=== PATIENT | female | born 1995 | race Caucasian/White ===

== ENCOUNTER 2023-10-21 09:52 | Outpatient (AMB) | payer OTHER, SELFPAY ==
--- NOTE | 2023-10-21 09:59 | A.OFFVIS_ITS ---
Intake Vital Signs 10/21/23 10:11 Height 5 ft 9 in Weight 231 lb 8 oz BMI 34.2 BP 108/72 Blood Pressure Location Lt brachial Position Sitting Respiration 18 Pulse 75 Pulse Source Pulse Oximeter Pulse Oximetry (%) 97 Oxygen Delivery Method Room Air Intake Visit Reasons: Neck, Shoulders and Upper Back Chronic Pain Intake Note: Patient comes in for initial visit was referred by primary care. Reports pain 4/10. Allergies No Known Allergies Allergy (Verified 10/21/23 10:01) HPI HPI Comments History of Present Illness Details Kay is very pleasant 28 years old female who presents in my office with chronic widespread neck pain as well as pain in the back of the head as well as pain in bilateral shoulders pain in bilateral side chest and pain in bilateral upper arms. 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 She reports her pain in severity 5/10. She can not sleep normally because of her pain she can not do activities of daily living she can take care by herself but she can not function normally. 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 She is self mobile. Movements aggravate her pain. Heat applications cold applications topical medications and oral medications help her pain minimally. The pain is worse in the late afternoon. Pain is less severe when she is laying down. In terms of tissue damage he reports her pain is pulsing, pulling, dull, heavy, exhausting, sickening, suffocating, punishing, radiating, tight sensation. She is taking gabapentin for her pain and she takes Cymbalta she is taking tramadol prescribed by primary care physician as needed. She was a subject of MRI of the cervical spine in 2019. She recently had x-ray of the cervical spine at [facility]. She reports that she was doing multiple sessions of many times physical therapy with 50% pain improvement the last physical therapy was 1 year ago. She reports chiropractic manipulations in 2020 which gave her no improvement. She reports that massage therapy also give her some sort of pain relief. She is tried 10s unit in the past and it gave her 25% short-term pain improvement. Her past medical history significant for headaches dizziness and fainting fatigues anxiety disorder heart palpitations and digestive problems. Her past surgical history significant for tonsillectomy and bilateral jaw arthroscopy. She denies smoking cigarettes, drinking alcohol also denied she drinks 1-2 caffeinated beverages a week she denies recreational drugs Review of Systems Const Denies chills and Denies fever(s) ENT Reports Normal hearing present Card Reports chest pain, Denies syncope, Denies pedal edema and Denies edema Resp Denies chest congestion, Denies cough, Denies hemoptysis, Denies excessive phlegm production, Denies pain on inspiration and Denies pain with cough GI Denies abdominal pain, Denies belching, Denies melena and Denies bloating Denies urinary incontinence Musc Reports as per HPI Neuro Reports Normal hearing present, Denies Abnormal speech present, Denies confusion, Denies syncope, Denies lack of coordination and Denies Sensory de ficit (Neuro) Psych Reports anxiety and Denies confusion Physical Exam Vital Signs: Last Vital Signs Pulse 75 10/21/23 10:11 Resp 18 10/21/23 10:11 BP 108/72 10/21/23 10:11 Pulse Ox 97 10/21/23 10:11 Oxygen Delivery Method Room Air 10/21/23 10:11 BMI result Body Mass Index 34.2 Const General: no acute distress; No confusion Orientation/consciousness: patient oriented x3 and No confusion Eyes General: appearance normal, both eyes and all related structures Pupils: Equal, round and reactive pupils present EOM: EOMs intact bilaterally Neck Other: Axial neck compression and axial neck distention minimal affects her pain. Flexing had backwards aggravate her pain more than flexing forward but both of t hese maneuvers aggravate her pain. Spurling test on the right causes pain radiating all the way down to the right upper extremity all the way to the index finger C7 distribution. Valsalva maneuver does not aggravate her pain. Chest Chest palpation & inspection: normal inspection of the chest Resp Effort & Inspection: normal respiratory effort, able to speak in complete sentences, normal respiratory pattern, no audible wheezes and no cough Cardio Jugular venous distension: no JVD GI Inspection: Yes normal to inspection Neuro General: patient oriented x3, gait normal and No confusion Cranial nerves: Yes CN's II-XII intact bilaterally, Yes Equal, round and reactive pupils present, Yes Normal hearing present and Yes Ability to bilaterally elevate shoulders present Speech: No Abnormal speech present Gait exam (Neuro): Normal gait present Motor exam (neuro): 5/5 motor strength present throughout Sensory Exam: No Sensory deficit (Neuro) Extrem General: No pedal edema Psych Speech and movement: Normal speech and movement present Affect: normal affect Attitude: cooperative Thought process: Normal thought process present Thought content: Normal thought content present Insight: Good insight present (Psych) Judgement: Good judgement present (Psych) Assessment & Plan Assessment & Plan (1) 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 (2) Occipital neuralgia: Code(s): M54.81 - Occipital neuralgia Plan: 2. (3) Chronic pain syndrome: Code(s): G89.4 - Chronic pain syndrome Plan: 3. (4) Meenakshi-Danlos syndrome: Code(s): Q79.60 - Meenakshi-Danlos syndrome, unspecified Plan: 4. Plan This patient had MRI about 5 years ago with symptoms of radiculopathy described as above I believe she needs to go for repeat of the MRI. She is suffering from occipital neuralgia and upper cervical spine spondylosis. I offered her diagnostic medial branch block C2-C3 C4 bilateral. She agreed to go for the procedure. I will schedule her for the procedure and next appointment with me I will schedule her for the follow-up after the injection. Multiple options could be offered to the patient to alleviate her cervical pain and occipital neuralgia including peripheral nerve stimulation, C2-C3 C4 steroid injections, sprint PNS lamina C3 or C4. Orders: Orders MR cervical spine wo con Today M47.812 - Spondylosis without myelopathy or radiculopathy, cervical region Patient Instructions: I here by testify that I spent 49 minutes in conversation with this patient as well as planning her care, organizing her note. 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
[2023-10-21 10:11] VITALS: BP 108/72; PULSE 75; RESP 18; O2SAT 97; BMI 34.2
== END 2023-10-21 10:39 | disposition home or self-care (01) ==
PROVIDERS: PCP Nurse Practitioner Family; Referring Provider Nurse Practitioner Family; Visit Provider Anesthesiology
DX: M47.812 Spondylosis without myelopathy or radiculopathy, cervical region (principal); M54.81 Occipital neuralgia; G89.4 Chronic pain syndrome; Q79.60 Ehlers-Danlos syndrome, unspecified
CPT/HCPCS: 99204

== ENCOUNTER → 2023-10-21 09:52 | Outpatient (BNVA) | payer OTHER, SELFPAY | PROVIDERS: PCP Nurse Practitioner Family; Referring Provider Nurse Practitioner Family; Visit Provider Anesthesiology ==

== ENCOUNTER 2023-11-15 20:08 | Outpatient (REF) | payer OTHER, SELFPAY ==
--- NOTE | ~2023-11-15 | MR_ITS ---
EXAMINATION: MR CERVICAL SPINE WITHOUT CONTRAST CLINICAL INFORMATION: 28-year-old with self-reported base of skull and neck pain, with bilateral arm numbness and tingling. Spondylosis without myelopathy or radiculopathy, cervical region. COMPARISON: None available. TECHNIQUE: MRI of the cervical spine was obtained using routine sequences without contrast. FINDINGS: ALIGNMENT: Normal. No significant subluxations. CRANIOCERVICAL JUNCTION/C1-C2 ARTICULATIONS: Intact and aligned. VISUALIZED INTRACRANIAL STRUCTURES: Partially empty sella, normal variant. VERTEBRAL BODIES: Vertebral body heights are well maintained. No acute or non-healed fractures. DISC SPACES AND ENDPLATES: Disc desiccation noted at C5-C6 and C6-C7 without significant disc space height loss. Minor anterior marginal endplate spurring at C5-C6. Endplates appear grossly intact. BONE MARROW: No suspicious marrow-replacing process or bone marrow edema. C2-C3: Normal annular contour. No DJD, canal or foraminal stenosis. C3-C4: No disc herniation or canal stenosis. No significant DJD or neural foraminal stenosis. C4-C5: Normal annular contour. Mild facet joint arthropathy noted, left more than right, and uncinate process spurring, with minor foraminal narrowing bilaterally without neural impingement. No canal stenosis. C5-C6: [id number]-[id number] paramedian extruded disc herniation with slight caudal migration, with effacement of the dural sac asymmetric to the left without cord compression. There is associated mild central canal narrowing asymmetric to the left. There is minor facet arthropathy bilaterally and uncinate process spurring with minimal right-sided and vqny-po-cmbivqrw left-sided neural foraminal narrowing without neural impingement. C6-C7: Left paramedian disc herniation noted with flattening of the ventral dural sac on the left without cord impingement. No significant canal stenosis. Mild facet joint arthropathy noted bilaterally and uncinate process spurring noted with mild right and moderate left-sided neural foraminal stenosis. C7-T1: Tiny central disc protrusion without cord impingement or canal stenosis. Minor facet joint arthropathy noted without significant neural foraminal stenosis. Central disc herniation also noted at T2-T3 without cord impingement or canal stenosis. SPINAL CORD: The cervical and visualized upper thoracic spinal cord is normal in morphology, caliber and signal intensity throughout. EXTRACRANIAL SOFT TISSUES: Incidental note is made of a 1.4 x 0.8 cm enlarged level IIb lymph node on the right of indeterminate significance. Signal voids are noted in the visualized major arterial and venous structures. MR/MR cervical spine wo con IMPRESSION: 1. Discogenic degenerative changes at C5-C6 and C6-C7, with central to left paramedian extruded disc herniation at C5-C6 and left paramedian disc herniation at C6-C7 without cord impingement. Mild central canal stenosis noted at C5-C6. 2. Ayzm-so-ifpwfxxr degrees of bony neural foraminal narrowing at C5-C6 and C6-C7 as discussed above, most apparent on the left at C6-C7. 3. Tiny central disc protrusions at C7-T1 and T2-T3. 4. A single enlarged level IIb lymph node in the right suprahyoid IJ chain, which is nonspecific. Follow up as per clinical indications.
== END 2023-11-15 20:09 | disposition home or self-care (01) ==
LOC: HO.MRI 20:08
PROVIDERS: PCP Internal Medicine; Visit Provider Anesthesiology
DX: M47.812 Spondylosis without myelopathy or radiculopathy, cervical region (principal)
CPT/HCPCS: 72141

== ENCOUNTER 2023-12-02 08:39 | Outpatient (AMB) | payer OTHER, SELFPAY ==
--- NOTE | 2023-12-02 08:40 | MHC.OFFVIS ---
Intake Vital Signs 12/02/23 08:55 Height 5 ft 9 in Weight 231 lb BMI 34.1 BP 124/64 Blood Pressure Location Lt brachial Position Sitting Respiration 16 Pulse 73 Pulse Source Pulse Oximeter Pulse Oximetry (%) 97 Oxygen Delivery Method Room Air Intake Visit Reasons: MRI Review Intake Note: Patient comes in to discuss MRI results. Reports pain 8/10. Allergies No Known Allergies Allergy (Verified 12/02/23 08:57) HPI HPI Comments History of Present Illness Details Mandi is very pleasant 28 years old female who presents in my office with chronic widespread neck pain as well as pain in the back of the head as well as pain in bilateral shoulders pain in bilateral side chest and pain in bilateral upper arms. 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 I sent her for the MRI of the cervical spine, results of the MRI dictated as below. She reports intractable cervicalgia pain 8/10, pain is being aggravated by working, prolonged sitting of the computer, her pain is mostly radiating to the occipital area and prevents her from performing activities of daily living, engaging in social interactions. I offered her sprint PNS trial to treat this pain. . Prolonged and detailed conversation followed, MRI findings were explained to the patient. Procedure was explained to the patient. She wants to think about the procedure brochure was given to the patient. Her past medical history significant for headaches dizziness and fainting fatigues anxiety disorder heart palpitations and digestive problems. Her past surgical history significant for tonsillectomy and bilateral jaw arthroscopy. She denies smoking cigarettes, drinking alcohol also denied she drinks 1-2 caffeinated beverages a week she denies recreational drugs Review of Systems Const All systems reviewed & are unremarkable except as noted in HPI and below ENT Reports Normal hearing present Neuro Reports Normal hearing present, Denies Abnormal speech present, Denies confusion and Denies Sensory deficit (Neuro) Psych Denies confusion Physical Exam Vital Signs: Last Vital Signs Pulse 73 12/02/23 08:55 Resp 16 12/02/23 08:55 BP 124/64 12/02/23 08:55 Pulse Ox 97 12/02/23 08:55 Oxygen Delivery Method Room Air 12/02/23 08:55 BMI result Body Mass Index 34.1 Const General: no acute distress; No confusion Orientation/consciousness: patient oriented x3 and No confusion Eyes General: appearance normal, both eyes and all related structures Pupils: Equal, round and reactive pupils present EOM: EOMs intact bilaterally Neck Other: Axial neck compression and axial neck distention minimal affects her pain. Flexing had backwards aggravate her pain more than flexing forward but both of these maneuvers aggravate her pain. Spurling test on the right causes pain radiating all the way down to the right upper extremity all the way to the index finger C7 distribution. Valsalva maneuver does not aggravate her pain. Chest Chest palpation & inspection: normal inspection of the chest Resp Effort & Inspection: normal respiratory effort, able to speak in complete sentences, normal respiratory pattern, no audible wheezes and no cough Cardio Jugular venous distension: no JVD GI Inspection: Yes normal to inspection Neuro General: patient oriented x3, gait normal and No confusion Cranial nerves: Yes CN's II-XII intact bilaterally, Yes Equal, round and reactive pupils present, Yes Normal hearing present and Yes Ability to bilaterally elevate shoulders present Speech: No Abnormal speech present Gait exam (Neuro): Normal gait present Motor exam (neuro): 5/5 motor strength present throughout Sensory Exam: No Sensory deficit (Neuro) Extrem General: No pedal edema Psych Speech and movement: Normal speech and movement present Affect: normal affect Attitude: cooperative Thought process: Normal thought process present Thought content: Normal thought content present Insight: Good insight present (Psych) Judgement: Good judgement present (Psych) Results Reviewed Results Reviewed: MRI cervical spine 11/13/2023 findings: ALIGNMENT: Normal. No significant subluxations. CRANIOCERVICAL JUNCTION/C1-C2 ARTICULATIONS: Intact and aligned. VISUALIZED INTRACRANIAL STRUCTURES: Partially empty sella, normal variant. VERTEBRAL BODIES: Vertebral body heights are well maintained. No acute or non-healed fractures. DISC SPACES AND ENDPLATES: Disc desiccation noted at C5-C6 and C6-C7 without significant disc space height loss. Minor anterior marginal endplate spurring at C5-C6. Endplates appear grossly intact. BONE MARROW: No suspicious marrow-replacing process or bone marrow edema. C2-C3: Normal annular contour. No DJD, canal or foraminal stenosis. C3-C4: No disc herniation or canal stenosis. No significant DJD or neural foraminal stenosis. C4-C5: Normal annular contour. Mild facet joint arthropathy noted, left more than right, and uncinate process spurring, with minor foraminal narrowing bilaterally without neural impingement. No canal stenosis. C5-C6: Ankyisw-to-tyys paramedian extruded disc herniation with slight caudal migration, with effacement of the dural sac asymmetric to the left without cord compression. There is associated mild central canal narrowing asymmetric to the left. There is minor facet arthropathy bilaterally and uncinate process spurring with minimal right-sided and jmtl-gs-ohfqlhbn left-sided neural foraminal narrowing without neural impingement. C6-C7: Left paramedian disc herniation noted with flattening of the ventral dural sac on the left without cord impingement. No significant canal stenosis. Mild facet joint arthropathy noted bilaterally and uncinate process spurring noted with mild right and moderate left-sided neural foraminal stenosis. C7-T1: Tiny central disc protrusion without cord impingement or canal stenosis. Minor facet joint arthropathy noted without significant neural foraminal stenosis. Central disc herniation also noted at T2-T3 without cord impingement or canal stenosis. SPINAL CORD: The cervical and visualized upper thoracic spinal cord is normal in morphology, caliber and signal intensity throughout. EXTRACRANIAL SOFT TISSUES: Incidental note is made of a 1.4 x 0.8 cm enlarged level IIb lymph node on the right of indeterminate significance. Signal voids are noted in the visualized major arterial and venous structures. IMPRESSION: 1. Discogenic degenerative changes at C5-C6 and C6-C7, with central to left paramedian extruded disc herniation at C5-C6 and left paramedian disc herniation at C6-C7 without cord impingement. Mild central canal stenosis noted at C5-C6. 2. Jmtk-po-mehavmix degrees of bony neural foraminal narrowing at C5-C6 and C6-C7 as discussed above, most apparent on the left at C6-C7. 3. Tiny central disc protrusions at C7-T1 and T2-T3. 4. A single enlarged level IIb lymph node in the right suprahyoid IJ chain, which is nonspecific. Follow up as per clinical indications. 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 (2) Occipital neuralgia: Code(s): M54.81 - Occipital neuralgia Plan: 2. (3) Chronic pain syndrome: Code(s): G89.4 - Chronic pain syndrome Plan: 3. (4) Meenakshi-Danlos syndrome: Code(s): Q79.60 - Meenakshi-Danlos syndrome, unspecified Plan: 4. (5) Intractable back pain: Code(s): M54.9 - Dorsalgia, unspecified (6) Degeneration, intervertebral disc, cervical: Code(s): M50.30 - Other cervical disc degeneration, unspecified cervical region Plan The findings on MRI are nonspecific, disc protrusions do not result in nerve root compression and spinal cord compression. The finding of the para hyoid a lymph node is nonspecific patient does not complain on any pain or difficulty swallowing. Most of her pain is cervicalgia and occipital neuralgia. The pain is very severe and interferes with mobility and social interaction. It prevents her from performing her job duties. I offered her sprint PNS to treat intractable cervical pain. She wants to think about the procedure PNS sprint brochure was given to the patient. Patient Instructions: I here by testify that I spent 32 minutes in conversation with this patient as well as planning her care evaluating her prior records and diagnostic studies and organizing this note. 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
[2023-12-02 08:55] VITALS: BP 124/64; PULSE 73; RESP 16; O2SAT 97; BMI 34.1
== END 2023-12-02 09:09 | disposition home or self-care (01) ==
PROVIDERS: PCP Internal Medicine; Visit Provider Anesthesiology
DX: M47.812 Spondylosis without myelopathy or radiculopathy, cervical region (principal); M54.81 Occipital neuralgia; G89.4 Chronic pain syndrome; Q79.60 Ehlers-Danlos syndrome, unspecified; M54.9 Dorsalgia, unspecified; M50.30 Other cervical disc degeneration, unspecified cervical region
CPT/HCPCS: 99214

== ENCOUNTER → 2023-12-02 08:39 | Outpatient (BNVA) | payer OTHER, SELFPAY | PROVIDERS: PCP Internal Medicine; Visit Provider Anesthesiology ==

== ENCOUNTER 2024-03-21 06:04 | Outpatient (REF) | payer OTHER, SELFPAY ==
--- NOTE | ~2024-03-21 | FL_ITS ---
EXAMINATION: XR FLUOROSCOPY WITH IMAGES CLINICAL INFORMATION: Cervical spondylosis. COMPARISON: None available. TECHNIQUE: Fluoroscopy Supervised By: Dr. Grajeda. Fluoroscopy Time: 0.3 min. Cumulative Dose: 1.88 mGy. DAP: 0.0327 Gycm2. Images: 2. FINDINGS: Intraoperative fluoroscopy and spot films were performed during a procedure in the OR. A catheter is seen placed on the right side of the cervical spine. Single view does not allow for accurate positioning. Please correlate with Dr. Grajeda's report for complete details. FL/FL guidance in treatment room IMPRESSION: Intraoperative fluoroscopy and spot films were obtained. Please see Dr. Grajeda's report for complete details.
== END 2024-03-21 06:05 | disposition home or self-care (01) ==
LOC: CF 06:04
PROVIDERS: Visit Provider Anesthesiology
DX: M47.812 Spondylosis without myelopathy or radiculopathy, cervical region (principal); M54.81 Occipital neuralgia; G89.4 Chronic pain syndrome; Q79.60 Ehlers-Danlos syndrome, unspecified
CPT/HCPCS: 64555; C1778

== ENCOUNTER 2024-03-21 07:49 | Outpatient (AMB) | payer OTHER, SELFPAY ==
--- OUTSIDE RECORDS SUMMARY | 2024-03-21 07:51 | XMS_ITS | Continuity of Care Document ---
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 Name Role Phone Rodriguez BUSH, Patricia Barfield Primary Care Physician [phone] Encounter [facility] [place] Date(s): 06/30/22 - 07/30/22 [facility] [address] [facility], [address]th [place] [address]- Allergies, Adverse Reactions, Alerts Substance Reaction Severity Status Bananas Active Immunizations Given and Recorded Vaccine Date Status Refusal Reason SARS-CoV-2 mRNA ([id number]) vax 01/16/22 Recorded influenza virus vaccine, inactivated 07/07/21 Buster rded SARS-CoV-2 (COVID-19) mRNA BNT-162b2 vac 06/28/21 Recorded SARS-CoV-2 (COVID-19) mRNA BNT-162b2 vac 09/27/20 Recorded tetanus/diphtheria/pertussis, acel(Tdap) 04/13/21 Recorded Medications busPIRone 10 mg oral tablet 10 mg, 1, tablet, By Mouth, Daily at supper, # 90 tablet, Refills 3, Tot. Refills 3, Maintenance, 10/28/21 15:45:00 EST, Route to Pharmacy Electronically, [facility], Partial fill upon patient request if the prescription is for a schedul... Start Date: 10/28/21 Status: Ordered Emgality Prefilled Pen 120 mg/mL subcutaneous solution = 120 mg, Subcutaneous Infusion, Every 28 days, Use one autoinjector once per month. Rotate injection sites., # 1 each, 3 Refills, Maintenance, 03/18/22 23:41:00 EDT, [facility], Partial fill upon patient request if the prescription is f... Start Date: 03/18/22 Status: Ordered Flonase Allergy Relief Daily, 0 Refills, Maintenance, 02/26/22 16:11:00 EDT, Partial fill upon patient request if the prescription is for a schedule II opioid drug. Start Date: 02/26/22 Status: Ordered gabapentin 300 mg oral capsule 300 mg, 1, capsule, By Mouth, Daily at bedtime, # 30 capsule, Refills 1, Tot. Refills 1, Maintenance, 06/16/22 10:57:00 EDT, Route to Pharmacy Electronically, [facility], Partial fill upon patient request if the prescription is for a chelsi... Start Date: 06/16/22 Status: Ordered 10/09 oral tablet 1 tablet, By Mouth, Daily, take one tablet daily, omitting placebo to manage dysmenorrhea., # 90 tablet, 4 Refills, Maintenance, 11/21/21 8:35:00 EST, Tablet, [facility], Partial fill upon patient request if the prescription is for a chelsi... Start Date: 11/21/21 Stop Date: 07/02/23 Status: Ordered Lexapro 20 mg oral tablet 1 tablet = 20 mg, By Mouth, Daily, # 90 tablet, 3 Refills, Maintenance, 08/08/21 10:20:00 EST, Tablet, [facility], Partial fill upon patient request if the prescription is for a schedule II opioid drug., 175, cm, 08/08/21 9:49:00 EST, He... Start Date: 08/08/21 Status: Ordered loratadine 10 mg oral tablet 10 mg, 1, tablet, By Mouth, Daily, prn for seasonal allergies, Refills 0, Maintenance, 11/17/21 16:01:00 EST, Partial fill upon patient request if the prescription is for a schedule II opioid drug. Start Date: 11/17/21 Status: Ordered midodrine 5 mg oral tablet 5 mg, 1, tablet, By Mouth, 3 times a day, Take one tablet in AM upon waking and then repeat every 4hr for 2 additional doses. Last dose no later than 6PM, # 270 tablet, Refills 2, Tot. Refills 2, Maintenance, 01/06/22 13:17:00 EDT, Route to Pharmacy... Start Date: 01/06/22 Stop Date: 10/03/22 Status: Ordered pantoprazole 20 mg oral delayed release tablet 2 tablet, By Mouth, 2 times a day, # 120 tablet, 2 Refills, 175, cm, 02/26/22 16:08:00 EDT, Height Start Date: 04/13/22 Status: Ordered propranolol 120 mg oral capsule, extended release 1 capsule = 120 mg, By Mouth, Daily, # 30 capsule, 11 Refills, Maintenance, 01/08/22 11:38:00 EDT, ER Capsule, [facility], Partial fill upon patient request if the prescription is for aschedule II opioid drug., 175, cm, 12/30/21 8:55:00... Start Date: 01/08/22 Status: Ordered Vitamin D3 1000 intl units oral capsule 1 capsule = 25 mcg, By Mouth, Daily, 0 Refills, Maintenance, 05/13/21 7:54:00 EDT, Partial fill upon patient request if the prescription is for a schedule II opioid drug. 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
--- OUTSIDE RECORDS SUMMARY | 2024-03-21 07:51 | XMS_ITS | Continuity of Care Document ---
Author Organization [facility] Address [address] [place] [address]- Care Team Providers Care Physiological Chemist Name Role Phone Lidya Zarate MD, V Primary Care Physician [phone] Encounter [facility] [place] Date(s): 01/24/24 - 02/23/24 [facility] [address] [place] [address]- [place] Allergies, Adverse Reactions, Alerts Substance Reaction Severity Status Bananas Active Immunizations Given and Recorded Vaccine Date Status Refusal Reason influenza virus vaccine, inactivated 07/02/23 Buster rded influenza virus vaccine, inactivated 07/16/22 Buster rded influenza virus vaccine, inactivated 07/07/21 Buster rded SARS-CoV-2 mRNA ([id number]) vax 01/16/22 Recorded SARS-CoV-2 (COVID-19) mRNA BNT-162b2 vac 06/28/21 Recorded SARS-CoV-2 (COVID-19) mRNA BNT-162b2 vac 09/27/20 Recorded tetanus/diphtheria/pertussis, acel(Tdap) 04/13/21 Recorded Medications busPIRone 15 mg oral tablet 1 tablet = 15 mg, By Mouth, 2 times a day, 0 Refills, Maintenance, 10/12/23 16:03:00 EST, Partial fill upon patient request if the prescription is for a schedule II opioid drug. Start Date: 10/12/23 Status: Ordered Corlanor 5 mg oral tablet 1 tablet, By Mouth, 2 times a day with meals, # 180 tablet, 1 Refills, Maintenance, 01/19/24 12:57:00 EDT, [facility], 174.6, cm, 12/27/23 12:55:00 EDT, Height, 105.3, kg, 06/30/23 9:52:00 EDT, Dry Weight Start Date: 01/19/24 Status: Ordered Cymbalta 30 mg oral enteric coated capsule 1 capsule = 30 mg, By Mouth, 2 times a day, 0 Refills, Maintenance, 06/10/23 14:54:00 EDT, Partial fill upon patient request if the prescription is for a schedule II opioid drug. Start Date: 06/10/23 Status: Ordered Flonase Allergy Relief Daily, 0 Refills, Maintenance, 02/26/22 16:11:00 EDT, Partial fill upon patient request if the prescription is for a schedule II opioid drug. Start Date: 02/26/22 Status: Ordered gabapentin 300 mg oral capsule 1, capsule, By Mouth, Daily at bedtime, # 90 capsule, Refills 1, Maintenance, 11/04/23 8:11:00 EST,Route to Pharmacy Electronically, [facility], 174.6, cm, 10/12/23 15:43:00 EST, Height, 105.3, kg, 06/30/23 9:52:00 EDT, Dry Weight Start Date: 11/04/23 Status: Ordered indomethacin 25 mg oral capsule 1 capsule = 25 mg, By Mouth, 2 times a day, PRN Pain , Moderate, # 60 capsule, 1 Refills, Maintenance, 10/20/22 14:01:00 EST, [facility], Partial fill upon patient request if the prescription is for a schedule II opioid drug., 175, cm, 1... Start Date: 10/20/22 Status: Ordered Junel Fe 10/09 oral tablet See Instructions, TAKE 1 TABLET BY MOUTH EVERY DAY. SKIP PLACEBO TABLETS AND START NEXT PACK TO MANAGE PAINFUL PERIODS, # 84 tablet, 5 Refills, Maintenance, 02/02/24 8:05:00 EDT, [facility], 63, TAKE 1 TABLET BY MOUTH EVERY DAY. SKIP PLACEBO TA... 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 Start Date: 02/09/23 Status: Ordered pantoprazole 20 mg oral delayed release tablet 1 tablet, By Mouth, 2 times a day, # 60 tablet, 2 Refills, Maintenance, 01/04/24 15:30:00 EDT, 174.6, cm, 12/27/23 12:55:00 EDT, Height, 105.3, kg, 06/30/23 9:52:00 EDT, Dry Weight Start Date: 01/04/24 Status: Ordered propranolol 120 mg oral capsule, extended release 1 capsule, By Mouth, Daily, # 90 capsule, 0 Refills, Maintenance, 12/15/23 7:47:00 EDT, [facility], 174.6, cm, 10/12/23 15:43:00 EST, Height, 105.3, kg, 06/30/23 9:52:00 EDT, Dry Weight Start Date: 12/15/23 Status: Ordered traMADol 50 mg oral tablet 1 tablet = 50 mg, By Mouth, Every 12 hours, PRN as needed for pain, # 6 tablet, 0 Refills, Maintenance, 10/12/23 17:34:00 EST, Tablet, [facility], Partial fill upon patient request if the prescription is for a schedule II opioid drug., 1... 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
--- OUTSIDE RECORDS SUMMARY | 2024-03-21 07:51 | XMS_ITS | Continuity of Care Document ---
Author Organization [facility] Address [address] [place] [address]- Care Team Providers Care Rn Diabetes Educator Name Role Phone Elliot DOMINGUEZ, Lidya Leos Primary Care Physician [place] [facility] [place]/13/[place] - 08/11/23 [facility] [address] [place], [place] [address] Attending Physician: Lidya Zarate MD, V Allergies, Adverse Reactions, Alerts Substance Reaction Severity Status Bananas Active Immunizations Given and Recorded Vaccine Date Status Refusal Reason SARS-CoV-2 mRNA ([id number]) vax 01/16/22 Recorded influenza virus vaccine, inactivated 07/07/21 Buster rded SARS-CoV-2 (COVID-19) mRNA BNT-162b2 vac 06/28/21 Recorded SARS-CoV-2 (COVID-19) mRNA BNT-162b2 vac 09/27/20 Recorded tetanus/diphtheria/pertussis, acel(Tdap) 04/13/21 Recorded Medications busPIRone 10 mg oral tablet 10 mg, 1, tablet, By Mouth, [facility], # 90 tablet, Refills 1, Tot. Refills 1, Maintenance, 11/27/22 16:04:00 EST, Route to Pharmacy Electronically, [facility], Partial fill upon patient request if the prescription is for a schedul... Start Date: 11/27/22 Stop Date: 05/26/23 Status: Ordered Corlanor 5 mg oral tablet 1 tablet = 5 mg, By Mouth, 2 times a day with meals, # 180 tablet, 1 Refills, Maintenance, 06/09/2311:50:00 EDT, Tablet, [facility], Partial fill upon patient request if the prescription is for a schedule II opioid drug., 174.6, cm, ... Start Date: 06/09/23 Stop Date: 12/06/23 Status: Ordered cyclobenzaprine 10 mg oral tablet 10 mg, 1, tablet, By Mouth, Daily at supper, # 30 tablet, Refills 1, Tot. Refills 1, Maintenance, 02/04/23 10:40:00 EDT, Route to Pharmacy Electronically, [facility], Partial fill upon patient request if the prescription is for a schedul... Start Date: 02/04/23 Status: Ordered Cymbalta 30 mg oral enteric coated capsule 1 capsule = 30 mg, By Mouth, 2 times a day, 0 Refills, Maintenance, 06/10/23 14:54:00 EDT, Partial fill upon patient request if the prescription is for a schedule II opioid drug. Start Date: 06/10/23 Status: Ordered Emgality Prefilled Pen 120 mg/mL subcutaneous solution See Instructions, INJECT THE CONTENTS OF 1 PEN (120 MG) SUBCUTANEOUSLY EVERY 28 DAYS. ROTATE INJECTION SITES., # 1 mL, 6 Refills, Maintenance, 03/18/23 18:14:00 EDT, [facility], 177, cm, 03/17/23 8:09:00 EDT, Height, 104.3, kg, 12/29/22 16:45:0... Start Date: 03/18/23 Status: Ordered Flonase Allergy Relief Daily, 0 Refills, Maintenance, 02/26/22 16:11:00 EDT, Partial fill upon patient request if the prescription is for a schedule II opioid drug. Start Date: 02/26/22 Status: Ordered gabapentin 300 mg oral capsule See Instructions, TAKE 1 CAPSULE BY MOUTH EVERY DAY AT BEDTIME, # 90 capsule, Refills 1, Maintenance, 05/17/23 11:47:00 EDT, Instructions Replace Required Details, Route to Pharmacy Electronically, [facility], 174.6, cm, 04/29/23 15:52:00 EDT,... Start Date: 05/17/23 Status: Ordered indomethacin 25 mg oral capsule 1 capsule = 25 mg, By Mouth, 2 times a day, PRN Pain , Moderate, # 60 capsule, 1 Refills, Maintenance, 10/20/22 14:01:00 EST, [facility], Partial fill upon patient request if the prescription is for a schedule II opioid drug., 175, cm, 1... Start Date: 10/20/22 Status: Ordered Junel Fe 10/09 oral tablet See Instructions, TAKE 1 TABLET BY MOUTH EVERY DAY. SKIP PLACEBO TABLETS AND START NEXT PACK TO MANAGE PAINFUL PERIODS, # 84 tablet, 5 Refills, Maintenance, 12/31/22 8:06:00 EDT, [facility], 63, TAKE 1 TABLET BY MOUTH EVERY DAY. SKIP PLACEBO TA... Start Date: 12/31/22 Status: Ordered Lexapro 20 mg oral tablet 1 tablet = 20 mg, By Mouth, Daily, # 90 tablet, 3 Refills, Maintenance, 08/14/22 15:44:00 EST, Tablet, [facility], Partial fill upon patient request if the prescription is for a schedule II opioid drug., 175, cm, 08/14/22 14:57:00 EST, H... 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 Start Date: 02/09/23 Status: Ordered pantoprazole 20 mg oral delayed release tablet 2 tablet, By Mouth, 2 times a day, # 120 tablet, 2 Refills, Maintenance, 04/12/23 10:16:00 EDT, 174.6, cm, 04/12/23 9:09:00 EDT, Height, 105.6, kg, 04/12/23 9:09:00 EDT, Dry Weight Start Date: 04/12/23 Status: Ordered propranolol 120 mg oral capsule, extended release 1 capsule = 120 mg, By Mouth, Daily, # 90 capsule, 0 Refills, Maintenance, 06/09/23 11:50:00 EDT, [facility], Partial fill upon patient request if the prescription is for a schedule II opioid drug., 174.6, cm, 04/29/23 15:52:00 EDT, Heig... Start Date: 06/09/23 Stop Date: 09/07/23 Status: Ordered Vitamin D3 1000 intl units oral capsule 1 capsule = 25 mcg, By Mouth, Daily, 0 Refills, Maintenance, 05/13/21 7:54:00 EDT, Partial fill upon patient request if the prescription is for a schedule II opioid drug. Start Date: 05/13/21 Status: Ordered ZyrTEC 10 mg oral tablet 1 tablet = 10 mg, By Mouth, Daily, # 30 tablet, 0 Refills, Maintenance, 08/14/22 15:02:00 EST, Tablet, Partial fill upon patient request if the prescription is for a schedule II opioid drug. 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 Physician - Primary Care Member Role: PCP Address: Address: [address] [place] [address]- Care Team Related Persons Name: MURPHY FUNES Address: home [address] [place] [address]
--- OUTSIDE RECORDS SUMMARY | 2024-03-21 07:52 | XMS_ITS | Continuity of Care Document ---
Author Organization [facility] Address [address] [place] [address], [address] [place] [address]- Care Team Providers Care Direct Entry Midwife Name Role Phone Elliot DOMINGUEZ, Lidya Leos Primary Care Physician Encounter [facility] [place] Date(s): 12/15/23 - 01/14/24 [facility] [address] [facility], [address] [place] [address]- Allergies, Adverse Reactions, Alerts Substance Reaction Severity Status Bananas Active Immunizations Given and Recorded Vaccine Date Status Refusal Reason influenza virus vaccine, inactivated 07/02/23 Buster rded influenza virus vaccine, inactivated 07/16/22 Buster rded influenza virus vaccine, inactivated 07/07/21 Buster rded SARS-CoV-2 mRNA ([id number]) vax 01/16/22 Recorded SARS-CoV-2 (COVID-19) mRNA BNT-162b2 [...] tablet, 1 Refills, Maintenance, 06/09/2311:50:00 EDT, Tablet, [facility], Partial fill upon patient request if the prescription is for a schedule II opioid drug., 174.6, cm, 08/... Start Date: 06/09/23 Stop Date: 12/06/23 Status: Ordered Cymbalta 30 mg oral enteric [...] Maintenance, 11/04/23 8:11:00 EST,Route to Pharmacy Electronically, [facility], 174.6, cm, 10/12/23 15:43:00 EST, Height, 105.3, kg, 06/30/23 9:52:00 EDT, Dry Weight Start Date: 11/04/23 Status: Ordered indomethacin 25 mg oral capsule 1 capsule = 25 mg, By Mouth, 2 times a day, PRN Pain , Moderate, # 60 capsule, 1 Refills, Maintenance, 10/20/22 14:01:00 EST, [facility], Partial fill upon patient request if the prescription is for a schedule II opioid drug., 175, cm, 1... Start Date: 10/20/22 Status: Ordered 10/09 oral tablet See Instructions, TAKE 1 TABLET BY MOUTH EVERY DAY. SKIP PLACEBO TABLETS AND START NEXT PACK TO MANAGE PAINFUL PERIODS, # 84 tablet, 5 Refills, Maintenance, 12/31/22 8:06:00 EDT, [facility], 63, TAKE 1 TABLET BY MOUTH EVERY DAY. SKIP PLACEBO TA... 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, # 1 kit, 3 Refills, Maintenance, 02/09/23 9:38:00 EDT, [facility], Partial fill upon patient [...] capsule, 0 Refills, Maintenance, 12/15/23 7:47:00 EDT, [facility], 174.6, cm, 10/12/23 15:43:00 EST, Height, 105.3, kg, 06/30/23 9:52:00 EDT, Dry Weight Start Date: 12/15/23 Status: Ordered traMADol 50 mg oral tablet 1 tablet = 50 mg, By Mouth, Every 12 hours, PRN as needed for pain, # 6 tablet, 0 Refills, Maintenance, 10/12/23 17:34:00 EST, Tablet, [facility], Partial fill upon patient [...] Care Team Personnel Name: Elliot DOMINGUEZ, Lidya Cross: [facility] Physician - Primary Care Member Role: PCP Address: Address: [address] [place] [phone]- Care Team Related Persons Name: MURPHY FUNES Address: home [address] [place] [address]
--- OUTSIDE RECORDS SUMMARY | 2024-03-21 07:52 | XMS_ITS | Continuity of Care Document ---
Author Organization [facility] [employer] Address [address] [place] [address], [address] [place] [address]- Care Team Providers Care Epic Specialist Name Role Phone Rodriguez BUSH, Patricia Barfield Primary Care Physician [place] [facility] [place](s): 09/03/22 - 10/03/22 [facility] Jaydes [facility] [address], [address] [place], [place] [address] Attending Physician: Admtr, Ar8 Admitting Physician: Admtr, Ar8 Referring Physician: Admtr, Ar8 Allergies, Adverse Reactions, Alerts Substance Reaction Severity Status Bananas Active Immunizations Given and Recorded Vaccine Date Status Refusal Reason SARS-CoV-2 mRNA ([id number]) vax 01/16/22 Recorded influenza virus vaccine, inactivated 07/07/21 Buster rded SARS-CoV-2 (COVID-19) mRNA BNT-162b2 vac 06/28/21 Recorded SARS-CoV-2 (COVID-19) mRNA BNT-162b2 vac 09/27/20 Recorded tetanus/diphtheria/pertussis, acel(Tdap) 04/13/21 Recorded Medications busPIRone 10 mg oral tablet 10 mg, 1, tablet, By Mouth, Daily at supper, # 90 tablet, Refills 3, Tot. Refills 3, Maintenance, 10/28/21 15:45:00 EST, Route to Pharmacy Electronically, [facility], Partial fill upon patient request if the prescription is for a schedul... Start Date: 10/28/21 Status: Ordered Emgality Prefilled Pen 120 mg/mL subcutaneous solution = 120 mg, Subcutaneous Infusion, Every 28 days, Use one autoinjector once per month. Rotate injection sites., # 1 each, 6 Refills, Maintenance, 08/06/22 20:26:00 EST, [facility], Partial fill upon patient request if the prescription is f... Start Date: 08/06/22 Status: Ordered Flonase Allergy Relief Daily, 0 Refills, Maintenance, 02/26/22 16:11:00 EDT, Partial fill upon patient request if the prescription is for a schedule II opioid drug. Start Date: 02/26/22 Status: Ordered gabapentin 300 mg oral capsule 1, capsule, By Mouth, Daily at bedtime, # 30 capsule, Refills 1, Maintenance, 09/16/22 14:03:00 EST, Route to Pharmacy Electronically, [facility], 175, cm, 09/03/22 14:39:00 EST, Height, 108, kg, 07/29/22 18:14:00 EST, Dry Weight Start Date: 09/16/22 Status: Ordered June10/09 oral tablet 1 tablet, By Mouth, Daily, take one tablet daily, omitting placebo to manage dysmenorrhea., # 90 tablet, 4 Refills, Maintenance, 11/21/21 8:35:00 EST, Tablet, [facility], Partial fill upon patient request if the prescription is for a chelsi... Start Date: 11/21/21 Stop Date: 07/02/23 Status: Ordered Lexapro 20 mg oral tablet 1 tablet = 20 mg, By Mouth, Daily, # 90 tablet, 3 Refills, Maintenance, 08/14/22 15:44:00 EST, Tablet, [facility], Partial fill upon patient request if the prescription is for a schedule II opioid drug., 175, cm, 08/14/22 14:57:00 EST, H... Start Date: 08/14/22 Status: Ordered lidocaine 5% topical ointment 1 application, Topically, 3 times a day, # 50 Gm, 0 Refills, Maintenance, 08/31/22 13:19:00 EST, Ointment, [facility], Partial fill upon patient request if the prescription is for a schedule II opioid drug., 1 application Topically 3 go... Start Date: 08/31/22 Stop Date: 09/14/22 Status: Ordered midodrine 5 mg oral tablet [...] Refills, Maintenance, 01/08/22 11:38:00 EDT, ER Capsule, [facility], Partial fill upon patient request if [...] Confirmed Active Migraine Confirmed Active Obese class I Confirmed Active Encounter for Papanicolaou smear of [...] Associate Professional Member Role: PCP Address: Address: [address] [place] [address] [place] [address]- Care Team Related Persons Name: FUNES, SUSAN Address: [address] [address]
--- OUTSIDE RECORDS SUMMARY | 2024-03-21 07:52 | XMS_ITS | Continuity of Care Document ---
Author Organization [facility] Address [address] [place] [address]- Care Team Providers Care Report Manager Name Role Phone Allie DOMINGUEZ, Vik Joaquin Primary Care Physician [place] [facility] [place] - 02/01/[address] [address] Attending Physician: Admtr, Bryan Admitting Physician: Admtr, Bj8 Referring Physician: Admtr, Ar8 Allergies, Adverse Reactions, Alerts Substance Reaction Severity Status Bananas Active Immunizations Given and Recorded Vaccine Date Status Refusal Reason influenza virus vaccine, inactivated 07/07/21 Buster rded SARS-CoV-2 (COVID-19) mRNA BNT-162b2 vac 06/28/21 Recorded SARS-CoV-2 (COVID-19) mRNA BNT-162b2 vac 09/27/20 Recorded tetanus/diphtheria/pertussis, acel(Tdap) 04/13/21 Recorded Medications Emgality Prefilled Pen 120 mg/mL subcutaneous solution = 120 mg, Subcutaneous Infusion, Every 28 days, 0 Refills, Maintenance, 05/13/21 7:55:00 EDT, Partial fill upon patient request if the prescription is for a schedule II opioid drug. Start Date: 05/13/21 Status: Ordered 10/09 oral tablet 1 tablet, By Mouth, Daily, take one tablet daily, omitting placebo to manage dysmenorrhea., # 90 tablet, 4 Refills, Maintenance, 11/21/21 8:35:00 EST, Tablet, [facility], Partial fill upon patient request if the prescription is for a chelsi... Start Date: 11/21/21 Stop Date: 07/02/23 Status: Ordered loratadine 10 mg oral tablet [...] pantoprazole 20 mg oral delayed release tablet See Instructions, 2 tablet By Mouth in the AM and one in evening, # 90 each, 2 Refills, Maintenance, 08/21/21 9:35:00 EST, EC Tablet, 175, cm, 08/21/21 8:52:00 EST, Height Start Date: 08/21/21 Status: Ordered propranolol 120 mg oral capsule, extended release 1 capsule = 120 mg, By Mouth, Daily, # 30 capsule, 11 Refills, Maintenance, 01/08/22 11:38:00 EDT, ER Capsule, [facility], Partial fill upon patient request [...] Date: 05/13/21 Status: Ordered Problem List Condition Effective Dates Status Health Status Inform ant Allergy(Confirmed) Active Anxiety(Confirmed) Active Pseudotumor cerebri(Confirmed) Active Esophageal dyskinesia(Confirmed) Active GERD with esophagitis(Confirmed) Active Migraine(Confirmed) Active Obese class I(Confirmed) Active Encounter for Papanicolaou s mear of cervix(Confirmed) Active POTS (postural orthostatic t achycardia syndrome)(Confirmed) Active Sleep disorder(Confirmed) Active Persistent moderate somatic symptom disorder with predominant pain(Confirmed) Active Subclinical hypothyroidism(Confirmed) Active Social History Social History Type Response Smoking Status Never (less than 100 in lifetime) entered on: 06/04/21 Sex
--- OUTSIDE RECORDS SUMMARY | 2024-03-21 07:52 | XMS_ITS | Continuity of Care Document ---
Author Organization [facility] Address [address] [place] [address]- Care Team Providers Care Choirmaster Name Role Phone Rodriguez BUSH, Patricia Barfield Primary Care Physician Encounter [facility] Date(s): 11/19/22 - 12/19/22 [facility] [address] [place] [address]- Allergies, Adverse Reactions, Alerts Substance Reaction Severity Status Bananas Active Immunizations Given and Recorded Vaccine Date Status Refusal Reason SARS-CoV-2 mRNA (heketov-phtu-bbtsd) vax 01/16/22 Recorded influenza virus vaccine, inactivated 07/07/21 Buster rded SARS-CoV-2 (COVID-19) mRNA BNT-162b2 vac 06/28/21 Recorded SARS-CoV-2 (COVID-19) mRNA BNT-162b2 vac 09/27/20 Recorded tetanus/diphtheria/pertussis, acel(Tdap) 04/13/21 Recorded Medications busPIRone 10 mg oral tablet 10 mg, 1, tablet, By Mouth, Daily at supper, # 90 tablet, Refills 1, Tot. Refills 1, Maintenance, 11/27/22 16:04:00 EST, Route to Pharmacy Electronically, [facility], Partial fill upon patient request if the prescription is for a schedul... Start Date: 11/27/22 Stop Date: 05/26/23 Status: Ordered Emgality Prefilled Pen 120 mg/mL subcutaneous solution = 120 mg, Subcutaneous Infusion, Every 28 days, Use one autoinjector once per month. Rotate injection sites., # 1 each, 6 Refills, Maintenance, 08/06/22 20:26:00 EST, [facility], Partial fill upon patient request if the prescription is f... Start Date: 08/06/22 Status: Ordered Flexeril 10 mg oral tablet 10 mg, By Mouth, 3 times a day, Refills 0, Maintenance, 11/03/22 8:34:00 EST, Partial fill upon patient request if the prescription is for a schedule II opioid drug. Start Date: 11/03/22 Status: Ordered Flonase Allergy Relief Daily, 0 Refills, Maintenance, 02/26/22 16:11:00 EDT, Partial fill upon patient request if the prescription is for a schedule II opioid drug. Start Date: 02/26/22 Status: Ordered gabapentin 300 mg oral capsule 1, capsule, By Mouth, Daily at bedtime, # 90 capsule, Refills 1, Tot. Refills 1, Maintenance, 11/19/22 13:17:00 EST, Route to Pharmacy Electronically, [facility], 177, cm, 11/03/22 8:32:00 EST, Height, 106.8, kg, 11/03/22 8:32:00 EST, . Start Date: 11/19/22 Status: Ordered indomethacin 25 mg oral capsule 1 capsule = 25 mg, By Mouth, 2 times a day, PRN Pain , Moderate, # 60 capsule, 1 Refills, Maintenance, 10/20/22 14:01:00 EST, [facility], Partial fill upon patient request if the prescription is for a schedule II opioid drug., 175, cm, 1... Start Date: 10/20/22 Status: Ordered Junel Fe 10/09 oral tablet 1 tablet, By Mouth, Daily, take one tablet daily, omitting placebo to manage dysmenorrhea., # 84 tablet, 5 Refills, Maintenance, 07/02/23 8:35:00 EDT, Tablet, [facility], Partial fill upon patient request if the prescription is for a chelsi... Start Date: 07/02/23 Status: Ordered Lexapro 20 mg oral tablet 1 tablet = 20 mg, By Mouth, Daily, # 90 tablet, 3 Refills, Maintenance, 08/14/22 15:44:00 EST, Tablet, [facility], Partial fill upon patient request if the prescription is for a schedule II opioid drug., 175, cm, 08/14/22 14:57:00 EST, H... Start Date: 08/14/22 Status: Ordered midodrine 5 mg oral tablet [...] 20 mg oral delayed release tablet 1 tablet = 20 mg, By Mouth, 2 times a day, # 120 tablet, 2 Refills, Maintenance, 10/16/22 11:15:00 EST, 175, cm, 09/03/22 14:39:00 EST, Height, 108, kg, 07/29/22 18:14:00 EST, Dry Weight Start Date: 10/16/22 Status: Ordered propranolol 120 mg oral capsule, extended release 1 capsule = 120 mg, By Mouth, Daily, # 30 capsule, 11 Refills, Maintenance, 01/08/22 11:38:00 EDT, ER Capsule, [facility], Partial fill upon patient request [...] Associate Professional Member Role: PCP Address: Address: [address] [place] [address] [place] [address]- Care Team Related Persons Name: MURPHY FUNES Address: home [address] [place] [address]
--- OUTSIDE RECORDS SUMMARY | 2024-03-21 07:52 | XMS_ITS | Continuity of Care Document ---
Author Organization [facility] Address [address] [place] [address]- Care Team Providers Care Shipping Inspector Name Role Phone Patricia Frias NP Primary Care Physician [phone] Encounter [facility] [place] Date(s): 02/26/22 - 03/28/22 [facility] [address] [place] [address]- Attending Physician: Bryan Muniz Admitting Physician: Bryan Muniz Referring Physician: AdmtrBryan Allergies, Adverse Reactions, Alerts Substance Reaction Severity [...] each, 3 Refills, Maintenance, 03/18/22 23:41:00 EDT, [facility], Partial fill upon patient request if the prescription is f... Start Date: 03/18/22 Status: Ordered Flonase Allergy Relief Daily, 0 Refills, Maintenance, 02/26/22 16:11:00 EDT, Partial fill upon patient request if the prescription is for a schedule II opioid drug. Start Date: 02/26/22 Status: Ordered 10/09 oral tablet 1 tablet, By Mouth, Daily, take one tablet daily, omitting placebo to manage dysmenorrhea., # 90 tablet, 4 Refills, Maintenance, 11/21/21 8:35:00 EST, Tablet, [facility], Partial fill upon patient [...] Refills, Maintenance, 01/08/22 11:38:00 EDT, ER Capsule, [facility], Partial fill upon patient [...] Allergy(Confirmed) Active Anxiety(Confirmed) Active Pseudotumor cerebri(Confirmed) Active Meenakshi-Danlos disease(Confirmed) Active Esophageal dyskinesia(Confirmed) Active GERD with esophagitis(Confirmed) Active Migraine(Confirmed) Active Encounter for Papanicolaou s mear of cervix(Confirmed) Active POTS (postural orthostatic t achycardia syndrome)(Confirmed) Active Severe obesity(Confirmed) Active Sleep disorder(Confirmed) Active 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
--- OUTSIDE RECORDS SUMMARY | 2024-03-21 07:52 | XMS_ITS | Continuity of Care Document ---
Author Organization [facility] Address [address] [place] [address]- Care Team Providers Care Weir Fisher Name Role Phone Rodriguez BUSH, Patricia Barfield Primary Care Physician [place] [facility] [place] 08/31/22 - 09/30/22 [facility] Jaydes [facility] [address], [address] [place], [place] [address] Allergies, Adverse Reactions, Alerts Substance Reaction Severity Status Bananas Active Immunizations Given and Recorded Vaccine Date Status Refusal Reason SARS-CoV-2 mRNA (gbcjlom-wfdp-hryry) vax 01/16/22 Recorded influenza virus vaccine, inactivated 07/07/21 Buster rded SARS-CoV-2 (COVID-19) mRNA BNT-162b2 vac 06/28/21 Recorded SARS-CoV-2 (COVID-19) mRNA BNT-162b2 vac 09/27/20 Recorded tetanus/diphtheria/pertussis, acel(Tdap) 04/13/21 Recorded Medications busPIRone 10 mg oral tablet 10 mg, 1, tablet, By Mouth, Daily at supper, # 90 tablet, Refills 3, Tot. Refills 3, Maintenance, 10/28/21 15:45:00 EST, Route to Pharmacy Electronically, [facility], Partial fill upon patient request if the prescription is for a schedul... Start Date: 10/28/21 Status: Ordered Emgality Prefilled Pen 120 mg/mL subcutaneous solution = 120 mg, Subcutaneous Infusion, Every 28 days, Use one autoinjector once per month. Rotate injection sites., # 1 each, 6 Refills, Maintenance, 08/06/22 20:26:00 EST, [facility], Partial fill [...] 09/16/22 14:03:00 EST, Route to Pharmacy Electronically, [facility], 175, cm, 09/03/22 14:39:00 EST, Height, 108, kg, 07/29/22 18:14:00 EST, Dry Weight Start Date: 09/16/22 Status: Ordered Junel Fe 10/09 oral tablet 1 tablet, By Mouth, Daily, take one tablet daily, omitting placebo to manage dysmenorrhea., # 90 tablet, 4 Refills, Maintenance, 11/21/21 8:35:00 EST, Tablet, [facility], Partial fill upon patient request if the prescription is for a chelsi... Start Date: 11/21/21 Stop Date: 07/02/23 Status: Ordered Lexapro 20 mg oral tablet 1 tablet = 20 mg, By Mouth, Daily, # 90 tablet, 3 Refills, Maintenance, 08/14/22 15:44:00 EST, Tablet, [facility], Partial fill upon patient request if the prescription is for a schedule II opioid drug., 175, cm, 08/14/22 14:57:00 EST, H... Start Date: 08/14/22 Status: Ordered lidocaine 5% topical ointment 1 application, Topically, 3 times a day, # 50 Gm, 0 Refills, Maintenance, 08/31/22 13:19:00 EST, [facility] fill upon patient request if [...] Refills, Maintenance, 01/08/22 11:38:00 EDT, ER Capsule, [facility], Partial fill upon patient request if [...] Care team information Care Team Personnel Name: Rodriguez BUSH, Patricia Barfield Position: [facility] PCO Associate Professional Member Role: PCP Address: Address: [address] [place] [address] [place] [address]- Care Team Related Persons Name: MURPHY FUNES Address: home [address] [place] [address]
--- OUTSIDE RECORDS SUMMARY | 2024-03-21 07:52 | XMS_ITS | Continuity of Care Document ---
Author Organization [facility] Address [address] [place] [address]- Care Team Providers Care Cripple Cutter Name Role Phone Vik Kelley MD Primary Care Physician Encounter [facility] [place] Date(s): 09/25/21 - 11/25/[address] [address]- Discharge Disposition: A-D/C Home Attending Physician: Vik Kelley MD Admitting Physician: Vik Kelley MD Referring Physician: Vik Kelley MD Allergies, Adverse Reactions, Alerts Substance Reaction Severity Status Bananas Active Immunizations Given and Recorded Vaccine Date Status Refusal Reason influenza virus vaccine, inactivated 07/07/21 Buster rded SARS-CoV-2 (COVID-19) mRNA BNT-162b2 vac 06/28/21 Recorded tetanus/diphtheria/pertussis, acel(Tdap) 04/13/21 Recorded Medications Emgality Prefilled Pen 120 mg/mL subcutaneous solution = 120 mg, Subcutaneous Infusion, Every 28 days, 0 Refills, Maintenance, 05/13/21 7:55:00 EDT, Partial fill upon patient request if the prescription is for a schedule II opioid drug. Start Date: 05/13/21 Status: Ordered 10/09 oral tablet 1 tablet, By Mouth, Daily, 0 Refills, Maintenance, 05/13/21 7:55:00 EDT, Partial [...] Last dose no later than 6PM, # 90 tablet, Refills 5, Tot. Refills 5, Maintenance, 11/18/21 16:52:00 EST, Route to Pharmacy E... Start Date: 11/18/21 Stop Date: 05/17/22 Status: Ordered pantoprazole 20 mg oral delayed release tablet See Instructions, 2 tablet By Mouth in the AM and one in evening, # 90 each, 2 Refills, Maintenance, 08/21/21 9:35:00 EST, EC Tablet, 175, cm, 08/21/21 8:52:00 EST, Height Start Date: 08/21/21 Status: Ordered propranolol 120 mg oral capsule, extended release 1 capsule = 120 mg, By Mouth, Daily, 0 Refills, Maintenance, 05/13/21 7:54:00 EDT, Partial fill upon patient request if the prescription is for a schedule II opioid drug. Start Date: 05/13/21 Status: Ordered Vitamin D3 1000 intl units oral capsule 1 capsule = 25 mcg, By Mouth, Daily, 0 Refills, Maintenance, 05/13/21 7:54:00 EDT, Partial fill upon patient request if the prescription is for a schedule II opioid drug. Start Date: 05/13/21 Status: Ordered Problem List Condition Effective Dates Status Health Status Inform ant Allergy(Confirmed) Active Anxiety(Confirmed) Active Pseudotumor cerebri(Confirmed) Active GERD with esophagitis(Confirmed) Active Migraine(Confirmed) Active [...]
--- OUTSIDE RECORDS SUMMARY | 2024-03-21 07:52 | XMS_ITS | Continuity of Care Document ---
Author Organization [facility] Address [address] [place] [address]- Care Team Providers Care Assessment Services Manager Name Role Phone Marly BUSH, Molly Primary Care Physician En[place] [facility] [place] Date(s): 03/31/23 - 04/30/23 [facility] [address] [place] [address]- Allergies, Adverse Reactions, Alerts Substance Reaction Severity Status Bananas Active Immunizations Given and Recorded Vaccine Date Status Refusal Reason SARS-CoV-2 mRNA (uovjelp-macf-ekoxr) vax 01/16/22 Recorded influenza virus vaccine, inactivated 07/07/21 Buster rded SARS-CoV-2 (COVID-19) mRNA BNT-162b2 vac 06/28/21 Recorded SARS-CoV-2 (COVID-19) mRNA BNT-162b2 vac 09/27/20 Recorded tetanus/diphtheria/pertussis, acel(Tdap) 04/13/21 Recorded Medications busPIRone 10 mg oral tablet 10 mg, 1, tablet, By Mouth, Daily at supper, # 90 tablet, Refills 1, Tot. Refills 1, Maintenance, 11/27/22 16:04:00 EST, Route to Pharmacy Electronically, [facility], Partial fill upon patient request if the prescription is for a schedul... Start Date: 11/27/22 Stop Date: 05/26/23 Status: Ordered cyclobenzaprine 10 mg oral tablet 10 mg, 1, tablet, By Mouth, Daily at supper, # 30 tablet, Refills 1, Tot. Refills 1, Maintenance, 02/04/23 10:40:00 EDT, Route to Pharmacy Electronically, [facility], Partial fill upon patient request if the prescription is for a schedul... Start Date: 02/04/23 Status: Ordered Emgality Prefilled Pen 120 mg/mL subcutaneous solution See Instructions, INJECT THE CONTENTS OF 1 PEN (120 MG) SUBCUTANEOUSLY EVERY 28 DAYS. ROTATE INJECTION SITES., # 1 mL, 6 Refills, Maintenance, 03/18/23 18:14:00 EDT, [facility], 177, cm, 03/17/23 8:09:00 EDT, [...] 11/19/22 13:17:00 EST, Route to Pharmacy Electronically, [facility], 177, cm, 11/03/22 8:32:00 EST, Height, 106.8, kg, 11/03/22 8:32:00 EST, Start Date: 11/19/22 Status: Ordered indomethacin 25 mg oral capsule 1 capsule = 25 mg, By Mouth, 2 times a day, PRN Pain , Moderate, # 60 capsule, 1 Refills, Maintenance, 10/20/22 14:01:00 EST, [facility], Partial fill upon patient request if the prescription is for a schedule II opioid drug., 175, cm, 1... Start Date: 10/20/22 Status: Ordered 10/09 oral tablet See Instructions, TAKE 1 TABLET BY MOUTH EVERY DAY. SKIP PLACEBO TABLETS AND START NEXT PACK TO MANAGE PAINFUL PERIODS, # 84 tablet, 5 Refills, Maintenance, 12/31/22 8:06:00 EDT, [facility], 63, TAKE 1 TABLET BY MOUTH EVERY DAY. SKIP PLACEBO TA... Start Date: 12/31/22 Status: Ordered Lexapro 20 mg oral tablet 1 tablet = 20 mg, By Mouth, Daily, # 90 tablet, 3 Refills, Maintenance, 08/14/22 15:44:00 EST, Tablet, [facility], Partial fill upon patient request if the prescription is for a schedule II opioid drug., 175, cm, 08/14/22 14:57:00 EST, H... Start Date: 08/14/22 Status: Ordered midodrine 5 mg oral tablet See Instructions, TAKE 1 TABLET BY MOUTH EVERY AM UPON WAKING THEN EVERY 4 HOURS FOR 2 ADDITIONAL DOSES (3 TIMES A DAY) WITH THE LAST DOSE NO LATER THAN 6 PM, # 90 tablet, Refills 2, Maintenance, 02/05/23 9:22:00 EDT, Instructions Replace Required Det... 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, # 1 kit, 3 Refills, Maintenance, 02/09/23 9:38:00 EDT, [facility], Partial fill upon patient [...] release 1 capsule, By Mouth, Daily, # 30 capsule, 11 Refills, Maintenance, 01/28/23 8:51:00 EDT, [facility], 177, cm, 12/29/22 16:45:00 EDT, Height, 104.3, kg, 12/29/22 16:45:00 EDT, Dry Weight Start Date: 01/28/23 Status: Ordered propranolol 120 mg oral capsule, extended release 1 capsule = 120 mg, By Mouth, Daily, # 30 capsule, 11 Refills, Maintenance, 01/08/22 11:38:00 EDT, ER Capsule, [facility], Partial fill upon patient [...] Care team information Care Team Personnel Name: Molly Luke NP Position: S PCO Associate Professional Member Role: PCP Address: Address: [address] [place] [address]- Care Team Related Persons Name: MURPHY FUNES Address: [address] [place] [address]
--- OUTSIDE RECORDS SUMMARY | 2024-03-21 07:52 | XMS_ITS | Continuity of Care Document ---
Author Organization [facility] Address [address] [place] [address]- Care Team Providers Care Blackjack Pit Boss Name Role Phone Allie DOMINGUEZ, Vik Joaquin Primary Care Physician [facility] [facility] [place] [address] [place], [place] [address] Attending Physician: Bryan Muniz Admitting Physician: AdmBryan nunez Referring Physician: Admtr, ArTaras Allergies, Adverse Reactions, Alerts Substance Reaction Severity [...] 4 Refills, Maintenance, 11/21/21 8:35:00 EST, Tablet, [facility], Partial fill upon patient [...]
--- OUTSIDE RECORDS SUMMARY | 2024-03-21 07:52 | XMS_ITS | Continuity of Care Document ---
Author Organization [facility] Address Unknown Care Team Providers Care Flatwork Finisher Hand Name Role Phone Allie DOMINGUEZ, Vik Joaquin Primary Care Physician Encounter [facility] [place] Date(s): 07/15/21 - 08/14/21 [facility] Allergies, Adverse Reactions, Alerts Substance Reaction Severity [...] opioid drug. Start Date: 05/13/21 Status: Ordered Junel 10/09 oral tablet 1 tablet, By Mouth, Daily, 0 Refills, Maintenance, 05/13/21 7:55:00 EDT, Partial fill upon patient request if the prescription is for a schedule II opioid drug. Start Date: 05/13/21 Status: Ordered pantoprazole 40 mg oral delayed release tablet 1 tablet = 40 mg, By Mouth, 2 times a day, # 60 tablet, 0 Refills, Maintenance, 05/13/21 8:22:00 EDT, EC Tablet, 175, cm, 05/13/21 7:50:00 EDT, Height Start Date: 05/13/21 Status: Ordered propranolol 120 mg oral capsule, [...] Effective Dates Status Health Status Inform ant Pseudotumor cerebri(Confirmed) Active GERD with esophagitis(Confirmed) Active Migraine(Confirmed) Active Obese class I(Confirmed) Active POTS (postural orthostatic t achycardia syndrome)(Confirmed) Active Sleep disorder(Confirmed) Active Social History Social History Type Response Smoking Status Never (less than 100 in lifetime) entered on: 06/04/21 Sex
--- OUTSIDE RECORDS SUMMARY | 2024-03-21 07:52 | XMS_ITS | Continuity of Care Document ---
Author Organization [facility] Address Unknown Care Team Providers Care Advertising Production Manager Name Role Phone Allie DOMINGUEZ, Vik Joaquin Primary Care Physician Encounter [facility] [place] Date(s): 07/31/21 - 08/30/21 [facility] Attending Physician: Bryan Muniz Admitting Physician: Bryan Muniz Referring Physician: Bryan Muniz Allergies, Adverse Reactions, Alerts Substance Reaction Severity [...] drug. Start Date: 05/13/21 Status: Ordered pantoprazole 20 mg oral delayed release tablet 2 tablet = 40 mg, By Mouth, 2 times a day, # 120 tablet, 2 Refills, Maintenance, 08/21/21 9:35:00 EST, EC Tablet, 175, cm, 08/21/21 8:52:00 EST, Height Start Date: 08/21/21 Stop Date: 11/19/21 Status: Ordered propranolol 120 mg oral capsule, [...]
--- OUTSIDE RECORDS SUMMARY | 2024-03-21 07:52 | XMS_ITS | Continuity of Care Document ---
Author Organization [facility] Address [address] [place] [address]- Care Team Providers Care Nematology Teacher Name Role Phone Elliot DOMINGUEZ, Lidya Leos Primary Care Physician Encounter [facility] [place] Date(s): 06/25/23 - 07/25/23 [facility] [address] [place], [place] [address] Allergies, Adverse Reactions, Alerts Substance Reaction Severity Status Bananas Active Immunizations Given and Recorded Vaccine Date Status Refusal Reason SARS-CoV-2 mRNA ([id number]-[id number]) vax 01/16/22 Recorded influenza virus vaccine, inactivated 07/07/21 Buster rded SARS-CoV-2 (COVID-19) mRNA BNT-162b2 vac 06/28/21 Recorded SARS-CoV-2 (COVID-19) mRNA BNT-162b2 vac 09/27/20 Recorded tetanus/diphtheria/pertussis, acel(Tdap) 04/13/21 Recorded Medications busPIRone 10 mg oral tablet 10 mg, 1, tablet, By Mouth, Daily at supper, # 90 tablet, Refills 1, Tot. Refills 1, Maintenance, 11/27/22 16:04:00 EST, Route to Pharmacy Electronically, [facility], Partial fill upon patient request if the prescription is for a schedul... Start Date: 11/27/22 Stop Date: 05/26/23 Status: Ordered Corlanor 5 mg oral tablet 1 tablet = 5 mg, By Mouth, 2 times a day with meals, # 180 tablet, 1 Refills, Maintenance, 06/09/2311:50:00 EDT, Tablet, [facility], Partial fill upon patient request if the prescription is for a schedule II opioid drug., 174.6, cm, ... Start Date: 06/09/23 Stop Date: 12/06/23 Status: Ordered cyclobenzaprine 10 mg oral tablet 10 mg, 1, tablet, By Mouth, Daily at supper, # 30 tablet, Refills 1, Tot. Refills 1, Maintenance, 02/04/23 10:40:00 EDT, Route to Pharmacy Electronically, [facility], Partial fill upon patient [...] mL, 6 Refills, Maintenance, 03/18/23 18:14:00 EDT, [facility], 177, cm, 03/17/23 8:09:00 EDT, [...] Replace Required Details, Route to Pharmacy Electronically, [facility], 174.6, cm, 04/29/23 15:52:00 EDT,... Start Date: 05/17/23 Status: Ordered indomethacin 25 mg oral capsule 1 capsule = 25 mg, By Mouth, 2 times a day, PRN Pain , Moderate, # 60 capsule, 1 Refills, Maintenance, 10/20/22 14:01:00 EST, [facility], Partial fill upon patient request if the prescription is for a schedule II opioid drug., 175, cm, 1... Start Date: 10/20/22 Status: Ordered June Fe 10/09 oral tablet See Instructions, TAKE 1 TABLET BY MOUTH EVERY DAY. SKIP PLACEBO TABLETS AND START NEXT PACK TO MANAGE PAINFUL PERIODS, # 84 tablet, 5 Refills, Maintenance, 12/31/22 8:06:00 EDT, [facility], 63, TAKE 1 TABLET BY MOUTH EVERY DAY. SKIP PLACEBO TA... Start Date: 12/31/22 Status: Ordered Lexapro 20 mg oral tablet 1 tablet = 20 mg, By Mouth, Daily, # 90 tablet, 3 Refills, Maintenance, 08/14/22 15:44:00 EST, Tablet, [facility], Partial fill upon patient request if the prescription is for a schedule II opioid drug., 175, cm, 08/14/22 14:57:00 EST, H... 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 Start Date: 06/09/23 Stop Date: 09/07/23 Status: [...] Care team information Care Team Personnel Name: Lidya Zarate MD, V Position: [facility] Physician - Primary Care Member Role: PCP Address: Address: [address] [place] [address]- Care Team Related Persons Name: MURPHY FUNES Address: home [address] [place] [address]
--- OUTSIDE RECORDS SUMMARY | 2024-03-21 07:52 | XMS_ITS | Continuity of Care Document ---
Author Organization [facility] Address [address] [place] [address]- Care Team Providers Care Chemical Manager Name Role Phone Elliot DOMINGUEZ, Lidya Leos Primary Care Physician [phone] Encounter [facility] [place] Date(s): 10/08/23 - 11/07/23 [facility] [address] [place], [place] [address] Allergies, Adverse Reactions, Alerts Substance Reaction Severity Status Bananas Active Immunizations Given and Recorded Vaccine Date Status Refusal Reason influenza virus vaccine, inactivated 07/02/23 Buster rded influenza virus vaccine, inactivated 07/16/22 Buster rded influenza virus vaccine, inactivated 07/07/21 Buster rded SARS-CoV-2 mRNA ([id number]) vax 01/16/22 Recorded SARS-CoV-2 (COVID-19) mRNA BNT-162b2 [...] tablet, 1 Refills, Maintenance, 06/09/2311:50:00 EDT, Tablet, [facility], Partial fill upon patient [...] Maintenance, 11/04/23 8:11:00 EST,Route to Pharmacy Electronically, [facility], 174.6, cm, 10/12/23 15:43:00 EST, Height, 105.3, kg, 06/30/23 9:52:00 EDT, Dry Weight Start Date: 11/04/23 Status: Ordered indomethacin 25 mg oral capsule 1 capsule = 25 mg, By Mouth, 2 times a day, PRN Pain , Moderate, # 60 capsule, 1 Refills, Maintenance, 10/20/22 14:01:00 EST, [facility], Partial fill upon patient request if the prescription is for a schedule II opioid drug., 175, cm, 1... Start Date: 10/20/22 Status: Ordered 10/09 oral tablet See Instructions, TAKE 1 TABLET BY MOUTH EVERY DAY. SKIP PLACEBO TABLETS AND START NEXT PACK TO MANAGE PAINFUL PERIODS, # 84 tablet, 5 Refills, Maintenance, 12/31/22 8:06:00 EDT, [facility], 63, TAKE 1 TABLET BY MOUTH EVERY DAY. SKIP PLACEBO TA... 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 Start Date: 02/09/23 Status: Ordered pantoprazole 20 mg oral delayed release tablet 1 tablet = 20 mg, By Mouth, 2 times a day, # 60 tablet, 2 Refills, Maintenance, 10/07/23 6:31:00 EST, 174.6, cm, 10/01/23 8:19:00 EST, Height, 105.3, kg, 06/30/23 9:52:00 EDT, Dry Weight Start Date: 10/07/23 Status: Ordered propranolol 120 mg oral capsule, extended release 1 capsule, By Mouth, Daily, # 90 capsule, 0 Refills, Maintenance, 09/16/23 8:04:00 EST, [facility], 174.6, cm, 06/30/23 9:52:00 EDT, Height, 105.3, kg, 06/30/23 9:52:00 EDT, Dry Weight Start Date: 09/16/23 Status: Ordered traMADol 50 mg oral tablet 1 tablet = 50 mg, By Mouth, Every 12 hours, PRN as needed for pain, # 6 tablet, 0 Refills, Maintenance, 10/12/23 17:34:00 EST, Tablet, [facility], Partial fill upon patient [...] Personnel Name: Elliot DOMINGUEZ, Lidya Leos Position: [facility] Physician - Primary Care Member Role: PCP Address: Address: [address] [place] [address]- Care Team Related Persons Name: MURPHY FUNES Address: home [address] [place] [address]
--- OUTSIDE RECORDS SUMMARY | 2024-03-21 07:52 | XMS_ITS | Continuity of Care Document ---
Author Organization [facility] Address [address] [place] [address], [address] [place] [address]- Care Team Providers Care Manager Of Applications Development Name Role Phone Rodriguez BUSH, Patricia Barfield Primary Care Physician [id number] - 10/03/22 [facility] [address] [facility], [address] [place], [place] [address] Attending Physician: Not on Staff, Attending MD Referring Physician: Georgina Vences MD Allergies, Adverse Reactions, Alerts Substance Reaction Severity Status Bananas Active Immunizations Given and Recorded Vaccine Date Status Refusal Reason SARS-CoV-2 mRNA (xcjpqxb-sbot-oyapl) vax 01/16/22 Recorded influenza virus vaccine, inactivated 07/07/21 Buster rded SARS-CoV-2 (COVID-19) mRNA BNT-162b2 vac 06/28/21 Recorded SARS-CoV-2 (COVID-19) mRNA BNT-162b2 vac 09/27/20 Recorded tetanus/diphtheria/pertussis, acel(Tdap) 04/13/21 Recorded Medications busPIRone 10 mg oral tablet 10 mg, 1, tablet, By Mouth, Daily at supper, # 90 tablet, Refills 3, Tot. Refills 3, Maintenance, 10/28/21 15:45:00 EST, Route to Pharmacy Electronically, [facility], Partial fill upon patient request if the prescription is for a schedul... Start Date: 10/28/21 Status: Ordered Emgality Prefilled Pen 120 mg/mL subcutaneous solution = 120 mg, Subcutaneous Infusion, Every 28 days, Use one autoinjector once per month. Rotate injection sites., # 1 each, 6 Refills, Maintenance, 08/06/22 20:26:00 EST, [facility], Partial fill upon patient [...] 09/16/22 14:03:00 EST, Route to Pharmacy Electronically, [facility], 175, cm, 09/03/22 14:39:00 EST, Height, 108, kg, 07/29/22 18:14:00 EST, Dry Weight Start Date: 09/16/22 Status: Ordered June Fe 10/09 oral tablet 1 tablet, By Mouth, Daily, take one tablet daily, omitting placebo to manage dysmenorrhea., # 90 tablet, 4 Refills, Maintenance, 11/21/21 8:35:00 EST, Tablet, [facility], Partial fill upon patient request if the prescription is for a chelsi... Start Date: 11/21/21 Stop Date: 07/02/23 Status: Ordered Lexapro 20 mg oral tablet 1 tablet = 20 mg, By Mouth, Daily, # 90 tablet, 3 Refills, Maintenance, 08/14/22 15:44:00 EST, Tablet, [facility], Partial fill upon patient request if the prescription is for a schedule II opioid drug., 175, cm, 08/14/22 14:57:00 EST, H... Start Date: 08/14/22 Status: Ordered lidocaine 5% topical ointment 1 application, Topically, 3 times a day, # 50 Gm, 0 Refills, Maintenance, 08/31/22 13:19:00 EST, Ointment, [facility], Partial fill upon patient [...] Refills, Maintenance, 01/08/22 11:38:00 EDT, ER Capsule, [facility], Partial fill upon patient [...] Team Personnel Name: Patricia Frias NP Position: [facility] Associate Professional Member Role: PCP Address: Address: [address] [place] [address] [place] [address]- Care Team Related Persons Name: SHANTEL MURPHY Address: [address] [address]
--- OUTSIDE RECORDS SUMMARY | 2024-03-21 07:52 | XMS_ITS | Continuity of Care Document ---
Author Organization [facility] Address [address] [place] [address]- Care Team Providers Care Talcer Name Role Phone Rodriguez BUSH, Patricia Barfield Primary Care Physician [phone] Encounter [facility] Date(s): 09/04/22 - 10/04/22 [facility] [address] [place] [address]- Allergies, Adverse Reactions, Alerts Substance Reaction Severity Status Bananas Active Immunizations Given and Recorded Vaccine Date Status Refusal Reason SARS-CoV-2 mRNA (budyhfj-hykc-vkvwh) vax 01/16/22 Recorded influenza virus vaccine, inactivated 07/07/21 Buster rded SARS-CoV-2 (COVID-19) mRNA BNT-162b2 vac 06/28/21 Recorded SARS-CoV-2 (COVID-19) mRNA BNT-162b2 vac 09/27/20 Recorded tetanus/diphtheria/pertussis, acel(Tdap) 04/13/21 Recorded Medications busPIRone 10 mg oral tablet 10 mg, 1, tablet, By Mouth, Daily at supper, # 90 tablet, Refills 3, Tot. Refills 3, Maintenance, 10/28/21 15:45:00 EST, Route to Pharmacy Electronically, [facility], Partial fill upon patient request if the prescription is for a schedul... Start Date: 10/28/21 Status: Ordered Emgality Prefilled Pen 120 mg/mL subcutaneous solution = 120 mg, Subcutaneous Infusion, Every 28 days, Use one autoinjector once per month. Rotate injection sites., # 1 each, 6 Refills, Maintenance, 08/06/22 20:26:00 EST, [facility], Partial fill upon patient request [...] 09/16/22 14:03:00 EST, Route to Pharmacy Electronically, [facility], 175, cm, 09/03/22 14:39:00 EST, Height, 108, kg, 07/29/22 18:14:00 EST, Dry Weight Start Date: 09/16/22 Status: Ordered Junel Fe 10/09 oral tablet 1 tablet, By Mouth, Daily, take one tablet daily, omitting placebo to manage dysmenorrhea., # 90 tablet, 4 Refills, Maintenance, 11/21/21 8:35:00 EST, Tablet, [facility], Partial fill upon patient request if the prescription is for a chelsi... Start Date: 11/21/21 Stop Date: 07/02/23 Status: Ordered Lexapro 20 mg oral tablet 1 tablet = 20 mg, By Mouth, Daily, # 90 tablet, 3 Refills, Maintenance, 08/14/22 15:44:00 EST, Tablet, [facility], Partial fill upon patient request if the prescription is for a schedule II opioid drug., 175, cm, 08/14/22 14:57:00 EST, H... Start Date: 08/14/22 Status: Ordered lidocaine 5% topical ointment 1 application, Topically, 3 times a day, # 50 Gm, 0 Refills, Maintenance, 08/31/22 13:19:00 EST, Ointment, [facility], Partial fill upon patient [...] Refills, Maintenance, 01/08/22 11:38:00 EDT, ER Capsule, [facility], Partial fill upon patient request [...] Team Personnel Name: Patricia Frias NP Position: [facility] Associate Professional Member Role: PCP Address: Address: [address] [place] [address] [place] [address]- Care Team Related Persons Name: MURPHY FUNES Address: home [address] [place] [address]
--- OUTSIDE RECORDS SUMMARY | 2024-03-21 07:52 | XMS_ITS | Continuity of Care Document ---
Author Organization [facility] Address [address] [place] [address]- Care Team Providers Care Quantitative Researcher Name Role Phone Rodriguez BUSH, Patricia Barfield Primary Care Physician Encounter [facility] Date(s): 09/28/22 - 10/28/22 [facility] [address] [place], [place] [address] Allergies, Adverse Reactions, Alerts Substance Reaction Severity Status Bananas Active Immunizations Given and Recorded Vaccine Date Status Refusal Reason SARS-CoV-2 mRNA (vbxaiwx-ajjh-qvmgu) vax 01/16/22 Recorded influenza virus vaccine, inactivated 07/07/21 Buster rded SARS-CoV-2 (COVID-19) mRNA BNT-162b2 vac 06/28/21 Recorded SARS-CoV-2 (COVID-19) mRNA BNT-162b2 vac 09/27/20 Recorded tetanus/diphtheria/pertussis, acel(Tdap) 04/13/21 Recorded Medications busPIRone 10 mg oral tablet 10 mg, 1, tablet, By Mouth, Daily at supper, # 90 tablet, Refills 3, Tot. Refills 3, Maintenance, 10/28/21 15:45:00 EST, Route to Pharmacy Electronically, [facility], Partial fill upon patient request if the prescription is for a schedul... Start Date: 10/28/21 Status: Ordered Emgality Prefilled Pen 120 mg/mL subcutaneous solution = 120 mg, Subcutaneous Infusion, Every 28 days, Use one autoinjector once per month. Rotate injection sites., # 1 each, 6 Refills, Maintenance, 08/06/22 20:26:00 EST, [facility], Partial fill upon patient request [...] 09/16/22 14:03:00 EST, Route to Pharmacy Electronically, [facility], 175, cm, 09/03/22 14:39:00 EST, Height, 108, kg, 07/29/22 18:14:00 EST, Dry Weight Start Date: 09/16/22 Status: Ordered indomethacin 25 mg oral capsule 1 capsule = 25 mg, By Mouth, 2 times a day, PRN Pain , Moderate, # 60 capsule, 1 Refills, Maintenance, 10/20/22 14:01:00 EST, [facility], Partial fill upon patient request if the prescription is for a schedule II opioid drug., 175, cm, 1... Start Date: 10/20/22 Status: Ordered 10/09 oral tablet 1 tablet, By Mouth, Daily, take one tablet daily, omitting placebo to manage dysmenorrhea., # 90 tablet, 4 Refills, Maintenance, 11/21/21 8:35:00 EST, Tablet, [facility], Partial fill upon patient request if the prescription is for a chelsi... Start Date: 11/21/21 Stop Date: 07/02/23 Status: Ordered Lexapro 20 mg oral tablet 1 tablet = 20 mg, By Mouth, Daily, # 90 tablet, 3 Refills, Maintenance, 08/14/22 15:44:00 EST, Tablet, [facility], Partial fill upon patient request if the prescription is for a schedule II opioid drug., 175, cm, 08/14/22 14:57:00 EST, H... Start Date: 08/14/22 Status: Ordered lidocaine 5% topical ointment 1 application, Topically, 3 times a day, # 50 Gm, 0 Refills, Maintenance, 08/31/22 13:19:00 EST, Ointment, [facility], Partial fill upon patient request [...] Refills, Maintenance, 01/08/22 11:38:00 EDT, ER Capsule, [facility], Partial fill upon patient request [...] Associate Professional Member Role: PCP Address: Address: [address] [place] [address] [place] [address]- Care Team Related Persons Name: MURPHY FUNES Address: [address] [address]
--- OUTSIDE RECORDS SUMMARY | 2024-03-21 07:52 | XMS_ITS | Continuity of Care Document ---
Author Organization [facility] Address [address] [facility], [address], [address] [place] [address]- Care Team Providers Care Supervisor Clam Bed Name Role Phone Elliot DOMINGUEZ, Lidya Leos Primary Care Physician [place] [facility] [place] 09/02/23 - 10/02/23 [facility] [address] [place], [address], [address] [place] [id number] Allergies, Adverse Reactions, Alerts Substance Reaction Severity Status Bananas Active Immunizations Given and Recorded Vaccine Date Status Refusal Reason SARS-CoV-2 mRNA (rvefhrq-hjsp-hosry) vax 01/16/22 Recorded influenza virus vaccine, inactivated 07/07/21 Buster rded SARS-CoV-2 (COVID-19) mRNA BNT-162b2 vac 06/28/21 Recorded SARS-CoV-2 (COVID-19) mRNA BNT-162b2 vac 09/27/20 Recorded tetanus/diphtheria/pertussis, acel(Tdap) 04/13/21 Recorded Medications Corlanor 5 mg oral tablet 1 tablet = 5 mg, By Mouth, 2 times a day with meals, # 180 tablet, 1 Refills, Maintenance, 06/09/2311:50:00 EDT, Tablet, [facility], Partial fill upon patient request if the prescription is for a schedule II opioid drug., 174.6, cm, .. Start Date: 06/09/23 Stop Date: 12/06/23 Status: Ordered cyclobenzaprine 10 mg oral tablet 10 mg, 1, tablet, By Mouth, Daily at supper, # 30 tablet, Refills 1, Tot. Refills 1, Maintenance, 02/04/23 10:40:00 EDT, Route to Pharmacy Electronically, [facility], Partial fill upon patient [...] mL, 6 Refills, Maintenance, 03/18/23 18:14:00 EDT, [facility], 177, cm, 03/17/23 8:09:00 EDT, [...] Replace Required Details, Route to Pharmacy Electronically, [facility], 174.6, cm, 04/29/23 15:52:00 EDT,... Start Date: 05/17/23 Status: Ordered indomethacin 25 mg oral capsule 1 capsule = 25 mg, By Mouth, 2 times a day, PRN Pain , Moderate, # 60 capsule, 1 Refills, Maintenance, 10/20/22 14:01:00 EST, [facility], Partial fill upon patient request if the prescription is for a schedule II opioid drug., 175, cm, 1... Start Date: 10/20/22 Status: Ordered 10/09 oral tablet See Instructions, TAKE 1 TABLET BY MOUTH EVERY DAY. SKIP PLACEBO TABLETS AND START NEXT PACK TO MANAGE PAINFUL PERIODS, # 84 tablet, 5 Refills, Maintenance, 12/31/22 8:06:00 EDT, [facility], 63, TAKE 1 TABLET BY MOUTH EVERY DAY. SKIP PLACEBO TA... 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, # 1 kit, 3 Refills, Maintenance, 02/09/23 9:38:00 EDT, [facility], Partial fill upon patient [...] capsule, 0 Refills, Maintenance, 09/16/23 8:04:00 EST, [facility], 174.6, cm, 06/30/23 9:52:00 EDT, Height, 105.3, kg, 06/30/23 9:52:00 EDT, Dry Weight Start Date: 09/16/23 Status: Ordered Vitamin D3 1000 intl units [...] Care team information Care Team Personnel Name: lEliot DOMINGUEZ, Lidya Leos Position: [facility] Physician - Primary Care Member Role: PCP Address: Address: [address] [place] [address]- Care Team Related Persons Name: MURPHY FUNES Address: home [address] [place] [address]
--- OUTSIDE RECORDS SUMMARY | 2024-03-21 07:52 | XMS_ITS | Continuity of Care Document ---
Author Organization [facility] Address [address], [address] [place] [address]- Care Team Providers Care Elementary School Reading Teacher Name Role Phone Rodriguez BUSH, Patricia M Primary Care Physician [phone] [id number] Date(s[facility] - [facility] [address], [address] [place] [address]- Attending Physician: Deandre DOMINGUEZ [OB], Mandi Albrecht Referring Physician: Lila Hawkins Allergies, Adverse Reactions, Alerts Substance Reaction Severity Status Bananas Active Immunizations Given and Recorded Vaccine Date Status Refusal Reason SARS-CoV-2 mRNA (mvswuja-vkhr-jwnfo) vax 01/16/22 Recorded influenza virus vaccine, inactivated 07/07/21 Buster rded SARS-CoV-2 (COVID-19) mRNA BNT-162b2 vac 06/28/21 Recorded SARS-CoV-2 (COVID-19) mRNA BNT-162b2 vac 09/27/20 Recorded tetanus/diphtheria/pertussis, acel(Tdap) 04/13/21 Recorded Medications busPIRone 10 mg oral tablet 10 mg, 1, tablet, By Mouth, Daily at supper, # 90 tablet, Refills 3, Tot. Refills 3, Maintenance, 10/28/21 15:45:00 EST, Route to Pharmacy Electronically, [facility], Partial fill upon patient request if the prescription is for a schedul... Start Date: 10/28/21 Status: Ordered Emgality Prefilled Pen 120 mg/mL subcutaneous solution = 120 mg, Subcutaneous Infusion, Every 28 days, Use one autoinjector once per month. Rotate injection sites., # 1 each, 6 Refills, Maintenance, 08/06/22 20:26:00 EST, [facility], Partial fill upon patient [...] 09/16/22 14:03:00 EST, Route to Pharmacy Electronically, [facility], 175, cm, 09/03/22 14:39:00 EST, Height, 108, kg, 07/29/22 18:14:00 EST, Dry Weight Start Date: 09/16/22 Status: Ordered indomethacin 25 mg oral capsule 1 capsule = 25 mg, By Mouth, 2 times a day, PRN Pain , Moderate, # 60 capsule, 1 Refills, Maintenance, 10/20/22 14:01:00 EST, [facility], Partial fill upon patient request if the prescription is for a schedule II opioid drug., 175, cm, 1... Start Date: 10/20/22 Status: Ordered 10/09 oral tablet 1 tablet, By Mouth, Daily, take one tablet daily, omitting placebo to manage dysmenorrhea., # 84 tablet, 5 Refills, Maintenance, 07/02/23 8:35:00 EDT, Tablet, [facility], Partial fill upon patient request if the prescription is for a chelsi... Start Date: 07/02/23 Status: Ordered 10/09 oral tablet 1 tablet, By Mouth, Daily, take one tablet daily, omitting placebo to manage dysmenorrhea., # 90 tablet, 4 Refills, Hard Stop 07/02/23 8:35:00 EDT, 11/21/21 8:35:00 EST, Tablet, [facility], Partial fill upon patient request if the prescr... Start Date: 11/21/21 Stop Date: 07/02/23 Status: Ordered Lexapro 20 mg oral tablet 1 tablet = 20 mg, By Mouth, Daily, # 90 tablet, 3 Refills, Maintenance, 08/14/22 15:44:00 EST, Tablet, [facility], Partial fill upon patient request if the prescription is for a schedule II opioid drug., 175, cm, 08/14/22 14:57:00 EST, H... Start Date: 08/14/22 Status: Ordered lidocaine 5% topical ointment 1 application, Topically, 3 times a day, # 50 Gm, 0 Refills, Maintenance, 08/31/22 13:19:00 EST, Ointment, [facility], Partial fill upon patient [...] Refills, Maintenance, 01/08/22 11:38:00 EDT, ER Capsule, [facility], Partial fill upon patient [...] pain Confirmed Active Subclinical hypothyroidism Confirmed Active Vital Signs Most recent to oldest [Reference Range]: 1 Height 177 cm (11/03/22 8:32 AM) Weight 106.8 kg (11/03/22 8:32 AM) Pulse Rate [55-90 bpm] 82 bpm (11/03/22 8:32 AM) Body Mass Index [18.5-24.99 kg/m2] 34.09 kg/m2 *>HHI* (11/03/22 8:32 AM) Blood Pressure [90-138/55-84 mm Hg] 120/ 70mm Hg (11/03/22 8:32 AM) Blood pressure sites Arm, right (11/03/22 8:32 AM) Dry Weight 106.8 kg (11/03/22 8:32 AM) Weight Obtained Via Standing scale (11/03/22 8:32 AM) Dry Weight Obtained Via Standing scale (11/03/22 8:32 AM) Social History Social History Type Response Smoking Status Never (less than 100 in lifetime) entered on: 02/26/22 Sex Patient Care team information Care Team Personnel Name: Patricia Frias NP Position: [facility] Associate Professional Member Role: PCP Address: Address: [address] [place] [address] [place] [address]- Care Team Related Persons Name: MURPHY FUNES Address: home [address] [place] [address]
--- OUTSIDE RECORDS SUMMARY | 2024-03-21 07:52 | XMS_ITS | Continuity of Care Document ---
Author Organization [facility] Address [address] [place] [address]- Care Team Providers Care Director Global Sales Name Role Phone Rodriguez BUSH, Patricia Barfield Primary Care Physician [place] [facility] [place] Date(s): 12/03/22 - 01/02/23 [facility] [address] [place] [address]- [place] Allergies, Adverse Reactions, Alerts Substance Reaction Severity Status Bananas Active Immunizations Given and Recorded Vaccine Date Status Refusal Reason SARS-CoV-2 mRNA ([id number]-[id number]) vax 01/16/22 Recorded influenza virus vaccine, inactivated 07/07/21 Buster rded SARS-CoV-2 (COVID-19) mRNA BNT-162b2 vac 06/28/21 Recorded SARS-CoV-2 (COVID-19) mRNA BNT-162b2 vac 09/27/20 Recorded tetanus/diphtheria/pertussis, acel(Tdap) 04/13/21 Recorded Medications busPIRone 10 mg oral tablet 10 mg, 1, tablet, By Mouth, Daily at supper, # 90 tablet, Refills 1, Tot. Refills 1, Maintenance, 11/27/22 16:04:00 EST, Route to Pharmacy Electronically, [facility], Partial fill upon patient request if the prescription is for a schedul... Start Date: 11/27/22 Stop Date: 05/26/23 Status: Ordered Emgality Prefilled Pen 120 mg/mL subcutaneous solution = 120 mg, Subcutaneous Infusion, Every 28 days, Use one autoinjector once per month. Rotate injection sites., # 1 each, 6 Refills, Maintenance, 08/06/22 20:26:00 EST, [facility], Partial fill upon patient [...] 11/19/22 13:17:00 EST, Route to Pharmacy Electronically, [facility], 177, cm, 11/03/22 8:32:00 EST, Height, 106.8, kg, 11/03/22 8:32:00 EST, DrLeonela.Leonela Start Date: 11/19/22 Status: Ordered indomethacin 25 mg oral capsule 1 capsule = 25 mg, By Mouth, 2 times a day, PRN Pain , Moderate, # 60 capsule, 1 Refills, Maintenance, 10/20/22 14:01:00 EST, [facility], Partial fill upon patient request if the prescription is for a schedule II opioid drug., 175, cm, 1... Start Date: 10/20/22 Status: Ordered Junel Fe 10/09 oral tablet See Instructions, TAKE 1 TABLET BY MOUTH EVERY DAY. SKIP PLACEBO TABLETS AND START NEXT PACK TO MANAGE PAINFUL PERIODS, # 84 tablet, 5 Refills, Maintenance, 12/31/22 8:06:00 EDT, [facility], 63, TAKE 1 TABLET BY MOUTH EVERY DAY. SKIP PLACEBO TA... Start Date: 12/31/22 Status: Ordered Lexapro 20 mg oral tablet 1 tablet = 20 mg, By Mouth, Daily, # 90 tablet, 3 Refills, Maintenance, 08/14/22 15:44:00 EST, Tablet, [facility], Partial fill upon patient request [...] Refills, Maintenance, 01/08/22 11:38:00 EDT, ER Capsule, [facility], Partial fill upon patient request [...] Associate Professional Member Role: PCP Address: Address: [address] [place] [address] [place] [address]- Care Team Related Persons Name: MURPHY FUNES Address: home [address] [place] [address]
--- OUTSIDE RECORDS SUMMARY | 2024-03-21 07:52 | XMS_ITS | Continuity of Care Document ---
Author Organization [facility] Address [address] [place] [address]- Care Team Providers Care Elementary Spanish Teacher Name Role Phone Rodriguez BUSH, Patricia Barfield Primary Care Physician Encounter [facility] [place] Date(s): 10/08/22 - 11/07/[address] [address] Attending Physician: AdmBryan nunez Admitting Physician: AdmtrBryan Referring Physician: Admtr, ArTaras Allergies, Adverse Reactions, Alerts Substance Reaction Severity Status Bananas Active Immunizations Given and Recorded Vaccine Date Status Refusal Reason SARS-CoV-2 mRNA ([id number]-htat-esopm) vax 01/16/22 Recorded influenza virus vaccine, inactivated 07/07/21 Buster rded SARS-CoV-2 (COVID-19) mRNA BNT-162b2 vac 06/28/21 Recorded SARS-CoV-2 (COVID-19) mRNA BNT-162b2 vac 09/27/20 Recorded tetanus/diphtheria/pertussis, acel(Tdap) 04/13/21 Recorded Medications busPIRone 10 mg oral tablet 10 mg, 1, tablet, By Mouth, Daily at supper, # 90 tablet, Refills 3, Tot. Refills 3, Maintenance, 10/28/21 15:45:00 EST, Route to Pharmacy Electronically, [facility], Partial fill upon patient request if the prescription is for a schedul... Start Date: 10/28/21 Status: Ordered Emgality Prefilled Pen 120 mg/mL subcutaneous solution = 120 mg, Subcutaneous Infusion, Every 28 days, Use one autoinjector once per month. Rotate injection sites., # 1 each, 6 Refills, Maintenance, 08/06/22 20:26:00 EST, [facility], Partial fill upon patient request [...] 09/16/22 14:03:00 EST, Route to Pharmacy Electronically, [facility], 175, cm, 09/03/22 14:39:00 EST, Height, 108, kg, 07/29/22 18:14:00 EST, Dry Weight Start Date: 09/16/22 Status: Ordered indomethacin 25 mg oral capsule 1 capsule = 25 mg, By Mouth, 2 times a day, PRN Pain , Moderate, # 60 capsule, 1 Refills, Maintenance, 10/20/22 14:01:00 EST, [facility], Partial fill upon patient request if the prescription is for a schedule II opioid drug., 175, cm, 1... Start Date: 10/20/22 Status: Ordered 10/09 oral tablet 1 tablet, By Mouth, Daily, take one tablet daily, omitting placebo to manage dysmenorrhea., # 84 tablet, 5 Refills, Maintenance, 07/02/23 8:35:00 EDT, Tablet, [facility], Partial fill upon patient request if the prescription is for a chelsi... Start Date: 07/02/23 Status: Ordered 10/09 oral tablet 1 tablet, By Mouth, Daily, take one tablet daily, omitting placebo to manage dysmenorrhea., # 90 tablet, 4 Refills, Hard Stop 07/02/23 8:35:00 EDT, 11/21/21 8:35:00 EST, Tablet, [facility], Partial fill upon patient request if the prescr... Start Date: 11/21/21 Stop Date: 07/02/23 Status: Ordered Lexapro 20 mg oral tablet 1 tablet = 20 mg, By Mouth, Daily, # 90 tablet, 3 Refills, Maintenance, 08/14/22 15:44:00 EST, Tablet, [facility], Partial fill upon patient request if the prescription is for a schedule II opioid drug., 175, cm, 08/14/22 14:57:00 EST, H... Start Date: 08/14/22 Status: Ordered lidocaine 5% topical ointment 1 application, Topically, 3 times a day, # 50 Gm, 0 Refills, Maintenance, 08/31/22 13:19:00 EST, Ointment, [facility], Partial fill upon patient request [...] 01/08/22 11:38:00 EDT, ER Capsule, [facility], Partial fill upon patient request [...] Associate Professional Member Role: PCP Address: Address: [address] [place] [address] [place] [address]- Care Team Related Persons Name: MURPHY FUNES Address: [address] [address]
--- OUTSIDE RECORDS SUMMARY | 2024-03-21 07:52 | XMS_ITS | Continuity of Care Document ---
Author Organization [facility] Address [address] [place] [address]- Care Team Providers Care Hip Hop Artist Name Role Phone Rodriguez BUSH, Patricia Barfield Primary Care Physician [phone] Encounter [facility] [place] Date(s): 03/30/22 - 04/29/22 [facility] [address] [place] [id number] Attending Physician: Admtr, Ar8 Admitting Physician: Admtr, Ar8 Referring Physician: Admtr, Ar8 Allergies, Adverse Reactions, Alerts Substance Reaction Severity Status Bananas Active Immunizations Given and Recorded Vaccine Date Status Refusal Reason SARS-CoV-2 mRNA (uvzhonh-kbic-ntdso) vax 01/16/22 Recorded influenza virus vaccine, inactivated 07/07/21 Buster rded SARS-CoV-2 (COVID-19) mRNA BNT-162b2 vac 06/28/21 Recorded SARS-CoV-2 (COVID-19) mRNA BNT-162b2 vac 09/27/20 Recorded tetanus/diphtheria/pertussis, acel(Tdap) 04/13/21 Recorded Medications Emgality Prefilled Pen 120 mg/mL subcutaneous solution = 120 mg, Subcutaneous Infusion, Every 28 days, Use one autoinjector once per month. Rotate injection sites., # 1 each, 3 Refills, Maintenance, 03/18/22 23:41:00 EDT, [facility], Partial fill upon patient request [...] 4 Refills, Maintenance, 11/21/21 8:35:00 EST, Tablet, [facility], Partial fill upon patient request [...] Refills, Maintenance, 01/08/22 11:38:00 EDT, ER Capsule, [facility], Partial fill upon patient request [...]
--- OUTSIDE RECORDS SUMMARY | 2024-03-21 07:52 | XMS_ITS | Continuity of Care Document ---
Author Organization [facility] Address [address] [place] [address]- Care Team Providers Care Neonatal Critical Care Nurse Name Role Phone Patricia Frias NP Primary Care Physician [phone] Encounter [facility] [place] Date(s): 09/24/22 - 10/09/[address] [address]- Encounter Diagnosis Pain in right wrist(Final) - Discharge Disposition: A-D/C Home Attending Physician: Patricia Frias NP Admitting Physician: Patricia Frias NP Referring Physician: Patricia Frias NP Allergies, Adverse Reactions, Alerts Substance Reaction Severity Status Bananas Active Immunizations Given and Recorded Vaccine Date Status Refusal Reason SARS-CoV-2 mRNA (lpsqtcu-stgj-lygsj) vax 01/16/22 Recorded influenza virus vaccine, inactivated 07/07/21 Buster rded SARS-CoV-2 (COVID-19) mRNA BNT-162b2 vac 06/28/21 Recorded SARS-CoV-2 (COVID-19) mRNA BNT-162b2 vac 09/27/20 Recorded tetanus/diphtheria/pertussis, acel(Tdap) 04/13/21 Recorded Medications busPIRone 10 mg oral tablet 10 mg, 1, tablet, By Mouth, Daily at supper, # 90 tablet, Refills 3, Tot. Refills 3, Maintenance, 10/28/21 15:45:00 EST, Route to Pharmacy Electronically, [facility], Partial fill upon patient request if the prescription is for a schedul... Start Date: 10/28/21 Status: Ordered Emgality Prefilled Pen 120 mg/mL subcutaneous solution = 120 mg, Subcutaneous Infusion, Every 28 days, Use one autoinjector once per month. Rotate injection sites., # 1 each, 6 Refills, Maintenance, 08/06/22 20:26:00 EST, [facility], Partial fill upon patient [...] 09/16/22 14:03:00 EST, Route to Pharmacy Electronically, [facility], 175, cm, 09/03/22 14:39:00 EST, Height, 108, kg, 07/29/22 18:14:00 EST, Dry Weight Start Date: 09/16/22 Status: Ordered June10/09 oral tablet 1 tablet, By Mouth, Daily, take one tablet daily, omitting placebo to manage dysmenorrhea., # 90 tablet, 4 Refills, Maintenance, 11/21/21 8:35:00 EST, Tablet, [facility], Partial fill upon patient request if the prescription is for a chelsi... Start Date: 11/21/21 Stop Date: 07/02/23 Status: Ordered Lexapro 20 mg oral tablet 1 tablet = 20 mg, By Mouth, Daily, # 90 tablet, 3 Refills, Maintenance, 08/14/22 15:44:00 EST, Tablet, [facility], Partial fill upon patient request if the prescription is for a schedule II opioid drug., 175, cm, 08/14/22 14:57:00 EST, H... Start Date: 08/14/22 Status: Ordered lidocaine 5% topical ointment 1 application, Topically, 3 times a day, # 50 Gm, 0 Refills, Maintenance, 08/31/22 13:19:00 EST, Ointment, [facility], Partial fill upon patient [...] Refills, Maintenance, 01/08/22 11:38:00 EDT, ER Capsule, [facility], Partial fill [...] Associate Professional Member Role: PCP Address: Address: [address] [place] [address] [place] [address]- Care Team Related Persons Name: FUNES, SUSAN Address: home [address] [place] [address]
--- OUTSIDE RECORDS SUMMARY | 2024-03-21 07:52 | XMS_ITS | Continuity of Care Document ---
Author Organization [facility] Address [address] [place] [address]- Care Team Providers Care Consulting Manager Name Role Phone Lidya Zarate MD, V Primary Care Physician [phone] Encounter [facility] [place] Date(s): 06/09/23 - 07/09/23 [facility] [address] [place] [address]- [place] Allergies, Adverse Reactions, Alerts Substance Reaction Severity Status Bananas Active Immunizations Given and Recorded Vaccine Date Status Refusal Reason SARS-CoV-2 mRNA (xsihvwz-wehp-rhkwe) vax 01/16/22 Recorded influenza virus vaccine, inactivated 07/07/21 Buster rded SARS-CoV-2 (COVID-19) mRNA BNT-162b2 vac 06/28/21 Recorded SARS-CoV-2 (COVID-19) mRNA BNT-162b2 vac 09/27/20 Recorded tetanus/diphtheria/pertussis, acel(Tdap) 04/13/21 Recorded Medications busPIRone 10 mg oral tablet 10 mg, 1, tablet, By Mouth, Daily at supper, # 90 tablet, Refills 1, Tot. Refills 1, Maintenance, 11/27/22 16:04:00 EST, Route to Pharmacy Electronically, [facility], Partial fill upon patient request if the prescription is for a schedul... Start Date: 11/27/22 Stop Date: 05/26/23 Status: Ordered Corlanor 5 mg oral tablet 1 tablet = 5 mg, By Mouth, 2 times a day with meals, # 180 tablet, 1 Refills, Maintenance, 06/09/2311:50:00 EDT, Tablet, [facility], Partial fill upon patient request if the prescription is for a schedule II opioid drug., 174.6, cm, ... Start Date: 06/09/23 Stop Date: 12/06/23 Status: Ordered cyclobenzaprine 10 mg oral tablet 10 mg, 1, tablet, By Mouth, Daily at supper, # 30 tablet, Refills 1, Tot. Refills 1, Maintenance, 02/04/23 10:40:00 EDT, Route to Pharmacy Electronically, [facility], Partial fill upon [...] mL, 6 Refills, Maintenance, 03/18/23 18:14:00 EDT, [facility], 177, cm, 03/17/23 8:09:00 EDT, Height, [...] Replace Required Details, Route to Pharmacy Electronically, [facility], 174.6, cm, 04/29/23 15:52:00 EDT,... Start Date: 05/17/23 Status: Ordered indomethacin 25 mg oral capsule 1 capsule = 25 mg, By Mouth, 2 times a day, PRN Pain , Moderate, # 60 capsule, 1 Refills, Maintenance, 10/20/22 14:01:00 EST, [facility], Partial fill upon patient request if the prescription is for a schedule II opioid drug., 175, cm, 1... Start Date: 10/20/22 Status: Ordered June10/09 oral tablet See Instructions, TAKE 1 TABLET BY MOUTH EVERY DAY. SKIP PLACEBO TABLETS AND START NEXT PACK TO MANAGE PAINFUL PERIODS, # 84 tablet, 5 Refills, Maintenance, 12/31/22 8:06:00 EDT, [facility], 63, TAKE 1 TABLET BY MOUTH EVERY DAY. SKIP PLACEBO TA... Start Date: 12/31/22 Status: Ordered Lexapro 20 mg oral tablet 1 tablet = 20 mg, By Mouth, Daily, # 90 tablet, 3 Refills, Maintenance, 08/14/22 15:44:00 EST, Tablet, [facility], Partial fill upon patient request if the prescription is for a schedule II opioid drug., 175, cm, 08/14/22 14:57:00 EST, H... 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
--- OUTSIDE RECORDS SUMMARY | 2024-03-21 07:52 | XMS_ITS | Continuity of Care Document ---
Author Organization [facility] Address [address] [place] [address]- Care Team Providers Care Manager Books Name Role Phone Elliot DOMINGUEZ, Lidya Leos Primary Care Physician En[place] [facility] [place](s): 04/29/23 - 05/29/23 [facility] [address] [place] [address]- Attending Physician: Bryan Muniz Admitting Physician: Bryan Muniz Referring Physician: [id number] Allergies, Adverse Reactions, Alerts Substance Reaction Severity Status Bananas Active Immunizations Given and Recorded Vaccine Date Status Refusal Reason SARS-CoV-2 mRNA ([id number]) vax 01/16/22 Recorded influenza virus vaccine, inactivated 07/07/21 Buster rded SARS-CoV-2 (COVID-19) mRNA BNT-162b2 vac 06/28/21 Recorded SARS-CoV-2 (COVID-19) mRNA BNT-162b2 vac 09/27/20 Recorded tetanus/diphtheria/pertussis, acel(Tdap) 04/13/21 Recorded Medications busPIRone 10 mg oral tablet 10 mg, 1, tablet, By Mouth, Daily at supper, # 90 tablet, Refills 1, Tot. Refills 1, Maintenance, 11/27/22 16:04:00 EST, Route to Pharmacy Electronically, [facility], Partial fill upon patient request if the prescription is for a schedul... Start Date: 11/27/22 Stop Date: 05/26/23 Status: Ordered cyclobenzaprine 10 mg oral tablet 10 mg, 1, tablet, By Mouth, Daily at supper, # 30 tablet, Refills 1, Tot. Refills 1, Maintenance, 02/04/23 10:40:00 EDT, Route to Pharmacy Electronically, [facility], Partial fill upon patient request if the prescription is for a schedul... Start Date: 02/04/23 Status: Ordered Emgality Prefilled Pen 120 mg/mL subcutaneous solution See Instructions, INJECT THE CONTENTS OF 1 PEN (120 MG) SUBCUTANEOUSLY EVERY 28 DAYS. ROTATE INJECTION SITES., # 1 mL, 6 Refills, Maintenance, 03/18/23 18:14:00 EDT, [facility], 177, cm, 03/17/23 8:09:00 EDT, [...] Replace Required Details, Route to Pharmacy Electronically, [facility], 174.6, cm, 04/29/23 15:52:00 EDT,... Start Date: 05/17/23 Status: Ordered indomethacin 25 mg oral capsule 1 capsule = 25 mg, By Mouth, 2 times a day, PRN Pain , Moderate, # 60 capsule, 1 Refills, Maintenance, 10/20/22 14:01:00 EST, [facility], Partial fill upon patient request if the prescription is for a schedule II opioid drug., 175, cm, 1... Start Date: 10/20/22 Status: Ordered 10/09 oral tablet See Instructions, TAKE 1 TABLET BY MOUTH EVERY DAY. SKIP PLACEBO TABLETS AND START NEXT PACK TO MANAGE PAINFUL PERIODS, # 84 tablet, 5 Refills, Maintenance, 12/31/22 8:06:00 EDT, [facility], 63, TAKE 1 TABLET BY MOUTH EVERY DAY. SKIP PLACEBO TA... Start Date: 12/31/22 Status: Ordered Lexapro 20 mg oral tablet 1 tablet = 20 mg, By Mouth, Daily, # 90 tablet, 3 Refills, Maintenance, 08/14/22 15:44:00 EST, Tablet, [facility], Partial fill upon patient request if the prescription is for a schedule II opioid drug., 175, cm, 08/14/22 14:57:00 EST, H... Start Date: 08/14/22 Status: Ordered metoprolol 50 mg oral tablet, extended release 50 mg, 1, tablet, By Mouth, Daily, # 90 tablet, Refills 3, Tot. Refills 3, Maintenance, 05/25/23 11:20:00 EDT, Route to Pharmacy Electronically, [facility], Partial fill upon patient request if the prescription is for a schedule II opioi... 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
--- OUTSIDE RECORDS SUMMARY | 2024-03-21 07:52 | XMS_ITS | Continuity of Care Document ---
Author Organization [facility] Address [address] [place] [address]- Care Team Providers Care Prism Inspector Name Role Phone Rodriguez BUSH, Patricia Barfield Primary Care Physician [phone] [place] [facility] [place] 09/[place] - 01/08/23 [facility] [address] [place], [place] [address] Attending Physician: Lidya Zarate MD, V Allergies, Adverse Reactions, Alerts Substance Reaction Severity Status Bananas Active Immunizations Given and Recorded Vaccine Date Status Refusal Reason SARS-CoV-2 mRNA ([id number]) vax 01/16/22 Recorded influenza virus vaccine, inactivated 07/07/21 Buster rded SARS-CoV-2 (COVID-19) mRNA BNT-162b2 vac 06/28/21 Recorded SARS-CoV-2 (COVID-19) mRNA BNT-162b2 vac 09/27/20 Recorded tetanus/diphtheria/pertussis, acel(Tdap) 04/13/21 Recorded Medications busPIRone 10 mg oral tablet 10 mg, 1, tablet, By Mouth, Daily at supper, # 90 tablet, Refills 1, Tot. Refills 1, Maintenance, 11/27/22 16:04:00 EST, Route to Pharmacy Electronically, [facility], Partial fill upon patient request if the prescription is for a schedul... Start Date: 11/27/22 Stop Date: 05/26/23 Status: Ordered Emgality Prefilled Pen 120 mg/mL subcutaneous solution = 120 mg, Subcutaneous Infusion, Every 28 days, Use one autoinjector once per month. Rotate injection sites., # 1 each, 6 Refills, Maintenance, 08/06/22 20:26:00 EST, [facility] 3, Partial fill upon patient [...] 11/19/22 13:17:00 EST, Route to Pharmacy Electronically, [facility], 177, cm, 11/03/22 8:32:00 EST, Height, 106.8, kg, 11/03/22 8:32:00 EST, . Start Date: 11/19/22 Status: Ordered indomethacin 25 mg oral capsule 1 capsule = 25 mg, By Mouth, 2 times a day, PRN Pain , Moderate, # 60 capsule, 1 Refills, Maintenance, 10/20/22 14:01:00 EST, [facility] 3, Partial fill upon patient request if the prescription is for a schedule II opioid drug., 175, cm, 1... Start Date: 10/20/22 Status: Ordered Junel Fe 10/09 oral tablet See Instructions, TAKE 1 TABLET BY MOUTH EVERY DAY. SKIP PLACEBO TABLETS AND START NEXT PACK TO MANAGE PAINFUL PERIODS, # 84 tablet, 5 Refills, Maintenance, 12/31/22 8:06:00 EDT, [facility], 63, TAKE 1 TABLET BY MOUTH EVERY DAY. SKIP PLACEBO TA... Start Date: 12/31/22 Status: Ordered Lexapro 20 mg oral tablet 1 tablet = 20 mg, By Mouth, Daily, # 90 tablet, 3 Refills, Maintenance, 08/14/22 15:44:00 EST, Tablet, [facility] 3, Partial fill upon patient [...] 01/08/22 11:38:00 EDT, ER Capsule, [facility], Partial fill upon [...] Associate Professional Member Role: PCP Address: Address: [address] [place] [address] [place] [address]- Care Team Related Persons Name: MURPHY FUNES Address: home [address] [place] [address]
--- OUTSIDE RECORDS SUMMARY | 2024-03-21 07:52 | XMS_ITS | Continuity of Care Document ---
Author Organization [facility] Address [address] [place] [id number]- Care Team Providers Care Showroom Sales Assistant Name Role Phone Lidya Zarate MD, V Primary Care Physician [phone] [place] [facility] [place] 06/08/23 - 07/08/23 [facility] [address] [place] [address]- [place] Allergies, Adverse Reactions, Alerts Substance Reaction Severity Status Bananas Active Immunizations Given and Recorded Vaccine Date Status Refusal Reason SARS-CoV-2 mRNA ([id number]-[id number]) vax 01/16/22 Recorded influenza virus vaccine, inactivated 07/07/21 Buster rded SARS-CoV-2 (COVID-19) mRNA BNT-162b2 vac 06/28/21 Recorded SARS-CoV-2 (COVID-19) mRNA BNT-162b2 vac 09/27/20 Recorded tetanus/diphtheria/pertussis, acel(Tdap) 04/13/21 Recorded Medications busPIRone 10 mg oral tablet 10 mg, 1, tablet, By Mouth, Daily at supper, # 90 tablet, Refills 1, Tot. Refills 1, Maintenance, 11/27/22 16:04:00 EST, Route to Pharmacy Electronically, [facility], Partial fill upon patient request if the prescription is for a schedul... Start Date: 11/27/22 Stop Date: 05/26/23 Status: Ordered Corlanor 5 mg oral tablet 1 tablet = 5 mg, By Mouth, 2 times a day with meals, # 180 tablet, 1 Refills, Maintenance, 06/09/2311:50:00 EDT, Tablet, [facility], Partial fill upon patient request if the prescription is for a schedule II opioid drug., 174.6, cm, ... Start Date: 06/09/23 Stop Date: 12/06/23 Status: Ordered cyclobenzaprine 10 mg oral tablet 10 mg, 1, tablet, By Mouth, Daily at supper, # 30 tablet, Refills 1, Tot. Refills 1, Maintenance, 02/04/23 10:40:00 EDT, Route to Pharmacy Electronically, [facility], Partial fill upon patient [...] mL, 6 Refills, Maintenance, 03/18/23 18:14:00 EDT, [facility], 177, cm, 03/17/23 8:09:00 EDT, [...] Replace Required Details, Route to Pharmacy Electronically, [facility], 174.6, cm, 04/29/23 15:52:00 EDT,... Start Date: 05/17/23 Status: Ordered indomethacin 25 mg oral capsule 1 capsule = 25 mg, By Mouth, 2 times a day, PRN Pain , Moderate, # 60 capsule, 1 Refills, Maintenance, 10/20/22 14:01:00 EST, [facility], Partial fill upon patient request if the prescription is for a schedule II opioid drug., 175, cm, 1... Start Date: 10/20/22 Status: Ordered June10/09 oral tablet See Instructions, TAKE 1 TABLET BY MOUTH EVERY DAY. SKIP PLACEBO TABLETS AND START NEXT PACK TO MANAGE PAINFUL PERIODS, # 84 tablet, 5 Refills, Maintenance, 12/31/22 8:06:00 EDT, [facility], 63, TAKE 1 TABLET BY MOUTH EVERY DAY. SKIP PLACEBO TA... Start Date: 12/31/22 Status: Ordered Lexapro 20 mg oral tablet 1 tablet = 20 mg, By Mouth, Daily, # 90 tablet, 3 Refills, Maintenance, 08/14/22 15:44:00 EST, Tablet, [facility], Partial fill upon patient request if the prescription is for a schedule II opioid drug., 175, cm, 08/14/22 14:57:00 EST, H... 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
--- OUTSIDE RECORDS SUMMARY | 2024-03-21 07:52 | XMS_ITS | Continuity of Care Document ---
Author Organization [facility] Address Unknown Care Team Providers Care Platen Grinder Name Role Phone Vik Kelley MD Primary Care Physician En[place] [facility] [place] Date(s): 08/26/21 - 09/25/21 [facility] Allergies, Adverse Reactions, Alerts Substance Reaction [...] placebo to manage dysmenorrhea., # 84 tablet, 6 Refills, Maintenance, 09/23/21 8:57:00 EST, Tablet, [facility], Partial fill upon patient request if the prescription is for a chelsi... 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
--- OUTSIDE RECORDS SUMMARY | 2024-03-21 07:52 | XMS_ITS | Continuity of Care Document ---
Author Organization [facility] Address [address] [place] [address]- Care Team Providers Care Portfolio Architect Name Role Phone Lidya Zarate MD, V Primary Care Physician En[place] [facility] [place] Date(s): 06/02/23 - 07/02/23 [facility] [address] [place] [address]- [place] Allergies, Adverse Reactions, Alerts Substance Reaction Severity Status Bananas Active Immunizations Given and Recorded Vaccine Date Status Refusal Reason SARS-CoV-2 mRNA (urpvyjg-[id number]) vax 01/16/22 Recorded influenza virus vaccine, inactivated 07/07/21 Buster rded SARS-CoV-2 (COVID-19) mRNA BNT-162b2 vac 06/28/21 Recorded SARS-CoV-2 (COVID-19) mRNA BNT-162b2 vac 09/27/20 Recorded tetanus/diphtheria/pertussis, acel(Tdap) 04/13/21 Recorded Medications busPIRone 10 mg oral tablet 10 mg, 1, tablet, By Mouth, Daily at supper, # 90 tablet, Refills 1, Tot. Refills 1, Maintenance, 11/27/22 16:04:00 EST, Route to Pharmacy Electronically, [facility], Partial fill upon patient request if the prescription is for a schedul... Start Date: 11/27/22 Stop Date: 05/26/23 Status: Ordered Corlanor 5 mg oral tablet 1 tablet = 5 mg, By Mouth, 2 times a day with meals, # 180 tablet, 1 Refills, Maintenance, 06/09/2311:50:00 EDT, Tablet, [facility], Partial fill upon patient request if the prescription is for a schedule II opioid drug., 174.6, cm, ... Start Date: 06/09/23 Stop Date: 12/06/23 Status: Ordered cyclobenzaprine 10 mg oral tablet 10 mg, 1, tablet, By Mouth, Daily at supper, # 30 tablet, Refills 1, Tot. Refills 1, Maintenance, 02/04/23 10:40:00 EDT, Route to Pharmacy Electronically, [facility], Partial fill upon [...] mL, 6 Refills, Maintenance, 03/18/23 18:14:00 EDT, [facility], 177, cm, 03/17/23 8:09:00 [...] Replace Required Details, Route to Pharmacy Electronically, [facility], 174.6, cm, 04/29/23 15:52:00 EDT,... Start Date: 05/17/23 Status: Ordered indomethacin 25 mg oral capsule 1 capsule = 25 mg, By Mouth, 2 times a day, PRN Pain , Moderate, # 60 capsule, 1 Refills, Maintenance, 10/20/22 14:01:00 EST, [facility], Partial fill upon patient request if the prescription is for a schedule II opioid drug., 175, cm, 1... Start Date: 10/20/22 Status: Ordered June10/09 oral tablet See Instructions, TAKE 1 TABLET BY MOUTH EVERY DAY. SKIP PLACEBO TABLETS AND START NEXT PACK TO MANAGE PAINFUL PERIODS, # 84 tablet, 5 Refills, Maintenance, 12/31/22 8:06:00 EDT, [facility], 63, TAKE 1 TABLET BY MOUTH EVERY DAY. SKIP PLACEBO TA... Start Date: 12/31/22 Status: Ordered Lexapro 20 mg oral tablet 1 tablet = 20 mg, By Mouth, Daily, # 90 tablet, 3 Refills, Maintenance, 08/14/22 15:44:00 EST, Tablet, [facility], Partial fill upon patient request if the prescription is for a schedule II opioid drug., 175, cm, 08/14/22 14:57:00 EST, H... 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
--- OUTSIDE RECORDS SUMMARY | 2024-03-21 07:52 | XMS_ITS | Continuity of Care Document ---
Author Organization [facility] Address [address], [address] [place] [address]- Care Team Providers Care Wire Basket Maker Name Role Phone Rodriguez BUSH, Patricia M Primary Care Physician [id number] Date(s[facility] 07/29/22 - 08/05/22 [facility] [address] [place] [address]- Attending Physician: Jaylen Vega MD Referring Physician: Denisha Rodriguez CNM Allergies, Adverse Reactions, Alerts Substance Reaction Severity Status Bananas Active Immunizations Given and Recorded Vaccine Date Status Refusal Reason SARS-CoV-2 mRNA ([id number]-[id number]) vax 01/16/22 Recorded influenza virus vaccine, inactivated 07/07/21 Buster rded SARS-CoV-2 (COVID-19) mRNA BNT-162b2 vac 06/28/21 Recorded SARS-CoV-2 (COVID-19) mRNA BNT-162b2 vac 09/27/20 Recorded tetanus/diphtheria/pertussis, acel(Tdap) 04/13/21 Recorded Medications busPIRone 10 mg oral tablet 10 mg, 1, tablet, By Mouth, Daily at supper, # 90 tablet, Refills 3, Tot. Refills 3, Maintenance, 10/28/21 15:45:00 EST, Route to Pharmacy Electronically, [facility], Partial fill upon patient request if the prescription is for a schedul... Start Date: 10/28/21 Status: Ordered Emgality Prefilled Pen 120 mg/mL subcutaneous solution = 120 mg, Subcutaneous Infusion, Every 28 days, Use one autoinjector once per month. Rotate injection sites., # 1 each, 3 Refills, Maintenance, 03/18/22 23:41:00 EDT, [facility], Partial fill upon patient request [...] 06/16/22 10:57:00 EDT, Route to Pharmacy Electronically, [facility], Partial fill upon patient request if the prescription is for a chelsi... Start Date: 06/16/22 Status: Ordered June Fe 10/09 oral tablet 1 tablet, By Mouth, Daily, take one tablet daily, omitting placebo to manage dysmenorrhea., # 90 tablet, 4 Refills, Maintenance, 11/21/21 8:35:00 EST, Tablet, [facility], Partial fill upon patient request if the prescription is for a chelsi... Start Date: 11/21/21 Stop Date: 07/02/23 Status: Ordered Lexapro 20 mg oral tablet 1 tablet = 20 mg, By Mouth, Daily, # 90 tablet, 3 Refills, Maintenance, 08/08/21 10:20:00 EST, Tablet, [facility], Partial fill upon patient request [...] Refills, Maintenance, 01/08/22 11:38:00 EDT, ER Capsule, [facility], Partial fill upon patient request if [...] recent to oldest [Reference Range]: 1 Height 175 cm (07/29/22 6:14 PM) Weight 108 kg (07/29/22 6:14 PM) Pulse Rate [55-90 bpm] 75 bpm (07/29/22 6:14 PM) Body Mass Index [18.5-24.99 kg/m2] 35.27 kg/m2 *>HHI* (07/29/22 6:14 PM) Blood Pressure [90-138/55-84 mm Hg] 128/ 70mm Hg (07/29/22 6:14 PM) Blood pressure sites Arm, right (07/29/22 6:14 PM) Dry Weight 108 kg (07/29/22 6:14 PM) Weight Obtained Via Standing scale (07/29/22 6:14 PM) Dry Weight Obtained Via Standing scale (07/29/22 6:14 PM) Social History Social History Type Response Smoking Status Never (less than 100 in lifetime) entered on: 02/26/22 Sex Patient Care team information Care Team Personnel Name: Patricia Frias NP Position: [facility] Associate Professional Member Role: PCP Address: Address: [address] [place] [address] [place] [address]- Care Team Related Persons Name: MURPHY FUNES Address: [address] [address]
--- OUTSIDE RECORDS SUMMARY | 2024-03-21 07:52 | XMS_ITS | Continuity of Care Document ---
Author Organization [facility] Address [address] [place] [address], [address] [place] [address]- Care Team Providers Care Diesel Maintenance Technician Name Role Phone Rodriguez BUSH, Patricia M Primary Care Physician [place] [facility] [place] - 07/21/22 [facility]ar[facility] [address] [place], [place] [address] Attending Physician: Jaylen Vega MD Referring Physician: Denisha Rodriguez CNM Allergies, Adverse Reactions, Alerts Substance Reaction Severity Status Bananas Active Immunizations Given and Recorded Vaccine Date Status Refusal Reason SARS-CoV-2 mRNA ([id number]-[id number]) vax 01/16/22 Recorded influenza virus vaccine, inactivated 07/07/21 Buster rded SARS-CoV-2 (COVID-19) mRNA BNT-162b2 vac 06/28/21 Recorded SARS-CoV-2 (COVID-19) mRNA BNT-162b2 vac 09/27/20 Recorded tetanus/diphtheria/pertussis, acel(Tdap) 04/13/21 Recorded Medications busPIRone 10 mg oral tablet 10 mg, 1, tablet, By Mouth, Daily at supper, # 90 tablet, Refills 3, Tot. Refills 3, Maintenance, 10/28/21 15:45:00 EST, Route to Pharmacy Electronically, [facility], Partial fill upon patient request if the prescription is for a schedul... Start Date: 10/28/21 Status: Ordered Emgality Prefilled Pen 120 mg/mL subcutaneous solution = 120 mg, Subcutaneous Infusion, Every 28 days, Use one autoinjector once per month. Rotate injection sites., # 1 each, 3 Refills, Maintenance, 03/18/22 23:41:00 EDT, [facility], Partial fill upon [...] 06/16/22 10:57:00 EDT, Route to Pharmacy Electronically, [facility], Partial fill upon patient request if the prescription is for a chelsi... Start Date: 06/16/22 Status: Ordered June Fe 10/09 oral tablet 1 tablet, By Mouth, Daily, take one tablet daily, omitting placebo to manage dysmenorrhea., # 90 tablet, 4 Refills, Maintenance, 11/21/21 8:35:00 EST, Tablet, [facility], Partial fill upon patient request if the prescription is for a chelsi... Start Date: 11/21/21 Stop Date: 07/02/23 Status: Ordered Lexapro 20 mg oral tablet 1 tablet = 20 mg, By Mouth, Daily, # 90 tablet, 3 Refills, Maintenance, 08/08/21 10:20:00 EST, Tablet, [facility], Partial fill upon patient request if [...] Refills, Maintenance, 01/08/22 11:38:00 EDT, ER Capsule, [facility], Partial fill upon patient [...] oldest [Reference Range]: 1 Height 175 cm (07/14/22 8:29 AM) Weight 105.5 kg (07/14/22 8:29 AM) Pulse Rate [55-90 bpm] 88 bpm (07/14/22 8:29 AM) Body Mass Index [18.5-24.99 kg/m2] 34.45 kg/m2 *>HHI* (07/14/22 8:29 AM) Blood Pressure [90-138/55-84 mm Hg] 118/ 62mm Hg (07/14/22 8:29 AM) Blood pressure sites Arm, right (07/14/22 8:29 AM) Dry Weight 105.5 kg (07/14/22 8:29 AM) Weight Obtained Via Standing scale (07/14/22 8:29 AM) Dry Weight Obtained Via Standing scale (07/14/22 8:29 AM) Social History Social History Type Response Smoking Status Never (less than 100 in lifetime) entered on: 02/26/22 Sex Patient Care team information Personnel Name: Patricia Frias NP Address: Address: [address] [place] [address] Primary Care [facility] [place] [address]
--- OUTSIDE RECORDS SUMMARY | 2024-03-21 07:52 | XMS_ITS | Continuity of Care Document ---
Author Organization [facility] Address [address] [place] [address]- Care Team Providers Care Custodian Athletic Equipment Name Role Phone Rodriguez BUSH, Patricia Barfield Primary Care Physician [phone] Encounter [facility] [place] Date(s): 12/18/22 - 01/17/23 [facility] [address] [place], [place] [address] Allergies, Adverse Reactions, Alerts Substance Reaction Severity Status Bananas Active Immunizations Given and Recorded Vaccine Date Status Refusal Reason SARS-CoV-2 mRNA (xkhmdkq-jwbf-czape) vax 01/16/22 Recorded influenza virus vaccine, inactivated 07/07/21 Buster rded SARS-CoV-2 (COVID-19) mRNA BNT-162b2 vac 06/28/21 Recorded SARS-CoV-2 (COVID-19) mRNA BNT-162b2 vac 09/27/20 Recorded tetanus/diphtheria/pertussis, acel(Tdap) 04/13/21 Recorded Medications busPIRone 10 mg oral tablet 10 mg, 1, tablet, By Mouth, Daily at supper, # 90 tablet, Refills 1, Tot. Refills 1, Maintenance, 11/27/22 16:04:00 EST, Route to Pharmacy Electronically, [facility], Partial fill upon patient request if the prescription is for a schedul... Start Date: 11/27/22 Stop Date: 05/26/23 Status: Ordered Emgality Prefilled Pen 120 mg/mL subcutaneous solution = 120 mg, Subcutaneous Infusion, Every 28 days, Use one autoinjector once per month. Rotate injection sites., # 1 each, 6 Refills, Maintenance, 08/06/22 20:26:00 EST, [facility], Partial fill upon [...] 11/19/22 13:17:00 EST, Route to Pharmacy Electronically, [facility], 177, cm, 11/03/22 8:32:00 EST, Height, 106.8, kg, 11/03/22 8:32:00 EST, . Start Date: 11/19/22 Status: Ordered indomethacin 25 mg oral capsule 1 capsule = 25 mg, By Mouth, 2 times a day, PRN Pain , Moderate, # 60 capsule, 1 Refills, Maintenance, 10/20/22 14:01:00 EST, [facility], Partial fill upon patient request if the prescription is for a schedule II opioid drug., 175, cm, 1... Start Date: 10/20/22 Status: Ordered Junel Fe 10/09 oral tablet See Instructions, TAKE 1 TABLET BY MOUTH EVERY DAY. SKIP PLACEBO TABLETS AND START NEXT PACK TO MANAGE PAINFUL PERIODS, # 84 tablet, 5 Refills, Maintenance, 12/31/22 8:06:00 EDT, [facility], 63, TAKE 1 TABLET BY MOUTH EVERY DAY. SKIP PLACEBO TA... Start Date: 12/31/22 Status: Ordered Lexapro 20 mg oral tablet 1 tablet = 20 mg, By Mouth, Daily, # 90 tablet, 3 Refills, Maintenance, 08/14/22 15:44:00 EST, Tablet, [facility], Partial fill upon patient request [...] Refills, Maintenance, 01/08/22 11:38:00 EDT, ER Capsule, [facility], Partial fill upon patient request if [...] Associate Professional Member Role: PCP Address: Address: [address] [place] [address] [place] [address]- Care Team Related Persons Name: MURPHY FUNES Address: home [address] [place] [address]
--- OUTSIDE RECORDS SUMMARY | 2024-03-21 07:52 | XMS_ITS | Continuity of Care Document ---
Author Organization [facility] Address [address] [place] [address], [address] d Floor, [address] [place] [address]- Care Team Providers Care Safety And Security Officer Name Role Phone Elliot DOMINGUEZ, Lidya Leos Primary Care Physician Encounter [facility] [place] Date(s): 01/05/24 - 02/04/24 [facility] [address] [facility] 3rd Floor, [address] [place] [address]- Allergies, Adverse Reactions, Alerts Substance Reaction Severity Status Bananas Active Immunizations Given and Recorded Vaccine Date Status Refusal Reason influenza virus vaccine, inactivated 07/02/23 Buster rded influenza virus vaccine, inactivated 07/16/22 Buster rded influenza virus vaccine, inactivated 07/07/21 Buster rded SARS-CoV-2 mRNA (fgriqsq-jzmu-qeagf) vax 01/16/22 Recorded SARS-CoV-2 (COVID-19) mRNA BNT-162b2 [...] tablet, 1 Refills, Maintenance, 01/19/24 12:57:00 EDT, [facility], 174.6, cm, 12/27/23 12:55:00 EDT, Height, [...] Maintenance, 11/04/23 8:11:00 EST,Route to Pharmacy Electronically, [facility], 174.6, cm, 10/12/23 15:43:00 EST, Height, 105.3, kg, 06/30/23 9:52:00 EDT, Dry Weight Start Date: 11/04/23 Status: Ordered indomethacin 25 mg oral capsule 1 capsule = 25 mg, By Mouth, 2 times a day, PRN Pain , Moderate, # 60 capsule, 1 Refills, Maintenance, 10/20/22 14:01:00 EST, [facility], Partial fill upon patient request if the prescription is for a schedule II opioid drug., 175, cm, 1... Start Date: 10/20/22 Status: Ordered 10/09 oral tablet See Instructions, TAKE 1 TABLET BY MOUTH EVERY DAY. SKIP PLACEBO TABLETS AND START NEXT PACK TO MANAGE PAINFUL PERIODS, # 84 tablet, 5 Refills, Maintenance, 02/02/24 8:05:00 EDT, [facility], 63, TAKE 1 TABLET BY MOUTH EVERY DAY. SKIP PLACEBO TA... 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, # 1 kit, 3 Refills, Maintenance, 02/09/23 9:38:00 EDT, [facility], Partial fill upon patient request [...] capsule, 0 Refills, Maintenance, 12/15/23 7:47:00 EDT, [facility], 174.6, cm, 10/12/23 15:43:00 EST, Height, 105.3, kg, 06/30/23 9:52:00 EDT, Dry Weight Start Date: 12/15/23 Status: Ordered traMADol 50 mg oral tablet 1 tablet = 50 mg, By Mouth, Every 12 hours, PRN as needed for pain, # 6 tablet, 0 Refills, Maintenance, 10/12/23 17:34:00 EST, Tablet, [facility], Partial fill upon patient request [...] Personnel Name: Lidya Zarate MD, V Position: [facility] Physician - Primary Care Member Role: PCP Address: Address: [address] [place] [address] [place] [address]- [place] Care Team Related Persons Name: MURPHY FUNES Address: home [address] [place] [address]
--- OUTSIDE RECORDS SUMMARY | 2024-03-21 07:52 | XMS_ITS | Continuity of Care Document ---
Author Organization [facility] Address [address] [place] [address]- Care Team Providers Care Lead Web Application Developer Name Role Phone Rodriguez BUSH, Patricia Barfield Primary Care Physician En[place] [facility] [place] Date(s): 06/09/22 - 07/09/22 [facility] [address] [place] [address]- [place] Allergies, Adverse Reactions, Alerts Substance Reaction Severity Status Bananas Active Immunizations Given and Recorded Vaccine Date Status Refusal Reason SARS-CoV-2 mRNA (cfcjivt-pqdt-qyjzk) vax 01/16/22 Recorded influenza virus vaccine, inactivated 07/07/21 Buster rded SARS-CoV-2 (COVID-19) mRNA BNT-162b2 vac 06/28/21 Recorded SARS-CoV-2 (COVID-19) mRNA BNT-162b2 vac 09/27/20 Recorded tetanus/diphtheria/pertussis, acel(Tdap) 04/13/21 Recorded Medications busPIRone 10 mg oral tablet 10 mg, 1, tablet, By Mouth, Daily at supper, # 90 tablet, Refills 3, Tot. Refills 3, Maintenance, 10/28/21 15:45:00 EST, Route to Pharmacy Electronically, [facility], Partial fill upon patient request if the prescription is for a schedul... Start Date: 10/28/21 Status: Ordered Emgality Prefilled Pen 120 mg/mL subcutaneous solution = 120 mg, Subcutaneous Infusion, Every 28 days, Use one autoinjector once per month. Rotate injection sites., # 1 each, 3 Refills, Maintenance, 03/18/22 23:41:00 EDT, [facility], Partial fill upon [...] 06/16/22 10:57:00 EDT, Route to Pharmacy Electronically, [facility], Partial fill upon patient request if the prescription is for a chelsi... Start Date: 06/16/22 Status: Ordered June Fe 10/09 oral tablet 1 tablet, By Mouth, Daily, take one tablet daily, omitting placebo to manage dysmenorrhea., # 90 tablet, 4 Refills, Maintenance, 11/21/21 8:35:00 EST, Tablet, [facility], Partial fill upon patient request if the prescription is for a chelsi... Start Date: 11/21/21 Stop Date: 07/02/23 Status: Ordered Lexapro 20 mg oral tablet 1 tablet = 20 mg, By Mouth, Daily, # 90 tablet, 3 Refills, Maintenance, 08/08/21 10:20:00 EST, Tablet, [facility], Partial fill upon patient request [...] 11:38:00 EDT, ER Capsule, [facility], Partial fill upon [...] Personnel Name: Patricia Frias NP Address: Address: [address] [place] [address] Primary Care [place], [place] [address]
--- OUTSIDE RECORDS SUMMARY | 2024-03-21 07:52 | XMS_ITS | Continuity of Care Document ---
Author Organization [facility] Address [address] [place] [address]- Care Team Providers Care Manager Film Name Role Phone Allie DOMINGUEZ, Vik Joaquin Primary Care Physician [place] [facility] [place]/22[place]21 - 09/21/21 [facility] [address] [place] [address]- [place] Allergies, Adverse Reactions, Alerts Substance Reaction [...]
--- OUTSIDE RECORDS SUMMARY | 2024-03-21 07:52 | XMS_ITS | Continuity of Care Document ---
Author Organization [facility] Address [address] [place] [address]- Care Team Providers Care Salvage Diver Name Role Phone Not on Staff, PCP Primary Care Physician Unavail able Encounter [facility] Date(s): 06/24/21 - 07/24/21 [facility] [address] [place] [address]- [place] Allergies, Adverse Reactions, Alerts Substance Reaction Severity Status Bananas Active Medications Emgality Prefilled Pen 120 mg/mL subcutaneous solution = 120 mg, Subcutaneous Infusion, Every 28 days, 0 Refills, Maintenance, 05/13/21 7:55:00 EDT, Partial fill upon patient request if the prescription is for a schedule II opioid drug. Start Date: 05/13/21 Status: Ordered gabapentin 100 mg oral capsule 200 mg, 2, capsule, By Mouth, 3 times a day, # 180 capsule, Refills 0, Tot. Refills 0, Maintenance,05/13/21 8:23:00 EDT, Route to Pharmacy Electronically, [facility], Partial fill uponpatient request if the prescription is for a schedu... Start Date: 05/13/21 Status: Ordered June10/09 oral tablet 1 tablet, By Mouth, Daily, 0 Refills, Maintenance, 05/13/21 7:55:00 EDT, Partial fill upon patient request if the prescription is for a schedule II opioid drug. Start Date: 05/13/21 Status: Ordered Lexapro 10 mg oral tablet 1 tablet = 10 mg, By Mouth, Daily, 0 Refills, Maintenance, 05/13/21 7:53:00 EDT, Partial fill upon patient request if [...] opioid drug. Start Date: 05/13/21 Status: Ordered Social History Social History Type Response Smoking Status Never (less than 100 in lifetime) entered on: 06/04/21 Sex
--- OUTSIDE RECORDS SUMMARY | 2024-03-21 07:52 | XMS_ITS | Continuity of Care Document ---
Author Organization [facility] Address [address] [place] [address]- Care Team Providers Care Shipping & Receiving Lead Name Role Phone Vik Kelley MD Primary Care Physician Encounter [facility] Date(s): 10/03/21 - 11/13/21 [facility] [place] [address] [place] [address]- Attending Physician: Vik Kelley MD Allergies, Adverse Reactions, [...] 6 Refills, Maintenance, 09/23/21 8:57:00 EST, Tablet, [facility], [...]
--- OUTSIDE RECORDS SUMMARY | 2024-03-21 07:53 | XMS_ITS | Continuity of Care Document ---
Author Organization [facility] Address [address] [place] [address]- Care Team Providers Care Channel Worker Name Role Phone Elliot DOMINGUEZ, Lidya Leos Primary Care Physician [phone] [place] [facility] Date(s): 05/27/23 - 06/26/23 [facility] [address] [place] [address]- [place] Allergies, Adverse Reactions, Alerts Substance Reaction Severity Status Bananas Active Immunizations Given and Recorded Vaccine Date Status Refusal Reason SARS-CoV-2 mRNA (nluftyw-saxt-rhxle) vax 01/16/22 Recorded influenza virus vaccine, inactivated 07/07/21 Buster rded SARS-CoV-2 (COVID-19) mRNA BNT-162b2 vac 06/28/21 Recorded SARS-CoV-2 (COVID-19) mRNA BNT-162b2 vac 09/27/20 Recorded tetanus/diphtheria/pertussis, acel(Tdap) 04/13/21 Recorded Medications busPIRone 10 mg oral tablet 10 mg, 1, tablet, By Mouth, Daily at supper, # 90 tablet, Refills 1, Tot. Refills 1, Maintenance, 11/27/22 16:04:00 EST, Route to Pharmacy Electronically, [facility], Partial fill upon patient request if the prescription is for a schedul... Start Date: 11/27/22 Stop Date: 05/26/23 Status: Ordered Corlanor 5 mg oral tablet 1 tablet = 5 mg, By Mouth, 2 times a day with meals, # 180 tablet, 1 Refills, Maintenance, 06/09/2311:50:00 EDT, Tablet, [facility], Partial fill upon patient request if the prescription is for a schedule II opioid drug., 174.6, cm, ... Start Date: 06/09/23 Stop Date: 12/06/23 Status: Ordered cyclobenzaprine 10 mg oral tablet 10 mg, 1, tablet, By Mouth, Daily at supper, # 30 tablet, Refills 1, Tot. Refills 1, Maintenance, 02/04/23 10:40:00 EDT, Route to Pharmacy Electronically, [facility], Partial fill upon [...] mL, 6 Refills, Maintenance, 03/18/23 18:14:00 EDT, [facility], 177, cm, 03/17/23 8:09:00 EDT, [...] Replace Required Details, Route to Pharmacy Electronically, [facility], 174.6, cm, 04/29/23 15:52:00 EDT,... Start Date: 05/17/23 Status: Ordered indomethacin 25 mg oral capsule 1 capsule = 25 mg, By Mouth, 2 times a day, PRN Pain , Moderate, # 60 capsule, 1 Refills, Maintenance, 10/20/22 14:01:00 EST, [facility], [...] tablet, 5 Refills, Maintenance, 12/31/22 8:06:00 EDT, [facility], 63, TAKE 1 TABLET BY MOUTH EVERY DAY. SKIP PLACEBO TA... Start Date: 12/31/22 Status: Ordered Lexapro 20 mg oral tablet 1 tablet = 20 mg, By Mouth, Daily, # 90 tablet, 3 Refills, Maintenance, 08/14/22 15:44:00 EST, Tablet, [facility], Partial fill upon patient request if the prescription is for a schedule II opioid drug., 175, cm, 08/14/22 14:57:00 EST, H... 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
--- OUTSIDE RECORDS SUMMARY | 2024-03-21 07:53 | XMS_ITS | Continuity of Care Document ---
Author Organization [facility] Address Unknown Care Team Providers Care Internet Sales Associate Name Role Phone Not on Staff, PCP Primary Care Physician Unavail able Encounter [facility] [place] Date(s): 04/29/21 - 05/29/21 [facility] Allergies, Adverse Reactions, Alerts Substance [...] Maintenance,05/13/21 8:23:00 EDT, Route to Pharmacy Electronically, [facility], Partial fill uponpatient request [...]
--- OUTSIDE RECORDS SUMMARY | 2024-03-21 07:53 | XMS_ITS | Continuity of Care Document ---
Author Organization [facility] Address [address] [facility], [address] [place] [address]- Care Team Providers Care Hose Seamer Name Role Phone Elliot DOMINGUEZ, Lidya Leos Primary Care Physician [phone] Encounter [facility] [place] Date(s): 02/16/24 - 03/17/24 [facility] [address] [facility], 4th [place] [address]- Attending Physician: Bryan Muniz Admitting Physician: AdmBryan nunez Referring Physician: Admtr Ar8 Allergies, Adverse Reactions, Alerts Substance Reaction Severity Status Bananas Active Immunizations Given and Recorded Vaccine Date Status Refusal Reason influenza virus vaccine, inactivated 07/02/23 Buster rded influenza virus vaccine, inactivated 07/16/22 Buster rded influenza virus vaccine, inactivated 07/07/21 Buster rded SARS-CoV-2 mRNA (stcpghh-kjul-qnxzj) vax 01/16/22 Recorded SARS-CoV-2 (COVID-19) mRNA BNT-162b2 [...] tablet, 1 Refills, Maintenance, 01/19/24 12:57:00 EDT, [facility], 174.6, cm, 12/27/23 12:55:00 EDT, [...] Maintenance, 11/04/23 8:11:00 EST,Route to Pharmacy Electronically, [facility], 174.6, cm, 10/12/23 15:43:00 EST, Height, 105.3, kg, 06/30/23 9:52:00 EDT, Dry Weight Start Date: 11/04/23 Status: Ordered indomethacin 25 mg oral capsule 1 capsule = 25 mg, By Mouth, 2 times a day, PRN Pain , Moderate, # 60 capsule, 1 Refills, Maintenance, 10/20/22 14:01:00 EST, [facility], Partial fill upon patient request if the prescription is for a schedule II opioid drug., 175, cm, 1... Start Date: 10/20/22 Status: Ordered 10/09 oral tablet See Instructions, TAKE 1 TABLET BY MOUTH EVERY DAY. SKIP PLACEBO TABLETS AND START NEXT PACK TO MANAGE PAINFUL PERIODS, # 84 tablet, 5 Refills, Maintenance, 02/02/24 8:05:00 EDT, [facility], 63, TAKE 1 TABLET BY MOUTH EVERY DAY. SKIP PLACEBO TA... 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, # 1 kit, 3 Refills, Maintenance, 02/09/23 9:38:00 EDT, [facility], Partial fill upon patient [...] capsule, By Mouth, Daily, # 90 capsule, 3 Refills, Maintenance, 03/13/24 9:19:00 EDT, [facility], 174.6, cm, 02/16/24 9:04:00 EDT, Height, 105.3, kg, 06/30/23 9:52:00 EDT, Dry Weight Start Date: 03/13/24 Status: Ordered propranolol 120 mg oral capsule, extended release 1 capsule, By Mouth, Daily, # 90 capsule, 0 Refills, Maintenance, 12/15/23 7:47:00 EDT, [facility], 174.6, cm, 10/12/23 15:43:00 EST, Height, 105.3, kg, 06/30/23 9:52:00 EDT, Dry Weight Start Date: 12/15/23 Status: Ordered traMADol 50 mg oral tablet 1 tablet = 50 mg, By Mouth, Every 12 hours, PRN as needed for pain, # 6 tablet, 0 Refills, Maintenance, 10/12/23 17:34:00 EST, Tablet, [facility], Partial fill upon patient [...] Personnel Name: Lidya Zarate MD, V Position: [facility] Physician - Primary Care Member Role: PCP Address: Address: [address] [place] [address]- Care Team Related Persons Name: MURPHY FUNES Address: home [address] [place] [address]
--- OUTSIDE RECORDS SUMMARY | 2024-03-21 07:53 | XMS_ITS | Continuity of Care Document ---
Author Organization [facility] Address [address] [place] [address], [address] [place] [address]- Care Team Providers Care Instrumentation Tech Name Role Phone Rodriguez BUSH, Patricia Barfield Primary Care Physician [phone] Encounter [facility] [place] Date(s): 08/31/22 - 09/30/22 [facility] [address] [facility], [address] [place], [place] [address] Allergies, Adverse Reactions, Alerts Substance Reaction Severity Status Bananas Active Immunizations Given and Recorded Vaccine Date Status Refusal Reason SARS-CoV-2 mRNA (xdwnbak-acqj-oafrg) vax 01/16/22 Recorded influenza virus vaccine, inactivated 07/07/21 Buster rded SARS-CoV-2 (COVID-19) mRNA BNT-162b2 vac 06/28/21 Recorded SARS-CoV-2 (COVID-19) mRNA BNT-162b2 vac 09/27/20 Recorded tetanus/diphtheria/pertussis, acel(Tdap) 04/13/21 Recorded Medications busPIRone 10 mg oral tablet 10 mg, 1, tablet, By Mouth, Daily at supper, # 90 tablet, Refills 3, Tot. Refills 3, Maintenance, 10/28/21 15:45:00 EST, Route to Pharmacy Electronically, [facility], Partial fill upon patient request if the prescription is for a schedul... Start Date: 10/28/21 Status: Ordered Emgality Prefilled Pen 120 mg/mL subcutaneous solution = 120 mg, Subcutaneous Infusion, Every 28 days, Use one autoinjector once per month. Rotate injection sites., # 1 each, 6 Refills, Maintenance, 08/06/22 20:26:00 EST, [facility], Partial fill upon [...] 14:03:00 EST, Route to Pharmacy Electronically, [facility], 175, cm, 09/03/22 14:39:00 EST, Height, 108, kg, 07/29/22 18:14:00 EST, Dry Weight Start Date: 09/16/22 Status: Ordered Junel Fe 10/09 oral tablet 1 tablet, By Mouth, Daily, take one tablet daily, omitting placebo to manage dysmenorrhea., # 90 tablet, 4 Refills, Maintenance, 11/21/21 8:35:00 EST, Tablet, [facility], Partial fill upon patient request if the prescription is for a chelsi... Start Date: 11/21/21 Stop Date: 07/02/23 Status: Ordered Lexapro 20 mg oral tablet 1 tablet = 20 mg, By Mouth, Daily, # 90 tablet, 3 Refills, Maintenance, 08/14/22 15:44:00 EST, Tablet, [facility], Partial fill upon patient request if the prescription is for a schedule II opioid drug., 175, cm, 08/14/22 14:57:00 EST, H... Start Date: 08/14/22 Status: Ordered lidocaine 5% topical ointment 1 application, Topically, 3 times a day, # 50 Gm, 0 Refills, Maintenance, 08/31/22 13:19:00 EST, [facility], Partial fill upon patient request if [...] Maintenance, 01/08/22 11:38:00 EDT, ER Capsule, [facility] 3, Partial fill upon patient request [...] Personnel Name: Rodriguez BUSH, Patricia Barfield Position: [facility] Associate Professional Member Role: PCP Address: Address: [address] [place] [address] [place] [address]- Care Team Related Persons Name: MURPHY FUNES Address: home [address] [place] [address]
--- OUTSIDE RECORDS SUMMARY | 2024-03-21 07:53 | XMS_ITS | Continuity of Care Document ---
Author Organization [facility] Address [address] [place] [address]- Care Team Providers Care Net Web Developer Name Role Phone Rodriguez BUSH, Patricia Barfield Primary Care Physician [phone] Encounter [facility] [place] Date(s): 12/04/21 - 02/28/22 [facility] [address] [place] [address]- Attending Physician: Javier De Luna MD Admitting Physician: Javier De Luna MD Allergies, Adverse Reactions, Alerts Substance Reaction [...] opioid drug. Start Date: 05/13/21 Status: Ordered Flonase Allergy Relief Daily, 0 [...] 11:38:00 EDT, ER Capsule, [facility], Partial [...]
--- OUTSIDE RECORDS SUMMARY | 2024-03-21 07:53 | XMS_ITS | Continuity of Care Document ---
Author Organization [facility] Address [address] [place] [address]- Care Team Providers Care Analysis Engineer Name Role Phone Allie DOMINGUEZ, Vik Joaquin Primary Care Physician [place] [facility] [place]18[place] - 01/02/22 [facility] [address] [place] [address]- Attending Physician: Javier De Luna MD Admitting [...] 8:35:00 EST, Tablet, [facility], Partial fill upon [...]
--- OUTSIDE RECORDS SUMMARY | 2024-03-21 07:53 | XMS_ITS | Continuity of Care Document ---
Author Organization [facility] [place] Address [address] [place] [address]- Care Team Providers Care [facility] Name Role Phone Rodriguez BUSH, Patricia Barfield Primary Care Physician Encounter [facility] Date(s): 05/06/22 - 06/05/22 [facility] [place] [address] [place] [address]- Allergies, Adverse Reactions, Alerts Substance Reaction Severity Status Bananas Active Immunizations Given and Recorded Vaccine Date Status Refusal Reason SARS-CoV-2 mRNA (saokaey-qkef-rgirk) vax 01/16/22 Recorded influenza virus vaccine, inactivated 07/07/21 Buster rded SARS-CoV-2 (COVID-19) mRNA BNT-162b2 vac 06/28/21 Recorded SARS-CoV-2 (COVID-19) mRNA BNT-162b2 vac 09/27/20 Recorded tetanus/diphtheria/pertussis, acel(Tdap) 04/13/21 Recorded Medications busPIRone 10 mg oral tablet 10 mg, 1, tablet, By Mouth, Daily at supper, # 90 tablet, Refills 3, Tot. Refills 3, Maintenance, 10/28/21 15:45:00 EST, Route to Pharmacy Electronically, [facility], Partial fill upon patient request if the prescription is for a schedul... Start Date: 10/28/21 Status: Ordered Emgality Prefilled Pen 120 mg/mL subcutaneous solution = 120 mg, Subcutaneous Infusion, Every 28 days, Use one autoinjector once per month. Rotate injection sites., # 1 each, 3 Refills, Maintenance, 03/18/22 23:41:00 EDT, [facility], Partial fill upon patient request if the prescription is f... Start Date: 03/18/22 Status: Ordered Flonase Allergy Relief Daily, 0 Refills, Maintenance, 02/26/22 16:11:00 EDT, Partial fill upon patient request if the prescription is for a schedule II opioid drug. Start Date: 02/26/22 Status: Ordered gabapentin 100 mg oral capsule 200 mg, 2, capsule, By Mouth, Daily, # 180 capsule, Refills 3, Tot. Refills 3, Maintenance, 08/08/21 10:22:00 EST, Route to Pharmacy Electronically, [facility], Partial fill upon patient request if the prescription is for a schedule II o... Start Date: 08/08/21 Status: Ordered June Fe 10/09 oral tablet 1 tablet, By Mouth, Daily, take one tablet daily, omitting placebo to manage dysmenorrhea., # 90 tablet, 4 Refills, Maintenance, 11/21/21 8:35:00 EST, Tablet, [facility], Partial fill upon patient request if the prescription is for a chelsi... Start Date: 11/21/21 Stop Date: 07/02/23 Status: Ordered Lexapro 20 mg oral tablet 1 tablet = 20 mg, By Mouth, Daily, # 90 tablet, 3 Refills, Maintenance, 08/08/21 10:20:00 EST, Tablet, [facility], Partial fill upon patient request [...] Refills, Maintenance, 01/08/22 11:38:00 EDT, ER Capsule, [facility], Partial fill upon patient [...] 100 in lifetime) entered on: 02/26/22 Sex Care Team Personnel Name: Patricia Frias NP Address: [address] [place] [address] Primary [place], [place] [address]
--- OUTSIDE RECORDS SUMMARY | 2024-03-21 07:53 | XMS_ITS | Continuity of Care Document ---
Author Organization [facility] Address [address] [place] [address]- Care Team Providers Care Plastic Eye Technician Name Role Phone Vik Kelley MD Primary Care Physician [place] [facility] [place]/22 [facility] [address] [place] [address]- Attending Physician: Bryan Muniz Admitting Physician: AdmtrByran Referring Physician: Admtr, Ar8 Allergies, Adverse Reactions, [...] opioid drug. Start Date: 05/13/21 Status: Ordered June10/09 oral tablet 1 tablet, By Mouth, Daily, take one tablet daily, omitting placebo to manage dysmenorrhea., # 90 tablet, 4 Refills, Maintenance, 11/21/21 8:35:00 EST, Tablet, [facility], Partial fill upon patient request [...] Refills, Maintenance, 01/08/22 11:38:00 EDT, ER Capsule, [facility], Partial fill upon patient [...]
--- OUTSIDE RECORDS SUMMARY | 2024-03-21 07:53 | XMS_ITS | Continuity of Care Document ---
Author Organization [facility] Address [address] [place] [address]- Care Team Providers Care Machine Pecan Picker Name Role Phone Allie DOMINGUEZ, Vik Joaquin Primary Care Physician [place] [facility] [place] - 10/25/[address] [address] Attending Physician: Admtr, Bj8 Admitting Physician: Admtr, Ar8 Referring Physician: Admtr, [...] 6 Refills, Maintenance, 09/23/21 8:57:00 EST, Tablet, [facility], Partial fill upon patient [...]
--- OUTSIDE RECORDS SUMMARY | 2024-03-21 07:53 | XMS_ITS | Continuity of Care Document ---
Author Organization [facility] Address [address] [place] [address]- Care Team Providers Care Site Lead Name Role Phone Rodriguez BUSH, Patricia Barfield Primary Care Physician Encounter [facility] Date(s): 12/09/22 - 01/08/23 [facility] [address] [place] [address]- Attending Physician: Bryan Muniz Admitting Physician: Admtr, Bryan Referring Physician: Admtr, Ar8 Allergies, Adverse Reactions, Alerts Substance Reaction Severity Status Bananas Active Immunizations Given and Recorded Vaccine Date Status Refusal Reason SARS-CoV-2 mRNA (nihiwrb-fnek-grjpv) vax 01/16/22 Recorded influenza virus vaccine, inactivated 07/07/21 Buster rded SARS-CoV-2 (COVID-19) mRNA BNT-162b2 vac 06/28/21 Recorded SARS-CoV-2 (COVID-19) mRNA BNT-162b2 vac 09/27/20 Recorded tetanus/diphtheria/pertussis, acel(Tdap) 04/13/21 Recorded Medications busPIRone 10 mg oral tablet 10 mg, 1, tablet, By Mouth, Daily at supper, # 90 tablet, Refills 1, Tot. Refills 1, Maintenance, 11/27/22 16:04:00 EST, Route to Pharmacy Electronically, [facility], Partial fill upon patient request if the prescription is for a schedul... Start Date: 11/27/22 Stop Date: 05/26/23 Status: Ordered Emgality Prefilled Pen 120 mg/mL subcutaneous solution = 120 mg, Subcutaneous Infusion, Every 28 days, Use one autoinjector once per month. Rotate injection sites., # 1 each, 6 Refills, Maintenance, 08/06/22 20:26:00 EST, [facility], Partial fill upon patient [...] 11/19/22 13:17:00 EST, Route to Pharmacy Electronically, [facility] 3, 177, cm, 11/03/22 8:32:00 EST, Height, 106.8, kg, 11/03/22 8:32:00 EST, . Start Date: 11/19/22 Status: Ordered indomethacin 25 mg oral capsule 1 capsule = 25 mg, By Mouth, 2 times a day, PRN Pain , Moderate, # 60 capsule, 1 Refills, Maintenance, 10/20/22 14:01:00 EST, [facility] 3, Partial fill upon patient request if the prescription is for a schedule II opioid drug., 175, cm, 1... Start Date: 10/20/22 Status: Ordered Junel Fe 10/09 oral tablet See Instructions, TAKE 1 TABLET BY MOUTH EVERY DAY. SKIP PLACEBO TABLETS AND START NEXT PACK TO MANAGE PAINFUL PERIODS, # 84 tablet, 5 Refills, Maintenance, 12/31/22 8:06:00 EDT, [facility], 63, TAKE 1 TABLET BY MOUTH EVERY DAY. SKIP PLACEBO TA... Start Date: 12/31/22 Status: Ordered Lexapro 20 mg oral tablet 1 tablet = 20 mg, By Mouth, Daily, # 90 tablet, 3 Refills, Maintenance, 08/14/22 15:44:00 EST, Tablet, [facility] 3, Partial fill upon patient [...] Refills, Maintenance, 01/08/22 11:38:00 EDT, ER Capsule, [facility], Partial fill upon patient request if [...] Associate Professional Member Role: PCP Address: Address: [address] [place] [address] [place] [address]- Care Team Related Persons Name: MURPHY FUNES Address: home [address] [place] [address]
--- OUTSIDE RECORDS SUMMARY | 2024-03-21 07:53 | XMS_ITS | Continuity of Care Document ---
Author Organization [facility] Address [address] [place] [address]- Care Team Providers Care Cell Maker Name Role Phone Elliot DOMINGUEZ, Lidya Leos Primary Care Physician En[place] [facility] [place] Date(s): 10/01/23 - 01/20/24 [facility] [address] [place] [address]- Attending Physician: Deandre Urrutia MD, Brendan Jean Baptiste Admitting Physician: Deandre Urrutia MD, Brendan Jean Baptiste Referring Physician: Lidya Zarate MD, V Allergies, Adverse Reactions, Alerts Substance Reaction Severity Status Bananas Active Immunizations Given and Recorded Vaccine Date Status Refusal Reason influenza virus vaccine, inactivated 07/02/23 Buster rded influenza virus vaccine, inactivated 07/16/22 Buster rded influenza virus vaccine, inactivated 07/07/21 Buster rded SARS-CoV-2 mRNA ([id number]-[id number]-pmhkm) vax 01/16/22 Recorded SARS-CoV-2 (COVID-19) mRNA BNT-162b2 [...] tablet, 1 Refills, Maintenance, 01/19/24 12:57:00 EDT, [facility], 174.6, cm, 12/27/23 12:55:00 EDT, Height, 105.3, kg, 10/11/23 9:52:00 EDT, Dry Weight Start Date: 01/19/24 [...] Maintenance, 11/04/23 8:11:00 EST,Route to Pharmacy Electronically, [facility], 174.6, cm, 10/12/23 15:43:00 EST, Height, 105.3, kg, 06/30/23 9:52:00 EDT, Dry Weight Start Date: 11/04/23 Status: Ordered indomethacin 25 mg oral capsule 1 capsule = 25 mg, By Mouth, 2 times a day, PRN Pain , Moderate, # 60 capsule, 1 Refills, Maintenance, 10/20/22 14:01:00 EST, [facility], Partial fill upon patient request if the prescription is for a schedule II opioid drug., 175, cm, 1... Start Date: 10/20/22 Status: Ordered 10/09 oral tablet See Instructions, TAKE 1 TABLET BY MOUTH EVERY DAY. SKIP PLACEBO TABLETS AND START NEXT PACK TO MANAGE PAINFUL PERIODS, # 84 tablet, 5 Refills, Maintenance, 12/31/22 8:06:00 EDT, [facility], 63, TAKE 1 TABLET BY MOUTH EVERY DAY. SKIP PLACEBO TA... 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, # 1 kit, 3 Refills, Maintenance, 02/09/23 9:38:00 EDT, [facility], Partial fill upon patient request [...] capsule, 0 Refills, Maintenance, 12/15/23 7:47:00 EDT, [facility], 174.6, cm, 10/12/23 15:43:00 EST, Height, 105.3, kg, 06/30/23 9:52:00 EDT, Dry Weight Start Date: 12/15/23 Status: Ordered traMADol 50 mg oral tablet 1 tablet = 50 mg, By Mouth, Every 12 hours, PRN as needed for pain, # 6 tablet, 0 Refills, Maintenance, 10/12/23 17:34:00 EST, Tablet, [facility], Partial fill upon patient request [...] Care Team Personnel Name: Elliot DOMINGUEZ, Lidya V Position: [facility] Physician - Primary Care Member Role: PCP Address: Address: [address] [place] [address]- Care Team Related Persons Name: MURPHY FUNES Address: [address] [place] [address]
--- OUTSIDE RECORDS SUMMARY | 2024-03-21 07:53 | XMS_ITS | Continuity of Care Document ---
Author Organization [facility] Address [address] [place] [address]- Care Team Providers Care Supervisor Endless Track Vehicle Name Role Phone Elliot DOMINGUEZ, Lidya Leos Primary Care Physician En[place] [facility] [place] Date(s): 05/17/23 - 06/16/23 [facility] [address] [place] [address]- [place] Allergies, Adverse Reactions, Alerts Substance Reaction Severity Status Bananas Active Immunizations Given and Recorded Vaccine Date Status Refusal Reason SARS-CoV-2 mRNA (wcqvvbr-rhvw-wezok) vax 01/16/22 Recorded influenza virus vaccine, inactivated 07/07/21 Buster rded SARS-CoV-2 (COVID-19) mRNA BNT-162b2 vac 06/28/21 Recorded SARS-CoV-2 (COVID-19) mRNA BNT-162b2 vac 09/27/20 Recorded tetanus/diphtheria/pertussis, acel(Tdap) 04/13/21 Recorded Medications busPIRone 10 mg oral tablet 10 mg, 1, tablet, By Mouth, Daily at supper, # 90 tablet, Refills 1, Tot. Refills 1, Maintenance, 11/27/22 16:04:00 EST, Route to Pharmacy Electronically, [facility], Partial fill upon patient request if the prescription is for a schedul... Start Date: 11/27/22 Stop Date: 05/26/23 Status: Ordered Corlanor 5 mg oral tablet 1 tablet = 5 mg, By Mouth, 2 times a day with meals, # 180 tablet, 1 Refills, Maintenance, 06/09/2311:50:00 EDT, Tablet, [facility], Partial fill upon patient request if the prescription is for a schedule II opioid drug., 174.6, cm, ... Start Date: 06/09/23 Stop Date: 12/06/23 Status: Ordered cyclobenzaprine 10 mg oral tablet 10 mg, 1, tablet, By Mouth, Daily at supper, # 30 tablet, Refills 1, Tot. Refills 1, Maintenance, 02/04/23 10:40:00 EDT, Route to Pharmacy Electronically, [facility], Partial fill upon patient request [...] mL, 6 Refills, Maintenance, 03/18/23 18:14:00 EDT, [facility], 177, cm, 03/17/23 8:09:00 EDT, [...] Replace Required Details, Route to Pharmacy Electronically, [facility], 174.6, cm, 04/29/23 15:52:00 EDT,... Start Date: 05/17/23 Status: Ordered indomethacin 25 mg oral capsule 1 capsule = 25 mg, By Mouth, 2 times a day, PRN Pain , Moderate, # 60 capsule, 1 Refills, Maintenance, 10/20/22 14:01:00 EST, [facility] 3, Partial fill upon patient request if the prescription is for a schedule II opioid drug., 175, cm, 1... Start Date: 10/20/22 Status: Ordered Junel Fe 10/09 oral tablet See Instructions, TAKE 1 TABLET BY MOUTH EVERY DAY. SKIP PLACEBO TABLETS AND START NEXT PACK TO MANAGE PAINFUL PERIODS, # 84 tablet, 5 Refills, Maintenance, 12/31/22 8:06:00 EDT, [facility], 63, TAKE 1 TABLET BY MOUTH EVERY DAY. SKIP PLACEBO TA... Start Date: 12/31/22 Status: Ordered Lexapro 20 mg oral tablet 1 tablet = 20 mg, By Mouth, Daily, # 90 tablet, 3 Refills, Maintenance, 08/14/22 15:44:00 EST, Tablet, [facility], Partial fill upon patient request if the prescription is for a schedule II opioid drug., 175, cm, 08/14/22 14:57:00 EST, H... 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
--- OUTSIDE RECORDS SUMMARY | 2024-03-21 07:53 | XMS_ITS | Continuity of Care Document ---
Author Organization [facility] Address [address] [place] [address]- Care Team Providers Care Swing Grinder Name Role Phone Allie DOMINGUEZ, Vik Joaquin Primary Care Physician [place] [facility] [place] 01/06/22 - 02/05/22 [facility] [address] [place] [address]- [place] Allergies, Adverse Reactions, Alerts Substance Reaction [...] 4 Refills, Maintenance, 11/21/21 8:35:00 EST, Tablet, [facility], Partial fill upon patient request [...] Refills, Maintenance, 01/08/22 11:38:00 EDT, ER Capsule, [facility], Partial fill [...]
--- OUTSIDE RECORDS SUMMARY | 2024-03-21 07:53 | XMS_ITS | Continuity of Care Document ---
Author Organization [facility] Address [address] [place] [address]- Care Team Providers Care Director Wholesale Name Role Phone Allie DOMINGUEZ, Vik Joaquin Primary Care Physician Encounter [facility] [place] Date(s): 11/04/21 - 12/04/[address] [address]- Attending Physician: Bryan Muniz Admitting Physician: Bryan [...] 4 Refills, Maintenance, 11/21/21 8:35:00 EST, Tablet, [facility], Partial fill upon [...]
--- OUTSIDE RECORDS SUMMARY | 2024-03-21 07:53 | XMS_ITS | Continuity of Care Document ---
Author Organization [facility] [employer] Address [address], [address] [place] [address]- Care Team Providers Care Pole Truck Driver Name Role Phone Lidya Zarate MD, V Primary Care Physician [id number] Date(s): 02/16/24 - 02/23/24 [facility] [employer] [facility] [address] [place], [place] [address] Attending Physician: Not on Staff, Attending MD Referring Physician: Lila Hawkins Allergies, Adverse Reactions, Alerts Substance Reaction Severity Status Bananas Active Immunizations Given and Recorded Vaccine Date Status Refusal Reason influenza virus vaccine, inactivated 07/02/23 Buster rded influenza virus vaccine, inactivated 07/16/22 Buster rded influenza virus vaccine, inactivated 07/07/21 Buster rded SARS-CoV-2 mRNA ([id number]-tjjb-yrzit) vax 01/16/22 Recorded SARS-CoV-2 (COVID-19) mRNA BNT-162b2 [...] tablet, 1 Refills, Maintenance, 01/19/24 12:57:00 EDT, [facility], 174.6, cm, 12/27/23 12:55:00 EDT, [...] Maintenance, 11/04/23 8:11:00 EST,Route to Pharmacy Electronically, [facility], 174.6, cm, 10/12/23 15:43:00 EST, Height, 105.3, kg, 06/30/23 9:52:00 EDT, Dry Weight Start Date: 11/04/23 Status: Ordered indomethacin 25 mg oral capsule 1 capsule = 25 mg, By Mouth, 2 times a day, PRN Pain , Moderate, # 60 capsule, 1 Refills, Maintenance, 10/20/22 14:01:00 EST, [facility], Partial fill upon patient request if the prescription is for a schedule II opioid drug., 175, cm, 1... Start Date: 10/20/22 Status: Ordered 10/09 oral tablet See Instructions, TAKE 1 TABLET BY MOUTH EVERY DAY. SKIP PLACEBO TABLETS AND START NEXT PACK TO MANAGE PAINFUL PERIODS, # 84 tablet, 5 Refills, Maintenance, 02/02/24 8:05:00 EDT, [facility], 63, TAKE 1 TABLET BY MOUTH EVERY DAY. SKIP PLACEBO TA... 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, # 1 kit, 3 Refills, Maintenance, 02/09/23 9:38:00 EDT, [facility], Partial fill upon patient [...] capsule, 0 Refills, Maintenance, 12/15/23 7:47:00 EDT, [facility], 174.6, cm, 10/12/23 15:43:00 EST, Height, 105.3, kg, 06/30/23 9:52:00 EDT, Dry Weight Start Date: 12/15/23 Status: Ordered traMADol 50 mg oral tablet 1 tablet = 50 mg, By Mouth, Every 12 hours, PRN as needed for pain, # 6 tablet, 0 Refills, Maintenance, 10/12/23 17:34:00 EST, Tablet, [facility], Partial fill upon patient [...] recent to oldest [Reference Range]: 1 Height 174.60 cm (02/16/24 9:04 AM) Weight 109.09 kg (02/16/24 9:04 AM) Body Mass Index [18.5-24.99 kg/m2] 35.78 kg/m2 *>HHI* (02/16/24 9:04 AM) Blood Pressure [90-138/55-84 mm Hg] 134/ 68mm Hg (02/16/24 9:04 AM) Blood pressure sites Arm, left (02/16/24 9:04 AM) Weight Obtained Via Standing scale (02/16/24 9:04 AM) Social History Social History Type Response Smoking Status Never (less than 100 in lifetime) entered on: 02/26/22 Sex Patient Care team information Care Team Personnel Name: Elliot DOMINGUEZ, Lidya Leos Position: S Physician - Primary Care Member Role: PCP Address: Address: [address] [place] [address]- Care Team Related Persons Name: MURPHY FUNES Address: home [address] [place] [address]
--- OUTSIDE RECORDS SUMMARY | 2024-03-21 07:53 | XMS_ITS | Continuity of Care Document ---
Author Organization [facility] Address [address] [place] [address]- Care Team Providers Care Regional Sales Trainer Name Role Phone Lidya Zarate MD, V Primary Care Physician Encounter [facility] [place] Date(s): 12/21/23 - 01/20/24 [facility] [address] [place] [address]- Attending Physician: AdmtrBryan Admitting Physician: Admtr, Ar8 Referring Physician: Admtr, Ar8 Allergies, Adverse Reactions, Alerts Substance Reaction Severity Status Bananas Active Immunizations Given and Recorded Vaccine Date Status Refusal Reason influenza virus vaccine, inactivated 07/02/23 Buster rded influenza virus vaccine, inactivated 07/16/22 Buster rded influenza virus vaccine, inactivated 07/07/21 Buster rded SARS-CoV-2 mRNA (fhhqktc-bmtr-focrh) vax 01/16/22 Recorded SARS-CoV-2 (COVID-19) mRNA BNT-162b2 [...] tablet, 1 Refills, Maintenance, 01/19/24 12:57:00 EDT, [facility], 174.6, cm, 12/27/23 12:55:00 EDT, [...] Maintenance, 11/04/23 8:11:00 EST,Route to Pharmacy Electronically, [facility], 174.6, cm, 10/12/23 15:43:00 EST, Height, 105.3, kg, 06/30/23 9:52:00 EDT, Dry Weight Start Date: 11/04/23 Status: Ordered indomethacin 25 mg oral capsule 1 capsule = 25 mg, By Mouth, 2 times a day, PRN Pain , Moderate, # 60 capsule, 1 Refills, Maintenance, 10/20/22 14:01:00 EST, [facility], Partial fill upon patient request if the prescription is for a schedule II opioid drug., 175, cm, 1... Start Date: 10/20/22 Status: Ordered 10/09 oral tablet See Instructions, TAKE 1 TABLET BY MOUTH EVERY DAY. SKIP PLACEBO TABLETS AND START NEXT PACK TO MANAGE PAINFUL PERIODS, # 84 tablet, 5 Refills, Maintenance, 12/31/22 8:06:00 EDT, [facility], 63, TAKE 1 TABLET BY MOUTH EVERY DAY. SKIP PLACEBO TA... 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, Partial fill upon [...] capsule, 0 Refills, Maintenance, 12/15/23 7:47:00 EDT, [facility], 174.6, cm, 10/12/23 15:43:00 EST, Height, 105.3, kg, 06/30/23 9:52:00 EDT, Dry Weight Start Date: 12/15/23 Status: Ordered traMADol 50 mg oral tablet 1 tablet = 50 mg, By Mouth, Every 12 hours, PRN as needed for pain, # 6 tablet, 0 Refills, Maintenance, 10/12/23 17:34:00 EST, Tablet, [facility], [...] 100 in lifetime) entered on: 02/26/22 Sex Cardiology * Event Display: EKG Non BH Authored Date: Laboratory * Event Display: Non BH Lab Results Authored Date: * Event Display: Non BH Lab Results Authored Date: Radiology * Event Display: [place] Nuclear Medicine, Non-BH Authored Date: Patient Care team information Care Team Personnel Name: Elliot DOMINGUEZ, Lidya Leos Position: S Physician - Primary Care Member Role: PCP Address: Address: [address] [place] [address]- Care Team Related Persons Name: MURPHY FUNES Address: [address] [place] [address]
--- OUTSIDE RECORDS SUMMARY | 2024-03-21 07:53 | XMS_ITS | Continuity of Care Document ---
Author Organization [facility] Address Unknown Care Team Providers Care Manufacturing Systems Engineer Name Role Phone Allie DOMINGUEZ, Vik Joaquin Primary Care Physician Encounter [facility] Date(s): 07/28/21 - 08/27/21 [facility] Allergies, Adverse Reactions, Alerts Substance [...]
--- OUTSIDE RECORDS SUMMARY | 2024-03-21 07:53 | XMS_ITS | Continuity of Care Document ---
Author Organization [facility] Address [address] [facility], 3r d Floor, [address] [place] [address]- Care Team Providers Care Solar Project Engineer Name Role Phone Rodriguez BUSH, Patricia Barfield Primary Care Physician [phone] [place] [facility] [id number] Date(s): 05/05/22 - 07/22/22 [facility] [address], 3rd Floor, [address] [place] [address]- Attending Physician: Rancho Crouch MD Admitting Physician: Rancho Crouch MD Allergies, Adverse Reactions, Alerts Substance Reaction Severity Status Bananas Active Immunizations Given and Recorded Vaccine Date Status Refusal Reason SARS-CoV-2 mRNA (fuaokue-knfs-xnkcu) vax 01/16/22 Recorded influenza virus vaccine, inactivated 07/07/21 Buster rded SARS-CoV-2 (COVID-19) mRNA BNT-162b2 vac 06/28/21 Recorded SARS-CoV-2 (COVID-19) mRNA BNT-162b2 vac 09/27/20 Recorded tetanus/diphtheria/pertussis, acel(Tdap) 04/13/21 Recorded Medications busPIRone 10 mg oral tablet 10 mg, 1, tablet, By Mouth, Daily at supper, # 90 tablet, Refills 3, Tot. Refills 3, Maintenance, 10/28/21 15:45:00 EST, Route to Pharmacy Electronically, [facility], Partial fill upon patient request if the prescription is for a schedul... Start Date: 10/28/21 Status: Ordered Emgality Prefilled Pen 120 mg/mL subcutaneous solution = 120 mg, Subcutaneous Infusion, Every 28 days, Use one autoinjector once per month. Rotate injection sites., # 1 each, 3 Refills, Maintenance, 03/18/22 23:41:00 EDT, [facility], Partial fill upon patient [...] 06/16/22 10:57:00 EDT, Route to Pharmacy Electronically, [facility], Partial fill upon patient request if the prescription is for a chelsi... Start Date: 06/16/22 Status: Ordered June Fe 10/09 oral tablet 1 tablet, By Mouth, Daily, take one tablet daily, omitting placebo to manage dysmenorrhea., # 90 tablet, 4 Refills, Maintenance, 11/21/21 8:35:00 EST, Tablet, [facility], Partial fill upon patient [...] Refills, Maintenance, 01/08/22 11:38:00 EDT, ER Capsule, [facility], Partial fill upon patient [...] Personnel Name: Patricia Frias NP Address: Address: [address] [place] [address] Primary [place], [place] [address]
--- OUTSIDE RECORDS SUMMARY | 2024-03-21 07:53 | XMS_ITS | Continuity of Care Document ---
Author Organization [facility] Address [address] [place] [address]- Care Team Providers Care Compensation Manager Name Role Phone Rodriguez BUSH, Patricia Barfield Primary Care Physician Encounter [facility] Date(s): 04/28/22 - 05/28/22 [facility] [place] [address] [place] [address]- Allergies, Adverse Reactions, Alerts Substance Reaction Severity Status Bananas Active Immunizations Given and Recorded Vaccine Date Status Refusal Reason SARS-CoV-2 mRNA (fovcjyy-munw-buhfe) vax 01/16/22 Recorded influenza virus vaccine, inactivated 07/07/21 Buster rded SARS-CoV-2 (COVID-19) mRNA BNT-162b2 vac 06/28/21 Recorded SARS-CoV-2 (COVID-19) mRNA BNT-162b2 vac 09/27/20 Recorded tetanus/diphtheria/pertussis, acel(Tdap) 04/13/21 Recorded Medications busPIRone 10 mg oral tablet 10 mg, 1, tablet, By Mouth, Daily at supper, # 90 tablet, Refills 3, Tot. Refills 3, Maintenance, 10/28/21 15:45:00 EST, Route to Pharmacy Electronically, [facility], Partial fill upon patient request if the prescription is for a schedul... Start Date: 10/28/21 Status: Ordered Emgality Prefilled Pen 120 mg/mL subcutaneous solution = 120 mg, Subcutaneous Infusion, Every 28 days, Use one autoinjector once per month. Rotate injection sites., # 1 each, 3 Refills, Maintenance, 03/18/22 23:41:00 EDT, [facility], Partial fill upon [...] 08/08/21 10:22:00 EST, Route to Pharmacy Electronically, [facility], Partial fill upon patient request if the prescription is for a schedule II o... Start Date: 08/08/21 Status: Ordered June Fe 10/09 oral tablet 1 tablet, By Mouth, Daily, take one tablet daily, omitting placebo to manage dysmenorrhea., # 90 tablet, 4 Refills, Maintenance, 11/21/21 8:35:00 EST, Tablet, [facility], Partial fill upon patient request if the prescription is for a chelsi... Start Date: 11/21/21 Stop Date: 07/02/23 Status: Ordered Lexapro 20 mg oral tablet 1 tablet = 20 mg, By Mouth, Daily, # 90 tablet, 3 Refills, Maintenance, 08/08/21 10:20:00 EST, Tablet, [facility], Partial fill upon patient request if [...] Refills, Maintenance, 01/08/22 11:38:00 EDT, ER Capsule, [facility], Partial fill upon [...] Team Personnel Name: Patricia Frias NP Address: [address] [place] [address] Primary [place], [place] [address]
--- OUTSIDE RECORDS SUMMARY | 2024-03-21 07:53 | XMS_ITS | Continuity of Care Document ---
Author Organization [facility] Address [address] [facility], 3r d Floor, [address] [place] [address]- Care Team Providers Care Educational Aid Name Role Phone Marly BUSH, Molly Primary Care Physician Encounter [facility] [place] Date(s): 03/22/23 - 04/21/23 [facility] [address] [facility], 3rd Floor, [address] [place] [address]- Allergies, Adverse Reactions, Alerts Substance Reaction Severity Status Bananas Active Immunizations Given and Recorded Vaccine Date Status Refusal Reason SARS-CoV-2 mRNA (fpfwszb-eagt-uvzen) vax 01/16/22 Recorded influenza virus vaccine, inactivated 07/07/21 Buster rded SARS-CoV-2 (COVID-19) mRNA BNT-162b2 vac 06/28/21 Recorded SARS-CoV-2 (COVID-19) mRNA BNT-162b2 vac 09/27/20 Recorded tetanus/diphtheria/pertussis, acel(Tdap) 04/13/21 Recorded Medications busPIRone 10 mg oral tablet 10 mg, 1, tablet, By Mouth, Daily at supper, # 90 tablet, Refills 1, Tot. Refills 1, Maintenance, 11/27/22 16:04:00 EST, Route to Pharmacy Electronically, [facility], Partial fill upon patient request if the prescription is for a schedul... Start Date: 11/27/22 Stop Date: 05/26/23 Status: Ordered cyclobenzaprine 10 mg oral tablet 10 mg, 1, tablet, By Mouth, Daily at supper, # 30 tablet, Refills 1, Tot. Refills 1, Maintenance, 02/04/23 10:40:00 EDT, Route to Pharmacy Electronically, [facility], Partial fill upon patient request if the prescription is for a schedul... Start Date: 02/04/23 Status: Ordered Emgality Prefilled Pen 120 mg/mL subcutaneous solution See Instructions, INJECT THE CONTENTS OF 1 PEN (120 MG) SUBCUTANEOUSLY EVERY 28 DAYS. ROTATE INJECTION SITES., # 1 mL, 6 Refills, Maintenance, 03/18/23 18:14:00 EDT, [facility], 177, cm, 03/17/23 8:09:00 EDT, [...] 11/19/22 13:17:00 EST, Route to Pharmacy Electronically, [facility], 177, cm, 11/03/22 8:32:00 EST, Height, 106.8, kg, 11/03/22 8:32:00 EST, . Start Date: 11/19/22 Status: Ordered indomethacin 25 mg oral capsule 1 capsule = 25 mg, By Mouth, 2 times a day, PRN Pain , Moderate, # 60 capsule, 1 Refills, Maintenance, 10/20/22 14:01:00 EST, [facility] 3, Partial fill upon patient request if the prescription is for a schedule II opioid drug., 175, cm, 1... Start Date: 10/20/22 Status: Ordered 10/09 oral tablet See Instructions, TAKE 1 TABLET BY MOUTH EVERY DAY. SKIP PLACEBO TABLETS AND START NEXT PACK TO MANAGE PAINFUL PERIODS, # 84 tablet, 5 Refills, Maintenance, 12/31/22 8:06:00 EDT, [facility], 63, TAKE 1 TABLET BY MOUTH EVERY DAY. SKIP PLACEBO TA... Start Date: 12/31/22 Status: Ordered Lexapro 20 mg oral tablet 1 tablet = 20 mg, By Mouth, Daily, # 90 tablet, 3 Refills, Maintenance, 08/14/22 15:44:00 EST, Tablet, [facility], Partial fill upon [...] kit, 3 Refills, Maintenance, 02/09/23 9:38:00 EDT, [facility], Partial fill upon patient [...] capsule, 11 Refills, Maintenance, 01/28/23 8:51:00 EDT, [facility], 177, cm, 12/29/22 16:45:00 EDT, Height, 104.3, kg, 12/29/22 16:45:00 EDT, Dry Weight Start Date: 01/28/23 Status: Ordered propranolol 120 mg oral capsule, extended release 1 capsule = 120 mg, By Mouth, Daily, # 30 capsule, 11 Refills, Maintenance, 01/08/22 11:38:00 EDT, ER Capsule, [facility], Partial fill upon [...] Associate Professional Member Role: PCP Address: Address: [address] [place] [address]- Care Team Related Persons Name: MURPHY FUNES Address: home [address] [place] [address]
--- OUTSIDE RECORDS SUMMARY | 2024-03-21 07:53 | XMS_ITS | Continuity of Care Document ---
Author Organization [facility] Address [address] [place] [address]- Care Team Providers Care Director Of Intelligence Name Role Phone Not on Staff, PCP Primary Care Physician Unavail able Encounter [facility] [place] Date(s): 04/22/21 - 05/22/21 [facility] [address] [place] [address]- [place] Allergies, Adverse Reactions, Alerts Substance Reaction [...] Maintenance,05/13/21 8:23:00 EDT, Route to Pharmacy Electronically, [facility], Partial fill uponpatient request [...]
--- OUTSIDE RECORDS SUMMARY | 2024-03-21 07:53 | XMS_ITS | Continuity of Care Document ---
Author Organization [facility] Address [address] [place] [address], 4t [place] [address]- Care Team Providers Care Nurse Ldr Name Role Phone Rodriguez BUSH, Patricia M Primary Care Physician [phone] Encounter [facility] [place] Date(s): 12/29/22 - 01/05/23 [facility] [address] [facility], [address] [place] [address]- Attending Physician: Deandre DOMINGUEZ [OB], Mandi Albrecht Referring Physician: Denisha Rodriguez CNM Allergies, Adverse Reactions, Alerts Substance Reaction Severity Status Bananas Active Immunizations Given and Recorded Vaccine Date Status Refusal Reason SARS-CoV-2 mRNA (azcedir-kpej-wjxsb) vax 01/16/22 Recorded influenza virus vaccine, inactivated 07/07/21 Buster rded SARS-CoV-2 (COVID-19) mRNA BNT-162b2 vac 06/28/21 Recorded SARS-CoV-2 (COVID-19) mRNA BNT-162b2 vac 09/27/20 Recorded tetanus/diphtheria/pertussis, acel(Tdap) 04/13/21 Recorded Medications busPIRone 10 mg oral tablet 10 mg, 1, tablet, By Mouth, Daily at supper, # 90 tablet, Refills 1, Tot. Refills 1, Maintenance, 11/27/22 16:04:00 EST, Route to Pharmacy Electronically, [facility], Partial fill upon patient request if the prescription is for a schedul... Start Date: 11/27/22 Stop Date: 05/26/23 Status: Ordered Emgality Prefilled Pen 120 mg/mL subcutaneous solution = 120 mg, Subcutaneous Infusion, Every 28 days, Use one autoinjector once per month. Rotate injection sites., # 1 each, 6 Refills, Maintenance, 08/06/22 20:26:00 EST, [facility], Partial fill upon patient request [...] 11/19/22 13:17:00 EST, Route to Pharmacy Electronically, [facility], 177, cm, 11/03/22 8:32:00 EST, Height, 106.8, kg, 11/03/22 8:32:00 EST, . Start Date: 11/19/22 Status: Ordered indomethacin 25 mg oral capsule 1 capsule = 25 mg, By Mouth, 2 times a day, PRN Pain , Moderate, # 60 capsule, 1 Refills, Maintenance, 10/20/22 14:01:00 EST, [facility], Partial fill upon patient request if the prescription is for a schedule II opioid drug., 175, cm, 1... Start Date: 10/20/22 Status: Ordered Junel Fe 10/09 oral tablet See Instructions, TAKE 1 TABLET BY MOUTH EVERY DAY. SKIP PLACEBO TABLETS AND START NEXT PACK TO MANAGE PAINFUL PERIODS, # 84 tablet, 5 Refills, Maintenance, 12/31/22 8:06:00 EDT, [facility], 63, TAKE 1 TABLET BY MOUTH EVERY DAY. SKIP PLACEBO TA... Start Date: 12/31/22 Status: Ordered Lexapro 20 mg oral tablet 1 tablet = 20 mg, By Mouth, Daily, # 90 tablet, 3 Refills, Maintenance, 08/14/22 15:44:00 EST, Tablet, [facility], Partial fill upon patient request [...] Refills, Maintenance, 01/08/22 11:38:00 EDT, ER Capsule, [facility] 3, Partial fill upon patient request [...] oldest [Reference Range]: 1 Height 177 cm (12/29/22 4:45 PM) Weight 104.3 kg (12/29/22 4:45 PM) Pulse Rate [55-90 bpm] 85 bpm (12/29/22 4:45 PM) Body Mass Index [18.5-24.99 kg/m2] 33.29 kg/m2 *>HHI* (12/29/22 4:45 PM) Blood Pressure [90-138/55-84 mm Hg] 113/ 69mm Hg (12/29/22 4:45 PM) Blood pressure sites Arm, right (12/29/22 4:45 PM) Dry Weight 104.3 kg (12/29/22 4:45 PM) Weight Obtained Via Standing scale (12/29/22 4:45 PM) Dry Weight Obtained Via Standing scale (12/29/22 4:45 PM) Social History Social History Type Response Smoking Status Never (less than 100 in lifetime) entered on: 02/26/22 Sex Patient Care team information Care Team Personnel Name: Patricia Frias NP Position: S PCO Associate Professional Member Role: PCP Address: Address: [address] [place] [address] [place] [address]- Care Team Related Persons Name: MURPHY FUNES Address: home [address] [place] [address]
--- OUTSIDE RECORDS SUMMARY | 2024-03-21 07:53 | XMS_ITS | Continuity of Care Document ---
Author Organization [facility] Address [address] [facility], 3r d Floor, [address] [place] [address]- Care Team Providers Care Social Psychologist Name Role Phone Rodriguez BUSH, Patricia Barfield Primary Care Physician [place] [facility] [place] 09/24/22 - 11/12/22 [facility] [address] [facility], 3rd Floor, [address] [place] [address]- Attending Physician: Rancho Crouch MD Admitting Physician: Rancho Crouch MD Allergies, Adverse Reactions, Alerts Substance Reaction Severity Status Bananas Active Immunizations Given and Recorded Vaccine Date Status Refusal Reason SARS-CoV-2 mRNA (wkrnddf-ihng-hclkz) vax 01/16/22 Recorded influenza virus vaccine, inactivated 07/07/21 Buster rded SARS-CoV-2 (COVID-19) mRNA BNT-162b2 vac 06/28/21 Recorded SARS-CoV-2 (COVID-19) mRNA BNT-162b2 vac 09/27/20 Recorded tetanus/diphtheria/pertussis, acel(Tdap) 04/13/21 Recorded Medications busPIRone 10 mg oral tablet 10 mg, 1, tablet, By Mouth, Daily at supper, # 90 tablet, Refills 3, Tot. Refills 3, Maintenance, 10/28/21 15:45:00 EST, Route to Pharmacy Electronically, [facility], Partial fill upon patient request if the prescription is for a schedul... Start Date: 10/28/21 Status: Ordered Emgality Prefilled Pen 120 mg/mL subcutaneous solution = 120 mg, Subcutaneous Infusion, Every 28 days, Use one autoinjector once per month. Rotate injection sites., # 1 each, 6 Refills, Maintenance, 08/06/22 20:26:00 EST, [facility], Partial fill upon patient request [...] 09/16/22 14:03:00 EST, Route to Pharmacy Electronically, [facility], 175, cm, 09/03/22 14:39:00 EST, Height, 108, kg, 07/29/22 18:14:00 EST, Dry Weight Start Date: 09/16/22 Status: Ordered indomethacin 25 mg oral capsule 1 capsule = 25 mg, By Mouth, 2 times a day, PRN Pain , Moderate, # 60 capsule, 1 Refills, Maintenance, 10/20/22 14:01:00 EST, [facility], Partial fill upon patient request if the prescription is for a schedule II opioid drug., 175, cm, 1... Start Date: 10/20/22 Status: Ordered 10/09 oral tablet 1 tablet, By Mouth, Daily, take one tablet daily, omitting placebo to manage dysmenorrhea., # 84 tablet, 5 Refills, Maintenance, 07/02/23 8:35:00 EDT, Tablet, [facility], Partial fill upon patient request if the prescription is for a chelsi... Start Date: 07/02/23 Status: Ordered 10/09 oral tablet 1 tablet, By Mouth, Daily, take one tablet daily, omitting placebo to manage dysmenorrhea., # 90 tablet, 4 Refills, Hard Stop 07/02/23 8:35:00 EDT, 11/21/21 8:35:00 EST, Tablet, [facility], Partial fill upon patient request if the prescr... Start Date: 11/21/21 Stop Date: 07/02/23 Status: Ordered Lexapro 20 mg oral tablet 1 tablet = 20 mg, By Mouth, Daily, # 90 tablet, 3 Refills, Maintenance, 08/14/22 15:44:00 EST, Tablet, [facility], Partial fill upon patient request if the prescription is for a schedule II opioid drug., 175, cm, 08/14/22 14:57:00 EST, H... Start Date: 08/14/22 Status: Ordered lidocaine 5% topical ointment 1 application, Topically, 3 times a day, # 50 Gm, 0 Refills, Maintenance, 08/31/22 13:19:00 EST, Ointment, [facility], Partial fill upon patient request [...] Maintenance, 01/08/22 11:38:00 EDT, ER Capsule, [facility], Partial fill upon patient request [...] Associate Professional Member Role: PCP Address: Address: [address] [place] [address] [place] [address]- Care Team Related Persons Name: MURPHY FUNES Address: home [address] [place] [address]
--- OUTSIDE RECORDS SUMMARY | 2024-03-21 07:53 | XMS_ITS | Continuity of Care Document ---
Author Organization [facility] Address [address] [place] [address], [address] [place] [address]- Care Team Providers Care Tmh Teacher Name Role Phone Elliot DOMINGUEZ, Lidya Leos Primary Care Physician [id number] Date(s): 12/16/23 - 12/23/23 [facility] [employer] [employer] [facility] [address] [facility], [address] [place], [place] [address] Attending Physician: Vangie DOMINGUEZ, Georgina Duenas Referring Physician: Not on Staff, Referring MD Allergies, Adverse Reactions, Alerts Substance Reaction Severity Status Bananas Active Immunizations Given and Recorded Vaccine Date Status Refusal Reason influenza virus vaccine, inactivated 07/02/23 Buster rded influenza virus vaccine, inactivated 07/16/22 Buster rded influenza virus vaccine, inactivated 07/07/21 Buster rded SARS-CoV-2 mRNA (gyfmcvu-xudm-evavb) vax 01/16/22 Recorded SARS-CoV-2 (COVID-19) mRNA BNT-162b2 [...] tablet, 1 Refills, Maintenance, 06/09/2311:50:00 EDT, Tablet, [facility], Partial fill upon patient [...] Maintenance, 11/04/23 8:11:00 EST,Route to Pharmacy Electronically, [facility], 174.6, cm, 10/12/23 15:43:00 EST, Height, 105.3, kg, 06/30/23 9:52:00 EDT, Dry Weight Start Date: 11/04/23 Status: Ordered indomethacin 25 mg oral capsule 1 capsule = 25 mg, By Mouth, 2 times a day, PRN Pain , Moderate, # 60 capsule, 1 Refills, Maintenance, 10/20/22 14:01:00 EST, [facility], Partial fill upon patient request if the prescription is for a schedule II opioid drug., 175, cm, 1... Start Date: 10/20/22 Status: Ordered 10/09 oral tablet See Instructions, TAKE 1 TABLET BY MOUTH EVERY DAY. SKIP PLACEBO TABLETS AND START NEXT PACK TO MANAGE PAINFUL PERIODS, # 84 tablet, 5 Refills, Maintenance, 12/31/22 8:06:00 EDT, [facility], 63, TAKE 1 TABLET BY MOUTH EVERY DAY. SKIP PLACEBO TA... 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, # 1 kit, 3 Refills, Maintenance, 02/09/23 9:38:00 EDT, [facility], Partial fill upon patient [...] capsule, 0 Refills, Maintenance, 12/15/23 7:47:00 EDT, [facility], 174.6, cm, 10/12/23 15:43:00 EST, Height, 105.3, kg, 06/30/23 9:52:00 EDT, Dry Weight Start Date: 12/15/23 Status: Ordered traMADol 50 mg oral tablet 1 tablet = 50 mg, By Mouth, Every 12 hours, PRN as needed for pain, # 6 tablet, 0 Refills, Maintenance, 10/12/23 17:34:00 EST, Tablet, [facility], Partial fill upon patient [...] Personnel Name: Elliot DOMINGUEZ, Lidya Leos Position: [facility] Physician - Primary Care Member Role: PCP Address: Address: [address] [place] [address]- Care Team Related Persons Name: MURPHY FUNES Address: home [address] [place] [address]
--- OUTSIDE RECORDS SUMMARY | 2024-03-21 07:53 | XMS_ITS | Continuity of Care Document ---
Author Organization [facility] Address Unknown Care Team Providers Care Spin Instructor Name Role Phone Rodriguez BUSH, Patricia Barfield Primary Care Physician En[place] [facility] Date(s): 03/17/22 - 04/16/22 [facility] Allergies, Adverse Reactions, Alerts Substance [...] each, 3 Refills, Maintenance, 03/18/22 23:41:00 EDT, [facility], Partial fill upon [...] 4 Refills, Maintenance, 11/21/21 8:35:00 EST, Tablet, [facility], Partial fill upon [...] Refills, Maintenance, 01/08/22 11:38:00 EDT, ER Capsule, [facility], Partial fill upon patient request if [...]
--- OUTSIDE RECORDS SUMMARY | 2024-03-21 07:53 | XMS_ITS | Continuity of Care Document ---
Author Organization [facility] Address [address] [place] [address]- Care Team Providers Care Die Cutter Name Role Phone Vik Kelley MD Primary Care Physician Encounter [facility] [place] Date(s): 08/06/21 - 09/05/[address] [address]- Attending Physician: AdmBryan nunez Admitting Physician: Admtr, [id number] Referring Physician: Admtr, [...]
--- OUTSIDE RECORDS SUMMARY | 2024-03-21 07:53 | XMS_ITS | Continuity of Care Document ---
Author Organization [facility] [employer] Address [address], [address] [place] [address]- Care Team Providers Care Utilities Estimator And Drafter Name Role Phone Rodriguez BUSH, Patricia Barfield Primary Care Phys[id number] Date[facility]s): 07/29/22 - 09/10/22 [facility] [address], [address]th [place] [address]- Attending Physician: Not on Staff, Attending MD Referring Physician: Denisha Rodriguez CNM Allergies, Adverse Reactions, Alerts Substance Reaction Severity Status Bananas Active Immunizations Given and Recorded Vaccine Date Status Refusal Reason SARS-CoV-2 mRNA ([id number]) vax 01/16/22 Recorded influenza virus vaccine, inactivated 07/07/21 Buster rded SARS-CoV-2 (COVID-19) mRNA BNT-162b2 vac 06/28/21 Recorded SARS-CoV-2 (COVID-19) mRNA BNT-162b2 vac 09/27/20 Recorded tetanus/diphtheria/pertussis, acel(Tdap) 04/13/21 Recorded Medications busPIRone 10 mg oral tablet 10 mg, 1, tablet, By Mouth, Daily at supper, # 90 tablet, Refills 3, Tot. Refills 3, Maintenance, 10/28/21 15:45:00 EST, Route to Pharmacy Electronically, [facility], Partial fill upon patient request if the prescription is for a schedul... Start Date: 10/28/21 Status: Ordered clobetasol 0.05% topical ointment 1 application, Topically, 2 times a day, for 14 days, # 60 Gm, 0 Refills, Acute 09/14/22 13:18:00 EST, 08/31/22 13:18:00 EST, Ointment, [facility], Partial fill upon patient request if the prescription is for a schedule II opioid drug.,... Start Date: 08/31/22 Stop Date: 09/14/22 Status: Ordered Emgality Prefilled Pen 120 mg/mL subcutaneous solution = 120 mg, Subcutaneous Infusion, Every 28 days, Use one autoinjector once per month. Rotate injection sites., # 1 each, 6 Refills, Maintenance, 08/06/22 20:26:00 EST, [facility], Partial fill upon patient [...] 06/16/22 10:57:00 EDT, Route to Pharmacy Electronically, [facility], Partial fill upon patient request if the prescription is for a chelsi... Start Date: 06/16/22 Status: Ordered Junel Fe 10/09 oral tablet 1 tablet, By Mouth, Daily, take one tablet daily, omitting placebo to manage dysmenorrhea., # 90 tablet, 4 Refills, Maintenance, 11/21/21 8:35:00 EST, Tablet, [facility], Partial fill upon patient request if the prescription is for a chelsi... Start Date: 11/21/21 Stop Date: 07/02/23 Status: Ordered Lexapro 20 mg oral tablet 1 tablet = 20 mg, By Mouth, Daily, # 90 tablet, 3 Refills, Maintenance, 08/14/22 15:44:00 EST, Tablet, [facility], Partial fill upon patient request if the prescription is for a schedule II opioid drug., 175, cm, 08/14/22 14:57:00 EST, H... Start Date: 08/14/22 Status: Ordered lidocaine 5% topical ointment 1 application, Topically, 3 times a day, # 50 Gm, 0 Refills, Maintenance, 08/31/22 13:19:00 EST, Ointment, [facility], Partial fill upon patient request [...] Refills, Maintenance, 01/08/22 11:38:00 EDT, ER Capsule, [facility], Partial fill upon patient request [...] Team Personnel Name: Patricia Frias NP Position: [facility] PCO Associate Professional Member Role: PCP Address: Address: [address] [place] [address] [place] [address]- Care Team Related Persons Name: MURPHY FUNES Address: home [address] [place] [address]
--- OUTSIDE RECORDS SUMMARY | 2024-03-21 07:53 | XMS_ITS | Continuity of Care Document ---
Author Organization [facility] Address [address] [place] [address]- Care Team Providers Care Manager Plumbing Name Role Phone Allie DOMINGUEZ, Vik Joaquin Primary Care Physician [place] [facility] [place]/26/[place] - 01/25/[address] [address]- Allergies, Adverse Reactions, Alerts Substance Reaction Severity [...] 4 Refills, Maintenance, 11/21/21 8:35:00 EST, Tablet, [facility], Partial fill upon patient [...] Refills, Maintenance, 01/08/22 11:38:00 EDT, ER Capsule, [facility], Partial fill upon patient [...]
--- OUTSIDE RECORDS SUMMARY | 2024-03-21 07:53 | XMS_ITS | Continuity of Care Document ---
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 Attending Physician: Lidya Zarate MD, V Allergies, Adverse Reactions, Alerts Substance Reaction Severity Status Bananas Active Immunizations Given and Recorded Vaccine Date Status Refusal Reason SARS-CoV-2 mRNA ([id number]) vax 01/16/22 Recorded influenza virus vaccine, inactivated 07/07/21 Buster rded SARS-CoV-2 (COVID-19) mRNA BNT-162b2 vac 06/28/21 Recorded SARS-CoV-2 (COVID-19) mRNA BNT-162b2 vac 09/27/20 Recorded tetanus/diphtheria/pertussis, acel(Tdap) 04/13/21 Recorded Medications busPIRone 10 mg oral tablet 10 mg, 1, tablet, By Mouth, Daily at supper, # 90 tablet, Refills 1, Tot. Refills 1, Maintenance, 11/27/22 16:04:00 EST, Route to Pharmacy Electronically, [facility], Partial fill upon patient request if the prescription is for a schedul... Start Date: 11/27/22 Stop Date: 05/26/23 Status: Ordered Corlanor 5 mg oral tablet 1 tablet = 5 mg, By Mouth, 2 times a day with meals, # 180 tablet, 1 Refills, Maintenance, 06/09/2311:50:00 EDT, Tablet, [facility], Partial fill upon patient request if the prescription is for a schedule II opioid drug., 174.6, cm, ... Start Date: 06/09/23 Stop Date: 12/06/23 Status: Ordered cyclobenzaprine 10 mg oral tablet 10 mg, 1, tablet, By Mouth, Daily at supper, # 30 tablet, Refills 1, Tot. Refills 1, Maintenance, 02/04/23 10:40:00 EDT, Route to Pharmacy Electronically, [facility], Partial fill upon patient [...] mL, 6 Refills, Maintenance, 03/18/23 18:14:00 EDT, [facility], 177, cm, 03/17/23 8:09:00 EDT, [...] Replace Required Details, Route to Pharmacy Electronically, [facility], 174.6, cm, 04/29/23 15:52:00 EDT,... Start Date: 05/17/23 Status: Ordered indomethacin 25 mg oral capsule 1 capsule = 25 mg, By Mouth, 2 times a day, PRN Pain , Moderate, # 60 capsule, 1 Refills, Maintenance, 10/20/22 14:01:00 EST, [facility], Partial fill upon patient request if the prescription is for a schedule II opioid drug., 175, cm, 1... Start Date: 10/20/22 Status: Ordered Junel Fe 10/09 oral tablet See Instructions, TAKE 1 TABLET BY MOUTH EVERY DAY. SKIP PLACEBO TABLETS AND START NEXT PACK TO MANAGE PAINFUL PERIODS, # 84 tablet, 5 Refills, Maintenance, 12/31/22 8:06:00 EDT, [facility], 63, TAKE 1 TABLET BY MOUTH EVERY DAY. SKIP PLACEBO TA... Start Date: 12/31/22 Status: Ordered Lexapro 20 mg oral tablet 1 tablet = 20 mg, By Mouth, Daily, # 90 tablet, 3 Refills, Maintenance, 08/14/22 15:44:00 EST, Tablet, [facility], Partial fill upon patient request if the prescription is for a schedule II opioid drug., 175, cm, 08/14/22 14:57:00 EST, H... 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, # 1 kit, 3 Refills, Maintenance, 02/09/23 9:38:00 EDT, [facility], Partial fill upon patient [...] capsule, 0 Refills, Maintenance, 06/09/23 11:50:00 EDT, [facility], Partial fill upon patient [...] pain Confirmed Active Subclinical hypothyroidism Confirmed Active Diagnosis Diagnosis Type Effective Dates Health Status Cl inical Service Informant Other Meenakshi-Danlos syndromes Discharge Diagnosis 06/30/23 Chronic pain of multiple joints Discharge Diagnosis 06/30/23 Vital Signs Most recent to oldest [Reference Range]: 1 Height 174.60 cm (06/30/23 9:52 AM) Weight 105.3 kg (06/30/23 9:52 AM) Oxygen Saturation [94-100 %] 98 % (06/30/23 9:52 AM) Pulse Rate [55-90 bpm] 112 bpm *H* (06/30/23 9:52 AM) Body Mass Index [18.5-24.99 kg/m2] 34.54 kg/m2 *>HHI* (06/30/23 9:52 AM) Blood Pressure [90-138/55-84 mm Hg] 135/ 86mm Hg (06/30/23 9:52 AM) Temperature [96.8-100.4 DegF] 98.5 DegF (06/30/23 9:52 AM) Mode of Delivery (Oxygen) Room air (06/30/23 9:52 AM) Blood pressure sites Arm, right (06/30/23 9:52 AM) Temperature Route Oral (06/30/23 9:52 AM) Dry Weight 105.3 kg (06/30/23 9:52 AM) Weight Obtained Via Standing scale (06/30/23 9:52 AM) Dry Weight Obtained Via Standing scale (06/30/23 9:52 AM) Social History Social History Type Response Smoking Status Never (less than 100 in lifetime) entered on: 02/26/22 Sex Note * Silvia Matt: PERFORM, SIGN, VERIFY Event Display: Patient Education/Instruction Authored Date: [id number] [facility] Clinical Summary Name BURTON FUNES Age 28 Years 1995 PCP Elliot DOMINGUEZ, Lidya Leos PCP Visit Date 06/30/2023 09:38:00 Additional Instructions: Scheduled Appointments?? Future Appointments ?*[facility] ?[address] ?[place],??[place],??[address] ?Phone:??--?Fax:??-- ?Appt. Date:??09/02/2023?4:00 PM ?Scheduled Provider:??Rancho Crouch MD Follow-Up Instructions ?? Diagnosis Medications: Please continue your medications until treatment is completed or stopped by your provider. Discuss any questions related to medications with your provider. Medications to Continue with No Changes These medications were not printed or sent to your pharmacy BusPIRone (busPIRone 10 mg oral tablet) 1 tab(s) Oral Daily at supper for 90 Days. Refills: 1. Next Dose: Cetirizine (ZyrTEC 10 mg oral tablet) 1 tab(s) Oral Daily. Next Dose: Cholecalciferol (Vitamin D3 1000 intl units oral capsule) 1 capsule Oral Daily. Next Dose: Cyclobenzaprine (cyclobenzaprine 10 mg oral tablet) 1 tab(s) Oral Daily at supper. Refills: 1. Next Dose: Duloxetine (Cymbalta 30 mg oral enteric coated capsule) 1 capsule Oral twice a day. Next Dose: Escitalopram (Lexapro 20 mg oral tablet) 1 tab(s) Oral Daily. Refills: 3. Next Dose: Ethinyl Estradiol / Norethindrone (10/09 oral tablet) TAKE 1 TABLET BY MOUTH EVERY DAY. SKIP PLACEBO TABLETS AND START NEXT PACK TO MANAGE PAINFUL PERIODS. Refills: 5. Next Dose: Fluticasone Nasal (Flonase Allergy Relief) Daily. Next Dose: Gabapentin (gabapentin 300 mg oral capsule) TAKE 1 CAPSULE BY MOUTH EVERY DAY AT BEDTIME. Refills: 1. Next Dose: galcanezumab (Emgality Prefilled Pen 120 mg/mL subcutaneous solution) INJECT THE CONTENTS OF 1 PEN (120 MG) SUBCUTANEOUSLY EVERY 28 DAYS. ROTATE INJECTION SITES.. Refills: 6. Next Dose: Indomethacin (indomethacin 25 mg oral capsule) 1 capsule Oral twice a day as needed Pain , Moderate. Refills: 1. Next Dose: ivabradine (Corlanor 5 mg oral tablet) 1 tab(s) Oral two times a day with meals for 90 Days. Refills: 1. 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 Refills: 3. Next Dose: Pantoprazole (pantoprazole 20 mg oral delayed release tablet) 2 tab(s) Oral twice a day. Refills: 2. Next Dose: Propranolol (propranolol 120 mg oral capsule, extended release) 1 capsule Oral Daily for 90 Days. Refills: 0. Next Dose: Allergy Info:?? Bananas Medications Given This Visit Future Orders ?No future orders Vital Signs Height 174.60 cm Weight 105.3 kg BMI 34.54 kg/m2 Blood Pressure 135 mm Hg/86 mm Hg Temperature 98.5 DegF Pulse Rate 112 bpm Respiratory Rate 02 Sat Mode of Delivery 98 %/Room air You can now view a summary of your hospital visit from the comfort of your home through a free online portal called [employer]. [employer] is a website that allows you to securely view your medical information including discharge summary, medications and follow-up visits. ??You can alsosend a secure electronic message to your doctor???s office to request appointments, renew medications or just ask a question. You can enroll at [email or web address] or register during your next office visit. Disclaimer:?? The information provided is of a general nature and is intended to be used in conjunction with the recommendations and advice of your health care practitioner. ??Every effort has been made to ensure that the information provided is accurate and complete at the time it is provided to you however, as your needs change, or, as new ??information becomes available, different or additional instructions may be required. If you have questions, please consult with your primary care provider or pharmacist, as appropriate. ??This information is not intended to serve as substitution for assessment and evaluation by a qualified health care provider. If you do not have a primary care provider, you may find a [facility] provider by calling [facility] [employer] Link at [phone]. [facility], in keeping with [facility] guidance, no longer requires face masks for staff, patientsor visitors in most situations. Similar to time spent indoors at other locations, there is the chance that you were exposed to respiratory viruses during your time with us (such as flu or COVID-19).? If you develop symptoms concerning for a viral respiratory infection, please seek testing (and treatment if indicated) from your medical provider or home test kit. For information about the plan of care including goals and instructions for your diagnosis, please see the patient education orders section of this document. Patient Education Materials?? The content of this educational material or handout may have been modified, supplemented, or adapted from its original content and format to support your individualized medical care. Patient Care team information Care Team Personnel Name: Elliot DOMINGUEZ, Lidya Leos Position: [facility] Physician - Primary Care Member Role: PCP Address: Address: [address] [place] [address]- Care Team Related Persons Name: MURPHY FUNES Address: home [address] [place] [address]
--- OUTSIDE RECORDS SUMMARY | 2024-03-21 07:53 | XMS_ITS | Continuity of Care Document ---
Author Organization [facility] Address [address] [place] [address]- Care Team Providers Care Cosmetic Sales Name Role Phone Allie DOMINGUEZ, Vik Joaquin Primary Care Physician [place] [facility] [place]s): 01/05/22 - 02/04/22 [facility] [address] [place] [address]- [place] Allergies, Adverse Reactions, Alerts Substance Reaction [...] 4 Refills, Maintenance, 11/21/21 8:35:00 EST, Tablet, [facility], Partial fill upon patient [...] Refills, Maintenance, 01/08/22 11:38:00 EDT, ER Capsule, [facility], Partial fill upon patient request if [...]
--- OUTSIDE RECORDS SUMMARY | 2024-03-21 07:53 | XMS_ITS | Continuity of Care Document ---
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 Anxiety(Discharge Diagnosis) - 03/17/23 POTS (postural orthostatic tachycardia syndrome)(Discharge Diagnosis) - 03/17/23 Migraine(Discharge Diagnosis) - 03/17/23 GERD with esophagitis(Discharge Diagnosis) - 03/17/23 Obese class I(Discharge Diagnosis) - 03/17/23 Attending Physician: Molly Luke NP Allergies, Adverse Reactions, Alerts Substance Reaction Severity Status Bananas Active Immunizations Given and Recorded Vaccine Date Status Refusal Reason SARS-CoV-2 mRNA ([id number]) vax 01/16/22 Recorded influenza virus vaccine, inactivated 07/07/21 Buster rded SARS-CoV-2 (COVID-19) mRNA BNT-162b2 vac 06/28/21 Recorded SARS-CoV-2 (COVID-19) mRNA BNT-162b2 vac 09/27/20 Recorded tetanus/diphtheria/pertussis, acel(Tdap) 04/13/21 Recorded Medications busPIRone 10 mg oral tablet 10 mg, 1, tablet, By Mouth, Daily at supper, # 90 tablet, Refills 1, Tot. Refills 1, Maintenance, 11/27/22 16:04:00 EST, Route to Pharmacy Electronically, [facility], Partial fill upon patient request if the prescription is for a schedul... Start Date: 11/27/22 Stop Date: 05/26/23 Status: Ordered cyclobenzaprine 10 mg oral tablet 10 mg, 1, tablet, By Mouth, Daily at supper, # 30 tablet, Refills 1, Tot. Refills 1, Maintenance, 02/04/23 10:40:00 EDT, Route to Pharmacy Electronically, [facility], Partial fill upon patient request if the prescription is for a schedul... Start Date: 02/04/23 Status: Ordered Emgality Prefilled Pen 120 mg/mL subcutaneous solution See Instructions, INJECT THE CONTENTS OF 1 PEN (120 MG) SUBCUTANEOUSLY EVERY 28 DAYS. ROTATE INJECTION SITES., # 1 mL, 6 Refills, Maintenance, 03/18/23 18:14:00 EDT, [facility], 177, cm, 03/17/23 8:09:00 EDT, [...] 11/19/22 13:17:00 EST, Route to Pharmacy Electronically, [facility], 177, cm, 11/03/22 8:32:00 EST, Height, 106.8, kg, 11/03/22 8:32:00 EST, Start Date: 11/19/22 Status: Ordered indomethacin 25 mg oral capsule 1 capsule = 25 mg, By Mouth, 2 times a day, PRN Pain , Moderate, # 60 capsule, 1 Refills, Maintenance, 10/20/22 14:01:00 EST, [facility], Partial fill upon patient request if the prescription is for a schedule II opioid drug., 175, cm, 1... Start Date: 10/20/22 Status: Ordered 10/09 oral tablet See Instructions, TAKE 1 TABLET BY MOUTH EVERY DAY. SKIP PLACEBO TABLETS AND START NEXT PACK TO MANAGE PAINFUL PERIODS, # 84 tablet, 5 Refills, Maintenance, 12/31/22 8:06:00 EDT, [facility], 63, TAKE 1 TABLET BY MOUTH EVERY DAY. SKIP PLACEBO TA... Start Date: 12/31/22 Status: Ordered Lexapro 20 mg oral tablet 1 tablet = 20 mg, By Mouth, Daily, # 90 tablet, 3 Refills, Maintenance, 08/14/22 15:44:00 EST, Tablet, [facility], Partial fill upon [...] kit, 3 Refills, Maintenance, 02/09/23 9:38:00 EDT, [facility], Partial fill upon patient [...] capsule, 11 Refills, Maintenance, 01/28/23 8:51:00 EDT, [facility], 177, cm, 12/29/22 16:45:00 EDT, Height, 104.3, kg, 12/29/22 16:45:00 EDT, Dry Weight Start Date: 01/28/23 Status: Ordered propranolol 120 mg oral capsule, extended release 1 capsule = 120 mg, By Mouth, Daily, # 30 capsule, 11 Refills, Maintenance, 01/08/22 11:38:00 EDT, ER Capsule, [facility], Partial fill upon [...] Diagnosis Diagnosis Type Effective Dates Health Status Clinical Service Informant Encounter to establish care with new doctor Discharge Diagnosis 03/17/23 Meenakshi-Danlos disease Discharge Diagnosis 03/17/23 Anxiety Discharge Diagnosis 03/17/23 POTS (postural orthostatic tachycardia syndrome) Discharge Diagnosis 03/17/23 Migraine Discharge Diagnosis 03/17/23 GERD with esophagitis Discharge Diagnosis 03/17/23 Obese class I Discharge Diagnosis 03/17/23 Procedures Procedure Date Related Diagnosis Body Site Status Arthroscopy planned 1 Com pleted 1Jaw Vital Signs Most recent to oldest [Reference Range]: 1 Height 177 cm (03/17/23 8:09 AM) Social History Social History Type Response Smoking Status Never (less than 100 in lifetime) entered on: 02/26/22 Sex Patient Care team information Care Team Personnel Name: Molly Luke NP Position: [facility] PCO Associate Professional Member Role: PCP Address: Address: [address] [place] [id number]- Care Team Related Persons Name: SHANTEL MURPHY Address: [address] [place] [address]
--- OUTSIDE RECORDS SUMMARY | 2024-03-21 07:53 | XMS_ITS | Continuity of Care Document ---
Author Organization [facility] Address Unknown Care Team Providers Care Pathology Transcriptionist Name Role Phone Allie DOMINGUEZ, Vik Joaquin Primary Care Physician Encounter [facility] [place] Date(s): 07/21/21 - 08/20/21 [facility] Allergies, Adverse Reactions, Alerts Substance [...]
--- OUTSIDE RECORDS SUMMARY | 2024-03-21 07:53 | XMS_ITS | Continuity of Care Document ---
Author Organization [facility] Address [address] [place] [id number]- Care Team Providers Care Income Tax Expert Name Role Phone Elliot DOMINGUEZ, Lidya Leos Primary Care Physician [place] [facility] [place]s): 05/25/23 - 06/24/23 [facility] [address] [place] [address]- [place] Allergies, Adverse Reactions, Alerts Substance Reaction Severity Status Bananas Active Immunizations Given and Recorded Vaccine Date Status Refusal Reason SARS-CoV-2 mRNA (uyusnlm-zjud-ajfge) vax 01/16/22 Recorded influenza virus vaccine, inactivated 07/07/21 Buster rded SARS-CoV-2 (COVID-19) mRNA BNT-162b2 vac 06/28/21 Recorded SARS-CoV-2 (COVID-19) mRNA BNT-162b2 vac 09/27/20 Recorded tetanus/diphtheria/pertussis, acel(Tdap) 04/13/21 Recorded Medications busPIRone 10 mg oral tablet 10 mg, 1, tablet, By Mouth, Daily at supper, # 90 tablet, Refills 1, Tot. Refills 1, Maintenance, 11/27/22 16:04:00 EST, Route to Pharmacy Electronically, [facility], Partial fill upon patient request if the prescription is for a schedul... Start Date: 11/27/22 Stop Date: 05/26/23 Status: Ordered Corlanor 5 mg oral tablet 1 tablet = 5 mg, By Mouth, 2 times a day with meals, # 180 tablet, 1 Refills, Maintenance, 06/09/2311:50:00 EDT, Tablet, [facility], Partial fill upon patient request if the prescription is for a schedule II opioid drug., 174.6, cm, ... Start Date: 06/09/23 Stop Date: 12/06/23 Status: Ordered cyclobenzaprine 10 mg oral tablet 10 mg, 1, tablet, By Mouth, Daily at supper, # 30 tablet, Refills 1, Tot. Refills 1, Maintenance, 02/04/23 10:40:00 EDT, Route to Pharmacy Electronically, [facility], Partial fill upon [...] mL, 6 Refills, Maintenance, 03/18/23 18:14:00 EDT, [facility], 177, cm, 03/17/23 8:09:00 EDT, [...] Replace Required Details, Route to Pharmacy Electronically, [facility], 174.6, cm, 04/29/23 15:52:00 EDT,... Start Date: 05/17/23 Status: Ordered indomethacin 25 mg oral capsule 1 capsule = 25 mg, By Mouth, 2 times a day, PRN Pain , Moderate, # 60 capsule, 1 Refills, Maintenance, 10/20/22 14:01:00 EST, [facility], Partial fill upon patient request if the prescription is for a schedule II opioid drug., 175, cm, 1... Start Date: 10/20/22 Status: Ordered Junel Fe 10/09 oral tablet See Instructions, TAKE 1 TABLET BY MOUTH EVERY DAY. SKIP PLACEBO TABLETS AND START NEXT PACK TO MANAGE PAINFUL PERIODS, # 84 tablet, 5 Refills, Maintenance, 12/31/22 8:06:00 EDT, [facility], 63, TAKE 1 TABLET BY MOUTH EVERY DAY. SKIP PLACEBO TA... Start Date: 12/31/22 Status: Ordered Lexapro 20 mg oral tablet 1 tablet = 20 mg, By Mouth, Daily, # 90 tablet, 3 Refills, Maintenance, 08/14/22 15:44:00 EST, Tablet, [facility], Partial fill upon patient request if the prescription is for a schedule II opioid drug., 175, cm, 08/14/22 14:57:00 EST, H... 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
--- OUTSIDE RECORDS SUMMARY | 2024-03-21 07:53 | XMS_ITS | Continuity of Care Document ---
Author Organization [facility] Address Unknown Care Team Providers Care Construction Services Technician Name Role Phone Allie DOMINGUEZ, Vik Joaquin Primary Care Physician [place] [facility] [place] 12/10/21 - 01/09/22 [facility] Attending Physician: Bryan Muniz Admitting [...] 4 Refills, Maintenance, 11/21/21 8:35:00 EST, Tablet, [facility], Partial fill upon patient [...] Refills, Maintenance, 01/08/22 11:38:00 EDT, ER Capsule, [facility], Partial fill upon patient [...]
--- OUTSIDE RECORDS SUMMARY | 2024-03-21 07:53 | XMS_ITS | Continuity of Care Document ---
Author Organization [facility] Address [address] [facility] [address] [facility], [address], [address] [place] [address]- Care Team Providers Care Pulmonologist Name Role Phone Rodriguez BUSH, Patricia Barfield Primary Care Physician Encounter [facility] [place] Date(s): 10/20/22 - 11/19/22 [facility] [address], [address], [address] [place] [id number] Attending Physician: Bryan Muniz Admitting Physician: AdmBryan nnuez Referring Physician: AdmtrBryan Allergies, Adverse Reactions, Alerts Substance Reaction Severity Status Bananas Active Immunizations Given and Recorded Vaccine Date Status Refusal Reason SARS-CoV-2 mRNA (drftheo-ewge-jdvrz) vax 01/16/22 Recorded influenza virus vaccine, inactivated 07/07/21 Buster rded SARS-CoV-2 (COVID-19) mRNA BNT-162b2 vac 06/28/21 Recorded SARS-CoV-2 (COVID-19) mRNA BNT-162b2 vac 09/27/20 Recorded tetanus/diphtheria/pertussis, acel(Tdap) 04/13/21 Recorded Medications busPIRone 10 mg oral tablet 10 mg, 1, tablet, By Mouth, Daily at supper, # 90 tablet, Refills 3, Tot. Refills 3, Maintenance, 10/28/21 15:45:00 EST, Route to Pharmacy Electronically, [facility], Partial fill upon patient request if the prescription is for a schedul... Start Date: 10/28/21 Status: Ordered Emgality Prefilled Pen 120 mg/mL subcutaneous solution = 120 mg, Subcutaneous Infusion, Every 28 days, Use one autoinjector once per month. Rotate injection sites., # 1 each, 6 Refills, Maintenance, 08/06/22 20:26:00 EST, [facility], Partial fill upon patient [...] 11/19/22 13:17:00 EST, Route to Pharmacy Electronically, [facility], 177, cm, 11/03/22 8:32:00 EST, Height, 106.8, kg, 11/03/22 8:32:00 EST, . Start Date: 11/19/22 Status: Ordered indomethacin 25 mg oral capsule 1 capsule = 25 mg, By Mouth, 2 times a day, PRN Pain , Moderate, # 60 capsule, 1 Refills, Maintenance, 10/20/22 14:01:00 EST, [facility], Partial fill upon patient request if the prescription is for a schedule II opioid drug., 175, cm, 1... Start Date: 10/20/22 Status: Ordered Fe 10/09 oral tablet 1 tablet, By Mouth, Daily, take one tablet daily, omitting placebo to manage dysmenorrhea., # 84 tablet, 5 Refills, Maintenance, 07/02/23 8:35:00 EDT, Tablet, [facility], Partial fill upon patient request if the prescription is for a chelsi... Start Date: 07/02/23 Status: Ordered Fe 10/09 oral tablet 1 tablet, By Mouth, Daily, take one tablet daily, omitting placebo to manage dysmenorrhea., # 90 tablet, 4 Refills, Hard Stop 07/02/23 8:35:00 EDT, 11/21/21 8:35:00 EST, Tablet, [facility], Partial fill upon patient request if the prescr... Start Date: 11/21/21 Stop Date: 07/02/23 Status: Ordered Lexapro 20 mg oral tablet 1 tablet = 20 mg, By Mouth, Daily, # 90 tablet, 3 Refills, Maintenance, 08/14/22 15:44:00 EST, Tablet, [facility], Partial fill upon patient request if the prescription is for a schedule II opioid drug., 175, cm, 08/14/22 14:57:00 EST, H... Start Date: 08/14/22 Status: Ordered lidocaine 5% topical ointment 1 application, Topically, 3 times a day, # 50 Gm, 0 Refills, Maintenance, 08/31/22 13:19:00 EST, Ointment, [facility], Partial fill upon patient request if [...] Maintenance, 01/08/22 11:38:00 EDT, ER Capsule, [facility], Partial fill upon patient [...] lifetime) entered on: 02/26/22 Sex Note * Event Display: Non Lab Results Authored Date: [id number] * Event Display: Non Lab Results Authored Date: [id number] Patient Care team information Care Team Personnel Name: Patricia Frias NP Position: [facility] Associate Professional Member Role: PCP Address: Address: [address] [place] [address] [place] [address]- Care Team Related Persons Name: SHANTEL MURPHY Address: home [address] [place] [phone]
--- OUTSIDE RECORDS SUMMARY | 2024-03-21 07:53 | XMS_ITS | Continuity of Care Document ---
Author Organization [facility] Address [address] [place] [address]- Care Team Providers Care Dental Laboratory Manager Name Role Phone Rodriguez BUSH, Patricia Barfield Primary Care Physician Encounter [facility] Date(s): 06/30/22 - 08/01/22 [facility] [address] [place] [address]- Attending Physician: Krystal DOMINGUEZ ([facility])Charu Allergies, Adverse Reactions, Alerts Substance Reaction Severity Status Bananas Active Immunizations Given and Recorded Vaccine Date Status Refusal Reason SARS-CoV-2 mRNA (cwgrdyn-uhwt-hrhvb) vax 01/16/22 Recorded influenza virus vaccine, inactivated 07/07/21 Buster rded SARS-CoV-2 (COVID-19) mRNA BNT-162b2 vac 06/28/21 Recorded SARS-CoV-2 (COVID-19) mRNA BNT-162b2 vac 09/27/20 Recorded tetanus/diphtheria/pertussis, acel(Tdap) 04/13/21 Recorded Medications busPIRone 10 mg oral tablet 10 mg, 1, tablet, By Mouth, [facility], # [facility] tablet, Refills 3, Tot. Refills 3, Maintenance, 10/28/21 15:45:00 EST, Route to Pharmacy Electronically, [facility], Partial fill upon patient request if the prescription is for a schedul... Start Date: 10/28/21 Status: Ordered Emgality Prefilled Pen 120 mg/mL subcutaneous solution = 120 mg, Subcutaneous Infusion, Every 28 days, Use one autoinjector once per month. Rotate injection sites., # 1 each, 3 Refills, Maintenance, 03/18/22 23:41:00 EDT, [facility], Partial fill upon patient [...] 06/16/22 10:57:00 EDT, Route to Pharmacy Electronically, [facility], Partial fill upon patient request [...] Refills, Maintenance, 01/08/22 11:38:00 EDT, ER Capsule, [facility], Partial fill upon patient request if [...] Professional Member Role: PCP Address: Address: [address] [facility] [place] [address]- Care Team Related Persons Name: SHANTELMURPHY Address: home [address] [place] [id number]
--- OUTSIDE RECORDS SUMMARY | 2024-03-21 07:54 | XMS_ITS | Continuity of Care Document ---
Author Organization [facility] Address Unknown Care Team Providers Care Radio Time Sales Supervisor Name Role Phone Not on Staff, PCP Primary Care Physician Unavail able Encounter [facility] Date(s): 06/04/21 - 07/04/21 [facility] Attending Physician: Bryan Muniz Admitting Physician: Bryan [...] Maintenance,05/13/21 8:23:00 EDT, Route to Pharmacy Electronically, [facility], Partial fill uponpatient request if the prescription is for a schedu... Start Date: 05/13/21 Status: Ordered Junel 10/09 [...]
--- OUTSIDE RECORDS SUMMARY | 2024-03-21 07:54 | XMS_ITS | Continuity of Care Document ---
Author Organization [facility] Address [address] [facility], 4t [place] [address]- Care Team Providers Care Hydrogen Braze Furnace Operator Name Role Phone Rodriguez BUSH, Patricia Barfield Primary Care Physician [place] [facility] [id number] Date(s): 08/31/22 - 09/07/22 [facility] [address] [facility], 4th [place] [address]- Attending Physician: Georgina Vences MD Referring Physician: Patricia Frias NP Allergies, Adverse Reactions, Alerts Substance Reaction Severity Status Bananas Active Immunizations Given and Recorded Vaccine Date Status Refusal Reason SARS-CoV-2 mRNA (lbrpvkb-eckq-ybmml) vax 01/16/22 Recorded influenza virus vaccine, inactivated 07/07/21 Buster rded SARS-CoV-2 (COVID-19) mRNA BNT-162b2 vac 06/28/21 Recorded SARS-CoV-2 (COVID-19) mRNA BNT-162b2 vac 09/27/20 Recorded tetanus/diphtheria/pertussis, acel(Tdap) 04/13/21 Recorded Medications busPIRone 10 mg oral tablet 10 mg, 1, tablet, By Mouth, Daily at supper, # 90 tablet, Refills 3, Tot. Refills 3, Maintenance, 10/28/21 15:45:00 EST, Route to Pharmacy Electronically, [facility], Partial fill upon patient request if the prescription is for a schedul... Start Date: 10/28/21 Status: Ordered clobetasol 0.05% topical ointment 1 application, Topically, 2 times a day, for 14 days, # 60 Gm, 0 Refills, Acute 09/14/22 13:18:00 EST, 08/31/22 13:18:00 EST, Ointment, [facility], Partial fill upon patient request if the prescription is for a schedule II opioid drug.,... Start Date: 08/31/22 Stop Date: 09/14/22 Status: Ordered Emgality Prefilled Pen 120 mg/mL subcutaneous solution = 120 mg, Subcutaneous Infusion, Every 28 days, Use one autoinjector once per month. Rotate injection sites., # 1 each, 6 Refills, Maintenance, 08/06/22 20:26:00 EST, [facility], Partial fill upon patient request [...] 06/16/22 10:57:00 EDT, Route to Pharmacy Electronically, [facility], Partial fill upon patient request if the prescription is for a chelsi... Start Date: 06/16/22 Status: Ordered Junel Fe 10/09 oral tablet 1 tablet, By Mouth, Daily, take one tablet daily, omitting placebo to manage dysmenorrhea., # 90 tablet, 4 Refills, Maintenance, 11/21/21 8:35:00 EST, Tablet, [facility], Partial fill upon patient request if the prescription is for a chelsi... Start Date: 11/21/21 Stop Date: 07/02/23 Status: Ordered Lexapro 20 mg oral tablet 1 tablet = 20 mg, By Mouth, Daily, # 90 tablet, 3 Refills, Maintenance, 08/14/22 15:44:00 EST, Tablet, [facility], Partial fill upon patient request if the prescription is for a schedule II opioid drug., 175, cm, 08/14/22 14:57:00 EST, H... Start Date: 08/14/22 Status: Ordered lidocaine 5% topical ointment 1 application, Topically, 3 times a day, # 50 Gm, 0 Refills, Maintenance, 08/31/22 13:19:00 EST, Ointment, [facility] 3, Partial fill upon patient request if [...] Refills, Maintenance, 01/08/22 11:38:00 EDT, ER Capsule, [facility], Partial fill upon patient request if [...] Associate Professional Member Role: PCP Address: Address: [address] [place] [address] [place] [address]- Care Team Related Persons Name: MURPHY FUNES Address: [address] [address]
--- OUTSIDE RECORDS SUMMARY | 2024-03-21 07:54 | XMS_ITS | Continuity of Care Document ---
Author Organization [facility] Address [address] [place] [address]- Care Team Providers Care Personnel Officer Name Role Phone Elliot DOMINGUEZ, Lidya Leos Primary Care Physician Encounter [facility] [place] Date(s): 10/12/23 - 11/11/23 [facility] [address] [place], [place] [address] Attending Physician: Bryan Muniz Admitting Physician: AdmBryan nunez Referring Physician: Admtr, Ar8 Allergies, Adverse Reactions, Alerts Substance Reaction Severity Status Bananas Active Immunizations Given and Recorded Vaccine Date Status Refusal Reason influenza virus vaccine, inactivated 07/02/23 Buster rded influenza virus vaccine, inactivated 07/16/22 Buster rded influenza virus vaccine, inactivated 07/07/21 Buster rded SARS-CoV-2 mRNA (lkdseng-qmxk-qglhf) vax 01/16/22 Recorded SARS-CoV-2 (COVID-19) mRNA BNT-162b2 [...] tablet, 1 Refills, Maintenance, 06/09/2311:50:00 EDT, Tablet, [facility], Partial fill upon patient [...] 11/04/23 8:11:00 EST,Route to Pharmacy Electronically, [facility], 174.6, cm, 10/12/23 15:43:00 EST, Height, 105.3, kg, 06/30/23 9:52:00 EDT, Dry Weight Start Date: 11/04/23 Status: Ordered indomethacin 25 mg oral capsule 1 capsule = 25 mg, By Mouth, 2 times a day, PRN Pain , Moderate, # 60 capsule, 1 Refills, Maintenance, 10/20/22 14:01:00 EST, [facility], Partial fill upon patient request if the prescription is for a schedule II opioid drug., 175, cm, 1... Start Date: 10/20/22 Status: Ordered 10/09 oral tablet See Instructions, TAKE 1 TABLET BY MOUTH EVERY DAY. SKIP PLACEBO TABLETS AND START NEXT PACK TO MANAGE PAINFUL PERIODS, # 84 tablet, 5 Refills, Maintenance, 12/31/22 8:06:00 EDT, [facility], 63, TAKE 1 TABLET BY MOUTH EVERY DAY. SKIP PLACEBO TA... 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, # 1 kit, 3 Refills, Maintenance, 02/09/23 9:38:00 EDT, [facility], Partial fill upon patient [...] capsule, 0 Refills, Maintenance, 09/16/23 8:04:00 EST, [facility], 174.6, cm, 06/30/23 9:52:00 EDT, Height, 105.3, kg, 06/30/23 9:52:00 EDT, Dry Weight Start Date: 09/16/23 Status: Ordered traMADol 50 mg oral tablet 1 tablet = 50 mg, By Mouth, Every 12 hours, PRN as needed for pain, # 6 tablet, 0 Refills, Maintenance, 10/12/23 17:34:00 EST, Tablet, [facility], Partial fill upon patient [...] Personnel Name: Lidya Zarate MD, V Position: [facility] Physician - Primary Care Member Role: PCP Address: Address: [address] [place] [address]- Care Team Related Persons Name: FUNES, MURPHY Address: home [address] [place] [address]
--- OUTSIDE RECORDS SUMMARY | 2024-03-21 07:54 | XMS_ITS | Continuity of Care Document ---
Author Organization [facility] Address [address] [place] [address]- Care Team Providers Care Rock Wool Insulator Name Role Phone Rodriguez BUSH, Patricia Barfield Primary Care Physician [phone] Encounter [facility] [place] Date(s): 09/01/22 - 10/01/22 [facility] [address] [place] [address]- [place] Allergies, Adverse Reactions, Alerts Substance Reaction Severity Status Bananas Active Immunizations Given and Recorded Vaccine Date Status Refusal Reason SARS-CoV-2 mRNA (mgdphvk-wrug-elkng) vax 01/16/22 Recorded influenza virus vaccine, inactivated 07/07/21 Buster rded SARS-CoV-2 (COVID-19) mRNA BNT-162b2 vac 06/28/21 Recorded SARS-CoV-2 (COVID-19) mRNA BNT-162b2 vac 09/27/20 Recorded tetanus/diphtheria/pertussis, acel(Tdap) 04/13/21 Recorded Medications busPIRone 10 mg oral tablet 10 mg, 1, tablet, By Mouth, Daily at supper, # 90 tablet, Refills 3, Tot. Refills 3, Maintenance, 10/28/21 15:45:00 EST, Route to Pharmacy Electronically, [facility], Partial fill upon patient request if the prescription is for a schedul... Start Date: 10/28/21 Status: Ordered Emgality Prefilled Pen 120 mg/mL subcutaneous solution = 120 mg, Subcutaneous Infusion, Every 28 days, Use one autoinjector once per month. Rotate injection sites., # 1 each, 6 Refills, Maintenance, 08/06/22 20:26:00 EST, [facility], Partial fill upon patient [...] 09/16/22 14:03:00 EST, Route to Pharmacy Electronically, [facility], 175, cm, 09/03/22 14:39:00 EST, Height, 108, kg, 07/29/22 18:14:00 EST, Dry Weight Start Date: 09/16/22 Status: Ordered Junel Fe 10/09 oral tablet 1 tablet, By Mouth, Daily, take one tablet daily, omitting placebo to manage dysmenorrhea., # 90 tablet, 4 Refills, Maintenance, 11/21/21 8:35:00 EST, Tablet, [facility], Partial fill upon patient request if the prescription is for a chelsi... Start Date: 11/21/21 Stop Date: 07/02/23 Status: Ordered Lexapro 20 mg oral tablet 1 tablet = 20 mg, By Mouth, Daily, # 90 tablet, 3 Refills, Maintenance, 08/14/22 15:44:00 EST, Tablet, [facility], Partial fill upon patient request if the prescription is for a schedule II opioid drug., 175, cm, 08/14/22 14:57:00 EST, H... Start Date: 08/14/22 Status: Ordered lidocaine 5% topical ointment 1 application, Topically, 3 times a day, # 50 Gm, 0 Refills, Maintenance, 08/31/22 13:19:00 EST, Ointment, [facility], Partial fill upon patient [...] 01/08/22 11:38:00 EDT, ER Capsule, [facility], Partial fill upon patient [...] Associate Professional Member Role: PCP Address: Address: [address] [place] [address] [place] [address]- Care Team Related Persons Name: MURPHY FUNES Address: home [address] [place] [id number]
--- OUTSIDE RECORDS SUMMARY | 2024-03-21 07:54 | XMS_ITS | Continuity of Care Document ---
Author Organization [facility] Address [address] [place] [address]- Care Team Providers Care Sheet Metal Duct Installer Apprentice Name Role Phone Allie DOMINGUEZ, Vik Joaquin Primary Care Physician Encounter [facility] [place] Date(s): 10/21/21 - 11/20/21 [facility] [address] [place] [address]- [place] Allergies, Adverse Reactions, Alerts Substance Reaction [...] 6 Refills, Maintenance, 09/23/21 8:57:00 EST, Tablet, [facility], Partial fill upon patient request if the prescription is for a chelsi... Start Date: 09/23/21 Stop Date: 05/04/23 Status: Ordered loratadine 10 mg oral tablet [...]
--- OUTSIDE RECORDS SUMMARY | 2024-03-21 07:54 | XMS_ITS | Continuity of Care Document ---
Author Organization [facility] Address Unknown Care Team Providers Care Infection Prevention Coordinator Name Role Phone Not on Staff, PCP Primary Care Physician Unavail able Encounter [facility] [place] Date(s): 06/04/21 - 06/11/21 [facility] Attending Physician: Brendan Uribe MD Referring Physician: Not on Staff, Referring MD [...] Maintenance,05/13/21 8:23:00 EDT, Route to Pharmacy Electronically, [facility], Partial fill uponpatient request [...] opioid drug. Start Date: 05/13/21 Status: Ordered Vital Signs Most recent to oldest [Reference Range]: 1 Height 175 cm (06/04/21 8:41 AM) Weight 99.8 kg (06/04/21 8:41 AM) Pulse Rate [55-90 bpm] 93 bpm *H* (06/04/21 8:41 AM) Body Mass Index [18.5-24.99] 32.59 *>HHI* (06/04/21 8:41 AM) Blood Pressure [90-138/55-84 mm Hg] 131/ 82mm Hg (06/04/21 8:41 AM) Respiratory Rate [16-30 br/min] 16 br/mi n (06/04/21 8:41 AM) Temperature [96.8-100.4 DegF] 96.9 DegF (06/04/21 8:41 AM) Blood pressure sites Arm, right (06/04/21 8:41 AM) Temperature Route Temporal (06/04/21 8:41 AM) Weight Obtained Via Standing scale (06/04/21 8:41 AM) Social History Social History Type Response Smoking Status Never (less than 100 in lifetime) entered on: 06/04/21 Sex
--- OUTSIDE RECORDS SUMMARY | 2024-03-21 07:54 | XMS_ITS | Continuity of Care Document ---
Author Organization [facility] Address Unknown Care Team Providers Care Cyber Security Consultant Name Role Phone Not on Staff, PCP Primary Care Physician Unavail able Encounter [facility] [place] Date(s): 05/01/21 - 07/12/21 [facility] Attending Physician: Yeni Palacios Admitting Physician: Yeni Palacios Referring Physician: Chava San MD Allergies, Adverse Reactions, Alerts Substance Reaction [...] Maintenance,05/13/21 8:23:00 EDT, Route to Pharmacy Electronically, [facility], Partial fill uponpatient request [...]
--- OUTSIDE RECORDS SUMMARY | 2024-03-21 07:54 | XMS_ITS | Continuity of Care Document ---
Author Organization [facility] Address [address] [place] [address]- Care Team Providers Care Strickler Attendant Name Role Phone Elliot DOMINGUEZ, Lidya Leos Primary Care Physician Encounter [facility] [place] Date(s): 07/12/23 - 08/11/23 [facility] [address] [place], [place] [address] Attending Physician: AdmBryan nunez Admitting Physician: AdmBryan nunez Referring Physician: Admtr, Ar8 Allergies, Adverse Reactions, Alerts Substance Reaction Severity Status Bananas Active Immunizations Given and Recorded Vaccine Date Status Refusal Reason SARS-CoV-2 mRNA (ubzeevj-ftiq-mnsmz) vax 01/16/22 Recorded influenza virus vaccine, inactivated 07/07/21 Buster rded SARS-CoV-2 (COVID-19) mRNA BNT-162b2 vac 06/28/21 Recorded SARS-CoV-2 (COVID-19) mRNA BNT-162b2 vac 09/27/20 Recorded tetanus/diphtheria/pertussis, acel(Tdap) 04/13/21 Recorded Medications busPIRone 10 mg oral tablet 10 mg, 1, tablet, By Mouth, Daily at supper, # 90 tablet, Refills 1, Tot. Refills 1, Maintenance, 11/27/22 16:04:00 EST, Route to Pharmacy Electronically, [facility], Partial fill upon patient request if the prescription is for a schedul... Start Date: 11/27/22 Stop Date: 05/26/23 Status: Ordered Corlanor 5 mg oral tablet 1 tablet = 5 mg, By Mouth, 2 times a day with meals, # 180 tablet, 1 Refills, Maintenance, 06/09/2311:50:00 EDT, Tablet, [facility], Partial fill upon patient request if the prescription is for a schedule II opioid drug., 174.6, cm, ... Start Date: 06/09/23 Stop Date: 12/06/23 Status: Ordered cyclobenzaprine 10 mg oral tablet 10 mg, 1, tablet, By Mouth, Daily at supper, # 30 tablet, Refills 1, Tot. Refills 1, Maintenance, 02/04/23 10:40:00 EDT, Route to Pharmacy Electronically, [facility], [...] mL, 6 Refills, Maintenance, 03/18/23 18:14:00 EDT, [facility], 177, cm, 03/17/23 8:09:00 [...] Replace Required Details, Route to Pharmacy Electronically, [facility], 174.6, cm, 04/29/23 15:52:00 EDT,... Start Date: 05/17/23 Status: Ordered indomethacin 25 mg oral capsule 1 capsule = 25 mg, By Mouth, 2 times a day, PRN Pain , Moderate, # 60 capsule, 1 Refills, Maintenance, 10/20/22 14:01:00 EST, [facility], Partial fill upon patient request if the prescription is for a schedule II opioid drug., 175, cm, 1... Start Date: 10/20/22 Status: Ordered June Fe 10/09 oral tablet See Instructions, TAKE 1 TABLET BY MOUTH EVERY DAY. SKIP PLACEBO TABLETS AND START NEXT PACK TO MANAGE PAINFUL PERIODS, # 84 tablet, 5 Refills, Maintenance, 12/31/22 8:06:00 EDT, [facility], 63, TAKE 1 TABLET BY MOUTH EVERY DAY. SKIP PLACEBO TA... Start Date: 12/31/22 Status: Ordered Lexapro 20 mg oral tablet 1 tablet = 20 mg, By Mouth, Daily, # 90 tablet, 3 Refills, Maintenance, 08/14/22 15:44:00 EST, Tablet, [facility], Partial fill upon patient request if the prescription is for a schedule II opioid drug., 175, cm, 08/14/22 14:57:00 EST, H... 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 Start Date: 06/09/23 Stop Date: 09/07/23 Status: [...] Primary Care Member Role: PCP Address: Address: [address] [place] [address] Care Team Related Persons Name: MURPHY FUNES Address: home [address] [place] [address]
--- OUTSIDE RECORDS SUMMARY | 2024-03-21 07:54 | XMS_ITS | Continuity of Care Document ---
Author Organization [facility] Address Unknown Care Team Providers Care Jewelry Bench Molder Name Role Phone Allie DOMINGUEZ, Vik Joaquin Primary Care Physician [place] [facility] [place] 09/01/21 - 10/01/21 [facility] Allergies, Adverse Reactions, Alerts Substance [...] 6 Refills, Maintenance, 09/23/21 8:57:00 EST, Tablet, [facility], Partial fill upon patient [...]
--- OUTSIDE RECORDS SUMMARY | 2024-03-21 07:54 | XMS_ITS | Continuity of Care Document ---
Author Organization [facility] Address [address] [place] [address]- Care Team Providers Care Actuary Manager Name Role Phone Vik Kelley MD Primary Care Physician Encounter [facility] R [id number] Date(s): 08/01/21 - 09/05/[address] [address]- Attending Physician: Yeni Palacios Admitting Physician: Yeni Palacios Referring Physician: Yeni Palacios Allergies, Adverse Reactions, Alerts Substance Reaction Severity [...]
--- OUTSIDE RECORDS SUMMARY | 2024-03-21 07:54 | XMS_ITS | Continuity of Care Document ---
Author Organization [facility] Address [address] [facility], [address]t [place] [address]- Care Team Providers Care Field Test Engineer Name Role Phone Elliot DOMINGUEZ, Lidya Leos Primary Care Physician Encounter [facility] Date(s): 12/16/23 - 01/15/24 [facility] [address] [facility], 4th [address] [place], [place] [address] Attending Physician: Bryan Muniz Admitting Physician: AdmBryan nunez Referring Physician: AdmtrBryan Allergies, Adverse Reactions, Alerts Substance Reaction Severity Status Bananas Active Immunizations Given and Recorded Vaccine Date Status Refusal Reason influenza virus vaccine, inactivated 07/02/23 Buster rded influenza virus vaccine, inactivated 07/16/22 Buster rded influenza virus vaccine, inactivated 07/07/21 Buster rded SARS-CoV-2 mRNA (emkxiyl-qjzh-ymulo) vax 01/16/22 Recorded SARS-CoV-2 (COVID-19) mRNA BNT-162b2 [...] tablet, 1 Refills, Maintenance, 06/09/2311:50:00 EDT, Tablet, [facility], Partial fill upon [...] Maintenance, 11/04/23 8:11:00 EST,Route to Pharmacy Electronically, [facility], 174.6, cm, 10/12/23 15:43:00 EST, Height, 105.3, kg, 06/30/23 9:52:00 EDT, Dry Weight Start Date: 11/04/23 Status: Ordered indomethacin 25 mg oral capsule 1 capsule = 25 mg, By Mouth, 2 times a day, PRN Pain , Moderate, # 60 capsule, 1 Refills, Maintenance, 10/20/22 14:01:00 EST, [facility], Partial fill upon patient request if the prescription is for a schedule II opioid drug., 175, cm, 1... Start Date: 10/20/22 Status: Ordered 10/09 oral tablet See Instructions, TAKE 1 TABLET BY MOUTH EVERY DAY. SKIP PLACEBO TABLETS AND START NEXT PACK TO MANAGE PAINFUL PERIODS, # 84 tablet, 5 Refills, Maintenance, 12/31/22 8:06:00 EDT, [facility], 63, TAKE 1 TABLET BY MOUTH EVERY DAY. SKIP PLACEBO TA... 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, # 1 kit, 3 Refills, Maintenance, 02/09/23 9:38:00 EDT, [facility], Partial fill upon [...] capsule, 0 Refills, Maintenance, 12/15/23 7:47:00 EDT, [facility], 174.6, cm, 10/12/23 15:43:00 EST, Height, 105.3, kg, 06/30/23 9:52:00 EDT, Dry Weight Start Date: 12/15/23 Status: Ordered traMADol 50 mg oral tablet 1 tablet = 50 mg, By Mouth, Every 12 hours, PRN as needed for pain, # 6 tablet, 0 Refills, Maintenance, 10/12/23 17:34:00 EST, Tablet, [facility], Partial fill upon [...] Personnel Name: Elliot DOMINGUEZ, Lidya Leos Position: [facility] Physician - Primary Care Member Role: PCP Address: Address: [address] [place] [address]- Care Team Related Persons Name: FUNESMURPHY Address: home [address] [place] [address]
--- OUTSIDE RECORDS SUMMARY | 2024-03-21 07:54 | XMS_ITS | Continuity of Care Document ---
Author Organization [facility] Address [address] [facility], [address] Floor, [address] [address]- Care Team Providers Care Sports Physical Therapist Name Role Phone Rodriguez BUSH, Patricia Barfield Primary Care Physician [phone] [id number] - [facility]29/22 [facility] [address] [place], [address], [address] [address]- Encounter Diagnosis Migraine without aura, not intractable, without status migrainosus(Final) - Discharge Disposition: A-D/C Home Attending Physician: Rancho Crouch MD Admitting Physician: Rancho Crouch MD Allergies, Adverse Reactions, Alerts Substance Reaction Severity Status Bananas Active Immunizations Given and Recorded Vaccine Date Status Refusal Reason SARS-CoV-2 mRNA (xvsiczc-hwfj-tcjdt) vax 01/16/22 Recorded influenza virus vaccine, inactivated 07/07/21 Buster rded SARS-CoV-2 (COVID-19) mRNA BNT-162b2 vac 06/28/21 Recorded SARS-CoV-2 (COVID-19) mRNA BNT-162b2 vac 09/27/20 Recorded tetanus/diphtheria/pertussis, acel(Tdap) 04/13/21 Recorded Medications busPIRone 10 mg oral tablet 10 mg, 1, tablet, By Mouth, Daily at supper, # 90 tablet, Refills 3, Tot. Refills 3, Maintenance, 10/28/21 15:45:00 EST, Route to Pharmacy Electronically, [facility], Partial fill upon patient request if the prescription is for a schedul... Start Date: 10/28/21 Status: Ordered Emgality Prefilled Pen 120 mg/mL subcutaneous solution = 120 mg, Subcutaneous Infusion, Every 28 days, Use one autoinjector once per month. Rotate injection sites., # 1 each, 3 Refills, Maintenance, 03/18/22 23:41:00 EDT, [facility], Partial fill upon patient request [...] 10:57:00 EDT, Route to Pharmacy Electronically, [facility], Partial fill upon patient request if the prescription is for a chelsi... Start Date: 06/16/22 Status: Ordered June10/09 oral tablet 1 tablet, By Mouth, Daily, take one tablet daily, omitting placebo to manage dysmenorrhea., # 90 tablet, 4 Refills, Maintenance, 11/21/21 8:35:00 EST, Tablet, [facility], Partial fill upon patient request if the prescription is for a chelsi... Start Date: 11/21/21 Stop Date: 07/02/23 Status: Ordered Lexapro 20 mg oral tablet 1 tablet = 20 mg, By Mouth, Daily, # 90 tablet, 3 Refills, Maintenance, 08/08/21 10:20:00 EST, Tablet, [facility], Partial fill upon patient request if [...] Maintenance, 01/08/22 11:38:00 EDT, ER Capsule, [facility], Partial fill upon patient request [...] Personnel Name: Patricia Frias NP Address: Address: [address] [place] [address] Primary [place], [place] [address]
--- OUTSIDE RECORDS SUMMARY | 2024-03-21 07:54 | XMS_ITS | Continuity of Care Document ---
Author Organization [facility] Address [address] [facility], 3r d Floor, [address] [place] [address]- Care Team Providers Care Manager Field Name Role Phone Marly BUSH, Molly Primary Care Physician En[place] [facility] [place] Date(s): 03/15/23 - 04/14/23 [facility] [address] [facility], 3rd Floor, [address] [place] [address]- Attending Physician: AdmBj [id number] Admitting Physician: AdmtrBryan Referring Physician: Admtr, Ar8 Allergies, Adverse Reactions, Alerts Substance Reaction Severity Status Bananas Active Immunizations Given and Recorded Vaccine Date Status Refusal Reason SARS-CoV-2 mRNA (pcyilzw-lqnh-jxlkj) vax 01/16/22 Recorded influenza virus vaccine, inactivated 07/07/21 Buster rded SARS-CoV-2 (COVID-19) mRNA BNT-162b2 vac 06/28/21 Recorded SARS-CoV-2 (COVID-19) mRNA BNT-162b2 vac 09/27/20 Recorded tetanus/diphtheria/pertussis, acel(Tdap) 04/13/21 Recorded Medications busPIRone 10 mg oral tablet 10 mg, 1, tablet, By Mouth, Daily at supper, # 90 tablet, Refills 1, Tot. Refills 1, Maintenance, 11/27/22 16:04:00 EST, Route to Pharmacy Electronically, [facility], Partial fill upon patient request if the prescription is for a schedul... Start Date: 11/27/22 Stop Date: 05/26/23 Status: Ordered cyclobenzaprine 10 mg oral tablet 10 mg, 1, tablet, By Mouth, Daily at supper, # 30 tablet, Refills 1, Tot. Refills 1, Maintenance, 02/04/23 10:40:00 EDT, Route to Pharmacy Electronically, [facility], Partial fill upon patient request if the prescription is for a schedul... Start Date: 02/04/23 Status: Ordered Emgality Prefilled Pen 120 mg/mL subcutaneous solution See Instructions, INJECT THE CONTENTS OF 1 PEN (120 MG) SUBCUTANEOUSLY EVERY 28 DAYS. ROTATE INJECTION SITES., # 1 mL, 6 Refills, Maintenance, 03/18/23 18:14:00 EDT, [facility], 177, cm, 03/17/23 8:09:00 EDT, [...] 11/19/22 13:17:00 EST, Route to Pharmacy Electronically, [facility], 177, cm, 11/03/22 8:32:00 EST, Height, 106.8, kg, 11/03/22 8:32:00 EST, DrLeonela.. Start Date: 11/19/22 Status: Ordered indomethacin 25 mg oral capsule 1 capsule = 25 mg, By Mouth, 2 times a day, PRN Pain , Moderate, # 60 capsule, 1 Refills, Maintenance, 10/20/22 14:01:00 EST, [facility], Partial fill upon patient request if the prescription is for a schedule II opioid drug., 175, cm, 1... Start Date: 10/20/22 Status: Ordered 10/09 oral tablet See Instructions, TAKE 1 TABLET BY MOUTH EVERY DAY. SKIP PLACEBO TABLETS AND START NEXT PACK TO MANAGE PAINFUL PERIODS, # 84 tablet, 5 Refills, Maintenance, 12/31/22 8:06:00 EDT, [facility], 63, TAKE 1 TABLET BY MOUTH EVERY DAY. SKIP PLACEBO TA... Start Date: 12/31/22 Status: Ordered Lexapro 20 mg oral tablet 1 tablet = 20 mg, By Mouth, Daily, # 90 tablet, 3 Refills, Maintenance, 08/14/22 15:44:00 EST, Tablet, [facility], Partial fill [...] kit, 3 Refills, Maintenance, 02/09/23 9:38:00 EDT, [facility], Partial fill upon patient [...] capsule, 11 Refills, Maintenance, 01/28/23 8:51:00 EDT, [facility], 177, cm, 12/29/22 16:45:00 EDT, Height, 104.3, kg, 12/29/22 16:45:00 EDT, Dry Weight Start Date: 01/28/23 Status: Ordered propranolol 120 mg oral capsule, extended release 1 capsule = 120 mg, By Mouth, Daily, # 30 capsule, 11 Refills, Maintenance, 01/08/22 11:38:00 EDT, ER Capsule, [facility], Partial fill [...] 100 in lifetime) entered on: 02/26/22 Sex Laboratory * Event Display: Non Lab Results Authored Date: [id number] * Event Display: Non Lab Results Authored Date: [id number] Patient Care team information Care Team Personnel Name: Molly Luke NP Position: [facility] Associate Professional Member Role: PCP Address: Address: [address] [place] [address]- Care Team Related Persons Name: MURPHY FUNES Address: home [address] [place] [address]
--- OUTSIDE RECORDS SUMMARY | 2024-03-21 07:54 | XMS_ITS | Continuity of Care Document ---
Author Organization [facility] Address [address] [facility], [address] [place] [address]- Care Team Providers Care Medical Records Custodian Name Role Phone Rodriguez BUSH, Patricia Barfield Primary Care Physician [phone] [place] [facility] [place](s): 08/20/22 - 09/19/22 [facility] [address] [facility], [address] [place], [place] [address] Allergies, Adverse Reactions, Alerts Substance Reaction Severity Status Bananas Active Immunizations Given and Recorded Vaccine Date Status Refusal Reason SARS-CoV-2 mRNA (npfesdx-nqji-zvfkh) vax 01/16/22 Recorded influenza virus vaccine, inactivated 07/07/21 Buster rded SARS-CoV-2 (COVID-19) mRNA BNT-162b2 vac 06/28/21 Recorded SARS-CoV-2 (COVID-19) mRNA BNT-162b2 vac 09/27/20 Recorded tetanus/diphtheria/pertussis, acel(Tdap) 04/13/21 Recorded Medications busPIRone 10 mg oral tablet 10 mg, 1, tablet, By Mouth, Daily at supper, # 90 tablet, Refills 3, Tot. Refills 3, Maintenance, 10/28/21 15:45:00 EST, Route to Pharmacy Electronically, [facility], Partial fill upon patient request if the prescription is for a schedul... Start Date: 10/28/21 Status: Ordered Emgality Prefilled Pen 120 mg/mL subcutaneous solution = 120 mg, Subcutaneous Infusion, Every 28 days, Use one autoinjector once per month. Rotate injection sites., # 1 each, 6 Refills, Maintenance, 08/06/22 20:26:00 EST, [facility], Partial fill upon [...] 09/16/22 14:03:00 EST, Route to Pharmacy Electronically, [facility], 175, cm, 09/03/22 14:39:00 EST, Height, 108, kg, 07/29/22 18:14:00 EST, Dry Weight Start Date: 09/16/22 Status: Ordered Junel Fe 10/09 oral tablet 1 tablet, By Mouth, Daily, take one tablet daily, omitting placebo to manage dysmenorrhea., # 90 tablet, 4 Refills, Maintenance, 11/21/21 8:35:00 EST, Tablet, [facility], Partial fill upon patient request if the prescription is for a chelsi... Start Date: 11/21/21 Stop Date: 07/02/23 Status: Ordered Lexapro 20 mg oral tablet 1 tablet = 20 mg, By Mouth, Daily, # 90 tablet, 3 Refills, Maintenance, 08/14/22 15:44:00 EST, Tablet, [facility], Partial fill upon patient request if the prescription is for a schedule II opioid drug., 175, cm, 08/14/22 14:57:00 EST, H... Start Date: 08/14/22 Status: Ordered lidocaine 5% topical ointment 1 application, Topically, 3 times a day, # 50 Gm, 0 Refills, Maintenance, 08/31/22 13:19:00 EST, [facility], Partial fill upon patient request if [...] Refills, Maintenance, 01/08/22 11:38:00 EDT, ER Capsule, [facility], Partial [...] Personnel Name: Rodriguez BUSH, Patricia Barfield Position: [facility] Associate Professional Member Role: PCP Address: Address: [address] [place] [address] [place] [address]- Care Team Related Persons Name: MURPHY FUNES Address: home [address] [place] [address]
--- OUTSIDE RECORDS SUMMARY | 2024-03-21 07:54 | XMS_ITS | Continuity of Care Document ---
Author Organization [facility] Address [address] [place] [address]- Care Team Providers Care Secondary School Teacher Name Role Phone Rodriguez BUSH, Patricia Barfield Primary Care Physician [phone] Encounter [facility] Date(s): 06/30/22 - 07/30/22 [facility] [address] [place] [address]- Allergies, Adverse Reactions, Alerts Substance Reaction Severity Status Bananas Active Immunizations Given and Recorded Vaccine Date Status Refusal Reason SARS-CoV-2 mRNA (isnzqgy-axys-dsofc) vax 01/16/22 Recorded influenza virus vaccine, inactivated 07/07/21 Buster rded SARS-CoV-2 (COVID-19) mRNA BNT-162b2 vac 06/28/21 Recorded SARS-CoV-2 (COVID-19) mRNA BNT-162b2 vac 09/27/20 Recorded tetanus/diphtheria/pertussis, acel(Tdap) 04/13/21 Recorded Medications busPIRone 10 mg oral tablet 10 mg, 1, tablet, By Mouth, Daily at supper, # 90 tablet, Refills 3, Tot. Refills 3, Maintenance, 10/28/21 15:45:00 EST, Route to Pharmacy Electronically, [facility], Partial fill upon patient request if the prescription is for a schedul... Start Date: 10/28/21 Status: Ordered Emgality Prefilled Pen 120 mg/mL subcutaneous solution = 120 mg, Subcutaneous Infusion, Every 28 days, Use one autoinjector once per month. Rotate injection sites., # 1 each, 3 Refills, Maintenance, 03/18/22 23:41:00 EDT, [facility], Partial fill upon patient [...] 06/16/22 10:57:00 EDT, Route to Pharmacy Electronically, [facility], Partial fill upon patient request if the prescription is for a chelsi... Start Date: 06/16/22 Status: Ordered June Fe 10/09 oral tablet 1 tablet, By Mouth, Daily, take one tablet daily, omitting placebo to manage dysmenorrhea., # 90 tablet, 4 Refills, Maintenance, 11/21/21 8:35:00 EST, Tablet, [facility], Partial fill upon patient request if the prescription is for a chelsi... Start Date: 11/21/21 Stop Date: 07/02/23 Status: Ordered Lexapro 20 mg oral tablet 1 tablet = 20 mg, By Mouth, Daily, # 90 tablet, 3 Refills, Maintenance, 08/08/21 10:20:00 EST, Tablet, [facility], Partial fill upon patient request [...] Refills, Maintenance, 01/08/22 11:38:00 EDT, ER Capsule, [facility], Partial fill upon patient [...] Professional Member Role: PCP Address: Address: [address] [facility] [place] [address]- Care Team Related Persons Name: MURPHY FUNES Address: home [address] [place] [address]
--- OUTSIDE RECORDS SUMMARY | 2024-03-21 07:54 | XMS_ITS | Continuity of Care Document ---
Author Organization [facility] Address [address] [place] [address]- Care Team Providers Care Plastic Surgery Assistant Name Role Phone Rodriguez BUSH, Patricia Barfield Primary Care Physician [place] [facility] [place](s): 02/26/22 - 03/28/[address] [address] Attending Physician: Bryan Muniz Admitting Physician: Admtr, Ar8 Referring Physician: Admtr, [...] each, 3 Refills, Maintenance, 03/18/22 23:41:00 EDT, [facility], Partial fill upon [...] 4 Refills, Maintenance, 11/21/21 8:35:00 EST, Tablet, [facility], Partial fill upon [...] Refills, Maintenance, 01/08/22 11:38:00 EDT, ER Capsule, [facility], Partial fill upon [...]
--- OUTSIDE RECORDS SUMMARY | 2024-03-21 07:54 | XMS_ITS | Continuity of Care Document ---
Author Organization [facility] [employer] Address [address] [place] [address], [address] [place] [address]- Care Team Providers Care Stitch Bonding Machine Tender Helper Name Role Phone Rodriguez BUSH, Patricia Barfield Primary Care Physician Encounter [facility] [place] Date(s): 12/29/22 - 01/28/23 [facility] [address] [facility], 4th Floor [place], [place] [address] Attending Physician: Bryan Muniz Admitting Physician: AdmBryan nunez Referring Physician: AdmtrBryan Allergies, Adverse Reactions, Alerts Substance Reaction Severity Status Bananas Active Immunizations Given and Recorded Vaccine Date Status Refusal Reason SARS-CoV-2 mRNA ([id number]-[id number]) vax 01/16/22 Recorded influenza virus vaccine, inactivated 07/07/21 Buster rded SARS-CoV-2 (COVID-19) mRNA BNT-162b2 vac 06/28/21 Recorded SARS-CoV-2 (COVID-19) mRNA BNT-162b2 vac 09/27/20 Recorded tetanus/diphtheria/pertussis, acel(Tdap) 04/13/21 Recorded Medications busPIRone 10 mg oral tablet 10 mg, 1, tablet, By Mouth, Daily at supper, # 90 tablet, Refills 1, Tot. Refills 1, Maintenance, 11/27/22 16:04:00 EST, Route to Pharmacy Electronically, [facility], Partial fill upon patient request if the prescription is for a schedul... Start Date: 11/27/22 Stop Date: 05/26/23 Status: Ordered Emgality Prefilled Pen 120 mg/mL subcutaneous solution = 120 mg, Subcutaneous Infusion, Every 28 days, Use one autoinjector once per month. Rotate injection sites., # 1 each, 6 Refills, Maintenance, 08/06/22 20:26:00 EST, [facility], Partial fill upon patient request [...] 11/19/22 13:17:00 EST, Route to Pharmacy Electronically, [facility], 177, cm, 11/03/22 8:32:00 EST, Height, 106.8, kg, 11/03/22 8:32:00 EST, . Start Date: 11/19/22 Status: Ordered indomethacin 25 mg oral capsule 1 capsule = 25 mg, By Mouth, 2 times a day, PRN Pain , Moderate, # 60 capsule, 1 Refills, Maintenance, 10/20/22 14:01:00 EST, [facility], Partial fill upon patient request if the prescription is for a schedule II opioid drug., 175, cm, 1... Start Date: 10/20/22 Status: Ordered Junel 10/09 oral tablet See Instructions, TAKE 1 TABLET BY MOUTH EVERY DAY. SKIP PLACEBO TABLETS AND START NEXT PACK TO MANAGE PAINFUL PERIODS, # 84 tablet, 5 Refills, Maintenance, 12/31/22 8:06:00 EDT, [facility], [facility], TAKE 1 TABLET BY MOUTH EVERY DAY. SKIP PLACEBO TA... Start Date: 12/31/22 Status: Ordered Lexapro 20 mg oral tablet 1 tablet = 20 mg, By Mouth, Daily, # 90 tablet, 3 Refills, Maintenance, 08/14/22 15:44:00 EST, Tablet, [facility] [...] capsule, 11 Refills, Maintenance, 01/28/23 8:51:00 EDT, [facility], 177, cm, 12/29/22 16:45:00 EDT, Height, 104.3, kg, 12/29/22 16:45:00 EDT, Dry Weight Start Date: 01/28/23 Status: Ordered propranolol 120 mg oral capsule, extended release 1 capsule = 120 mg, By Mouth, Daily, # 30 capsule, 11 Refills, Maintenance, 01/08/22 11:38:00 EDT, ER Capsule, [facility], [...] team information Care Team Personnel Name: Patricia Firas NP Position: S PCO Associate Professional Member Role: PCP Address: Address: [address] [place] [address] [place] [address]- Care Team Related Persons Name: MURPHY FUNES Address: home [address] [place] [address]
--- OUTSIDE RECORDS SUMMARY | 2024-03-21 07:55 | XMS_ITS | Continuity of Care Document ---
Author Organization [facility] Address [address] [facility], 3r d Floor, [address] [place] [address]- Care Team Providers Care Admissions Representative Name Role Phone Marly BUSH, Molly Primary Care Physician [place] [facility] [place] 02/24/23 - 03/26/23 [facility] [address], [address]rd Floor, [address] [place] [address]- Allergies, Adverse Reactions, Alerts Substance Reaction Severity Status Bananas Active Immunizations Given and Recorded Vaccine Date Status Refusal Reason SARS-CoV-2 mRNA ([id number]-pzdu-jgary) vax 01/16/22 Recorded influenza virus vaccine, inactivated 07/07/21 Buster rded SARS-CoV-2 (COVID-19) mRNA BNT-162b2 vac 06/28/21 Recorded SARS-CoV-2 (COVID-19) mRNA BNT-162b2 vac 09/27/20 Recorded tetanus/diphtheria/pertussis, acel(Tdap) 04/13/21 Recorded Medications busPIRone 10 mg oral tablet 10 mg, 1, tablet, By Mouth, Daily at supper, # 90 tablet, Refills 1, Tot. Refills 1, Maintenance, 11/27/22 16:04:00 EST, Route to Pharmacy Electronically, [facility], Partial fill upon patient request if the prescription is for a schedul... Start Date: 11/27/22 Stop Date: 05/26/23 Status: Ordered cyclobenzaprine 10 mg oral tablet 10 mg, 1, tablet, By Mouth, Daily at supper, # 30 tablet, Refills 1, Tot. Refills 1, Maintenance, 02/04/23 10:40:00 EDT, Route to Pharmacy Electronically, [facility], Partial fill upon patient request if the prescription is for a schedul... Start Date: 02/04/23 Status: Ordered Emgality Prefilled Pen 120 mg/mL subcutaneous solution See Instructions, INJECT THE CONTENTS OF 1 PEN (120 MG) SUBCUTANEOUSLY EVERY 28 DAYS. ROTATE INJECTION SITES., # 1 mL, 6 Refills, Maintenance, 03/18/23 18:14:00 EDT, [facility], 177, cm, 03/17/23 8:09:00 EDT, [...] 11/19/22 13:17:00 EST, Route to Pharmacy Electronically, [facility], 177, cm, 11/03/22 8:32:00 EST, Height, 106.8, kg, 11/03/22 8:32:00 EST, Start Date: 11/19/22 Status: Ordered indomethacin 25 mg oral capsule 1 capsule = 25 mg, By Mouth, 2 times a day, PRN Pain , Moderate, # 60 capsule, 1 Refills, Maintenance, 10/20/22 14:01:00 EST[facility] upon patient request if the prescription is for a schedule II opioid drug., 175, cm, 1... Start Date: 10/20/22 Status: Ordered June10/09 oral tablet See Instructions, TAKE 1 TABLET BY MOUTH EVERY DAY. SKIP PLACEBO TABLETS AND START NEXT PACK TO MANAGE PAINFUL PERIODS, # 84 tablet, 5 Refills, Maintenance, 12/31/22 8:06:00 EDT, [facility], 63, TAKE 1 TABLET BY MOUTH EVERY DAY. SKIP PLACEBO TA... Start Date: 12/31/22 Status: Ordered Lexapro 20 mg oral tablet 1 tablet = 20 mg, By Mouth, Daily, # 90 tablet, 3 Refills, Maintenance, 08/14/22 15:44:00 EST, Tablet, [facility], Partial fill [...] kit, 3 Refills, Maintenance, 02/09/23 9:38:00 EDT, [facility], Partial fill upon patient [...] capsule, 11 Refills, Maintenance, 01/28/23 8:51:00 EDT, [facility], 177, cm, 12/29/22 16:45:00 [...] Associate Professional Member Role: PCP Address: Address: [address] [place] [address]- Care Team Related Persons Name: MURPHY FUNES Address: home [address] [place] [address]
--- OUTSIDE RECORDS SUMMARY | 2024-03-21 07:55 | XMS_ITS | Continuity of Care Document ---
Author Organization [facility] [employer] Address [address] [facility], 4t [place] [address]- Care Team Providers Care Sales Development Specialist Name Role Phone Vik Kelley MD Primary Care Physician [place] [facility] [place](s): 10/31/21 - 11/07/21 [facility] [address] [facility], 4th [place] [address]- Attending Physician: Not on Staff, Attending MD Referring Physician: Vik Kelley MD Allergies, [...] 6 Refills, Maintenance, 09/23/21 8:57:00 EST, Tablet, [facility], [...] with predominant pain(Confirmed) Active Subclinical hypothyroidism(Confirmed) Active Vital Signs Most recent to oldest [Reference Range]: 1 Height 175 cm (10/31/21 4:45 PM) Weight 102.7 kg (10/31/21 4:45 PM) Body Mass Index [18.5-24.99] 33.53 *>HHI* (10/31/21 4:45 PM) Blood Pressure [90-138/55-84 mm Hg] 121/ 76mm Hg (10/31/21 4:45 PM) Blood pressure sites Arm, left (10/31/21 4:45 PM) Weight Obtained Via Standing scale (10/31/21 4:45 PM) Social History Social History Type Response Smoking Status Never (less than 100 in lifetime) entered on: 06/04/21 Sex
--- OUTSIDE RECORDS SUMMARY | 2024-03-21 07:55 | XMS_ITS | Continuity of Care Document ---
Author Organization [facility] [employer] Address [address] [facility], 4t [place] [address]- Care Team Providers Care Senior Wind Turbine Technician Name Role Phone Allie DOMINGUEZ, Vik Joaquin Primary Care Physician [place] [facility] [place](s): 09/26/21 - 11/21/21 [facility] [employer] [address] [facility], 4th [place] [address]- Attending Physician: Not on Staff, Attending MD [...] 4 Refills, Maintenance, 11/21/21 8:35:00 EST, Tablet, [facility], Partial fill upon [...]
--- OUTSIDE RECORDS SUMMARY | 2024-03-21 07:55 | XMS_ITS | Continuity of Care Document ---
Author Organization [facility] Address [address] [place] [address]- Care Team Providers Care Plant Accountant Name Role Phone Rodriguez BUSH, Patricia Barfield Primary Care Physician Encounter [facility] Date(s): 12/07/22 - 01/06/23 [facility] [place] [address] [place], [place] [address] Attending Physician: Admtr, Ar8 Admitting Physician: Admtr, Ar8 Referring Physician: Admtr, Ar8 Allergies, Adverse Reactions, Alerts Substance Reaction Severity Status Bananas Active Immunizations Given and Recorded Vaccine Date Status Refusal Reason SARS-CoV-2 mRNA (mlcumwz-xwqp-ichvf) vax 01/16/22 Recorded influenza virus vaccine, inactivated 07/07/21 Buster rded SARS-CoV-2 (COVID-19) mRNA BNT-162b2 vac 06/28/21 Recorded SARS-CoV-2 (COVID-19) mRNA BNT-162b2 vac 09/27/20 Recorded tetanus/diphtheria/pertussis, acel(Tdap) 04/13/21 Recorded Medications busPIRone 10 mg oral tablet 10 mg, 1, tablet, By Mouth, Daily at supper, # 90 tablet, Refills 1, Tot. Refills 1, Maintenance, 11/27/22 16:04:00 EST, Route to Pharmacy Electronically, [facility], Partial fill upon patient request if the prescription is for a schedul... Start Date: 11/27/22 Stop Date: 05/26/23 Status: Ordered Emgality Prefilled Pen 120 mg/mL subcutaneous solution = 120 mg, Subcutaneous Infusion, Every 28 days, Use one autoinjector once per month. Rotate injection sites., # 1 each, 6 Refills, Maintenance, 08/06/22 20:26:00 EST, [facility], Partial fill upon patient request if [...] 11/19/22 13:17:00 EST, Route to Pharmacy Electronically, [facility] 3, 177, cm, 11/03/22 8:32:00 EST, Height, 106.8, kg, 11/03/22 8:32:00 EST, [facility]. Start Date: 11/19/22 Status: Ordered indomethacin 25 mg oral capsule 1 capsule = 25 mg, By Mouth, 2 times a day, PRN Pain , Moderate, # 60 capsule, 1 Refills, Maintenance, 10/20/22 14:01:00 EST, [facility] 3, Partial fill upon patient request if the prescription is for a schedule II opioid drug., 175, cm, 1... Start Date: 10/20/22 Status: Ordered Junel Fe 10/09 oral tablet See Instructions, TAKE 1 TABLET BY MOUTH EVERY DAY. SKIP PLACEBO TABLETS AND START NEXT PACK TO MANAGE PAINFUL PERIODS, # 84 tablet, 5 Refills, Maintenance, 12/31/22 8:06:00 EDT, [facility], 63, TAKE 1 TABLET BY MOUTH EVERY DAY. SKIP PLACEBO TA... Start Date: 12/31/22 Status: Ordered Lexapro 20 mg oral tablet 1 tablet = 20 mg, By Mouth, Daily, # 90 tablet, 3 Refills, Maintenance, 08/14/22 15:44:00 EST, Tablet, [facility], Partial fill upon patient [...] Refills, Maintenance, 01/08/22 11:38:00 EDT, ER Capsule, [facility], Partial fill upon patient [...] Associate Professional Member Role: PCP Address: Address: [address] [place] [address] [place] [address]- Care Team Related Persons Name: MURPHY FUNES Address: home [address] [place] [address]
--- OUTSIDE RECORDS SUMMARY | 2024-03-21 07:55 | XMS_ITS | Continuity of Care Document ---
Author Organization [facility] Address [address] [facility], 3r d Floor, [address] [place] [address]- Care Team Providers Care Medical Claims Examiner Name Role Phone Rodriguez BUSH, Patricia Barfield Primary Care Physician [place] [facility] [place]): 06/22/22 - 07/22/22 [facility] [address] [place], 3rd Floor, [address] [place] [address] Attending Physician: Bryan Muniz Admitting Physician: AdmBryan nunez Referring Physician: AdmtrBryan Allergies, Adverse Reactions, Alerts Substance Reaction Severity Status Bananas Active Immunizations Given and Recorded Vaccine Date Status Refusal Reason SARS-CoV-2 mRNA (rwhjkyg-wfly-lsxlh) vax 01/16/22 Recorded influenza virus vaccine, inactivated 07/07/21 Buster rded SARS-CoV-2 (COVID-19) mRNA BNT-162b2 vac 06/28/21 Recorded SARS-CoV-2 (COVID-19) mRNA BNT-162b2 vac 09/27/20 Recorded tetanus/diphtheria/pertussis, acel(Tdap) 04/13/21 Recorded Medications busPIRone 10 mg oral tablet 10 mg, 1, tablet, By Mouth, Daily at supper, # 90 tablet, Refills 3, Tot. Refills 3, Maintenance, 10/28/21 15:45:00 EST, Route to Pharmacy Electronically, [facility], Partial fill upon patient request if the prescription is for a schedul... Start Date: 10/28/21 Status: Ordered Emgality Prefilled Pen 120 mg/mL subcutaneous solution = 120 mg, Subcutaneous Infusion, Every 28 days, Use one autoinjector once per month. Rotate injection sites., # 1 each, 3 Refills, Maintenance, 03/18/22 23:41:00 EDT, [facility], Partial fill upon patient [...] 06/16/22 10:57:00 EDT, Route to Pharmacy Electronically, [facility], Partial fill upon patient request if the prescription is for a chelsi... Start Date: 06/16/22 Status: Ordered June Fe 10/09 oral tablet 1 tablet, By Mouth, Daily, take one tablet daily, omitting placebo to manage dysmenorrhea., # 90 tablet, 4 Refills, Maintenance, 11/21/21 8:35:00 EST, Tablet, [facility], Partial fill upon patient request if the prescription is for a chelsi... Start Date: 11/21/21 Stop Date: 07/02/23 Status: Ordered Lexapro 20 mg oral tablet 1 tablet = 20 mg, By Mouth, Daily, # 90 tablet, 3 Refills, Maintenance, 08/08/21 10:20:00 EST, Tablet, [facility], Partial fill upon patient request if [...] Refills, Maintenance, 01/08/22 11:38:00 EDT, ER Capsule, [facility], Partial fill upon patient [...] Personnel Name: Patricia Frias NP Address: Address: [address] [place] [address] Primary Care [place], [place] [address]
--- OUTSIDE RECORDS SUMMARY | 2024-03-21 07:55 | XMS_ITS | Continuity of Care Document ---
Author Organization [facility] Address [address] [place] [address]- Care Team Providers Care Pneumatic Tube Fitter Name Role Phone Not on Staff, PCP Primary Care Physician Unavail able [place] [facility] [place] - 05/[place]/21 [facility] [address] [place] [address]- [place] Allergies, Adverse Reactions, Alerts Substance Reaction [...] Maintenance,05/13/21 8:23:00 EDT, Route to Pharmacy Electronically, [facility], Partial fill uponpatient request if the prescription is for a schedu... Start Date: 05/13/21 Status: Ordered 10/09 oral [...]
--- OUTSIDE RECORDS SUMMARY | 2024-03-21 07:55 | XMS_ITS | Continuity of Care Document ---
Author Organization [facility] Address [address] [place] [address]- Care Team Providers Care Diamond Die Polisher Name Role Phone Rodriguez BUSH, Patricia Barfield Primary Care Physician Encounter [facility] Date(s): 07/02/22 - 08/01/22 [facility] [address] [place], [place] [address] Attending Physician: Admtr, Ar8 Admitting Physician: Admtr, Ar8 Referring Physician: Admtr, Ar8 Allergies, Adverse Reactions, Alerts Substance Reaction Severity Status Bananas Active Immunizations Given and Recorded Vaccine Date Status Refusal Reason SARS-CoV-2 mRNA (ufpwbdg-wihe-curjz) vax 01/16/22 Recorded influenza virus vaccine, inactivated 07/07/21 Buster rded SARS-CoV-2 (COVID-19) mRNA BNT-162b2 vac 06/28/21 Recorded SARS-CoV-2 (COVID-19) mRNA BNT-162b2 vac 09/27/20 Recorded tetanus/diphtheria/pertussis, acel(Tdap) 04/13/21 Recorded Medications busPIRone 10 mg oral tablet 10 mg, 1, tablet, By Mouth, Daily at supper, # 90 tablet, Refills 3, Tot. Refills 3, Maintenance, 10/28/21 15:45:00 EST, Route to Pharmacy Electronically, [facility], Partial fill upon patient request if the prescription is for a schedul... Start Date: 10/28/21 Status: Ordered Emgality Prefilled Pen 120 mg/mL subcutaneous solution = 120 mg, Subcutaneous Infusion, Every 28 days, Use one autoinjector once per month. Rotate injection sites., # 1 each, 3 Refills, Maintenance, 03/18/22 23:41:00 EDT, [facility], Partial fill [...] 06/16/22 10:57:00 EDT, Route to Pharmacy Electronically, [facility], Partial fill upon patient request if the prescription is for a chelsi... Start Date: 06/16/22 Status: Ordered Junel Fe 10/09 oral tablet 1 tablet, By Mouth, Daily, take one tablet daily, omitting placebo to manage dysmenorrhea., # 90 tablet, 4 Refills, Maintenance, 11/21/21 8:35:00 EST, Tablet, [facility], Partial fill upon patient request if the prescription is for a chelsi... Start Date: 11/21/21 Stop Date: 07/02/23 Status: Ordered Lexapro 20 mg oral tablet 1 tablet = 20 mg, By Mouth, Daily, # 90 tablet, 3 Refills, Maintenance, 08/08/21 10:20:00 EST, Tablet, [facility], Partial fill upon patient request [...] Refills, Maintenance, 01/08/22 11:38:00 EDT, ER Capsule, [facility], Partial fill [...] Care team information Care Team Personnel Name: Patricai Frias NP Position: S PCO Associate Professional Member Role: PCP Address: Address: [address] [place] [address] [place] [address]- Care Team Related Persons Name: SHANTEL MURPHY Address: home [address] [place] [address]
--- OUTSIDE RECORDS SUMMARY | 2024-03-21 07:55 | XMS_ITS | Continuity of Care Document ---
Author Organization [facility] Address [address] [place] [address]- Care Team Providers Care Rug Layer Name Role Phone Rodriguez BUSH, Patricia Barfield Primary Care Physician [phone] [place] [facility] [place] 07/01/22 [facility] [address] [place] [address]- [place] Allergies, Adverse Reactions, Alerts Substance Reaction Severity Status Bananas Active Immunizations Given and Recorded Vaccine Date Status Refusal Reason SARS-CoV-2 mRNA (ztsjotd-itqn-duosm) vax 01/16/22 Recorded influenza virus vaccine, inactivated 07/07/21 Buster rded SARS-CoV-2 (COVID-19) mRNA BNT-162b2 vac 06/28/21 Recorded SARS-CoV-2 (COVID-19) mRNA BNT-162b2 vac 09/27/20 Recorded tetanus/diphtheria/pertussis, acel(Tdap) 04/13/21 Recorded Medications busPIRone 10 mg oral tablet 10 mg, 1, tablet, By Mouth, Daily at supper, # 90 tablet, Refills 3, Tot. Refills 3, Maintenance, 10/28/21 15:45:00 EST, Route to Pharmacy Electronically, [facility], Partial fill upon patient request if the prescription is for a schedul... Start Date: 10/28/21 Status: Ordered Emgality Prefilled Pen 120 mg/mL subcutaneous solution = 120 mg, Subcutaneous Infusion, Every 28 days, Use one autoinjector once per month. Rotate injection sites., # 1 each, 3 Refills, Maintenance, 03/18/22 23:41:00 EDT, [facility], [...] 06/16/22 10:57:00 EDT, Route to Pharmacy Electronically, [facility], Partial fill upon patient request if the prescription is for a chelsi... Start Date: 06/16/22 Status: Ordered June Fe 10/09 oral tablet 1 tablet, By Mouth, Daily, take one tablet daily, omitting placebo to manage dysmenorrhea., # 90 tablet, 4 Refills, Maintenance, 11/21/21 8:35:00 EST, Tablet, [facility], Partial fill upon patient request if the prescription is for a chelsi... Start Date: 11/21/21 Stop Date: 07/02/23 Status: Ordered Lexapro 20 mg oral tablet 1 tablet = 20 mg, By Mouth, Daily, # 90 tablet, 3 Refills, Maintenance, 08/08/21 10:20:00 EST, Tablet, [facility] 3, Partial fill upon patient request [...] Refills, Maintenance, 01/08/22 11:38:00 EDT, ER Capsule, [facility], [...] Personnel Name: Patricia Frias NP Address: Address: [address] [place] [address] Primary [place], [place] [address]
--- OUTSIDE RECORDS SUMMARY | 2024-03-21 07:55 | XMS_ITS | Continuity of Care Document ---
Author Organization [facility] Address [address] [place] [address]- Care Team Providers Care Hospice Administrator Name Role Phone Marly BUSH, Molly Primary Care Physician Encounter [facility] [place] Date(s): 04/08/23 - 05/08/23 [facility] [address], [place] [address] Attending Physician: Molly Luke NP Allergies, Adverse Reactions, Alerts Substance Reaction Severity Status Bananas Active Immunizations Given and Recorded Vaccine Date Status Refusal Reason SARS-CoV-2 mRNA (pemvrzg-totb-itoci) vax 01/16/22 Recorded influenza virus vaccine, inactivated 07/07/21 Buster rded SARS-CoV-2 (COVID-19) mRNA BNT-162b2 vac 06/28/21 Recorded SARS-CoV-2 (COVID-19) mRNA BNT-162b2 vac 09/27/20 Recorded tetanus/diphtheria/pertussis, acel(Tdap) 04/13/21 Recorded Medications busPIRone 10 mg oral tablet 10 mg, 1, tablet, By Mouth, Daily at supper, # 90 tablet, Refills 1, Tot. Refills 1, Maintenance, 11/27/22 16:04:00 EST, Route to Pharmacy Electronically, [facility], Partial fill upon patient request if the prescription is for a schedul... Start Date: 11/27/22 Stop Date: 05/26/23 Status: Ordered cyclobenzaprine 10 mg oral tablet 10 mg, 1, tablet, By Mouth, Daily at supper, # 30 tablet, Refills 1, Tot. Refills 1, Maintenance, 02/04/23 10:40:00 EDT, Route to Pharmacy Electronically, [facility] 3, Partial fill upon patient request if the prescription is for a schedul... Start Date: 02/04/23 Status: Ordered Emgality Prefilled Pen 120 mg/mL subcutaneous solution See Instructions, INJECT THE CONTENTS OF 1 PEN (120 MG) SUBCUTANEOUSLY EVERY 28 DAYS. ROTATE INJECTION SITES., # 1 mL, 6 Refills, Maintenance, 03/18/23 18:14:00 EDT, [facility], 177, cm, 03/17/23 8:09:00 EDT, [...] 11/19/22 13:17:00 EST, Route to Pharmacy Electronically, [facility] 3, 177, cm, 11/03/22 8:32:00 EST, Height, 106.8, kg, 11/03/22 8:32:00 EST, . Start Date: 11/19/22 Status: Ordered indomethacin 25 mg oral capsule 1 capsule = 25 mg, By Mouth, 2 times a day, PRN Pain , Moderate, # 60 capsule, 1 Refills, Maintenance, 10/20/22 14:01:00 EST, [facility] 3, Partial fill upon patient request if the prescription is for a schedule II opioid drug., 175, cm, 1... Start Date: 10/20/22 Status: Ordered June10/09 oral tablet See Instructions, TAKE 1 TABLET BY MOUTH EVERY DAY. SKIP PLACEBO TABLETS AND START NEXT PACK TO MANAGE PAINFUL PERIODS, # 84 tablet, 5 Refills, Maintenance, 12/31/22 8:06:00 EDT, [facility], 63, TAKE 1 TABLET BY MOUTH EVERY DAY. SKIP PLACEBO TA... Start Date: 12/31/22 Status: Ordered Lexapro 20 mg oral tablet 1 tablet = 20 mg, By Mouth, Daily, # 90 tablet, 3 Refills, Maintenance, 08/14/22 15:44:00 EST, Tablet, [facility], Partial fill upon patient [...] 3 Refills, Maintenance, 02/09/23 9:38:00 EDT, [facility], Partial fill upon patient [...] 11 Refills, Maintenance, 01/28/23 8:51:00 EDT, [facility], 177, cm, 12/29/22 16:45:00 EDT, Height, 104.3, kg, 12/29/22 16:45:00 EDT, Dry Weight Start Date: 01/28/23 Status: Ordered propranolol 120 mg oral capsule, extended release 1 capsule = 120 mg, By Mouth, Daily, # 30 capsule, 11 Refills, Maintenance, 01/08/22 11:38:00 EDT, ER Capsule, [facility], Partial fill upon patient [...] Associate Professional Member Role: PCP Address: Address: [address] [place] [address]- Care Team Related Persons Name: MURPHY FUNES Address: home [address] [place] [address]
--- OUTSIDE RECORDS SUMMARY | 2024-03-21 07:55 | XMS_ITS | Continuity of Care Document ---
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(Discharge Diagnosis) - 04/12/23 Abdominal cramps(Discharge Diagnosis) - 04/12/23 POTS (postural orthostatic tachycardia syndrome)(Discharge Diagnosis) - 04/12/23 Attending Physician: Molly Luke NP Allergies, Adverse Reactions, Alerts Substance Reaction Severity Status Bananas Active Immunizations Given and Recorded Vaccine Date Status Refusal Reason SARS-CoV-2 mRNA ([id number]-hyui-pihrd) vax 01/16/22 Recorded influenza virus vaccine, inactivated [...] Route to Pharmacy Electronically, [facility], Partial fill upon patient request [...] 11/19/22 13:17:00 EST, Route to Pharmacy Electronically, [facility], 177, cm, 11/03/22 8:32:00 EST, Height, 106.8, kg, 11/03/22 8:32:00 EST, Start Date: 11/19/22 Status: Ordered indomethacin 25 mg oral capsule 1 capsule = 25 mg, By Mouth, 2 times a day, PRN Pain , Moderate, # 60 capsule, 1 Refills, Maintenance, 10/20/22 14:01:00 EST, [facility], Partial fill upon patient request [...] capsule, 11 Refills, Maintenance, 01/28/23 8:51:00 EDT, [facility], 177, cm, 12/29/22 16:45:00 EDT, Height, 104.3, kg, 12/29/22 16:45:00 EDT, Dry Weight Start Date: 01/28/23 Status: Ordered propranolol 120 mg oral capsule, extended release 1 capsule = 120 mg, By Mouth, Daily, # 30 capsule, 11 Refills, Maintenance, 01/08/22 11:38:00 EDT, ER Capsule, [facility], Partial fill [...] Effective Dates Health Status Clinical Service Informant Physical exam Discharge Diagnosis 04/12/23 Meenakshi-Danlos disease Discharge Diagnosis 04/12/23 Acute macular neuroretinitis Discharge Diagnosis 04/12/23 Abdominal cramps Discharge Diagnosis 04/12/23 POTS (postural orthostatic tachycardia syndrome) Discharge Diagnosis 04/12/23 Vital Signs Most recent to oldest [Reference Range]: 1 Height 174.6 cm (04/12/23 9:09 AM) Weight 105.6 kg (04/12/23 9:09 AM) Oxygen Saturation [94-100 %] 100 % (04/12/23 9:09 AM) Pulse Rate [55-90 bpm] 78 bpm (04/12/23 9:09 AM) Body Mass Index [18.5-24.99 kg/m2] 34.64 kg/m2 *>HHI* (04/12/23 9:09 AM) Blood Pressure [90-138/55-84 mm Hg] 129/ 87mm Hg (04/12/23 9:09 AM) Respiratory Rate [16-30 br/min] 18 br/mi n (04/12/23 9:09 AM) Temperature [96.8-100.4 DegF] 97.4 DegF (04/12/23 9:09 AM) Mode of Delivery (Oxygen) Room air (04/12/23 9:09 AM) Blood pressure sites Arm, left (04/12/23 9:09 AM) Temperature Route Oral (04/12/23 9:09 AM) Dry Weight 105.6 kg (04/12/23 9:09 AM) Weight Obtained Via Standing scale (04/12/23 9:09 AM) Dry Weight Obtained Via Standing scale (04/12/23 9:09 AM) Social History Social History Type Response Smoking Status Never (less than 100 in lifetime) entered on: 02/26/22 Sex Note * Ladonna Valdez: PERFORM, SIGN, VERIFY Event Display: Patient Education/Instruction Authored Date: [id number] [facility] *No Edge Adult Ped Clinical Summary Name BURTON FUNES Age 27 Years 1995 PCP Molly Luke NP PCP Visit Date 04/12/2023 09:00:00 Additional Instructions: Scheduled Appointments?? Future Appointments ?No Future Appointments Scheduled Follow-Up Instructions ?? Diagnosis Encounter for general adult medical examination without abnormal findings; Meenakshi-Danlos syndrome, unspecified Medications: Please continue your medications until treatment is completed or stopped by your provider. Discuss any questions related to medications with your provider. New Medications [facility] [address] [place] [id number], [phone] HydrOXYzine (hydrOXYzine hydrochloride 25 mg oral tablet) 1 capsule Oral 4 times a day as needed asneeded for anxiety. Refills: 0. Next Dose: Medications to Continue with No Changes These [...] Daily at supper. Refills: 1. Next Dose: Escitalopram (Lexapro 20 mg oral tablet) 1 tab(s) Oral Daily. Refills: 3. Next Dose: Ethinyl Estradiol / Norethindrone (10/09 oral tablet) TAKE 1 TABLET BY MOUTH EVERY DAY. SKIP PLACEBO TABLETS AND START NEXT PACK TO MANAGE PAINFUL PERIODS. Refills: 5. Next Dose: Fluticasone Nasal (Flonase Allergy Relief) Daily. Next Dose: Gabapentin (gabapentin 300 mg oral capsule) 1 capsule Oral Daily at Bedtime. Refills: 1. Next Dose: galcanezumab (Emgality Prefilled Pen 120 mg/mL subcutaneous solution) INJECT THE CONTENTS OF 1 PEN (120 MG) SUBCUTANEOUSLY EVERY 28 DAYS. ROTATE INJECTION SITES.. Refills: 6. Next Dose: Indomethacin (indomethacin 25 mg oral capsule) 1 capsule Oral twice a day as needed Pain , Moderate. Refills: 1. Next Dose: Midodrine (midodrine 5 mg oral tablet) TAKE 1 TABLET BY MOUTH EVERY AM UPON WAKING THEN EVERY 4 HOURS FOR 2 ADDITIONAL DOSES (3 TIMES A DAY) WITH THE LAST DOSE NO LATER THAN 6 PM. Refills: 2. 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 Refills: 3. Next Dose: Pantoprazole (pantoprazole 20 mg oral delayed release tablet) 1 tab(s) Oral twice a day. Refills: 2. Next Dose: Propranolol (propranolol 120 mg oral capsule, extended release) 1 capsule Oral Daily. Refills: 11. Next Dose: Propranolol (propranolol 120 mg oral capsule, extended release) 1 capsule Oral Daily. Refills: 11. Next Dose: Allergy Info:?? Bananas Medications Given This Visit Future Orders ?No future orders Vital Signs Height 174.6 cm Weight 105.6 kg BMI 34.64 kg/m2 Blood Pressure 129 mm Hg/87 mm Hg Temperature 97.4 DegF Pulse Rate 78 bpm Respiratory Rate 18 br/min 02 Sat Mode of Delivery 100 %/Room air You can now view a summary of your hospital visit from the comfort of your home through a free online portal called eEye. eEye is a website that allows you to securely view your medical information including discharge summary, medications and follow-up visits. ??You can alsosend a secure electronic message to your doctor???s office to request appointments, renew medications or just ask a question. You can enroll at [email or web address] or register during your next [...] primary care provider, you may find a [facility] provider by calling [facility] [employer] [facility] at [phone]. For information about the plan of care [...] Team Personnel Name: Molly Luke NP Position: [facility] Associate Professional Member Role: PCP Address: Address: [address] [place] [id number]- Care Team Related Persons Name: MURPHY FUNES Address: [address] [place] [address]
--- OUTSIDE RECORDS SUMMARY | 2024-03-21 07:55 | XMS_ITS | Continuity of Care Document ---
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 Name Role Phone Elliot DOMINGUEZ, Lidya Leos Primary Care Physician [place] [facility] [place](s): 10/12/23 - 10/19/23 [facility] [address] [place], [place] [address] Attending Physician: Gertrudis DOMINGUEZ, Maxwell Albrecht Allergies, Adverse Reactions, Alerts Substance Reaction Severity Status Bananas Active Immunizations Given and Recorded Vaccine Date Status Refusal Reason influenza virus vaccine, inactivated 07/02/23 Buster rded influenza virus vaccine, inactivated 07/16/22 Buster rded influenza virus vaccine, inactivated 07/07/21 Buster rded SARS-CoV-2 mRNA ([id number]-lyzjf) vax 01/16/22 Recorded SARS-CoV-2 (COVID-19) mRNA BNT-162b2 [...] tablet, 1 Refills, Maintenance, 06/09/2311:50:00 EDT, Tablet, [facility], Partial fill upon [...] See Instructions, TAKE 1 CAPSULE BY MOUTH twice daily, # 90 capsule, Refills 1, Maintenance, 05/17/23 11:47:00 EDT, Instructions Replace Required Details, Route to Pharmacy Electronically, [facility], 174.6, cm, 04/29/23 15:52:00 EDT, Height, 1... Start Date: 05/17/23 Status: Ordered indomethacin 25 mg oral capsule 1 capsule = 25 mg, By Mouth, 2 times a day, PRN Pain , Moderate, # 60 capsule, 1 Refills, Maintenance, 10/20/22 14:01:00 EST, [facility], Partial fill upon patient request if the prescription is for a schedule II opioid drug., 175, cm, 1... Start Date: 10/20/22 Status: Ordered 10/09 oral tablet See Instructions, TAKE 1 TABLET BY MOUTH EVERY DAY. SKIP PLACEBO TABLETS AND START NEXT PACK TO MANAGE PAINFUL PERIODS, # 84 tablet, 5 Refills, Maintenance, 12/31/22 8:06:00 EDT, [facility], 63, TAKE 1 TABLET BY MOUTH EVERY DAY. SKIP PLACEBO TA... 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, # 1 kit, 3 Refills, Maintenance, 02/09/23 9:38:00 EDT, [facility], Partial fill upon [...] capsule, 0 Refills, Maintenance, 09/16/23 8:04:00 EST, [facility], 174.6, cm, 06/30/23 9:52:00 EDT, Height, 105.3, kg, 06/30/23 9:52:00 EDT, Dry Weight Start Date: 09/16/23 Status: Ordered traMADol 50 mg oral tablet 1 tablet = 50 mg, By Mouth, Every 12 hours, PRN as needed for pain, # 6 tablet, 0 Refills, Maintenance, 10/12/23 17:34:00 EST, Tablet, [facility], Partial fill upon [...] oldest [Reference Range]: 1 Height 174.60 cm (10/12/23 3:43 PM) Weight 104.3 kg (10/12/23 3:43 PM) Oxygen Saturation [94-100 %] 97 % (10/12/23 3:43 PM) Pulse Rate [55-90 bpm] 90 bpm (10/12/23 3:43 PM) Body Mass Index [18.5-24.99 kg/m2] 34.21 kg/m2 *>HHI* (10/12/23 3:43 PM) Blood Pressure [90-138/55-84 mm Hg] 116/ 70mm Hg (10/12/23 3:43 PM) Mode of Delivery (Oxygen) Room air (10/12/23 3:43 PM) Blood pressure sites Arm, left (10/12/23 3:43 PM) Social History Social History Type Response Smoking Status Never (less than 100 in lifetime) entered on: 02/26/22 Sex Note * Silvia Matt: PERFORM, SIGN, VERIFY Event Display: Patient Education/Instruction Authored Date: [id number] [facility] *No Edge Adult Ped Clinical Summary Name BURTON FUNES Age 28 Years 1995 PCP Elliot DOMINGUEZ, Lidya Leos PCP Visit Date 10/12/2023 15:20:00 Additional Instructions: Scheduled Appointments?? Future Appointments ?*[facility] ?[address]??[place],??[place],??[address] ?Phone:??--?Fax:??-- ?Appt. Date:??11/22/2023?8:40 AM ?Scheduled Provider:??Lila Hawkins Hope ?*[facility] ?[address]??[place],??[place],??[address] ?Phone:??--?Fax:??-- ?Appt. Date:??12/21/2023?3:45 PM ?Scheduled Provider:??Deandre Urrutia MD, Brendan Jean Baptiste ?*[facility] ?[address] ?[place],??[place],??[address] ?Phone:??--?Fax:??-- ?Appt. Date:??12/23/2023?4:30 PM ?Scheduled Provider:??Miko DOMINGUEZ, [place] Follow-Up Instructions ?? Diagnosis Pain in unspecified joint Medications: Please continue your medications until treatment is completed or stopped by your provider. Discuss any questions related to medications with your provider. Medications to Continue Taking That Have Changed These medications were not printed or sent to your pharmacy - Gabapentin (gabapentin 300 mg oral capsule) TAKE 1 CAPSULE BY MOUTH twice daily. Refills: 1. Next Dose: Medications to Continue with No Changes These medications were not printed or sent to your pharmacy BusPIRone (busPIRone 15 mg oral tablet) 1 tab(s) Oral twice a day. Next Dose: Cholecalciferol (Vitamin D3 1000 intl units oral capsule) 1 capsule Oral Daily. Next Dose: Duloxetine (Cymbalta 30 mg oral enteric coated capsule) 1 capsule Oral twice a day. Next Dose: Ethinyl Estradiol / Norethindrone (10/09 oral tablet) TAKE 1 TABLET BY MOUTH EVERY DAY. SKIP PLACEBO TABLETS AND START NEXT PACK TO MANAGE PAINFUL PERIODS. Refills: 5. Next Dose: Fluticasone Nasal (Flonase Allergy Relief) Daily. Next Dose: Indomethacin (indomethacin 25 mg oral [...] extended release) 1 capsule Oral Daily. Refills: 0. Next Dose: No Longer Take the Following Medications Cyclobenzaprine (cyclobenzaprine 10 mg oral tablet) 1 tab(s) Oral Daily at supper. Refills: 1. Allergy Info:?? Bananas Medications Given This Visit Future Orders ?No future orders Vital Signs Height 174.60 cm Weight 104.3 kg BMI 34.21 kg/m2 Blood Pressure 116 mm Hg/70 mm Hg Temperature Pulse Rate 90 bpm Respiratory Rate 02 Sat Mode of Delivery 97 %/Room air You can now view a summary of your hospital visit from the comfort of your home through a free online portal called Convo. Convo is a website that allows you to securely view your medical information including discharge summary, medications and follow-up visits. ??You can alsosend a secure electronic message to your doctor???s office to request appointments, renew medications or just ask a question. You can enroll at [email or web address] or register during your next office visit. [...] primary care provider, you may find a [facility] provider by calling [email or web address] at [phone]. [facility], in keeping with [facility] guidance, no longer requires face masks for [...] format to support your individualized medical care. Additional Provider Instructions: Arthritis Acetaminophen 2 q 8 hours x 5 days and then start to decrease Patient Care team information Care Team Personnel Name: Elliot DOMINGUEZ, Lidya Leos Position: [facility] Physician - Primary Care Member Role: PCP Address: Address: [address] [place] [id number]- Care Team Related Persons Name: SHANTEL MURPHY Address: home [address] [place] [id number]
--- OUTSIDE RECORDS SUMMARY | 2024-03-21 07:55 | XMS_ITS | Continuity of Care Document ---
Author Organization [facility] Address [address] [place] [address]- Care Team Providers Care County Historian Name Role Phone Rodriguez BUSH, Patricia Barfield Primary Care Physician Encounter [facility] Date(s): 11/17/22 - 12/17/22 [facility] [place] [address] [place], [place] [address] Allergies, Adverse Reactions, Alerts Substance Reaction Severity Status Bananas Active Immunizations Given and Recorded Vaccine Date Status Refusal Reason SARS-CoV-2 mRNA (yfebxaz-fvui-ggncp) vax 01/16/22 Recorded influenza virus vaccine, inactivated 07/07/21 Buster rded SARS-CoV-2 (COVID-19) mRNA BNT-162b2 vac 06/28/21 Recorded SARS-CoV-2 (COVID-19) mRNA BNT-162b2 vac 09/27/20 Recorded tetanus/diphtheria/pertussis, acel(Tdap) 04/13/21 Recorded Medications busPIRone 10 mg oral tablet 10 mg, 1, tablet, By Mouth, Daily at supper, # 90 tablet, Refills 1, Tot. Refills 1, Maintenance, 11/27/22 16:04:00 EST, Route to Pharmacy Electronically, [facility], Partial fill upon patient request if the prescription is for a schedul... Start Date: 11/27/22 Stop Date: 05/26/23 Status: Ordered Emgality Prefilled Pen 120 mg/mL subcutaneous solution = 120 mg, Subcutaneous Infusion, Every 28 days, Use one autoinjector once per month. Rotate injection sites., # 1 each, 6 Refills, Maintenance, 08/06/22 20:26:00 EST, [facility], Partial fill [...] 11/19/22 13:17:00 EST, Route to Pharmacy Electronically, [facility], 177, cm, 11/03/22 8:32:00 EST, Height, 106.8, kg, 11/03/22 8:32:00 EST, [facility]. Start Date: 11/19/22 Status: Ordered indomethacin 25 mg oral capsule 1 capsule = 25 mg, By Mouth, 2 times a day, PRN Pain , Moderate, # 60 capsule, 1 Refills, Maintenance, 10/20/22 14:01:00 EST, [facility], Partial fill upon patient request if the prescription is for a schedule II opioid drug., 175, cm, 1... Start Date: 10/20/22 Status: Ordered Junel Fe 10/09 oral tablet 1 tablet, By Mouth, Daily, take one tablet daily, omitting placebo to manage dysmenorrhea., # 84 tablet, 5 Refills, Maintenance, 07/02/23 8:35:00 EDT, Tablet, [facility], Partial fill upon patient request if the prescription is for a chelsi... Start Date: 07/02/23 Status: Ordered Lexapro 20 mg oral tablet 1 tablet = 20 mg, By Mouth, Daily, # 90 tablet, 3 Refills, Maintenance, 08/14/22 15:44:00 EST, Tablet, [facility] 3, Partial fill upon patient request [...] 11:38:00 EDT, ER Capsule, [facility], Partial fill upon patient request if [...] Professional Member Role: PCP Address: Address: [address] [place] [address] [place] [address]- Care Team Related Persons Name: MURPHY FUNES Address: home [address] [place] [address]
--- OUTSIDE RECORDS SUMMARY | 2024-03-21 07:55 | XMS_ITS | Continuity of Care Document ---
Author Organization [facility] Address [address] [place] [address]- Care Team Providers Care Mma Fighter Name Role Phone Not on Staff, PCP Primary Care Physician Unavail able Encounter [facility] Date(s): 06/20/21 - 07/20/21 [facility] [place] [address] [place] [address]- Allergies, Adverse Reactions, Alerts Substance Reaction Severity [...] Maintenance,05/13/21 8:23:00 EDT, Route to Pharmacy Electronically, [facility], Partial fill uponpatient request if [...]
--- OUTSIDE RECORDS SUMMARY | 2024-03-21 07:55 | XMS_ITS | Continuity of Care Document ---
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 Name Role Phone Rodriguez BUSH, Patricia Barfield Primary Care Physician [place] [facility] [place](s): 06/30/22 - 08/06/22 [facility] [address] [facility], 4th [place] [address]- Attending Physician: Not on Staff, Attending MD Referring Physician: Denisha Rodriguez CNM Allergies, Adverse Reactions, Alerts Substance Reaction Severity Status Bananas Active Immunizations Given and Recorded Vaccine Date Status Refusal Reason SARS-CoV-2 mRNA (xdrumdh-jxww-mdute) vax 01/16/22 Recorded influenza virus vaccine, inactivated 07/07/21 Buster rded SARS-CoV-2 (COVID-19) mRNA BNT-162b2 vac 06/28/21 Recorded SARS-CoV-2 (COVID-19) mRNA BNT-162b2 vac 09/27/20 Recorded tetanus/diphtheria/pertussis, acel(Tdap) 04/13/21 Recorded Medications busPIRone 10 mg oral tablet 10 mg, 1, tablet, By Mouth, Daily at supper, # 90 tablet, Refills 3, Tot. Refills 3, Maintenance, 10/28/21 15:45:00 EST, Route to Pharmacy Electronically, [facility], Partial fill upon patient request if the prescription is for a schedul... Start Date: 10/28/21 Status: Ordered Emgality Prefilled Pen 120 mg/mL subcutaneous solution = 120 mg, Subcutaneous Infusion, Every 28 days, Use one autoinjector once per month. Rotate injection sites., # 1 each, 6 Refills, Maintenance, 08/06/22 20:26:00 EST, [facility], Partial fill upon patient [...] 06/16/22 10:57:00 EDT, Route to Pharmacy Electronically, [facility], Partial fill upon patient request if the prescription is for a chelsi... Start Date: 06/16/22 Status: Ordered June10/09 oral tablet 1 tablet, By Mouth, Daily, take one tablet daily, omitting placebo to manage dysmenorrhea., # 90 tablet, 4 Refills, Maintenance, 11/21/21 8:35:00 EST, Tablet, [facility], Partial fill upon patient request if the prescription is for a chelsi... Start Date: 11/21/21 Stop Date: 07/02/23 Status: Ordered Lexapro 20 mg oral tablet 1 tablet = 20 mg, By Mouth, Daily, # 90 tablet, 3 Refills, Maintenance, 08/08/21 10:20:00 EST, Tablet, [facility], Partial fill upon patient request if [...] Refills, Maintenance, 01/08/22 11:38:00 EDT, ER Capsule, [facility], Partial fill upon patient [...] Professional Member Role: PCP Address: Address: [address] [place] [address] [place] [address]- Care Team Related Persons Name: MURPHY FUNES Address: home [address] [place] [address]
--- OUTSIDE RECORDS SUMMARY | 2024-03-21 07:55 | XMS_ITS | Continuity of Care Document ---
Author Organization [facility] Address [address] [place] [address]- Care Team Providers Care Form Layer Name Role Phone Elliot DOMINGUEZ, Lidya Leos Primary Care Physician [place] [facility] [facility] [place]23 - 06/20/23 [facility] [address] [place] [address]- [place] Allergies, Adverse Reactions, Alerts Substance Reaction Severity Status Bananas Active Immunizations Given and Recorded Vaccine Date Status Refusal Reason SARS-CoV-2 mRNA (cgspmig-tbnj-qevne) vax 01/16/22 Recorded influenza virus vaccine, inactivated [...] EDT, Route to Pharmacy Electronically, [facility], Partial fill upon patient request [...] Refills, Maintenance, 10/20/22 14:01:00 EST, [facility], Partial fill upon patient request [...] Personnel Name: Lidya Zarate MD, V Position: [facility] Physician - Primary Care Member Role: PCP Address: Address: [address] [place] [address]- Care Team Related Persons Name: MURPHY FUNES Address: [address] [address]
--- OUTSIDE RECORDS SUMMARY | 2024-03-21 07:55 | XMS_ITS | Continuity of Care Document ---
Author Organization [facility] Address [address] [facility], 4t [place] [address]- Care Team Providers Care Multicut Line Operator Name Role Phone Rodriguez BUSH, Patricia Barfield Primary Care Physician En[place] [facility] [place] Date(s): 06/30/22 - 07/30/22 [facility] [address] [facility], 4th [place] [address]- Allergies, Adverse Reactions, Alerts Substance Reaction Severity Status Bananas Active Immunizations Given and Recorded Vaccine Date Status Refusal Reason SARS-CoV-2 mRNA (lsyganw-wyet-oabqu) vax 01/16/22 Recorded influenza virus vaccine, inactivated 07/07/21 Buster rded SARS-CoV-2 (COVID-19) mRNA BNT-162b2 vac 06/28/21 Recorded SARS-CoV-2 (COVID-19) mRNA BNT-162b2 vac 09/27/20 Recorded tetanus/diphtheria/pertussis, acel(Tdap) 04/13/21 Recorded Medications busPIRone 10 mg oral tablet 10 mg, 1, tablet, By Mouth, Daily at supper, # 90 tablet, Refills 3, Tot. Refills 3, Maintenance, 10/28/21 15:45:00 EST, Route to Pharmacy Electronically, [facility], Partial fill upon patient request if the prescription is for a schedul... Start Date: 10/28/21 Status: Ordered Emgality Prefilled Pen 120 mg/mL subcutaneous solution = 120 mg, Subcutaneous Infusion, Every 28 days, Use one autoinjector once per month. Rotate injection sites., # 1 each, 3 Refills, Maintenance, 03/18/22 23:41:00 EDT, [facility], Partial fill upon patient [...] 06/16/22 10:57:00 EDT, Route to Pharmacy Electronically, [facility], Partial fill upon patient request if the prescription is for a chelsi... Start Date: 06/16/22 Status: Ordered 10/09 oral tablet 1 tablet, By Mouth, Daily, take one tablet daily, omitting placebo to manage dysmenorrhea., # 90 tablet, 4 Refills, Maintenance, 11/21/21 8:35:00 EST, Tablet, [facility] 3, Partial fill upon patient request if the prescription is for a chelsi... Start Date: 11/21/21 Stop Date: 07/02/23 Status: Ordered Lexapro 20 mg oral tablet 1 tablet = 20 mg, By Mouth, Daily, # 90 tablet, 3 Refills, Maintenance, 08/08/21 10:20:00 EST, Tablet, [facility] 3, Partial fill upon patient request [...] Refills, Maintenance, 01/08/22 11:38:00 EDT, ER Capsule, [facility] 3, Partial fill upon patient [...] Professional Member Role: PCP Address: Address: [address] [place] [address]- Care Team Related Persons Name: MURPHY FUNES Address: home [address] [place] [address]
--- OUTSIDE RECORDS SUMMARY | 2024-03-21 07:55 | XMS_ITS | Continuity of Care Document ---
Author Organization [facility] Address [address] [place] [address]- Care Team Providers Care Pricing Coordinator Name Role Phone Lidya Zarate MD, V Primary Care Physician [phone] Encounter [facility] [place] Date(s): 07/22/23 - 08/21/23 [facility] [address] [place] [address]- [place] Allergies, Adverse Reactions, Alerts Substance Reaction Severity Status Bananas Active Immunizations Given and Recorded Vaccine Date Status Refusal Reason SARS-CoV-2 mRNA (svtocsi-bzza-rtmin) vax 01/16/22 Recorded influenza virus vaccine, inactivated [...] tablet, 1 Refills, Maintenance, 06/09/2311:50:00 EDT, Tablet, [facility] [...] 02/04/23 10:40:00 EDT, Route to Pharmacy Electronically, [facility], Partial [...] mL, 6 Refills, Maintenance, 03/18/23 18:14:00 EDT, [facility], 177, cm, 03/17/23 8:09:00 EDT, [...] Replace Required Details, Route to Pharmacy Electronically, [facility], 174.6, cm, 04/29/23 15:52:00 EDT,... Start Date: 05/17/23 Status: Ordered indomethacin 25 mg oral capsule 1 capsule = 25 mg, By Mouth, 2 times a day, PRN Pain , Moderate, # 60 capsule, 1 Refills, Maintenance, 10/20/22 14:01:00 EST, [facility] 3, Partial [...] 3 Refills, Maintenance, 08/14/22 15:44:00 EST, Tablet, [facility], Partial fill upon patient request if the prescription is for a schedule II opioid drug., 175, cm, 08/14/22 14:57:00 EST, H... 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
--- OUTSIDE RECORDS SUMMARY | 2024-03-21 07:55 | XMS_ITS | Continuity of Care Document ---
Author Organization [facility] Address Unknown Care Team Providers Care 411 Directory Assistance Operator Name Role Phone Not on Staff, PCP Primary Care Physician Unavail able [place] [facility] [place](s): 06/12/21 - 07/12/21 [facility] Attending Physician: Bryan Muniz Admitting Physician: [...] Maintenance,05/13/21 8:23:00 EDT, Route to Pharmacy Electronically, [facility], Partial fill uponpatient request if [...]
--- OUTSIDE RECORDS SUMMARY | 2024-03-21 07:55 | XMS_ITS | Continuity of Care Document ---
Author Organization [facility] Address [address] [place] [address]- Care Team Providers Care Dairy Husbandman Name Role Phone Rodriguez BUSH, Patricia Barfield Primary Care Physician [place] [facility] [place] - 07/11/[address] [address] Attending Physician: Bryan Muniz Admitting Physician: AdmBryan nunez Referring Physician: Admtr, ArTaras Allergies, Adverse Reactions, Alerts Substance Reaction Severity Status Bananas Active Immunizations Given and Recorded Vaccine Date Status Refusal Reason SARS-CoV-2 mRNA (bajdmpz-rhzq-cusqg) vax 01/16/22 Recorded influenza virus vaccine, inactivated 07/07/21 Buster rded SARS-CoV-2 (COVID-19) mRNA BNT-162b2 vac 06/28/21 Recorded SARS-CoV-2 (COVID-19) mRNA BNT-162b2 vac 09/27/20 Recorded tetanus/diphtheria/pertussis, acel(Tdap) 04/13/21 Recorded Medications busPIRone 10 mg oral tablet 10 mg, 1, tablet, By Mouth, Daily at supper, # 90 tablet, Refills 3, Tot. Refills 3, Maintenance, 10/28/21 15:45:00 EST, Route to Pharmacy Electronically, [facility], Partial fill upon patient request if the prescription is for a schedul... Start Date: 10/28/21 Status: Ordered Emgality Prefilled Pen 120 mg/mL subcutaneous solution = 120 mg, Subcutaneous Infusion, Every 28 days, Use one autoinjector once per month. Rotate injection sites., # 1 each, 3 Refills, Maintenance, 03/18/22 23:41:00 EDT, [facility], Partial fill upon [...] 10:57:00 EDT, Route to Pharmacy Electronically, [facility], Partial fill upon patient request if the prescription is for a chelsi... Start Date: 06/16/22 Status: Ordered June Fe 10/09 oral tablet 1 tablet, By Mouth, Daily, take one tablet daily, omitting placebo to manage dysmenorrhea., # 90 tablet, 4 Refills, Maintenance, 11/21/21 8:35:00 EST, Tablet, [facility], Partial fill upon patient request if the prescription is for a chelsi... Start Date: 11/21/21 Stop Date: 07/02/23 Status: Ordered Lexapro 20 mg oral tablet 1 tablet = 20 mg, By Mouth, Daily, # 90 tablet, 3 Refills, Maintenance, 08/08/21 10:20:00 EST, Tablet, [facility], Partial fill upon patient request if [...] Maintenance, 01/08/22 11:38:00 EDT, ER Capsule, [facility], Partial fill upon [...] Personnel Name: Patricia Frias NP Address: Address: [address] [place] [address] Primary [place], [place] [address]
--- OUTSIDE RECORDS SUMMARY | 2024-03-21 07:55 | XMS_ITS | Continuity of Care Document ---
Author Organization [facility] Address [address] [facility], 4t [place] [address]- Care Team Providers Care Transportation Logistics Internship Name Role Phone Rodriguez BUSH, Patricia Barfield Primary Care Physician En[place] [facility] [place] Date(s): 08/31/22 - 09/30/22 [facility] [address] [facility], 4th [place], [place] [address] Allergies, Adverse Reactions, Alerts Substance Reaction Severity Status Bananas Active Immunizations Given and Recorded Vaccine Date Status Refusal Reason SARS-CoV-2 mRNA (obawgew-ixfo-lrneg) vax 01/16/22 Recorded influenza virus vaccine, inactivated 07/07/21 Buster rded SARS-CoV-2 (COVID-19) mRNA BNT-162b2 vac 06/28/21 Recorded SARS-CoV-2 (COVID-19) mRNA BNT-162b2 vac 09/27/20 Recorded tetanus/diphtheria/pertussis, acel(Tdap) 04/13/21 Recorded Medications busPIRone 10 mg oral tablet 10 mg, 1, tablet, By Mouth, Daily at supper, # 90 tablet, Refills 3, Tot. Refills 3, Maintenance, 10/28/21 15:45:00 EST, Route to Pharmacy Electronically, [facility] [...] 09/16/22 14:03:00 EST, Route to Pharmacy Electronically, [facility], 175, cm, 09/03/22 14:39:00 EST, Height, 108, kg, 07/29/22 18:14:00 EST, Dry Weight Start Date: 09/16/22 Status: Ordered Junel Fe 10/09 oral tablet 1 tablet, By Mouth, Daily, take one tablet daily, omitting placebo to manage dysmenorrhea., # 90 tablet, 4 Refills, Maintenance, 11/21/21 8:35:00 EST, Tablet, [facility], Partial fill upon patient request if the prescription is for a chelsi... Start Date: 11/21/21 Stop Date: 07/02/23 Status: Ordered Lexapro 20 mg oral tablet 1 tablet = 20 mg, By Mouth, Daily, # 90 tablet, 3 Refills, Maintenance, 08/14/22 15:44:00 EST, Tablet, [facility], Partial fill upon patient request if the prescription is for a schedule II opioid drug., 175, cm, 08/14/22 14:57:00 EST, H... Start Date: 08/14/22 Status: Ordered lidocaine 5% topical ointment 1 application, Topically, 3 times a day, # 50 Gm, 0 Refills, Maintenance, 08/31/22 13:19:00 EST, [facility], Partial fill upon patient request if [...] ER Capsule, [facility], Partial fill upon patient request [...] Personnel Name: Rodriguez BUSH, Patricia Barfield Position: [facility] Associate Professional Member Role: PCP Address: Address: [address] [place] [address] [place] [address]- Care Team Related Persons Name: MURPHY FUNES Address: home [address] [place] [address]
--- OUTSIDE RECORDS SUMMARY | 2024-03-21 07:55 | XMS_ITS | Continuity of Care Document ---
Author Organization [facility] Address [address] [facility], 3r d Floor, [address] [place] [address]- Care Team Providers Care Pattern Scratcher Name Role Phone Lidya Zarate MD, V Primary Care Physician En[place] [facility] [place] Date(s): 06/10/23 - 10/02/23 [facility] [address], [address] Floor, [address] [place] [address] Attending Physician: Rancho Crouch MD Admitting Physician: Rancho Crouch MD Referring Physician: Lidya Zarate MD, V Allergies, Adverse Reactions, Alerts Substance Reaction Severity Status Bananas Active Immunizations Given and Recorded Vaccine Date Status Refusal Reason SARS-CoV-2 mRNA (ckhuilu-apgm-eawup) vax 01/16/22 Recorded influenza virus vaccine, inactivated 07/07/21 Buster rded SARS-CoV-2 (COVID-19) mRNA BNT-162b2 vac 06/28/21 Recorded SARS-CoV-2 (COVID-19) mRNA BNT-162b2 vac 09/27/20 Recorded tetanus/diphtheria/pertussis, acel(Tdap) 04/13/21 Recorded Medications Corlanor 5 mg oral tablet 1 tablet = 5 mg, By Mouth, 2 times a day with meals, # 180 tablet, 1 Refills, Maintenance, 06/09/2311:50:00 EDT, Tablet, [facility], Partial [...] Replace Required Details, Route to Pharmacy Electronically, [facility], 174.6, cm, 04/29/23 15:52:00 EDT,... [...] capsule, 0 Refills, Maintenance, 09/16/23 8:04:00 EST, [facility], 174.6, cm, 06/30/23 9:52:00 EDT, [...] Personnel Name: Elliot DOMINGUEZ, Lidya Leos Position: [facility] Physician - Primary Care Member Role: PCP Address: Address: [address] [place] [address]- Care Team Related Persons Name: FUNESMURPHY Address: home [address] [place] [address]
--- OUTSIDE RECORDS SUMMARY | 2024-03-21 07:55 | XMS_ITS | Continuity of Care Document ---
Author Organization [facility] Address [address] [facility], 4t [place] [address]- Care Team Providers Care Lab Rep Name Role Phone Rodriguez BUSH, Patricia Barfield Primary Care Physician En[facility] [place] Date(s): 04/15/22 - 05/15/22 [facility] [address] [facility], 4th [place] [address]- Allergies, Adverse Reactions, Alerts Substance Reaction Severity Status Bananas Active Immunizations Given and Recorded Vaccine Date Status Refusal Reason SARS-CoV-2 mRNA (ruxbqjy-osey-hzdnk) vax 01/16/22 Recorded influenza virus vaccine, inactivated 07/07/21 Buster rded SARS-CoV-2 (COVID-19) mRNA BNT-162b2 vac 06/28/21 Recorded SARS-CoV-2 (COVID-19) mRNA BNT-162b2 vac 09/27/20 Recorded tetanus/diphtheria/pertussis, acel(Tdap) 04/13/21 Recorded Medications Emgality Prefilled Pen 120 mg/mL subcutaneous solution = 120 mg, Subcutaneous Infusion, Every 28 days, Use one autoinjector once per month. Rotate injection sites., # 1 each, 3 Refills, Maintenance, 03/18/22 23:41:00 EDT, [facility], Partial fill upon patient [...] 4 Refills, Maintenance, 11/21/21 8:35:00 EST, Tablet, [facility], Partial fill upon [...] Refills, Maintenance, 01/08/22 11:38:00 EDT, ER Capsule, [facility], Partial fill upon [...] Team Personnel Name: Patricia Frias NP Address: [address] [place] [address] Primary Care [facility], [place] [address]
--- OUTSIDE RECORDS SUMMARY | 2024-03-21 07:55 | XMS_ITS | Continuity of Care Document ---
Author Organization [facility] Address [address] [facility], 4t [place] [address]- Care Team Providers Care Burr Filer Name Role Phone Allie DOMINGUEZ, Vik Joaquin Primary Care Physician [place] [facility] [place] - 09/30/21 [facility] [employer] [facility] [address] [facility], 4th [place] [address]- Attending Physician: Not on Staff, Attending MD [...] 6 Refills, Maintenance, 09/23/21 8:57:00 EST, Tablet, [facility], Partial fill upon patient [...]
--- OUTSIDE RECORDS SUMMARY | 2024-03-21 07:55 | XMS_ITS | Continuity of Care Document ---
Author Organization [facility] Address [address] [place] [address]- Care Team Providers Care Client Services Representative Name Role Phone Rodriguez BUSH, Patricia Barfield Primary Care Physician Encounter [facility] Date(s): 09/03/22 - 10/03/22 [facility] [place] [address] [place] [address]- Allergies, Adverse Reactions, Alerts Substance Reaction Severity Status Bananas Active Immunizations Given and Recorded Vaccine Date Status Refusal Reason SARS-CoV-2 mRNA (qrthnhg-fibv-akibh) vax 01/16/22 Recorded influenza virus vaccine, inactivated 07/07/21 Buster rded SARS-CoV-2 (COVID-19) mRNA BNT-162b2 vac 06/28/21 Recorded SARS-CoV-2 (COVID-19) mRNA BNT-162b2 vac 09/27/20 Recorded tetanus/diphtheria/pertussis, acel(Tdap) 04/13/21 Recorded Medications busPIRone 10 mg oral tablet 10 mg, 1, tablet, By Mouth, Daily at supper, # 90 tablet, Refills 3, Tot. Refills 3, Maintenance, 10/28/21 15:45:00 EST, Route to Pharmacy Electronically, [facility], Partial fill upon patient request if the prescription is for a schedul... Start Date: 10/28/21 Status: Ordered Emgality Prefilled Pen 120 mg/mL subcutaneous solution = 120 mg, Subcutaneous Infusion, Every 28 days, Use one autoinjector once per month. Rotate injection sites., # 1 each, 6 Refills, Maintenance, 08/06/22 20:26:00 EST, [facility], Partial fill upon patient [...] 09/16/22 14:03:00 EST, Route to Pharmacy Electronically, [facility], 175, cm, 09/03/22 14:39:00 EST, Height, 108, kg, 07/29/22 18:14:00 EST, Dry Weight Start Date: 09/16/22 Status: Ordered Junel Fe 10/09 oral tablet 1 tablet, By Mouth, Daily, take one tablet daily, omitting placebo to manage dysmenorrhea., # 90 tablet, 4 Refills, Maintenance, 11/21/21 8:35:00 EST, Tablet, [facility], Partial fill upon patient request if the prescription is for a chelsi... Start Date: 11/21/21 Stop Date: 07/02/23 Status: Ordered Lexapro 20 mg oral tablet 1 tablet = 20 mg, By Mouth, Daily, # 90 tablet, 3 Refills, Maintenance, 08/14/22 15:44:00 EST, Tablet, [facility], Partial fill upon patient request if the prescription is for a schedule II opioid drug., 175, cm, 08/14/22 14:57:00 EST, H... Start Date: 08/14/22 Status: Ordered lidocaine 5% topical ointment 1 application, Topically, 3 times a day, # 50 Gm, 0 Refills, Maintenance, 08/31/22 13:19:00 EST, Ointment, [facility], Partial fill upon patient request [...] Refills, Maintenance, 01/08/22 11:38:00 EDT, ER Capsule, [facility], [...] Team Personnel Name: Patricia Frias NP Position: [facility] Associate Professional Member Role: PCP Address: Address: [address] [place] [address] [place] [address]- Care Team Related Persons Name: MURPHY FUNES Address: home [address] [place] [address]
--- OUTSIDE RECORDS SUMMARY | 2024-03-21 07:55 | XMS_ITS | Continuity of Care Document ---
Author Organization [facility] Address [address] [place] [address]- Care Team Providers Care Binding Machine Operator Name Role Phone Not on Staff, PCP Primary Care Physician Unavail able Encounter [facility] [place] Date(s): 05/13/21 - 06/12/21 [facility] [address] [place] [address]- Attending Physician: Bryan Muniz Admitting Physician: Bryan Muniz Referring Physician: trBryan Allergies, Adverse Reactions, Alerts Substance Reaction Severity [...] Maintenance,05/13/21 8:23:00 EDT, Route to Pharmacy Electronically, [facility], Partial fill uponpatient [...]
--- OUTSIDE RECORDS SUMMARY | 2024-03-21 07:55 | XMS_ITS | Continuity of Care Document ---
Author Organization [facility] Address [address], [address] [place] [address]- Care Team Providers Care Predatory Hunter Name Role Phone Rodriguez BUSH, Patricia M Primary Care Physician [phone] Encounter [facility] [place] [facility] [place] [id number] Date(s): 12/15/22 - 12/22/22 [facility] [address], 4th [place] [address]- Attending Physician: Deandre DOMINGUEZ [OB], Mandi Albrecht Referring Physician: Lila Hawkins Allergies, Adverse Reactions, Alerts Substance Reaction Severity Status Bananas Active Immunizations Given and Recorded Vaccine Date Status Refusal Reason SARS-CoV-2 mRNA ([id number]) vax 01/16/22 Recorded influenza virus vaccine, inactivated 07/07/21 Buster rded SARS-CoV-2 (COVID-19) mRNA BNT-162b2 vac 06/28/21 Recorded SARS-CoV-2 (COVID-19) mRNA BNT-162b2 vac 09/27/20 Recorded tetanus/diphtheria/pertussis, acel(Tdap) 04/13/21 Recorded Medications busPIRone 10 mg oral tablet 10 mg, 1, tablet, By Mouth, Daily at supper, # 90 tablet, Refills 1, Tot. Refills 1, Maintenance, 11/27/22 16:04:00 EST, Route to Pharmacy Electronically, [facility], Partial fill upon patient request if the prescription is for a schedul... Start Date: 11/27/22 Stop Date: 05/26/23 Status: Ordered Emgality Prefilled Pen 120 mg/mL subcutaneous solution = 120 mg, Subcutaneous Infusion, Every 28 days, Use one autoinjector once per month. Rotate injection sites., # 1 each, 6 Refills, Maintenance, 08/06/22 20:26:00 EST, [facility], Partial fill upon [...] 11/19/22 13:17:00 EST, Route to Pharmacy Electronically, [facility], 177, cm, 11/03/22 8:32:00 EST, Height, 106.8, kg, 11/03/22 8:32:00 EST, . Start Date: 11/19/22 Status: Ordered indomethacin 25 mg oral capsule 1 capsule = 25 mg, By Mouth, 2 times a day, PRN Pain , Moderate, # 60 capsule, 1 Refills, Maintenance, 10/20/22 14:01:00 EST, [facility], Partial fill upon patient request if the prescription is for a schedule II opioid drug., 175, cm, 1... Start Date: 10/20/22 Status: Ordered Junel Fe 10/09 oral tablet 1 tablet, By Mouth, Daily, take one tablet daily, omitting placebo to manage dysmenorrhea., # 84 tablet, 5 Refills, Maintenance, 07/02/23 8:35:00 EDT, Tablet, [facility], Partial fill upon patient request if the prescription is for a chelsi... Start Date: 07/02/23 Status: Ordered Lexapro 20 mg oral tablet 1 tablet = 20 mg, By Mouth, Daily, # 90 tablet, 3 Refills, Maintenance, 08/14/22 15:44:00 EST, Tablet, [facility], Partial fill upon patient request if [...] Refills, Maintenance, 01/08/22 11:38:00 EDT, ER Capsule, [facility], Partial fill upon patient request if [...] oldest [Reference Range]: 1 Height 177 cm (12/15/22 5:07 PM) Weight 106.2 kg (12/15/22 5:07 PM) Pulse Rate [55-90 bpm] 91 bpm *H* (12/15/22 5:07 PM) Body Mass Index [18.5-24.99 kg/m2] 33.9 kg/m2 *>HHI* (12/15/22 5:07 PM) Blood Pressure [90-138/55-84 mm Hg] 114/ 72mm Hg (12/15/22 5:07 PM) Blood pressure sites Arm, right (12/15/22 5:07 PM) Dry Weight 106.2 kg (12/15/22 5:07 PM) Weight Obtained Via Standing scale (12/15/22 5:07 PM) Dry Weight Obtained Via Standing scale (12/15/22 5:07 PM) Social History Social History Type Response Smoking Status Never (less than 100 in lifetime) entered on: 02/26/22 Sex Patient Care team information Care Team Personnel Name: Patricia Frias NP Position: S PCO Associate Professional Member Role: PCP Address: Address: [address] [place] [address] [place] [address]- Care Team Related Persons Name: MURPHY FUNES Address: [address] [address]
--- OUTSIDE RECORDS SUMMARY | 2024-03-21 07:55 | XMS_ITS | Continuity of Care Document ---
Author Organization [facility] Address [address], [address], [address] [place] [id number]- Care Team Providers Care Aeronautical Engineering Professor Name Role Phone Rodriguez BUSH, Patricia Barfield Primary Care Physician [phone] [place] [facility] [place] Date(s): 09/17/22 - 10/17/22 [facility] [address], [address], [address] [place] [id number]- Allergies, Adverse Reactions, Alerts Substance Reaction Severity Status Bananas Active Immunizations Given and Recorded Vaccine Date Status Refusal Reason SARS-CoV-2 mRNA ([id number]) vax 01/16/22 Recorded influenza virus vaccine, inactivated 07/07/21 Buster rded SARS-CoV-2 (COVID-19) mRNA BNT-162b2 vac 06/28/21 Recorded SARS-CoV-2 (COVID-19) mRNA BNT-162b2 vac 09/27/20 Recorded tetanus/diphtheria/pertussis, acel(Tdap) 04/13/21 Recorded Medications busPIRone 10 mg oral tablet 10 mg, 1, tablet, By Mouth, Daily at supper, # 90 tablet, Refills 3, Tot. Refills 3, Maintenance, 10/28/21 15:45:00 EST, [facility]acy Electronically, [facility] 09/16/22 14:03:00 EST, Route to Pharmacy Electronically, [facility], 175, cm, 09/03/22 14:39:00 EST, Height, 108, kg, 07/29/22 18:14:00 EST, Dry Weight Start Date: 09/16/22 Status: Ordered Junel Fe 10/09 oral tablet 1 tablet, By Mouth, Daily, take one tablet daily, omitting placebo to manage dysmenorrhea., # 90 tablet, 4 Refills, Maintenance, 11/21/21 8:35:00 EST, Tablet, [facility], Partial fill upon patient request if the prescription is for a chelsi... Start Date: 11/21/21 Stop Date: 07/02/23 Status: Ordered Lexapro 20 mg oral tablet 1 tablet = 20 mg, By Mouth, Daily, # 90 tablet, 3 Refills, Maintenance, 08/14/22 15:44:00 EST, Tablet, [facility], Partial fill upon patient request if the prescription is for a schedule II opioid drug., 175, cm, 08/14/22 14:57:00 EST, H... Start Date: 08/14/22 Status: Ordered lidocaine 5% topical ointment 1 application, Topically, 3 times a day, # 50 Gm, 0 Refills, Maintenance, 08/31/22 13:19:00 EST, Ointment, [facility], Partial fill upon patient [...] Refills, Maintenance, 01/08/22 11:38:00 EDT, ER Capsule, [facility], [...] Associate Professional Member Role: PCP Address: Address: [address] [place] [address] Primary [place] [facility] [place] [address]- Care Team Related Persons Name: MURPHY FUNES Address: home [address] [place] [address]
--- OUTSIDE RECORDS SUMMARY | 2024-03-21 07:55 | XMS_ITS | Patient Health Record ---
Author Organization [facility] Address [address] [facility] [address] [place] [address] Support Name Relationship Address Phone Mandi Velasquez Guarantor Unknown [phone] ALLERGIES Allergen (clinical drug ingredient) Drug/Non Drug Allergy documented on EMR Reaction Allergy Type Onset Date Status banana allergenic extract banana (uncoded) Unknown Allergy Active naproxen / sumatriptan Treximet Unknown Drug Allergy Inactive sumatriptan Sumatriptan Unknown Drug Allergy Nayeli ctive REASON FOR REFERRAL No Information MEDICATIONS Medication SIG (Take, Route, Frequency, Duration) Notes Start Date End Date Status Pantoprazole Sodium 40 MG 1 tablet Orally twice a day Active Escitalopram Oxalate 10 MG 1 tablet Orally Once a day Active Vitamin D Active Propranolol HCl 80 MG 1 tablet Orally Tw ice a day 120MG QD Active Amidrine Not-Taking Naproxen 500 MG 1 tablet with food o r milk as needed Orally every 12 hrs Not-Taking Emgality 120 MG/ML as directed Subcutaneous Active Cephalexin 500 MG 1 capsule Orally every 12 hrs for 7 days Not-Taking Midodrine HCl 5 MG 1 tablet Orally Twic e a day TID Active Junel Active BuSpar 10MG QD Active Gabapentin 300 MG 1 capsule Orally Onc e a day Active Cyclobenzaprine HCl 10 MG 1 tablet at bedtime as needed Orally Once a day Not-Taking Amoxicillin-Pot Clavulanate 875-125 MG 1 tablet Orally every 12 hrs for 10 day(s) 05/16/2021 Not-Taking HYDROcodone-Acetaminophe n 7.5-325 MG 1 tablet as needed Orally three times daily Not-Taking Folic Acid 1 MG 1 tablet Orally Once a day Not-Taking PLAN OF TREATMENT Pending Test Test Name Order Date Removal of nail matrix 04/30/2021 Removal of nail matrix 06/17/2021 Removal of nail matrix 01/28/2023 Insurance Providers Payer Name Payer Address Payer Phone Subscriber Number Group Number Insured Name Patient Relationship to Insured Coverage Start Date Coverage End Date [facility] [address] [place] [address] [place], [place] [phone] [id number] Mandi Velasquez Self - patient is the insured MEDICAL (GENERAL) HISTORY Medical History History ICD Code Acne ADHD, predominantly hyperactive type Anal fissure Anemia Anxiety Arthralgia of multiple sites Back pain, thoracic Benign intracranial hypertension Boil Choking episode occuring at night Common migraine without aura Cough Dyspnea Meenakshi-Danios, hypermobile type Esophageal dysmotility Heartburn Heat rash Microscopic colitis Migraine headache Myalgia Nausea Neck pain Pilonidal cyst POTS (postural orthostatic tachycardia s yndrome) Pseudotumor cerebri Rash Reactive airway disease Ringworm Shoulder pain, right Stiffness in joint Streptococcal pharyngitis Tachycardia Tinea versicolor Vitamin D deficiency + COVID 08/2022 COVID vaccinated X 4 (Regenesance) Surgical History Surgery Date(Month/Year) tonsillectomy jaw surgery 12/2022
[2024-03-21 07:57] VITALS: BP 123/66; PULSE 86; RESP 16; O2SAT 98; BMI 34.7
--- NOTE | 2024-03-21 07:57 | A.OFFVIS_ITS ---
Vital Signs 03/21/24 07:57 03/21/24 09:06 Height 5 ft 9 in 5 ft 9 in Weight 235 lb 239 lb BMI 34.7 35.3 BP 123/66 123/69 Blood Pressure Location Lt brachial Lt brachial Position Sitting Sitting Respiration 16 16 Pulse 86 72 Pulse Source Pulse Oximeter Pulse Oximeter Pulse Oximetry (%) 98 98 Oxygen Delivery Method Room Air Room Air Comment Pre-Op post-op Intake Visit Reasons: RIGHT C4 PNS SPRINT TRIAL (poss. 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 Accompanied by: Mother Allergies No Known Allergies Allergy (Verified 03/21/24 07:58) Physical Exam Vital Signs: Last Vital Signs Pulse 72 03/21/24 09:06 Resp 16 03/21/24 09:06 BP 123/69 03/21/24 09:06 Pulse Ox 98 03/21/24 09:06 Oxygen Delivery Method Room Air 03/21/24 09:06 BMI result Body Mass Index 35.3 Office Procedures Sprint PNS Device: Sprint PNS Device [id number] Percutaneous Peripheral Neuroelectrode Procedure: 65088 - Percutaneous Peripheral Neuroelectrode Procedure code (CPT) selection complete Office Meds lidocaine (PF) 50 mg/5 mL (1 %) injection syringe Performing Provider: Una Ordonez APRN, CNP Performing Location: [facility] Administered by: Fam Grajeda MD on 03/21/24 09:54 Dose Route Admin Location Dispensed Lot Number Expiration Date [facility] [employer] 5 mL subcut 5 mL Assessment & Plan Assessment & Plan (1) 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 (2) Occipital neuralgia: Code(s): M54.81 - Occipital neuralgia Category: Medical Plan: 2. (3) Chronic pain syndrome: Code(s): G89.4 - Chronic pain syndrome Category: Medical Plan: 3. Sprint PNS C3 on the right Percutaneous implantation of peripheral nerve stimulation Sprint system. After the risks, benefits and alternatives were discussed with the patient and informed consent was obtained, patient was placed in the prone position and padded to foster comfort. Time out was performed delineating correct site and side of the procedure , name and of the patient, patient participated in time out procedure. Sterily draped C-arm was brought over the operating field and clear picture of the C3 lamina on the right was delineated on the screen. The upper central portion of the lamina was chosen as a target of the needle tip insertion . After identifying and marking the intended target, the skin around the planned entry point and the subcutaneous tissues were injected with local anesthetic forming skin wheal.. A percutaneous sleeve and stimulating probe lead introduction system were assembled, inserted and advanced through the skin wheal to the point of interest under C-arm view in tunnel vision fashion, the introducer needle was delivered to a location in proximity to the nerve. Multiple stimulation parameters were used to deliver stimulation to the nerve in concert with stimulating at multiple positions around the nerve. nerve target acquisition was confirmed noting generation of in the corresponding to the nerve being stimulated. Various electrical parameter combinations were tested, and the lead location was adjusted (physically relocated) until the patient indicated overlapping the distribution of the patient?s typical region of pain. The stimulating probe was removed from the introducer and a percutaneous lead was guided through the needle and delivered to a location in similar proximity to the nerve. Final location was verified with electrical stimulation. The introducer needle was removed, and the exposed end of the percutaneous lead was attached to an external stimulator unit. At the end of the case various electrical parameter combinations were again tested until the patient indicated paresthesia or muscle tension overlapping the distribution of the patient?s typical region of pain. After confirming that lead impedance was in the normal range, the external unit was detached, the needle was removed, and the lead was anchored at the skin. The lead was threaded into the connector block and electrical continuity and desired patient response was confirmed. The connector block was attached to the external stimulator unit. 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 (5) Intractable back pain: Code(s): M54.9 - Dorsalgia, unspecified Category: Medical (6) Degeneration, intervertebral disc, cervical: Code(s): M50.30 - Other cervical disc degeneration, unspecified cervical region Category: Medical Plan The findings on MRI are nonspecific, disc protrusions do not result in nerve root compression and spinal cord compression. The finding of the para hyoid a lymph node is nonspecific patient does not complain on any pain or difficulty swallowing. Most of her pain is cervicalgia and occipital neuralgia. The pain is very severe and interferes with mobility and social interaction. It prevents her from performing her job duties. I offered her sprint PNS to treat intractable cervical pain. She wants to think about the procedure PNS sprint brochure was given to the patient. 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
[2024-03-21 09:06] VITALS: BP 123/69; PULSE 72; RESP 16; O2SAT 98; BMI 35.3
== END 2024-03-21 09:09 | disposition home or self-care (01) ==
LOC: HO.PMCPRC 07:49
PROVIDERS: PCP Internal Medicine; Visit Provider Anesthesiology
DX: M50.30 Other cervical disc degeneration, unspecified cervical region (principal); G89.4 Chronic pain syndrome; M47.812 Spondylosis without myelopathy or radiculopathy, cervical region; M54.81 Occipital neuralgia; Q79.60 Ehlers-Danlos syndrome, unspecified; M54.9 Dorsalgia, unspecified
CPT/HCPCS: 64555

== ENCOUNTER 2024-03-27 09:21 | Outpatient (AMB) | payer OTHER, SELFPAY ==
--- NOTE | 2024-03-27 09:22 | MHC.OFFVIS ---
Vital Signs 03/27/24 09:35 Height 5 ft 9 in Weight 239 lb BMI 35.3 BP 132/70 Blood Pressure Location Lt brachial Position Sitting Respiration 12 Pulse 91 Pulse Source Pulse Oximeter Pulse Oximetry (%) 98 Oxygen Delivery Method Room Air Intake Visit Reasons: RIGHT C4 SPRINT PNS TRIAL/03/21/24 Intake Note: Patient comes in for post-op C4 Sprint PNS. Site was cleared no redness/drainage/swelling at site. Site clean with alcohol prep pad, and new dsd/tegaderm applied. Today stimulation was set at 50 with good tolerance and reports pain level 3/10. Allergies No Known Allergies Allergy (Verified 03/27/24 09:34) HPI Comments Details: Mandi is back in my office after right-sided PNS insertion sprint. She reports pain 3/10. It is already more than 50% pain improvement. She is looking forward for insertion of the left-sided electrode. It is scheduled on 04/04/2024. She requests me to prescribe her 1 pill of Ativan before the procedure. I will do so. She reports that high level of stimulation makes her nauseous. I told her that if she feels mild tingling in her back with stimulation this is all what we need to keep. I explained to her 3 weeks mild stone in terms of help from the stimulation. The dressing was changed no pathological discharge minor irritation and redness of the skin from the dressing. Prior: very pleasant 28 years old female who presents in my office with chronic widespread neck pain as well as pain in the back of the head as well as pain in bilateral shoulders pain in bilateral side chest and pain in bilateral upper arms. 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 I sent her for the MRI of the cervical spine, results of the MRI dictated as below. She reports intractable cervicalgia pain 8/10, pain is being aggravated by working, prolonged sitting of the computer, her pain is mostly radiating to the occipital area and prevents her from performing activities of daily living, engaging in social interactions. I offered her sprint PNS trial to treat this pain. . Prolonged and detailed conversation followed, MRI findings were explained to the patient. Procedure was explained to the patient. She wants to think about the procedure brochure was given to the patient. Her past medical history significant for headaches dizziness and fainting fatigues anxiety disorder heart palpitations and digestive problems. Her past surgical history significant for tonsillectomy and bilateral jaw arthroscopy. She denies smoking cigarettes, drinking alcohol also denied she drinks 1-2 caffeinated beverages a week she denies recreational drugs Review of Systems Const All systems reviewed & are unremarkable except as noted in HPI and below ENT Reports Normal hearing present Neuro Reports Normal hearing present, Denies Abnormal speech present, Denies confusion and Denies Sensory deficit (Neuro) Psych Denies confusion Physical Exam Vital Signs: Last Vital Signs Pulse 91 03/27/24 09:35 Resp 12 03/27/24 09:35 BP 132/70 03/27/24 09:35 Pulse Ox 98 03/27/24 09:35 Oxygen Delivery Method Room Air 03/27/24 09:35 BMI result Body Mass Index 35.3 Const General: no acute distress; No confusion Orientation/consciousness: patient oriented x3 and No confusion Eyes General: appearance normal, both eyes and all related structures Pupils: Equal, round and reactive pupils present EOM: EOMs intact bilaterally Neck Other: Axial neck compression and axial neck distention minimal affects her pain. Flexing had backwards aggravate her pain more than flexing forward but both of these maneuvers aggravate her pain. Spurling test on the right causes pain radiating all the way down to the right upper extremity all the way to the index finger C7 distribution. Valsalva maneuver does not aggravate her pain. Chest Chest palpation & inspection: normal inspection of the chest Resp Effort & Inspection: normal respiratory effort, able to speak in complete sentences, normal respiratory pattern, no audible wheezes and no cough Cardio Jugular venous distension: no JVD GI Inspection: Yes normal to inspection Neuro General: patient oriented x3, gait normal and No confusion Cranial nerves: Yes CN's II-XII intact bilaterally, Yes Equal, round and reactive pupils present, Yes Normal hearing present and Yes Ability to bilaterally elevate shoulders present Speech: No Abnormal speech present Gait exam (Neuro): Normal gait present Motor exam (neuro): 5/5 motor strength present throughout Sensory Exam: No Sensory deficit (Neuro) Extrem General: No pedal edema Psych Speech and movement: Normal speech and movement present Affect: normal affect Attitude: cooperative Thought process: Normal thought process present Thought content: Normal thought content present Insight: Good insight present (Psych) Judgement: Good judgement present (Psych) Assessment & Plan Assessment & Plan (1) 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 (2) Occipital neuralgia: Code(s): M54.81 - Occipital neuralgia Category: Medical Plan: 2. 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 (5) Intractable back pain: Code(s): M54.9 - Dorsalgia, unspecified Category: Medical (6) Degeneration, intervertebral disc, cervical: Code(s): M50.30 - Other cervical disc degeneration, unspecified cervical region Category: Medical Plan Good results of the sprint PNS C3 on the right. We are planning the same on the left. I will send prescription Ativan for her as below. We will reassess the patient in 1 week after the insertion of the left-sided electrode. 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
[2024-03-27 09:35] VITALS: BP 132/70; PULSE 91; RESP 12; O2SAT 98; BMI 35.3
== END 2024-03-27 10:06 | disposition home or self-care (01) ==
PROVIDERS: PCP Internal Medicine; Visit Provider Anesthesiology
DX: M47.812 Spondylosis without myelopathy or radiculopathy, cervical region (principal); M54.81 Occipital neuralgia; G89.4 Chronic pain syndrome; Q79.60 Ehlers-Danlos syndrome, unspecified; M54.9 Dorsalgia, unspecified; M50.30 Other cervical disc degeneration, unspecified cervical region
CPT/HCPCS: 99024

== ENCOUNTER → 2024-03-27 09:21 | Outpatient (BNVA) | payer OTHER, SELFPAY | PROVIDERS: PCP Internal Medicine; Visit Provider Anesthesiology ==

== ENCOUNTER 2024-04-04 07:22 | Outpatient (REF) | payer OTHER, SELFPAY ==
--- NOTE | ~2024-04-04 | FL_ITS ---
EXAMINATION: FLUOROSCOPY GUIDANCE FOR NEEDLE PLACEMENT CLINICAL INFORMATION: Intraoperative nerve stimulator placement. COMPARISON: 03/21/2024 TECHNIQUE: Fluoroscopic guidance was provided to Dr. Grajeda during right-sided nerve stimulator placement. FINDINGS: 2 submitted images. FLUOROSCOPY TIME: 0.2 minutes DOSE AREA PRODUCT: 0.0233 uGy-m2 (microgray-meter squared) FL/FL guidance in treatment room IMPRESSION: Fluoroscopic guidance. Please refer to the full operative report for details. Electronically signed by: Zeke Goetz MD 06/13/2024 08:31 AM EDT
== END 2024-04-04 07:23 | disposition home or self-care (01) ==
LOC: CF 07:22
PROVIDERS: Visit Provider Anesthesiology
DX: M47.812 Spondylosis without myelopathy or radiculopathy, cervical region (principal); M54.81 Occipital neuralgia; G89.4 Chronic pain syndrome; Q79.60 Ehlers-Danlos syndrome, unspecified; M54.9 Dorsalgia, unspecified; M50.30 Other cervical disc degeneration, unspecified cervical region
CPT/HCPCS: 64555

== ENCOUNTER 2024-04-04 08:23 | Outpatient (AMB) | payer OTHER, SELFPAY ==
[2024-04-04 08:28] VITALS: BP 121/70; PULSE 95; RESP 16; O2SAT 98; BMI 35.3
--- NOTE | 2024-04-04 08:28 | A.OFFVIS_ITS ---
Vital Signs 04/04/24 08:28 04/04/24 09:57 Height 5 ft 9 in 5 ft 9 in Weight 239 lb 239 lb BMI 35.3 35.3 BP 121/70 108/72 Blood Pressure Location Lt brachial Lt brachial Position Sitting Sitting Respiration 16 16 Pulse 95 82 Pulse Source Pulse Oximeter Pulse Oximeter Pulse Oximetry (%) 98 98 Oxygen Delivery Method Room Air Room Air Comment pre-op post-op Intake Visit Reasons: LEFT C4 PNS(POSS C3, POSS C5) Allergies No Known Allergies Allergy (Verified 04/04/24 08:43) Physical Exam Vital Signs: Last Vital Signs Pulse 82 04/04/24 09:57 Resp 16 04/04/24 09:57 BP 108/72 04/04/24 09:57 Pulse Ox 98 04/04/24 09:57 Oxygen Delivery Method Room Air 04/04/24 09:57 BMI result Body Mass Index 35.3 Assessment & Plan Assessment & Plan (1) 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 (2) Occipital neuralgia: Code(s): M54.81 - Occipital neuralgia Category: Medical Plan: 2. (3) Chronic pain syndrome: Code(s): G89.4 - Chronic pain syndrome Category: Medical Plan: 3. Sprint PNS C3 on the left Percutaneous implantation of peripheral nerve stimulation Sprint system. After the risks, benefits and alternatives were discussed with the patient and informed consent was obtained, patient was placed in the prone position and padded to foster comfort. Time out was performed delineating correct site and side of the procedure , name and of the patient, patient participated in time out procedure. Sterily draped C-arm was brought over the operating field and clear picture of the C3 lamina on the left was delineated on the screen. The upper central portion of the lamina was chosen as a target of the needle tip insertion . After identifying and marking the intended target, the skin around the planned entry point and the subcutaneous tissues were injected with local anesthetic forming skin wheal.. A percutaneous sleeve and stimulating probe lead introduction system were assembled, inserted and advanced through the skin wheal to the point of interest under C-arm view in tunnel vision fashion, the introducer needle was delivered to a location in proximity to the nerve. Multiple stimulation parameters were used to deliver stimulation to the nerve in concert with stimulating at multiple positions around the nerve. nerve target acquisition was confirmed noting generation of in the corresponding to the nerve being stimulated. Various electrical parameter combinations were tested, and the lead location was adjusted (physically relocated) until the patient indicated overlapping the distribution of the patient?s typical region of pain. The stimulating probe was removed from the introducer and a percutaneous lead was guided through the needle and delivered to a location in similar proximity to the nerve. Final location was verified with electrical stimulation. The introducer needle was removed, and the exposed end of the percutaneous lead was attached to an external stimulator unit. At the end of the case various electrical parameter combinations were again tested until the patient indicated paresthesia or muscle tension overlapping the distribution of the patient?s typical region of pain. After confirming that lead impedance was in the normal range, the external unit was detached, the needle was removed, and the lead was anchored at the skin. The lead was threaded into the connector block and electrical continuity and desired patient response was confirmed. The connector block was attached to the external stimulator unit. 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 (5) Intractable back pain: Code(s): M54.9 - Dorsalgia, unspecified Category: Medical (6) Degeneration, intervertebral disc, cervical: Code(s): M50.30 - Other cervical disc degeneration, unspecified cervical region Category: Medical Plan The findings on MRI are nonspecific, disc protrusions do not result in nerve root compression and spinal cord compression. The finding of the para hyoid a lymph node is nonspecific patient does not complain on any pain or difficulty swallowing. Most of her pain is cervicalgia and occipital neuralgia. The pain is very se kevin and interferes with mobility and social interaction. It prevents her from performing her job duties. I offered her sprint PNS to treat intractable cervical pain. She wants to think about the procedure PNS sprint brochure was given to the patient. 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
--- OUTSIDE RECORDS SUMMARY | 2024-04-04 08:29 | XMS_ITS | Patient Health Record ---
Author Organization [facility] Address [address] [facility] [address] [place] [address] Support Name Relationship Address Phone Mandi Velasquez Guarantor Unknown [phone] ALLERGIES Allergen (clinical drug ingredient) Drug/Non Drug [...] Insured Coverage Start Date Coverage End Date [facility] [address] [place] [address], [place] [phone] [id number] Mandi Velasquez Self - patient is the [...] + COVID 08/2022 COVID vaccinated X 4 (Dotflux) Surgical History Surgery Date(Month/Year) tonsillectomy jaw surgery 12/2022
--- OUTSIDE RECORDS SUMMARY | 2024-04-04 08:29 | XMS_ITS ---
Author Organization [facility] Address [address] [facility] [address] [place] [address] Care Team Providers Care Chemical Equipment Controller Name Role Phone PATRICIA APODACA Unavailable [phone] ALLERGIES Allergen (clinical drug ingredient) Drug/Non Drug Allergy documented on EMR Reaction Allergy Type Onset Date Status banana allergenic extract banana (uncoded) Unknown Allergy Active naproxen / sumatriptan Treximet Unknown Drug Allergy Inactive sumatriptan Sumatriptan Unknown Drug Allergy Nayeli ctive RESULTS Component Value Reference Range Notes CULTURE, SUPERFICIAL WOUND Reviewed date:01/25/2023 10:43:11 AM Interpretation: Performing Lab:Testing performed or reported by [facility], a Service of [facility], [address] [place] [id number] Chris Wagner MD, Outpatient Interviewing Clerk [facility]# [id number] Notes/Report: SPECIMEN DESCRIPTION SWAB R GREAT TOE SPECIAL REQUESTS NONE GRAM STAIN NO CELLS OR ORGANISM S SEEN CULTURE 4+ STAPHYLOCOCCUS AU REUS. This isolate was identified using Maldi-TOF CULTURE system These AST res ults were performed on the Microscan ID and AST CULTURE system REPORT STATUS FINAL 01/23/2023 ORGANISM 4+ STAPHYLOCOCCUS AU REUS. This isolate was identified using Maldi-TOF system These AST results were performed on the Microscan ID and AST system METHOD MIN. INHIB. CONC. (MCG/ML) SUSCEPTIBILITY CIPROFLOXACIN SUSCEPTIBLE CLINDAMYCIN SUSCEPTIBLE ERYTHROMYCIN SUSCEPTIBLE LEVOFLOXACIN SUSCEPTIBLE OXACILLIN SUSCEPTIBLE PENICILLIN RESISTANT RIFAMPIN SUSCEPTIBLE RIFAMPIN SHOULD NOT BE USED ALONE FOR ANTIMICROBIAL THERAPY. TETRACYCLINE SUSCEPTIBLE TRIMETH/SULFAMETHOX SUSCEPTIBLE VANCOMYCIN SUSCEPTIBLE REASON FOR VISIT Rt foot great toenail infection puss/red/tender for weeks MEDICATIONS Medication SIG (Take, Route, Frequency, Duration) Notes Start Date End Date Status Emgality 120 MG/ML as directed Subcutaneous Active Escitalopram Oxalate 10 MG 1 tablet Orally Once a day Active Amidrine Not-Taking HYDROcodone-Acetaminophe n 7.5-325 MG 1 tablet as needed Orally three times daily Not-Taking Naproxen 500 MG 1 tablet with food o r milk as needed Orally every 12 hrs Not-Taking Vitamin D Active Junel Active Pantoprazole Sodium 40 MG 1 tablet Orally twice a day Active Propranolol HCl 80 MG 1 tablet Orally Tw ice a day 120MG QD Active Midodrine HCl 5 MG 1 tablet Orally Twic e a day TID Active Cephalexin 500 MG 1 capsule Orally every 12 hrs for 7 days Active Amoxicillin-Pot Clavulanate 875-125 MG 1 tablet Orally every 12 hrs for 10 day(s) 05/16/2021 Not-Taking BuSpar 10MG QD Active Cyclobenzaprine HCl 10 MG 1 tablet at bedtime as needed Orally Once a day Not-Taking Gabapentin 300 MG 1 capsule Orally Onc e a day Active Folic Acid 1 MG 1 tablet Orally Once a day Not-Taking VITAL SIGNS Weight 232.7 lbs 01/20/2023 Height 69in in 01/20/2023 BMI 34.36 kg/m2 01/20/2023 Heart Rate 93 /min 01/20/2023 Temperature 97.2 degrees Fahrenheit 01/21/20 23 Respiratory Rate 16 /min 01/20/2023 Encounters Encounter Location Date Provider Diagnosis [facility] [address] [facility] [address] [place] [address] 01/20/2023 PATRICIA APODACA Paronychia of toe of right foot L03.031 ASSESSMENTS Encounter Date Diagnosis Assessment Notes Treatment Notes Treatment Clinical Notes 01/20/2023 Paronychia of toe of right foot (ICD-10 - L03.031) Patient examined and evaluated. She has a recurrent ingrown toenail to the medial border of the right hallux toenail despite phenol application in the past. This has a mild cellulitic infection. I took cultures today. I started her on Keflex 500mg twice daily for the next week. I advised daily soaks. She is to stop all topical antibiotic as this can create more irritation. I will switch the antibiotics if needed based on cultures. She will return next week for another phenol procedure in hopes to permamently treat this. She was agreeable with the plan. I encouraged her to call in the meantime with any questions or concerns. PLAN OF TREATMENT Medication Medication Name Sig Start Date Stop Date Notes Cephalexin 500 MG 1 capsule Orally every 12 hrs for 7 days Next Appt Details Follow Up: 1 Week, Reason: Progress Notes * Nazanin FUNESOB: 6 (27 yo F)Acc No.[id number]:01/20/2023 Progress Notes Patient:??Mandi Funes Provider:??Patricia Hopkins DPM :1995?Age:27 Y?Sex:Fe male Date:01/20/2023 Address:[address] [place], [place] [id number] Subjective: * Chief Complaints: * ?Rt foot great toenail infection puss/red/tender for weeks * HPI: ?Constitutional:? Ms. Funes presents for a follow up visit. She is having issues again around her right great toenail. She states it has been ongoing for about 2 months now. She has noticed increased redness, drainage, and pain over the past couple of weeks. She has been using topical antibiotic daily. She denies any changes in her medical history or medications. * ROS:?General/Constitutional:?Denies??Chills.??Denies??Fatigue.??Denies??Fever.??Denies??Headache. ?Respiratory:?Denies??Cough.??Denies??Shortness of breath,??denies.??Denies??Wheezing.?Musculoskeletal:?Denies??Joint stiffness.??Denies??Leg cramps.??Denies??Limping gait.?Skin:?Denies??Masses.??Admits??Nail changes,??right great toe.??Denies??Skin lesion(s).? * Medical History:?? * Surgical History:??tonsillec baby jaw surgery 12/2022 * Hospitalization/Major Diagno stic Procedure:??Denies Past Hospitalization * Family History:??Mother: ali ve, HTN.?? * Social History:?No alcohol use Never smoker . * Medications:??TakingBuSpar , Notes: 10MG QDGabapentin 300 MG Capsule 1 capsule Orally Once a dayMidodrine HCl 5 MG Tablet 1 tablet Orally Twice a day, Notes: TIDJunel Vitamin D Propranolol HCl 80 MG Tablet 1 tablet Orally Twice a day, Notes: 120MG QDPantoprazole Sodium 40 MG Tablet Delayed Release 1 tablet Orally twice a dayEscitalopram Oxalate 10 MG Tablet 1 tablet Orally Once a dayEmgality 120 MG/ML Solution Auto-injector as directed Subcutaneous Taking BuSpar , Notes: 10MG QDTaking Gabapentin 300 MG Capsule 1 capsule Orally Once a dayTaking Midodrine HCl 5 MG Tablet 1 tablet Orally Twice a day, Notes: TIDTaking Junel Taking Vitamin D Taking Propranolol HCl 80 MG Tablet 1 tablet Orally Twice a day, Notes: 120MG QDTaking Pantoprazole Sodium 40 MG Tablet Delayed Release 1 tablet Orally twice a dayTaking Escitalopram Oxalate 10 MG Tablet 1 tablet Orally Once a dayTaking Emgality 120 MG/ML Solution Auto-injector as directed Subcutaneous Not-TakingAmidrine Naproxen 500 MG Tablet 1 tablet with food or milk as needed Orally every 12 hrsHYDROcodone-Acetaminophen 7.5-325 MG Tablet 1 tablet as needed Orally three times dailyFolic Acid 1 MG Tablet 1 tablet Orally Once a dayCyclobenzaprine HCl 10 MG Tablet 1 tablet at bedtime as needed Orally Once a dayAmoxicillin-Pot Clavulanate 875-125 MG Tablet 1 tablet Orally every 12 hrsMedication List reviewed and reconciled with the patientNot-Taking Amidrine Not-Taking Naproxen 500 MG Tablet 1 tablet with food or milk as needed Orally every 12 hrsNot-Taking HYDROcodone-Acetaminophen 7.5-325 MG Tablet 1 tablet as needed Orally three times dailyNot-Taking Folic Acid 1 MG Tablet 1 tablet Orally Once a dayNot-Taking Cyclobenzaprine HCl 10 MG Tablet 1 tablet at bedtime as needed Orally Once a dayNot-Taking Amoxicillin-Pot Clavulanate 875-125 MG Tablet 1 tablet Orally every 12 hrsMedication List reviewed and reconciled with the patient * Allergies:??marcial[Allergi es Verified] Objective: * Vitals:??Wt232.7 lbs, Ht 69i n, BMI34.36 Index, HR93 /min, Temp97.2 F, RR16 /min, Ht-cm 175.26, Wt-kg 105.55 kg. * Examination: ?General Examination: ?APPEARANCE: Patient is Alert and oriented x 3 and in no acute distress. Ambulating in sneakers. ?VASCULAR: Palpable dorsalis pedis and posterior tibialis pulses bilaterally. Capillary refill is less than 3 seconds to all digits. No varicosities. ? NEUROLOGICAL: Light touch sensation intact to the dorsum and plantar aspect of both feet. Babinski reflex is down going. ?DERMATOLOGIC: No open wounds or rashes. There is edema and erythema to the medial nail fold of the right hallux. There is purulent drainage at the distal medial nail fold with crusting. There is scaling of the skin around the right hallux toenail. No fluctuance or streaking erythema. There is tenderness with pressure. No abnormal thickness or discoloration to the right hallux toenail. ?ORTHOPEDIC: No gross deformities present to either hallux. Muscle strength is 5/5 for anterior, posterior, and lateral lower extremity muscle groups. Assessment: * Assessment: 1.??Paronychia of toe of rig ht foot - L03.031 (Primary)?? Plan: * Treatment: Clinical Notes: Patient examined and evaluated. She has a recurrent ingrown toenail to the medial border of the right hallux toenail despite phenol application in the past. This has a mild celluliticinfection. I took cultures today. I started her on Keflex 500mg twice daily for the next week. I advised daily soaks. She is to stop all topical antibiotic as this can create more irritation. I will switch the antibiotics if needed based on cultures. She will return next week for another phenol procedure in hopes to permamently treat this. She was agreeable with the plan. I encouraged her to callin the meantime with any questions or concerns.? * Procedure Codes:?? * Follow Up:??1 Week * Billing Information: * Visit Code:?? 59529 Office Visit, Est Pt., Level 3. * Procedure Codes:?? * Sign off status: Completed true * Provider:??Patricia Hopkins DPM Date:??11/2022
--- OUTSIDE RECORDS SUMMARY | 2024-04-04 08:29 | XMS_ITS ---
Author Organization [facility] Address [address] [address] Care Team Providers Care Glass Driller Name Role Phone SERJIO APODACA Unavailable [phone] REASON FOR VISIT Culture Results Encounters Encounter Location Date Provider Diagnosis [facility] [address] [address] 01/22/2023 SERJIO APODACA PLAN OF TREATMENT No Information Progress Notes * Nazanin VELASQUEZOB: 6 (27 yo F)Acc No.[id number]:01/22/2023 Patient:??Mandi Velasquez :1995?Age:27 Y?Sex:Fe male Address:[address] [place] [address] * true * Date:??
--- OUTSIDE RECORDS SUMMARY | 2024-04-04 08:29 | XMS_ITS ---
Author Organization [facility] Address [address] [facility] [address] [place] [address] Care Team Providers Care Green End Man Name Role Phone PATRICIA APODACA Unavailable [phone] ALLERGIES Allergen (clinical drug ingredient) Drug/Non Drug Allergy documented on EMR Reaction Allergy Type Onset Date Status banana allergenic extract banana (uncoded) Unknown Allergy Active naproxen / sumatriptan Treximet Unknown Drug Allergy Inactive sumatriptan Sumatriptan Unknown Drug Allergy Nayeli ctive REASON FOR VISIT Rt foot ingrown procedure MEDICATIONS Medication SIG (Take, Route, Frequency, Duration) Notes Start Date End Date Status Vitamin D Active Propranolol HCl 80 MG 1 tablet Orally Tw ice a day 120MG QD Active Midodrine HCl 5 MG 1 tablet Orally Twic e a day TID Active Active Gabapentin 300 MG 1 capsule Orally [...] 1 tablet Orally Once a day Not-Taking BuSpar 10MG QD Active Escitalopram Oxalate 10 MG 1 tablet Orally Once a day Active Amidrine Not-Taking Naproxen 500 MG 1 tablet with food o r milk as needed Orally every 12 hrs Not-Taking Emgality 120 MG/ML as directed Subcutaneous Active Cephalexin 500 MG 1 capsule Orally every 12 hrs for 7 days Not-Taking Pantoprazole Sodium 40 MG 1 tablet Orally twice a day Active VITAL SIGNS Weight 233.3 lbs 01/28/2023 Height 69in in 01/28/2023 BMI 34.45 kg/m2 01/28/2023 Heart Rate 85 /min 01/28/2023 Temperature 97.3 degrees Fahrenheit 01/29/20 23 Respiratory Rate 16 /min 01/28/2023 PROCEDURES Procedure Date Ordered Date Performed Result Body Sit e Removal of nail matrix 01/28/2023 N/A Encounters Encounter Location Date Provider Diagnosis [facility] [address] [facility] [address] [place] [address] 01/28/2023 PATRICIA APODACA Ingrown toenail of right foot L60.0 and Pain around toenail, right foot M79.674 ASSESSMENTS Encounter Date Diagnosis Assessment Notes Treatment Notes Treatment Clinical Notes 01/28/2023 Ingrown toenail of right foot (ICD-10 - L60.0) Patient examined and evaluated. She has recurrence of a painful ingrown toenail to the medial border of the right hallux. She has been on oral keflex for the past week with improvements. Cultures were reviewed with the patient and she was given a copy of her results. She did wish to proceed with another phenol matrixectomy to the medial border of the right hallux toenail. This was done in the office under local anesthetic. She tolerated this well. She was given written post procedural instructions for how to take care of the toe. I advised 3-4 weeks until healed. I also again discussed increased redness, swelling, drainage, and tenderness from the chemical that is put in. She expressed understanding. I will see her back in 2 weeks or sooner. I encouraged her to call with any questions or concerns. 01/28/2023 Pain around toenail, right foot (ICD-10 - M79.674) PLAN OF TREATMENT Pending Test Test Name Order Date Removal of nail matrix 01/28/2023 Next Appt Details Follow Up: 2 Weeks, Reason: Progress Notes * Nazanin FUNESOB: 6 (27 yo F)Acc No.[id number]:01/28/2023 Patient:??Mandi Funes Provider:??Patricia Hopkins DPM :1995?Age:27 Y?Sex:Fe male Date:01/28/2023 Address:[address], [facility], [id number] Subjective: * Chief Complaints: * ?Rt foot ingrown proced ure * HPI: ?Constitutional:? Ms. Funes presents for a follow up visit. She has noticed improvements to the right great toe with the keflex. She has finished the antibiotic. She still has some redness and tenderness to the toe. She has been keeping it clean covering it. * ROS:?General/Constitutional:?Denies??Chills.??Denies??Fatigue.??Denies??Fever.??Denies??Headache. ?Respiratory:?Denies??Cough.??Denies??Shortness of breath,??denies.??Denies??Wheezing.?Musculoskeletal:?Denies??Joint stiffness.??Denies??Leg cramps.??Denies??Limping gait.?Skin:?Denies??Masses.??Admits??Nail changes,??right great toe.??Denies??Skin lesion(s).? * Medical History:?? * Surgical History:??tonsillec abby jaw surgery 12/2022 * Hospitalization/Major Diagno stic Procedure:??Denies Past Hospitalization * Family History:??Mother: elizabeth ve, HTN.?? * Social History:?No alcohol use [...] tablet Orally Twice a day, Notes: TIDTaking June Taking Vitamin D Taking Propranolol HCl 80 MG Tablet 1 tablet Orally Twice a day, Notes: 120MG QDTaking Pantoprazole Sodium 40 MG Tablet Delayed Release 1 tablet Orally twice a dayTaking Escitalopram Oxalate 10 MG Tablet 1 tablet Orally Once a dayTaking Emgality 120 MG/ML Solution Auto-injector as directed Subcutaneous Not-TakingCephalexin 500 MG Capsule 1 capsule Orally every 12 hrsAmidrine Naproxen 500 MG Tablet 1 tablet with [...] List reviewed and reconciled with the patientNot-Taking Cephalexin 500 MG Capsule 1 capsule Orally every 12 hrsNot-Taking Amidrine Not-Taking Naproxen 500 MG Tablet 1 [...] reviewed and reconciled with the patient * Allergies:??ghadano[Allergi es Verified] Objective: * Vitals:??Wt233.3 lbs, Ht 69i n, BMI34.45 Index, HR85 /min, Temp97.3 F, RR16 /min, Ht-cm 175.26, Wt-kg 105.82 kg. * Examination: ?General Examination: ?APPEARANCE: Patient [...] fold of the right hallux. There is no drainage today. No fluctuance or streaking erythema. There is tenderness with pressure. No abnormal thickness or discoloration to the right hallux toenail. ?ORTHOPEDIC: No gross deformities present to either hallux. Muscle strength is 5/5 for anterior, posterior, and lateral lower extremity muscle groups. Assessment: * Assessment: 1.??Ingrown toenail of right foot - L60.0 (Primary)??2.??Pain around toenail, right foot - M79.674?? Plan: * Treatment: 2.??Pain around toenail, rig ht foot?Procedure: Removal of nail matrix * Procedures:?PHENOL MATRIXECTOMY: A consent was gone over in detail today with the patient about phenol matrixectomies. We discussed all risks and benefits. Risks included pain, infection, bleeding, chemical burn, deformity of nail plate, loosening of remaining toenail, discoloration of skin and or nail, need for another nail procedure, nerve damage, bruising, necrosis, and swelling. Benefits included decrease in pain and permanent removal. Patient agreed to have the medial border of the right hallux toenail permanently removed today using phenol application. The patient's right foot was prepped with alcohol solution and sterile draping was applied. Local anesthesia was infiltrated in a digital nerve block technique using 3cc of 1:1 ratio of 0.5% bupivacaine plain and 1% lidocaine with epinepherine 1:15697. Pt tolerated the injection well. Anesthesia was tested. Using a sterile elevator, the nail bed was freed of the medial border of the nail dorsally, medially, and plantarly. Using an maltese anvil nail splitter, the medial border was cut. Straight hemostats were used to remove the border of the nail. The area was then inspected, and no other nail remnants were seen. Three 30 second applications of phenol were then performed to the exposed nail matrix. The area was cleansed with alcohol. Hemostasis was maintained with direct pressure. A dressing was applied. Pt tolerated the procedure well without any complications. ? * Procedure Codes:??96518 YAKELIN ZI OF NAIL BED * Follow Up:??2 Weeks * Billing Information: * Visit Code:?? * Procedure Codes:?? 66529 REMOVAL OF NAIL BED. * Sign off status: Completed true * Provider:??Patricia Hopkins DPLico Date:??07/2023
[2024-04-04 09:57] VITALS: BP 108/72; PULSE 82; RESP 16; O2SAT 98; BMI 35.3
== END 2024-04-04 09:52 | disposition home or self-care (01) ==
PROVIDERS: PCP Internal Medicine; Visit Provider Anesthesiology
DX: M47.812 Spondylosis without myelopathy or radiculopathy, cervical region (principal); M54.81 Occipital neuralgia; G89.4 Chronic pain syndrome; Q79.60 Ehlers-Danlos syndrome, unspecified; M54.9 Dorsalgia, unspecified; M50.30 Other cervical disc degeneration, unspecified cervical region
CPT/HCPCS: 64555

== ENCOUNTER → 2024-04-10 09:40 | Outpatient (BNVA) | payer OTHER, SELFPAY | PROVIDERS: PCP Internal Medicine; Visit Provider Anesthesiology ==

== ENCOUNTER 2024-04-10 09:47 | Outpatient (AMB) | payer OTHER, SELFPAY ==
--- OUTSIDE RECORDS SUMMARY | 2024-04-10 09:46 | XMS_ITS | Patient Health Record ---
Author Organization [facility] Address [address] [place] [address] Support Name Relationship Address Phone Mandi Velasquez Guarantor Unknown [phone] ALLERGIES Allergen (clinical drug ingredient) Drug/Non Drug [...] Insured Coverage Start Date Coverage End Date [facility] [address] [place] [address] [place], [place] [phone] [id number] Mandi Velasquez Self - patient is the [...] + COVID 08/2022 COVID vaccinated X 4 ([employer]) Surgical History Surgery Date(Month/Year) tonsillectomy jaw surgery 12/2022
--- OUTSIDE RECORDS SUMMARY | 2024-04-10 09:46 | XMS_ITS ---
Author Organization [facility] Address [address] [place] [address] Care Team Providers Care Teller Supervisor Name Role Phone PATRICIA APODACA Unavailable [phone] ALLERGIES Allergen (clinical drug ingredient) Drug/Non Drug [...] N/A Encounters Encounter Location Date Provider Diagnosis [facility] [address] [place] [address] 01/28/2023 PATRICIA APODACA Ingrown toenail of right [...] * Nazanin FUNESOB: 6 (27 yo F)Acc No.[id number]:01/28/2023 Patient:??Mandi Funes Provider:??Patricia Hopkins DPM :1995?Age:27 Y?Sex:Fe male Date:01/28/2023 Address:[address], [facility], [id number] Subjective: * Chief Complaints: * ?Rt foot [...] bupivacaine plain and 1% lidocaine with epinepherine 1:18651. Pt tolerated the injection well. Anesthesia was tested. Using a sterile elevator, the nail bed was freed of the medial border of the nail dorsally, medially, and plantarly. Using an czech anvil nail splitter, the medial border was [...] well without any complications. ? * Procedure Codes:??03399 YAKELIN ZI OF NAIL BED * Follow Up:??2 Weeks * Billing Information: * Visit Code:?? * Procedure Codes:?? 82521 REMOVAL OF NAIL BED. * Sign off status: Completed true * Provider:??Patricia Hopkins DPLico Date:??07/2023
--- OUTSIDE RECORDS SUMMARY | 2024-04-10 09:46 | XMS_ITS ---
Author Organization [facility] Address [address] [address] Care Team Providers Care Appointment Coordinator Name Role Phone SERJIO APODACA Unavailable [phone] REASON FOR VISIT Culture Results Encounters Encounter Location Date Provider Diagnosis [facility] [address] [address] 01/22/2023 SERJIO APODACA PLAN OF TREATMENT No Information Progress Notes * Nazanin VELASQUEZOB: 6 (27 yo F)Acc No.[id number]:01/22/2023 Patient:??Mandi Velasquez :1995?Age:27 Y?Sex:Fe male Address:[address] [place] [id number] * true * Date:??
--- OUTSIDE RECORDS SUMMARY | 2024-04-10 09:46 | XMS_ITS ---
Author Organization [facility] Address [address] [facility] [address] [place] [address] Care Team Providers Care Society Editor Name Role Phone PATRICIA APODACA Unavailable [phone] ALLERGIES Allergen (clinical drug ingredient) Drug/Non Drug Allergy documented on EMR Reaction Allergy Type Onset Date Status banana allergenic extract banana (uncoded) Unknown Allergy Active naproxen / sumatriptan Treximet Unknown Drug Allergy Inactive sumatriptan Sumatriptan Unknown Drug Allergy Nayeli ctive RESULTS Component Value Reference Range Notes CULTURE, SUPERFICIAL WOUND Reviewed date:01/25/2023 10:43:11 AM Interpretation: Performing Lab:Testing performed or reported by [facility], a Service of [facility], [address] [place] [address] Chris Wagner MD, Supervisor [employer] [facility]# [id number] Notes/Report: SPECIMEN DESCRIPTION SWAB R GREAT TOE [...] 01/20/2023 Encounters Encounter Location Date Provider Diagnosis [facility] [address] [facility] [address] [place] [address] 01/20/2023 PATRICIA APODACA Paronychia of toe of [...] * Nazanin FUNESOB: 6 (27 yo F)Acc No.[id number]:01/20/2023 Progress Notes Patient:??Mandi Funes Provider:??Patricia Hopkins DPM :1995?Age:27 Y?Sex:Fe male Date:01/20/2023 Address:[address] [place], [place] [id number] Subjective: * Chief Complaints: * ?Rt foot [...] Week * Billing Information: * Visit Code:?? 70932 Office Visit, Est Pt., Level 3. * Procedure Codes:?? * Sign off status: Completed true * Provider:??Patricia Hopkins DPM Date:??11/2022
--- NOTE | 2024-04-10 09:50 | MHC.OFFVIS ---
Vital Signs 04/10/24 09:56 Height 5 ft 9 in Weight 239 lb BMI 35.3 BP 116/74 Blood Pressure Location Lt brachial Position Sitting Respiration 16 Pulse 80 Pulse Source Pulse Oximeter Pulse Oximetry (%) 98 Oxygen Delivery Method Room Air Intake Visit Reasons: LEFT C4 SPRINT PNS TRIAL/04/04/24 Intake Note: Patient comes in for post-op appointment. Reports pain 2/10. Allergies No Known Allergies Allergy (Verified 04/10/24 09:57) HPI Comments Details: Mandi is back in my office after left and right-sided PNS insertion sprint. She reports pain 2/10. She reports more than 80% pain improvement, she reports excellent mobility and activities of daily living. She reports that stimulation cause her nausea. For the next 25 days I will prescribe her Zofran 4 mg q.8 hours for control of her nausea. She will be able to receive the stimulation she needs to. After the stimulator will be removed the patient may stop her Zofran. The dressing was changed no pathological discharge, no swelling no redness and no tenderness on palpation. Prior: very pleasant 28 years old female who presents in my office with chronic widespread neck pain as well as pain in the back of the head as well as pain in bilateral shoulders pain in bilateral side chest and pain in bilateral upper arms. 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 I sent her for the MRI of the cervical spine, results of the MRI dictated as below. She reports intractable cervicalgia pain 8/10, pain is being aggravated by working, prolonged sitting of the computer, her pain is mostly radiating to the occipital area and prevents her from performing activities of daily living, engaging in social interactions. I offered her sprint PNS trial to treat this pain. . Prolonged and detailed conversation followed, MRI findings were explained to the patient. Procedure was explained to the patient. She wants to think about the procedure brochure was given to the patient. Her past medical history significant for headaches dizziness and fainting fatigues anxiety disorder heart palpitations and digestive problems. Her past surgical history significant for tonsillectomy and bilateral jaw arthroscopy. She denies smoking cigarettes, drinking alcohol also denied she drinks 1-2 caffeinated beverages a week she denies recreational drugs Review of Systems Const All systems reviewed & are unremarkable except as noted in HPI and below ENT Reports Normal hearing present Neuro Reports Normal hearing present, Denies Abnormal speech present, Denies confusion and Denies Sensory deficit (Neuro) Psych Denies confusion Physical Exam Vital Signs: Last Vital Signs Pulse 80 04/10/24 09:56 Resp 16 04/10/24 09:56 BP 116/74 04/10/24 09:56 Pulse Ox 98 04/10/24 09:56 Oxygen Delivery Method Room Air 04/10/24 09:56 BMI result Body Mass Index 35.3 Const General: no acute distress; No confusion Orientation/consciousness: patient oriented x3 and No confusion Eyes General: appearance normal, both eyes and all related structures Pupils: Equal, round and reactive pupils present EOM: EOMs intact bilaterally Neck Other: Axial neck compression and axial neck distention minimal affects her pain. Flexing had backwards aggravate her pain more than flexing forward but both of these maneuvers aggravate her pain. Spurling test on the right causes pain radiating all the way down to the right upper extremity all the way to the index finger C7 distribution. Valsalva maneuver does not aggravate her pain. Chest Chest palpation & inspection: normal inspection of the chest Resp Effort & Inspection: normal respiratory effort, able to speak in complete sentences, normal respiratory pattern, no audible wheezes and no cough Cardio Jugular venous distension: no JVD GI Inspection: Yes normal to inspection Neuro General: patient oriented x3, gait normal and No confusion Cranial nerves: Yes CN's II-XII intact bilaterally, Yes Equal, round and reactive pupils present, Yes Normal hearing present and Yes Ability to bilaterally elevate shoulders present Speech: No Abnormal speech present Gait exam (Neuro): Normal gait present Motor exam (neuro): 5/5 motor strength present throughout Sensory Exam: No Sensory deficit (Neuro) Extrem General: No pedal edema Psych Speech and movement: Normal speech and movement present Affect: normal affect Attitude: cooperative Thought process: Normal thought process present Thought content: Normal thought content present Insight: Good insight present (Psych) Judgement: Good judgement present (Psych) Assessment & Plan Assessment & Plan (1) 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 (2) Occipital neuralgia: Code(s): M54.81 - Occipital neuralgia Category: Medical Plan: 2. 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 (5) Intractable back pain: Code(s): M54.9 - Dorsalgia, unspecified Category: Medical (6) Degeneration, intervertebral disc, cervical: Code(s): M50.30 - Other cervical disc degeneration, unspecified cervical region Category: Medical Plan Good results of the sprint PNS C3 on the right and the left. She will continue to change her dressings at home. 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
[2024-04-10 09:56] VITALS: BP 116/74; PULSE 80; RESP 16; O2SAT 98; BMI 35.3
== END 2024-04-10 10:12 | disposition home or self-care (01) ==
PROVIDERS: PCP Internal Medicine; Visit Provider Anesthesiology
DX: M47.812 Spondylosis without myelopathy or radiculopathy, cervical region (principal); M54.81 Occipital neuralgia; G89.4 Chronic pain syndrome; Q79.60 Ehlers-Danlos syndrome, unspecified; M54.9 Dorsalgia, unspecified; M50.30 Other cervical disc degeneration, unspecified cervical region
CPT/HCPCS: 99024

== ENCOUNTER 2024-05-15 10:24 | Outpatient (AMB) | payer OTHER, SELFPAY ==
--- NOTE | 2024-05-15 10:27 | MHC.OFFVIS ---
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 Patient reports ongoing 90% pain relief at 50 stimulation with positive paresthesia with significant improvement in daily functioning, range of motion and sleep. The dressing was removed today. Lead insertion sites are clean, dry, intact, no redness, no swelling, no pathological discharge. Areas were cleansed with Chloraprep. Right lead pulled with tip intact and the area was cleansed again with Chloraprep, applied Bacitracin and covered it with gauze and Tegaderm film dressing. Dressing change was done for left side. Denies any recent cough, cold, infection, fever, any significant changes in her medical history, medications or recent hospitalizations. PRIOR Dr. Grajeda 04/10/24: Mandi is back in my office after left and right-sided PNS insertion sprint. She reports pain 2/10. She reports more than 80% pain improvement, she reports excellent mobility and activities of daily living. She reports that stimulation cause her nausea. For the next 25 days I will prescribe her Zofran 4 mg q.8 hours for control of her nausea. She will be able to receive the stimulation she needs to. After the stimulator will be removed the patient may stop her Zofran. The dressing was changed no pathological discharge, no swelling no redness and no tenderness on palpation. Prior: very pleasant 28 years old female who presents in my office with chronic widespread neck pain as well as pain in the back of the head as well as pain in bilateral shoulders pain in bilateral side chest and pain in bilateral upper arms. 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 I sent her for the MRI of the cervical spine, results of the MRI dictated as below. She reports intractable cervicalgia pain 8/10, pain is being aggravated by working, prolonged sitting of the computer, her pain is mostly radiating to the occipital area and prevents her from performing activities of daily living, engaging in social interactions. I offered her sprint PNS trial to treat this pain. . Prolonged and detailed conversation followed, MRI findings were explained to the patient. Procedure was explained to the patient. She wants to think about the procedure brochure was given to the patient. Her past medical history significant for headaches dizziness and fainting fatigues anxiety disorder heart palpitations and digestive problems. Her past surgical history significant for tonsillectomy and bilateral jaw arthroscopy. She denies smoking cigarettes, drinking alcohol also denied she drinks 1-2 caffeinated beverages a week she denies recreational drugs Review of Systems Const All systems reviewed & are unremarkable except as noted in HPI and below Physical Exam Vital Signs: Last Vital Signs Pulse 94 05/15/24 10:45 BP 129/83 05/15/24 10:45 Pulse Ox 100 05/15/24 10:45 Oxygen Delivery Method Room Air 05/15/24 10:45 BMI result Body Mass Index 34.0 General: Appears afebrile. Alert and oriented. Mood and affect appropriate. Follows and participates in conversation appropriately. Respiratory effort is unlabored. Able to transition from sit to stand unassisted. Ambulates with bilaterally normal heel strike and toe off. Lead Insertion Site: Lead insertion site are clean, dry, intact. No pathological discharge, no swelling and no erythema. Right lead pulled with tip intact. Left lead dressing was changed today in the clinic. Positive paresthesia at 50. Results Reviewed Results Reviewed: MRI cervical spine 11/13/2023 FINDINGS: ALIGNMENT: Normal. No significant subluxations. CRANIOCERVICAL JUNCTION/C1-C2 ARTICULATIONS: Intact and aligned. VISUALIZED INTRACRANIAL STRUCTURES: Partially empty sella, normal variant. VERTEBRAL BODIES: Vertebral body heights are well maintained. No acute or non-healed fractures. DISC SPACES AND ENDPLATES: Disc desiccation noted at C5-C6 and C6-C7 without significant disc space height loss. Minor anterior marginal endplate spurring at C5-C6. Endplates appear grossly intact. BONE MARROW: No suspicious marrow-replacing process or bone marrow edema. C2-C3: Normal annular contour. No DJD, canal or foraminal stenosis. C3-C4: No disc herniation or canal stenosis. No significant DJD or neural foraminal stenosis. C4-C5: Normal annular contour. Mild facet joint arthropathy noted, left more than right, and uncinate process spurring, with minor foraminal narrowing bilaterally without neural impingement. No canal stenosis. C5-C6: Islkabf-il-dpyx paramedian extruded disc herniation with slight caudal migration, with effacement of the dural sac asymmetric to the left without cord compression. There is associated mild central canal narrowing asymmetric to the left. There is minor facet arthropathy bilaterally and uncinate process spurring with minimal right-sided and jedv-mc-rqptdfrn left-sided neural foraminal narrowing without neural impingement. C6-C7: Left paramedian disc herniation noted with flattening of the ventral dural sac on the left without cord impingement. No significant canal stenosis. Mild facet joint arthropathy noted bilaterally and uncinate process spurring noted with mild right and moderate left-sided neural foraminal stenosis. C7-T1: Tiny central disc protrusion without cord impingement or canal stenosis. Minor facet joint arthropathy noted without significant neural foraminal stenosis. Central disc herniation also noted at T2-T3 without cord impingement or canal stenosis. SPINAL CORD: The cervical and visualized upper thoracic spinal cord is normal in morphology, caliber and signal intensity throughout. EXTRACRANIAL SOFT TISSUES: Incidental note is made of a 1.4 x 0.8 cm enlarged level IIb lymph node on the right of indeterminate significance. Signal voids are noted in the visualized major arterial and venous structures. IMPRESSION: 1. Discogenic degenerative changes at C5-C6 and C6-C7, with central to left paramedian extruded disc herniation at C5-C6 and left paramedian disc herniation at C6-C7 without cord impingement. Mild central canal stenosis noted at C5-C6. 2. Esgj-te-rmoreogn degrees of bony neural foraminal narrowing at C5-C6 and C6-C7 as discussed above, most apparent on the left at C6-C7. 3. Tiny central disc protrusions at C7-T1 and T2-T3. 4. A single enlarged level IIb lymph node in the right suprahyoid IJ chain, which is nonspecific. Follow up as per clinical indications. 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 She reports ongoing 90 % pain relief. Lead insertion sites are clean, dry, intact, no pathological discharge. Area was cleansed with Chloraprep. Right lead pulled with tip intact. Dressing changed for the left side. Patient will return for left Sprint removal on 05/29/24. All questions and concerns have been answered and the patient agreed with the plan. Follow up as needed. 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
[2024-05-15 10:45] VITALS: BP 129/83; PULSE 94; O2SAT 100; BMI 34.0
== END 2024-05-15 10:46 | disposition home or self-care (01) ==
PROVIDERS: PCP Internal Medicine; Visit Provider Anesthesiology
DX: M50.30 Other cervical disc degeneration, unspecified cervical region (principal); G89.4 Chronic pain syndrome; M54.81 Occipital neuralgia; M47.812 Spondylosis without myelopathy or radiculopathy, cervical region
CPT/HCPCS: 99213

== ENCOUNTER → 2024-05-15 10:24 | Outpatient (BNVA) | payer OTHER, SELFPAY | PROVIDERS: PCP Internal Medicine; Visit Provider Anesthesiology ==

== ENCOUNTER 2024-05-29 09:26 | Outpatient (AMB) | payer OTHER, SELFPAY ==
--- NOTE | 2024-05-29 09:30 | MHC.OFFVIS ---
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 Patient reports ongoing 90% pain relief at 52 stimulation with positive paresthesia with significant improvement in daily functioning, range of motion and sleep. The dressing was removed today. Lead insertion site is clean, dry, intact, no redness, no swelling, no pathological discharge. Area was cleansed with Chloraprep. Left lead pulled with tip partially intact and the area was cleansed again with Chloraprep, applied Bacitracin and covered it with gauze and Tegaderm film dressing. Denies any recent cough, cold, infection, fever, any significant changes in her medical history, medications or recent hospitalizations. PRIOR Dr. Grajeda 04/10/24: Mandi is back in my office after left and right-sided PNS insertion sprint. She reports pain 2/10. She reports more than 80% pain improvement, she reports excellent mobility and activities of daily living. She reports that stimulation cause her nausea. For the next 25 days I will prescribe her Zofran 4 mg q.8 hours for control of her nausea. She will be able to receive the stimulation she needs to. After the stimulator will be removed the patient may stop her Zofran. The dressing was changed no pathological discharge, no swelling no redness and no tenderness on palpation. Prior: very pleasant 28 years old female who presents in my office with chronic widespread neck pain as well as pain in the back of the head as well as pain in bilateral shoulders pain in bilateral side chest and pain in bilateral upper arms. 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 I sent her for the MRI of the cervical spine, results of the MRI dictated as below. She reports intractable cervicalgia pain 8/10, pain is being aggravated by working, prolonged sitting of the computer, her pain is mostly radiating to the occipital area and prevents her from performing activities of daily living, engaging in social interactions. I offered her sprint PNS trial to treat this pain. . Prolonged and detailed conversation followed, MRI findings were explained to the patient. Procedure was explained to the patient. She wants to think about the procedure brochure was given to the patient. Her past medical history significant for headaches dizziness and fainting fatigues anxiety disorder heart palpitations and digestive problems. Her past surgical history significant for tonsillectomy and bilateral jaw arthroscopy. She denies smoking cigarettes, drinking alcohol also denied she drinks 1-2 caffeinated beverages a week she denies recreational drugs Review of Systems Const All systems reviewed & are unremarkable except as noted in HPI and below Physical Exam General: Appears afebrile. Alert and oriented. Mood and affect appropriate. Follows and participates in conversation appropriately. Respiratory effort is unlabored. Able to transition from sit to stand unassisted. Ambulates with bilaterally normal heel strike and toe off. Lead Insertion Site: Lead insertion site are clean, dry, intact. No pathological discharge, no swelling and no erythema. Lead pulled with the tip partially intact. Results Reviewed Results Reviewed: MRI cervical spine 11/13/2023 FINDINGS: ALIGNMENT: Normal. No significant subluxations. CRANIOCERVICAL JUNCTION/C1-C2 ARTICULATIONS: Intact and aligned. VISUALIZED INTRACRANIAL STRUCTURES: Partially empty sella, normal variant. VERTEBRAL BODIES: Vertebral body heights are well maintained. No acute or non-healed fractures. DISC SPACES AND ENDPLATES: Disc desiccation noted at C5-C6 and C6-C7 without significant disc space height loss. Minor anterior marginal endplate spurring at C5-C6. Endplates appear grossly intact. BONE MARROW: No suspicious marrow-replacing process or bone marrow edema. C2-C3: Normal annular contour. No DJD, canal or foraminal stenosis. C3-C4: No disc herniation or canal stenosis. No significant DJD or neural foraminal stenosis. C4-C5: Normal annular contour. Mild facet joint arthropathy noted, left more than right, and uncinate process spurring, with minor foraminal narrowing bilaterally without neural impingement. No canal stenosis. C5-C6: Rqrszvp-yn-pgmb paramedian extruded disc herniation with slight caudal migration, with effacement of the dural sac asymmetric to the left without cord compression. There is associated mild central canal narrowing asymmetric to the left. There is minor facet arthropathy bilaterally and uncinate process spurring with minimal right-sided and wcpu-li-zylpjjzy left-sided neural foraminal narrowing without neural impingement. C6-C7: Left paramedian disc herniation noted with flattening of the ventral dural sac on the left without cord impingement. No significant canal stenosis. Mild facet joint arthropathy noted bilaterally and uncinate process spurring noted with mild right and moderate left-sided neural foraminal stenosis. C7-T1: Tiny central disc protrusion without cord impingement or canal stenosis. Minor facet joint arthropathy noted without significant neural foraminal stenosis. Central disc herniation also noted at T2-T3 without cord impingement or canal stenosis. SPINAL CORD: The cervical and visualized upper thoracic spinal cord is normal in morphology, caliber and signal intensity throughout. EXTRACRANIAL SOFT TISSUES: Incidental note is made of a 1.4 x 0.8 cm enlarged level IIb lymph node on the right of indeterminate significance. Signal voids are noted in the visualized major arterial and venous structures. IMPRESSION: 1. Discogenic degenerative changes at C5-C6 and C6-C7, with central to left paramedian extruded disc herniation at C5-C6 and left paramedian disc herniation at C6-C7 without cord impingement. Mild central canal stenosis noted at C5-C6. 2. Cjwn-wg-nyvyamlb degrees of bony neural foraminal narrowing at C5-C6 and C6-C7 as discussed above, most apparent on the left at C6-C7. 3. Tiny central disc protrusions at C7-T1 and T2-T3. 4. A single enlarged level IIb lymph node in the right suprahyoid IJ chain, which is nonspecific. Follow up as per clinical indications. 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 The right side was removed on 05/15/24. Patient reports ongoing 90% pain relief for both sides of the neck with significant improvement in her AD. Lead insertion sites are clean, dry, intact, no pathological discharge. Area was cleansed with Chloraprep. Left lead pulled with the tip partially intact. Patient will continue to monitor her symptoms and notify our office when her pain returns to baseline. All questions and concerns have been answered and the patient agreed with the plan. Follow up as needed. 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
[2024-05-29 09:36] VITALS: BP 120/71; PULSE 80; O2SAT 99; BMI 34.0
== END 2024-05-29 09:49 | disposition home or self-care (01) ==
PROVIDERS: PCP Internal Medicine; Visit Provider Nurse Practitioner Family
DX: M50.30 Other cervical disc degeneration, unspecified cervical region (principal); G89.4 Chronic pain syndrome; M54.81 Occipital neuralgia; M47.812 Spondylosis without myelopathy or radiculopathy, cervical region
CPT/HCPCS: 99213

== ENCOUNTER → 2024-05-29 09:26 | Outpatient (BNVA) | payer OTHER, SELFPAY | PROVIDERS: PCP Internal Medicine; Visit Provider Nurse Practitioner Family ==

== ENCOUNTER 2024-07-26 08:27 | Outpatient (AMB) | payer OTHER, SELFPAY ==
[2024-07-26 08:31] VITALS: BP 123/77; PULSE 80; O2SAT 98; BMI 34.0
--- NOTE | 2024-07-26 08:31 | A.OFFVIS_ITS ---
Vital Signs 07/26/24 08:31 Height 5 ft 9 in Weight 230 lb BMI 34.0 BP 123/77 Blood Pressure Location Rt brachial Position Sitting Pulse 80 Pulse Source Pulse Oximeter Pulse Oximetry (%) 98 Oxygen Delivery Method Room Air Intake Visit Reasons: FU patient request Allergies No Known Allergies Allergy (Verified 07/26/24 08:31) Medication List - Last Reconciled 07/26/24 by Yeni Cruz buspirone 15 mg PO BID cholecalciferol (vitamin D3) 1,000 units PO DAILY duloxetine (Cymbalta) 60 mg PO DAILY gabapentin 300 mg PO BID ivabradine (Corlanor) 5 mg PO BID lorazepam (Ativan) 1 mg PO DAILY PRN 1 day norethindrone ac-eth estradiol 1.5-30 mg-mcg () 1 tab PO DAILY norethindrone-e.estradiol-iron 1 mg-20 mcg ()/75 mg () ( FE 10/09 ()) tabs PO onabotulinumtoxinA (Botox) IM ondansetron HCl 4 mg PO Q8H 25 days pantoprazole 20 mg PO BID propranolol 120 mg PO ONCE propranolol ER 120 mg PO DAILY HPI Comments Details: Mandi is very pleasant 29 years old female who is suffering from severe spondylosis of the cervical spine, 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 She is also suffering from chronic pain syndrome. She had very good results of the sprint PNS, she felt 90% pain improvement while on stimulation. However when she terminated the stimulation the pain relief lasted only for 6-7 weeks. Now she reports that her pain is back to pre stimulation level, she reports her pain today 8 to 9/10. We discussed possibility of further treatment. I offered the patient to perform a trial of curonix PNS at the C4 positioned bilateral. The patient went through the psychological evaluation before therefore she can not go for a trial right away. Prior: chronic widespread neck pain as well as pain in the back of the head as well as pain in bilateral shoulders pain in bilateral side chest and pain in bilateral upper arms. History of Meenakshi-Danlos syndrome. MRI as below demonstrates severe spondylosis, some disc herniation but without central canal compression or spinal nerve root compressions. Patient denies radiculopathic pain. The patient pain is mostly axial and mostly secondary to hyper mobile yandy nts of the cervical spine. She reports intractable cervicalgia pain 04/29, pain is being aggravated by working, prolonged sitting of the computer, her pain is mostly radiating to the occipital area and prevents her from performing activities of daily living, engaging in social interactions. Her past medical history significant for headaches dizziness and fainting fatigues anxiety disorder heart palpitations and digestive problems. Her past surgical history significant for tonsillectomy and bilateral jaw arthroscopy. She denies smoking cigarettes, drinking alcohol also denied she drinks 1-2 caffeinated beverages a week she denies recreational drugs Review of Systems Const All systems reviewed & are unremarkable except as noted in HPI and below ENT Reports Normal hearing present Neuro Reports Normal hearing present, Denies Abnormal speech present, Denies confusion and Denies Sensory deficit (Neuro) Psych Denies confusion Physical Exam Vital Signs: Last Vital Signs Pulse 80 07/26/24 08:31 BP 123/77 07/26/24 08:31 Pulse Ox 98 07/26/24 08:31 Oxygen Delivery Method Room Air 07/26/24 08:31 BMI result Body Mass Index 34.0 Const General: no acute distress; No confusion Orientation/consciousness: patient oriented x3 and No confusion Eyes General: appearance normal, both eyes and all related structures Pupils: Equal, round and reactive pupils present EOM: EOMs intact bilaterally Neck Other: Axial neck compression and axial neck distention minimal affects her pain. Flexing had backwards aggravate her pain more than flexing forward but both of these maneuvers aggravate her pain. Spurling test on the right causes pain radiating all the way down to the right upper extremity all the way to the index finger C7 distribution. Valsalva maneuver does not aggravate her pain. Chest Chest palpation & inspection: normal inspection of the chest Resp Effort & Inspection: normal respiratory effort, able to speak in complete sentences, normal respiratory pattern, no audible wheezes and no cough Cardio Jugular venous distension: no JVD GI Inspection: Yes normal to inspection Neuro General: patient oriented x3, gait normal and No confusion Cranial nerves: Yes CN's II-XII intact bilaterally, Yes Equal, round and reactive pupils present, Yes Normal hearing present and Yes Ability to bilaterally elevate shoulders present Speech: No Abnormal speech present Gait exam (Neuro): Normal gait present Motor exam (neuro): 5/5 motor strength present throughout Sensory Exam: No Sensory deficit (Neuro) Extrem General: No pedal edema Psych Speech and movement: Normal speech and movement present Affect: normal affect Attitude: cooperative Thought process: Normal thought process present Thought content: Normal thought content present Insight: Good insight present (Psych) Judgement: Good judgement present (Psych) Results Reviewed Results Reviewed: MRI cervical spine 11/13/2023 FINDINGS: ALIGNMENT: Normal. No significant subluxations. CRANIOCERVICAL JUNCTION/C1-C2 ARTICULATIONS: Intact and aligned. VISUALIZED INTRACRANIAL STRUCTURES: Partially empty sella, normal variant. VERTEBRAL BODIES: Vertebral body heights are well maintained. No acute or non-healed fractures. DISC SPACES AND ENDPLATES: Disc desiccation noted at C5-C6 and C6-C7 without significant disc space height loss. Minor anterior marginal endplate spurring at C5-C6. Endplates appear grossly intact. BONE MARROW: No suspicious marrow-replacing process or bone marrow edema. C2-C3: Normal annular contour. No DJD, canal or foraminal stenosis. C3-C4: No disc herniation or canal stenosis. No significant DJD or neural foraminal stenosis. C4-C5: Normal annular contour. Mild facet joint arthropathy noted, left more than right, and uncinate process spurring, with minor foraminal narrowing bilaterally without neural impingement. No canal stenosis. C5-C6: Fpwhmvv-hr-hbpi paramedian extruded disc herniation with slight caudal migration, with effacement of the dural sac asymmetric to the left without cord compression. There is associated mild central canal narrowing asymmetric to the left. There is minor facet arthropathy bilaterally and uncinate process spurring with minimal right-sided and tgpp-zp-oodqmkte left-sided neural foraminal narrowing without neural impingement. C6-C7: Left paramedian disc herniation noted with flattening of the ventral dural sac on the left without cord impingement. No significant canal stenosis. Mild facet joint arthropathy noted bilaterally and uncinate process spurring noted with mild right and moderate left-sided neural foraminal stenosis. C7-T1: Tiny central disc protrusion without cord impingement or canal stenosis. Minor facet joint arthropathy noted without significant neural foraminal stenosis. Central disc herniation also noted at T2-T3 without cord impingement or canal stenosis. SPINAL CORD: The cervical and visualized upper thoracic spinal cord is normal in morphology, caliber and signal intensity throughout. EXTRACRANIAL SOFT TISSUES: Incidental note is made of a 1.4 x 0.8 cm enlarged level IIb lymph node on the right of indeterminate significance. Signal voids are noted in the visualized major arterial and venous structures. IMPRESSION: 1. Discogenic degenerative changes at C5-C6 and C6-C7, with central to left paramedian extruded disc herniation at C5-C6 and left paramedian disc herniation at C6-C7 without cord impingement. Mild central canal stenosis noted at C5-C6. 2. Lail-mp-rlkhumrt degrees of bony neural foraminal narrowing at C5-C6 and C6-C7 as discussed above, most apparent on the left at C6-C7. 3. Tiny central disc protrusions at C7-T1 and T2-T3. 4. A single enlarged level IIb lymph node in the right suprahyoid IJ chain, which is nonspecific. Follow up as per clinical indications. Assessment & Plan Assessment & Plan (1) Degeneration, intervertebral disc, cervical: Code(s): M50.30 - Other cervical disc degeneration, unspecified cervical region Category: Medical (2) Chronic pain syndrome: Code(s): G89.4 - Chronic pain syndrome Category: Medical (3) Occipital neuralgia: Code(s): M54.81 - Occipital neuralgia Category: Medical (4) Spondylosis of cervical spine at multiple levels without myelopathy: Code(s): M47.812 - Spondylosis without myelopathy or radiculopathy, cervical region Category: Medical Plan Initial good results of sprint PNS however the pain relief lasted only few weeks after the removal of the wires. See discussion as above. Curonix PNS was offered to the patient. Patient wants to go for a trial of curonix 1st, we will accommodate that I will schedule the trial under minimal sedation. I will see this patient after the trial to assess the results. Patient Instructions: I here by testify that I spent 32 minutes in conversation with this patient as well as planning her care and organizing this note. Coding Level of Care Code Est Pt Level 4 (76448) Diagnoses Degeneration, intervertebral disc, cervical M50.30 Chronic pain syndrome G89.4 Occipital neuralgia M54.81 Spondylosis of cervical spine at multiple levels without myelopathy M47.812
== END 2024-07-26 08:51 | disposition home or self-care (01) ==
LOC: HO.PMC 08:27
PROVIDERS: PCP Internal Medicine; Visit Provider Anesthesiology
DX: M50.30 Other cervical disc degeneration, unspecified cervical region (principal); G89.4 Chronic pain syndrome; M54.81 Occipital neuralgia; M47.812 Spondylosis without myelopathy or radiculopathy, cervical region
CPT/HCPCS: 99214

== ENCOUNTER → 2024-07-26 08:27 | Outpatient (BNVA) | payer OTHER, SELFPAY | PROVIDERS: PCP Internal Medicine; Visit Provider Anesthesiology ==

== ENCOUNTER 2024-09-07 08:40 | Outpatient (AMB) | payer OTHER, SELFPAY ==
--- OUTSIDE RECORDS SUMMARY | 2024-09-07 08:57 | XMS_ITS | Continuity of Care Document ---
Author Organization [facility] Address [address] [address] Phone Care Team Providers Care Wood Bucker Name Role Phone Cindy Orozco MD Unavailable Unavailable Allergies, Adverse Reactions, Alerts Substance Reaction Status Criticality sumatriptan Active No Information Medications Medication Instructions Dosage Effective Dates (start - stop) Status Comments OXYCODONE HCL (unknown strength) Not Available - Active DEXILANT (unknown strength) Not Available - Active Vitamin D2 50,000 unit capsule - Active PEPTO-BISMOL (unknown strength) Not Available - Active budesonide DR-ER 9 mg tablet,delayed and extended release take 1 tablet by oral route every day in the morning swallowing whole with water. Do not break, crush, dissolve and/or chew. 9 MG - Active Emgality Syringe 120 mg/mL subcutaneous syringe inject (120MG) by subcutaneous route every month in the abdomen, thigh, outer upper arm, or bottocks 120 MG - Active PROPANOLOL - Active sertraline 50 mg tablet take 1 tablet by oral route every day 50 MG - Active Loestrin 1.5/30 (21) 1.5 mg-30 mcg tablet take 1 tablet by oral route every day 1.00 tablet - Active Procedures Procedure Date Refraction Visual Field Examination(s) Imaging Of Optic Nerve Ext./S.Lamp Photo Exam Level IV Visual Field Examination(s) Imaging Of Optic Nerve Exam Level IV Visual Field Examination(s) Imaging Of Optic Nerve Exam Level V Visual Field Examination(s) Imaging Of Optic Nerve Consult Level 5 Visual Field Examination(s) Fundus Disc Photos Advance Directives Directive Yes / No Effective Date File Name No Information Encounters Encounter Description Practice Location Reason(s) For Visit Diagnoses Date Provider Providers Copied on Encounter [facility], [address] [place] [address], [id number], tel: [phone] [facility] No Information 1 Pam White. [address] [place] [address], [facility], . tel: [phone] Referring Provider: Jr Trena Barrios, [facility] [address] [place] [address], [facility]. tel:[phone] [facility], [address] [place] [address], [id number], tel:[phone] [facility] [place] Benign intracranial hypertensionPerio dic headache syndromes in chld/adlt, not intractableTonic pupil, bilateralHypermet ropia, left eyePseudopapilled rahul of optic disc, bilateral Sep- 0 Rudich Cindy. [address] [place] [address], [facility], [place]. tel: [phone] Referring Provider: Jr Trena Barrios, [facility] Of [facility]rology [address] [place] [address], [facility]. tel:[phone] Exam Level IV [facility], [address] [place] [address], [id number], tel:[phone] [facility] [place] Benign intracranial hypertensionPerio dic headache syndromes in chld/adlt, not intractableDrusen of optic disc, left eyePseudopapilled rahul of optic disc, bilateralEhlers-D anlos syndrome, unspecifiedAnisoc oria Fe 0 Rudich Cindy. [address] [place] [address], [address], [place]. tel: [phone] Consulting Provider: Chava Ryan, [address] [place], [address]. tel: [phone] lting Provider: Thierno Jones, [address] [facility] [address], [place], [address]. tel: [phone] lting Provider: Dalton Conte, [address] [facility] [address], [place], [address]. tel: [phone] ring Provider: Jr Trena Barrios, [facility] Of Neurology [address] [place] [address], [id number]. tel: [phone] Exam Level IV [facility], [address] [facility] [address], [place], [id number], [place] tel: [phone] [facility] [place] Benign intracranial hypertensionUnspe cified papilledemaPeriod ic headache syndromes in chld/adlt, not intractableDrusen of optic disc, left eyePseudopapilled rahul of optic disc, bilateralEhlers-D anlos syndrome, unspecified 201 9 Pam White. [address] [facility], [address], [place], [address], [place]. tel: [phone] Consulting Provider: Chava Ryan, [address] [place], [address]. tel: [phone] lting Provider: Thierno Jones, [address] [facility] [address], [place], [address]. tel: [phone] lting Provider: Dalton Conte, [address] [facility] [address], [place], [address]. tel: [phone] ring Provider: Jr Trena Barrios, [facility] Of Neurology [address] [place] [address], [id number]. tel: [phone] Exam Level V [facility], [address] [facility] [address], [place], [id number], [place] tel: [phone] [facility] [place] Benign intracranial hypertensionUnspe cified papilledemaPeriod ic headache syndromes in chld/adlt, not intractableDrusen of optic disc, left eye 9 Pam White. [address] [place] [address], [address], [address], [place]. tel: [phone] Referring Provider: Jr Trena Barrios, [facility] Of Neurology [address] [place] [address], [id number]. [phone] Consult Level 5 [facility], [address] [place], [place] [address], [id number], [place] tel:[phone] [facility] [place] Benign intracranial hypertensionPerio dic headache syndromes in chld/adlt, not intractableUnspec ified papilledema 9 Pam White. [address] [facility], [address], [address], [place]. tel: [phone] Family History Family Member Type Diagnosis Age At Onset Father Problem (finding) Hasimoto's disease Mother Problem (finding) Family history of Hasim bennie's disease Father Problem (finding) Cristal Parkinson White Payers Payer name Insurance type Covered democrat ID Authoriza tion(s) BS National Plan BL [id number] Social History Type Description Quantity Date Captured Comments Sex Female Smoking Status No Information Chief Complaint And Reason For Visit No Information Plan Of Treatment Date Type Action Status No Information History Of Present Illness Encounter Date Complaint History Of Prese nt Illness No Information Instructions Date Instruction Additional Infor mation No Information Assessments Type Assessment Date No Information
--- NOTE | 2024-09-07 09:03 | A.OFFVIS_ITS ---
Vital Signs 09/07/24 09:04 Height 5 ft 9 in Weight 233 lb BMI 34.4 BP 111/75 Blood Pressure Location Lt brachial Position Sitting Pulse 85 Pulse Source Pulse Oximeter Pulse Oximetry (%) 97 Oxygen Delivery Method Room Air Intake Visit Reasons: PNS Education and Discussion of Risks/Benefits Allergies No Known Allergies Allergy (Verified 09/07/24 09:04) Medication List - Last Reconciled 09/07/24 by Rubi Chavez, WELDING ENGINEER buspirone 15 mg PO BID cholecalciferol (vitamin D3) 1,000 units PO DAILY duloxetine (Cymbalta) 60 mg PO DAILY gabapentin 300 mg PO BID ivabradine (Corlanor) 5 mg PO BID lorazepam (Ativan) 1 mg PO DAILY PRN 1 day norethindrone ac-eth estradiol 1.5-30 mg-mcg () 1 tab PO DAILY norethindrone-e.estradiol-iron 1 mg-20 mcg ()/75 mg () ( FE 10/09 ()) tabs PO onabotulinumtoxinA (Botox) IM ondansetron HCl 4 mg PO Q8H 25 days pantoprazole 20 mg PO BID propranolol 120 mg PO ONCE propranolol ER 120 mg PO DAILY HPI Comments Details: Mandi is very pleasant 29 years old female who is suffering from severe spondylosis of the cervical spine, 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 She is also suffering from chronic pain syndrome. She had very good results of the sprint PNS, she felt 90% pain improvement while on stimulation. However when she terminated the stimulation the pain relief lasted only for 6-7 weeks. She reports today that her pain average 6/10 with exacerbations to 8/10 at the current moment while resting in the waiting room her pain was 4/10. She came here in the office to discuss treatment of the curonix PNS at the C4 positioned bilateral. She went through psychological evaluation and she was approved for the procedure from psychological standpoint. Risks and benefits of the procedure were explained to the patient. The trial as well as implantation were carefully explained to the patient. Risks were mentioned as the bleeding, infection, peripheral nerve damage, spinal cord damage and headache. Into the patient and all the risks are very minimal but they can not be 100% excluded. Benefits will be the pain relief. The education continued today to explain the patient mobility limitations and activities of daily living limitations postoperatively including no neck flexing bending sharp turning sideways no heavy lifting more than 5 lb by both hands. The education also involved discussion about her job and her ability to reach the job side. We agreed that I will give her for the trial. Couple of days off of work excuse note. The patient expressed understanding. The patient asked multiple appropriate questions. All the questions were answered to her satisfaction. Postoperative pain control after the implantation of the permanent device provided the trial will go well was also explained to the patient. Prior: chronic widespread neck pain as well as pain in the back of the head as well as pain in bilateral shoulders pain in bilateral side chest and pain in bilateral upper arms. History of Meenakshi-Danlos syndrome. MRI as below demonstrates severe spondylosis, some disc herniation but without central canal compression or spinal nerve root compressions. Patient denies radiculopathic pain. The patient pain is mostly axial and mostly secondary to hyper mobile joints of the cervical spine. She reports intractable cervicalgia pain 8/10, pain is being aggravated by working, prolonged sitting of the computer, her pain is mostly radiating to the occipital area and prevents her from performing activities of daily living, engaging in social interactions. Her past medical history significant for headaches dizziness and fainting fatigues anxiety disorder heart palpitations and digestive problems. Her past surgical history significant for tonsillectomy and bilateral jaw arthroscopy. She denies smoking cigarettes, drinking alcohol also denied she drinks 1-2 caffeinated beverages a week she denies recreational drugs Review of Systems Const All systems reviewed & are unremarkable except as noted in HPI and below ENT Reports Normal hearing present Neuro Reports Normal hearing present, Denies Abnormal speech present, Denies confusion and Denies Sensory deficit (Neuro) Psych Denies confusion Physical Exam Vital Signs: Last Vital Signs Pulse 85 09/07/24 09:04 BP 111/75 09/07/24 09:04 Pulse Ox 97 09/07/24 09:04 Oxygen Delivery Method Room Air 09/07/24 09:04 BMI result Body Mass Index 34.4 Const General: no acute distress; No confusion Orientation/consciousness: patient oriented x3 and No confusion Eyes General: appearance normal, both eyes and all related structures Pupils: Equal, round and reactive pupils present EOM: EOMs intact bilaterally Neck Other: Axial neck compression and axial neck distention minimal affects her pain. Flexing had backwards aggravate her pain more than flexing forward but both of these maneuvers aggravate her pain. Spurling test on the right causes pain radiating all the way down to the right upper extremity all the way to the index finger C7 distribution. Valsalva maneuver does not aggravate her pain. Chest Chest palpation & inspection: normal inspection of the chest Resp Effort & Inspection: normal respiratory effort, able to speak in complete sentences, normal respiratory pattern, no audible wheezes and no cough Cardio Jugular venous distension: no JVD GI Inspection: Yes normal to inspection Neuro General: patient oriented x3, gait normal and No confusion Cranial nerves: Yes CN's II-XII intact bilaterally, Yes Equal, round and reactive pupils present, Yes Normal hearing present and Yes Ability to bilaterally elevate shoulders present Speech: No Abnormal speech present Gait exam (Neuro): Normal gait present Motor exam (neuro): 5/5 motor strength present throughout Sensory Exam: No Sensory deficit (Neuro) Extrem General: No pedal edema Psych Speech and movement: Normal speech and movement present Affect: normal affect Attitude: cooperative Thought process: Normal thought process present Thought content: Normal thought content present Insight: Good insight present (Psych) Judgement: Good judgement present (Psych) Assessment & Plan Assessment & Plan (1) Degeneration, intervertebral disc, cervical: Code(s): M50.30 - Other cervical disc degeneration, unspecified cervical region Category: Medical (2) Chronic pain syndrome: Code(s): G89.4 - Chronic pain syndrome Category: Medical (3) Occipital neuralgia: Code(s): M54.81 - Occipital neuralgia Category: Medical (4) Spondylosis of cervical spine at multiple levels without myelopathy: Code(s): M47.812 - Spondylosis without myelopathy or radiculopathy, cervical region Category: Medical Plan Initial good results of sprint PNS however the pain relief lasted only few weeks after the removal of the wires. Curonix PNS was offered to the patient. Discussion of the procedure and education about the procedure was performed today. Patient wants to go for a trial of curonix 1st, we will accommodate that I will schedule the trial under minimal sedation. I will see this patient after the trial to assess the results. Patient Instructions: I here by testify that I spent 35 minutes in conversation with this patient as well as planning her care and organizing this note. Coding Level of Care Code Est Pt Level 4 (22665) Diagnoses Degeneration, intervertebral disc, cervical M50.30 Chronic pain syndrome G89.4 Occipital neuralgia M54.81 Spondylosis of cervical spine at multiple levels without myelopathy M47.812
[2024-09-07 09:04] VITALS: BP 111/75; PULSE 85; O2SAT 97; BMI 34.4
== END 2024-09-07 09:24 | disposition home or self-care (01) ==
PROVIDERS: PCP Internal Medicine; Visit Provider Anesthesiology
DX: M50.30 Other cervical disc degeneration, unspecified cervical region (principal); G89.4 Chronic pain syndrome; M54.81 Occipital neuralgia; M47.812 Spondylosis without myelopathy or radiculopathy, cervical region
CPT/HCPCS: 99214

== ENCOUNTER → 2024-09-07 08:40 | Outpatient (BNVA) | payer OTHER, SELFPAY | PROVIDERS: PCP Internal Medicine; Visit Provider Anesthesiology ==

== ENCOUNTER → 2024-10-20 08:55 | Outpatient (BNV) | payer OTHER, SELFPAY | PROVIDERS: PCP Internal Medicine; Visit Provider Anesthesiology | DX: M54.81 Occipital neuralgia (principal); M50.30 Other cervical disc degeneration, unspecified cervical region | CPT/HCPCS: 64555 ==

== ENCOUNTER 2024-11-02 13:50 | Outpatient (AMB) | payer OTHER, SELFPAY ==
--- NOTE | 2024-11-02 13:52 | MHC.OFFVIS ---
Vital Signs 11/02/24 13:54 Height 5 ft 9 in Weight 231 lb BMI 34.1 BP 136/77 Blood Pressure Location Rt brachial Position Sitting Pulse 90 Pulse Source Pulse Oximeter Pulse Oximetry (%) 97 Oxygen Delivery Method Room Air Intake Visit Reasons: S/p (R) Curonix C4 PNS Impl 10/20/24 (2nd Visit) Allergies No Known Allergies Allergy (Verified 11/02/24 13:56) HPI Comments Details: Mandi is back in my office after implantation of PNS curonix in bilateral C3 cervical positioned. She is still working on stimulation with curonix technical account representative today. She complains on spastic sensation on the left side of her neck however she stated that when she applied her cervical collar more tight the spastic sensation became better. Dressing was changed today,the yenni were removed , the wounds were washed with ChloraPrep and sterile Tegaderm was applied. There is no redness, no pathological discharge, no swelling, minimal tenderness on palpation. 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 She is also suffering from chronic pain syndrome. She had very good results of the sprint PNS, she felt 90% pain improvement while on stimulation. However when she terminated the stimulation the pain relief lasted only for 6-7 weeks. She reports today that her pain average 6/10 with exacerbations to 8/10 at the current moment while resting in the waiting room her pain was 4/10. She came here in the office to discuss treatment of the curonix PNS at the C4 positioned bilateral. She went through psychological evaluation and she was approved for the procedure from psychological standpoint. Risks and benefits of the procedure were explained to the patient. The trial as well as implantation were carefully explained to the patient. Risks were mentioned as the bleeding, infection, peripheral nerve damage, spinal cord damage and headache. Into the patient and all the risks are very minimal but they can not be 100% excluded. Benefits will be the pain relief. The education continued today to explain the patient mobility limitations and activities of daily living limitations postoperatively including no neck flexing bending sharp turning sideways no heavy lifting more than 5 lb by both hands. The education also involved discussion about her job and her ability to reach the job side. We agreed that I will give her for the trial. Couple of days off of work excuse note. The patient expressed understanding. The patient asked multiple appropriate questions. All the questions were answered to her satisfaction. Postoperative pain control after the implantation of the permanent device provided the trial will go well was also explained to the patient. Prior: chronic widespread neck pain as well as pain in the back of the head as well as pain in bilateral shoulders pain in bilateral side chest and pain in bilateral upper arms. History of Meenakshi-Danlos syndrome. MRI as below demonstrates severe spondylosis, some disc herniation but without central canal compression or spinal nerve root compressions. Patient denies radiculopathic pain. The patient pain is mostly axial and mostly secondary to hyper mobile joints of the cervical spine. She reports intractable cervicalgia pain 8/, pain is being aggravated by working, prolonged sitting of the computer, her pain is mostly radiating to the occipital area and prevents her from performing activities of daily living, engaging in social interactions. Her past medical history significant for headaches dizziness and fainting fatigues anxiety disorder heart palpitations and digestive problems. Her past surgical history significant for tonsillectomy and bilateral jaw arthroscopy. She denies smoking cigarettes, drinking alcohol also denied she drinks 1-2 caffeinated beverages a week she denies recreational drugs [facility] Medical History POTS (postural orthostatic tachycardia syndrome) Meenakshi-Danlos syndrome Occipital neuralgia Intractable back pain GERD (gastroesophageal reflux disease) Cervical disc disease Surgical History History of mandibular surgery Hx of tonsillectomy Social History Patient Tobacco Use Status: Never used Tobacco Review of Systems Const All systems reviewed & are unremarkable except as noted in HPI and below ENT Reports Normal hearing present Neuro Reports Normal hearing present, Denies Abnormal speech present, Denies confusion and Denies Sensory deficit (Neuro) Psych Denies confusion Physical Exam Vital Signs: Last Vital Signs Pulse 90 11/02/24 13:54 BP 136/77 11/02/24 13:54 Pulse Ox 97 11/02/24 13:54 Oxygen Delivery Method Room Air 11/02/24 13:54 BMI result Body Mass Index 34.1 Const General: no acute distress; No confusion Nutritional Appearance: well nourished and obese Orientation/consciousness: patient oriented x3 and No confusion Eyes General: appearance normal, both eyes and all related structures Pupils: Equal, round and reactive pupils present EOM: EOMs intact bilaterally Neck Other: Axial neck compression and axial neck distention minimal affects her pain. Flexing had backwards aggravate her pain more than flexing forward but both of these maneuvers aggravate her pain. Spurling test on the right causes pain radiating all the way down to the right upper extremity all the way to the index finger C7 distribution. Valsalva maneuver does not aggravate her pain. Chest Chest palpation & inspection: normal inspection of the chest Resp Effort & Inspection: normal respiratory effort, able to speak in complete sentences, normal respiratory pattern, no audible wheezes and no cough Cardio Jugular venous distension: no JVD GI Inspection: Yes normal to inspection Neuro General: patient oriented x3, gait normal and No confusion Cranial nerves: Yes CN's II-XII intact bilaterally, Yes Equal, round and reactive pupils present, Yes Normal hearing present and Yes Ability to bilaterally elevate shoulders present Speech: No Abnormal speech present Gait exam (Neuro): Normal gait present Motor exam (neuro): 5/5 motor strength present throughout Sensory Exam: No Sensory deficit (Neuro) Extrem General: No pedal edema Psych Speech and movement: Normal speech and movement present Affect: normal affect Attitude: cooperative Thought process: Normal thought process present Thought content: Normal thought content present Insight: Good insight present (Psych) Judgement: Good judgement present (Psych) Assessment & Plan Assessment & Plan (1) Degeneration, intervertebral disc, cervical: Code(s): M50.30 - Other cervical disc degeneration, unspecified cervical region Category: Medical (2) Chronic pain syndrome: Code(s): G89.4 - Chronic pain syndrome Category: Medical (3) Occipital neuralgia: Code(s): M54.81 - Occipital neuralgia Category: Medical (4) Spondylosis of cervical spine at multiple levels without myelopathy: Code(s): M47.812 - Spondylosis without myelopathy or radiculopathy, cervical region Category: Medical Plan Initial good results of sprint PNS however the pain relief lasted only few weeks after the removal of the wires. Curonix PNS was offered to the patient. She went for the procedure and recovering from the implantation now. Dressing changes as above. [place] are removed today the patient is healing very well. Curonix representatives are working on stimulation with the patient. When she will settle down with her stimulation parameters she would need to give me a call and schedule follow-up appointment. After that appointment are as needed. Coding Level of Care Code Est Pt Level 3 (97202) Diagnoses Degeneration, intervertebral disc, cervical M50.30 Chronic pain syndrome G89.4 Occipital neuralgia M54.81 Spondylosis of cervical spine at multiple levels without myelopathy M47.812
--- OUTSIDE RECORDS SUMMARY | 2024-11-02 13:53 | XMS_ITS | Encounter Summary ---
Author Organization [facility] Address [address] [place] [id number] Care Team Providers Care Brass Roller Name Role Phone Angie Chapman MD Primary Care Provider + Encounter Details Date Type Department Care Team (Late st Contact Info) Description 12/27/2020 Scanned Document [facility] at [address] [place] [id number] External, Provider Social History Tobacco Use Types Packs/Day Years Used Date Smoking Tobacco: Never Smokeless Tobacco: Never Alcohol Use Standard Drinks/Week Comments Never 0 (1 standard drink = 0.6 oz pur e alcohol) AUDIT-C Answer Date Recorded Frequency of Alcohol Consumption Never 08/10/2019 Average Number of Drinks Not on file 019 Frequency of Binge Drinking Not on file 07/22 PHQ-2 Answer Date Recorded PHQ-2 Total Score 0 06/26/2020 Comments No Sex and Gender Information Value Date Recorded Sex Assigned at Not on file Legal Sex Female 11:58 AM EDT Gender Identity Not on file Sexual Orientation Not on file documented as of this encounter Plan of Treatment Not on file documented as of this encounter Procedures Procedure Name Priority Date/Time Associated Diagnosis Comments MOTILITY STUDY, ESOPHAGEAL Routine 11/23/2018 documented in this encounter Results * Motility study, esophageal (11/23/2018) us Provider External GI PROCEDURE ORDERABLES Final Result documented in this encounter Visit Diagnoses Not on filedocumented in this encounter Additional Health Concerns Assessment Noted Time PHQ-9 Depression Total Score: 0 06/26/20 20 11:46 AM EDT documented as of this encounter Care Teams Brass Roller Relationship Specialty Start Date End Date Angie Chapman MD [address] [id number] PCP - General Internal Medicine 02/18/18 documented as of this encounter
--- OUTSIDE RECORDS SUMMARY | 2024-11-02 13:53 | XMS_ITS | Clinical Summary ---
Author Organization [facility] Address [address] [place] [address] Care Team Providers Care Consumer Advocate Name Role Phone Angie Chapman MD Primary Care Provider + Allergies Active Allergy Reactions Criticality Noted Date Comments Adhesive Tape-Silicones Rash Low 08/21/2019 Very mild, can tolerate IV tape Banana Itching Low 02/21/2018 Oral itching Environmental Allergies Congestion Low 08/21/2019 Sumatriptan Nausea And Vomiting,Palpitation s Medium 02/16/2013 Medications cyclobenzaprine (FLEXERIL) 5 MG tablet Take 5 mg by mouth 3 (three) times daily as needed. 9 Active metoclopramide HCl (REGLAN) 5 MG tablet Take 1 tablet (5 mg total) by mouth 2 (two) times daily as needed. NTE 2 days per week 30 tablet 2 9 Active propranolol (INDERAL LA) 80 mg LA 24 hr extended release capsule Take 80 mg by mouth daily. 9 Active norethindrone-ethi nyl estradiol (MICROGESTIN 10/09) 1-20 mg-mcg per tablet Take 1 tablet by mouth. Active ondansetron (ZOFRAN) 4 mg tablet Take 4 mg by mouth every 8 (eight) hours as needed. Active albuterol sulfate (PROAIR HFA) 90 mcg/actuation HFA aerosol inhaler Inhale 2 puffs into the lungs every 4 (four) hours as needed. Active lidocaine (XYLOCAINE) 2 % jellyIndications:a nal fissure pain Apply topically as needed. 30 mL 0 Active LO LOESTRIN FE 1 mg-10 mcg (24)/10 mcg (2) per tablet Take 1 tablet by mouth daily. 0 Active cholecalciferol, vitamin D3, (VITAMIN D3) 1,000 unit tablet Take 1,000 Units by mouth daily. Active bismuth subsalicylate (PEPTO BISMOL,KAOPECTATE) 262 mg/15 mL suspension Take 15 mLs by mouth every 6 (six) hours. Active escitalopram oxalate (LEXAPRO) 10 mg tablet TAKE 1 TABLET BY MOUTH EVERY DAY 1 Active galcanezumab-gnlm (EMGALITY PEN) 120 mg/mL pen injector Inject 1 mL (120 mg total) under the skin every 28 days. 1 mL 11 1 Active gabapentin (NEURONTIN) 100 mg capsule Take 2 capsules (200 mg total) by mouth nightly. 60 capsule 6 1 Active pantoprazole (PROTONIX) 40 mg tablet TAKE 1 TABLET BY MOUTH EVERY DAY 90 tablet 1 1 Active Active Problems Problem Noted Date Diagnosed Date Migraine without aura and wi thout status migrainosus, not intractable 12/11/2020 Benign familial hypermobility 06/27/2020 Recurrent dislocation of shoulder, unspecified l aterality 06/27/2020 Anal lesion 03/19/2020 Irregular heartbeat 08/23/2019 Heartburn 08/23/2019 Frequent headaches 08/23/2019 Dizziness 08/23/2019 Anxiety 08/23/2019 Intolerance to heat 08/23/2019 Anemia 08/23/2019 Seasonal allergies 08/23/2019 GERD (gastroesophageal reflux disease) 9 Constipation, unspecified constipation type 05/2019 Resolved Problems Problem Noted Date Diagnosed Date Resolved Date Meenakshi-Danlos syndrome 10/31/201906/27 Social History Tobacco Use Types Packs/Day Years Used Date Smoking Tobacco: Never Smokeless Tobacco: Never Alcohol Use Standard Drinks/Week Comments Never 0 (1 standard drink = 0.6 oz pur e alcohol) AUDIT-C Answer Date Recorded Q1: How often do you have a drink containing alc ohol? Never 02/03/2021 Average Number of Drinks Not on file 021 Frequency of Binge Drinking Not on file 01/18 PHQ-2 Answer Date Recorded PHQ-2 Total Score 0 06/26/2020 Comments No Sex and Gender Information Value Date Recorded Sex Assigned at Not on file Legal Sex Female 11:58 AM EDT Gender Identity Not on file Sexual Orientation Not on file Last Filed Vital Signs Vital Sign Reading Time Taken Comments Blood Pressure 122/82 12/11/2020 10:31 AM EDT Pulse 95 12/11/2020 10:31 AM EDT Temperature 37.1 ??C (98.7 ??F) 06/26/2020 11:44 AM E DT Respiratory Rate 20 06/26/2020 11:44 AM EDT Oxygen Saturation 97% 12/11/2020 10:31 AM EDT Inhaled Oxygen Concentration - - Weight 99.8 kg (220 lb) 02/03/2021 11:22 AM EDT Height 175.3 cm (5' 9 ) 03/25/2021 9:46 AM EDT Body Mass Index 32.49 02/03/2021 11:22 AM EDT Plan of Treatment Health Maintenance Due Date Last Done Comments HIV screening 2009 Hepatitis C screening 2014 Tetanus adult (Td q 10,TDAP once) 2016 Cervical cancer screening 2017 Influenza vaccine 04/20/2024 06/20/2018, 06/20/2017 Covid-19 vaccine series (2023- season) 2024 09/27/2020, 09/05/2020 RSV Discussion (1 - 1-dose 7 5+ series) 2071 Meningococcal Vaccine Aged Out No karey jerry eligible based on patient's age to complete this topic Pneumococcal Vaccine Aged Out No long er eligible based on patient's age to complete this topic Insurance [employer] COMMERCIAL [employer]IC COMM[employer]CIAL [employer]IC Care Teams Consumer Advocate Relationship Specialty Start Date End Date Angie Chapman MD [address] [place] [phone] PCP - General Internal Medicine 02/18/18
--- OUTSIDE RECORDS SUMMARY | 2024-11-02 13:53 | XMS_ITS | Encounter Summary ---
Author Organization [facility] Address [address] [place] [address] Care Team Providers Care Cloth Covered Helmet Puller Name Role Phone Angie Chapman MD Primary Care Provider [phone] Encounter Details Date Type Department Care Team (Late st Contact Info) Description 04/29/2021 Refill [facility] [place] - Electrophysiology [address] [place] [id number] Maxwell Cruz MD [address] [place] [address] Social History Tobacco Use Types Packs/Day Years Used Date Smoking Tobacco: Never Smokeless Tobacco: Never Alcohol Use Standard Drinks/Week Comments Not Currently 0 (1 standard drink = 0.6 oz pur e alcohol) AUDIT-C Answer Date Recorded Frequency of Alcohol Consumption Monthly or less 06/01/2019 Average Number of Drinks Not on file 019 Frequency of Binge Drinking Not on file 05/21 Sex and Gender Information Value Date Recorded Sex Assigned at Not on file Gender Identity Not on file Sexual Orientation Not on file documented as of this encounter Plan of Treatment Not on file documented as of this encounter Visit Diagnoses Diagnosis POTS (postural orthostatic tachycardia syndrome) Unspecified tachycardia documented in this encounter Care Teams Cloth Covered Helmet Puller Relationship Specialty Start Date End Date Angie Chapman MD PCP - General Internal Medicine 11/21/18 documented as of this encounter
--- OUTSIDE RECORDS SUMMARY | 2024-11-02 13:53 | XMS_ITS | Encounter Summary ---
Author Organization [facility] Address [address] [id number] Care Team Providers Care Drapery Maker Name Role Phone Angie Chapman MD Primary Care Provider [phone] Reason for Visit * Reason Comments Medication Refill Encounter Details Date Type Department Care Team (Late st Contact Info) Description 04/22/2021 Refill [facility] [place] - Electrophysiology [address] [place] [phone] Maxwell Cruz MD [address] [place] [address] Medication Refill Social History Tobacco Use Types Packs/Day Years [...] tachycardia documented in this encounter Care Teams Drapery Maker Relationship Specialty Start Date End Date Angie Chapman MD PCP - General Internal Medicine 11/21/18 documented as of this encounter
--- OUTSIDE RECORDS SUMMARY | 2024-11-02 13:53 | XMS_ITS | Encounter Summary ---
Author Organization [facility] Address [address] [place] [address] Care Team Providers Care Contact Lens Molder Name Role Phone Angie Chapman MD Primary Care Provider [phone] Encounter Details Date Type Department Care Team (Late st Contact Info) Description 12/26/2020 Scanned Document [address] [place] [phone] Gastroenterology, Scan Social History Tobacco Use Types Packs/Day Years [...] on file Sexual Orientation Not on file COVID-19 Exposure Response Date Recorded In the last month, have you been in contact with someone who was confirmed or suspected to have Coronavirus / COVID-19? No / Unsure 12/10/2020 3:52 PM EDT documented as of this encounter Plan of Treatment Not on file documented as of this encounter Visit Diagnoses Not on filedocumented in this encounter Care Teams Contact Lens Molder Relationship Specialty Start Date End Date Angie Chapman MD PCP - General Internal Medicine 11/21/18 documented as of this encounter
--- OUTSIDE RECORDS SUMMARY | 2024-11-02 13:53 | XMS_ITS | Clinical Summary ---
Author Organization [facility] Address [address] [place] [id number] Care Team Providers Care Protective Signal Repairer Name Role Phone Angie Chapman MD Primary Care Provider [phone] Allergies Active Allergy Reactions Criticality Noted Date Comments Adhesives/Tape Other (See Comments) Low 09/28/2019 rash Banana Itching Low 02/21/2018 Oral itching Sumatriptan GI Intolerance/Nausea/Vomiting,Palp itations Medium 02/16/2013 Medications Medication Sig Dispensed Refills Start Date End Date Status PANTOprazole (PROTONIX) 40 MG EC tablet Take 40 mg by mouth 2 (two) times a day in the morning and the early evening.. Active norethindrone-ethinyl estradiol (LOESTRIN 10/09, ,) 1-20 MG-MCG per tablet Take 1 tablet by mouth daily. Active Galcanezumab-gnlm (EMGALITY) 120 MG/ML Solution Prefilled Syringe Inject 120 Units under the skin every 28 days (4 weeks). Active Budesonide ER 9 MG Tablet SR 24 hr Take 6 mg by mouth daily. Active ergocalciferol (VITAMIN D2,DRISDOL) 59630 units Cap Take 50,000 Units by mouth once a week. Active Cannabis (MARIJUANA) [facility] Prescription Strength Inhale daily. Active cholecalciferol (CHOLECALCIFEROL) 25 MCG (1000 UT) tablet Take 1,000 Units by mouth daily. Active bismuth subsalicylate (PEPTO-BISMOL) 262 MG/15ML suspension Take 524 mg by mouth 2 (two) times a day in the morning and the early evening.. Active escitalopram (LEXAPRO) 10 MG tabletIndications:POTS (postural orthostatic tachycardia syndrome) Take 1 tablet (10 mg total) by mouth daily. 90 tablet 04/29/2021 Active propranolol (INDERAL LA) 120 MG 24 hr capsuleIndications:POT S (postural orthostatic tachycardia syndrome) TAKE 1 CAPSULE BY MOUTH EVERY DAY 90 capsule 01/05/2022 Active Active Problems Problem Noted Date Diagnosed Date Heart palpitations 01/19/2019 Dizziness and giddiness 01/19/2019 GERD with esophagitis 01/19/2019 POTS (postural orthostatic tachycardia syndrome) 01/19/2019 Headache 04/24/2013 Anxiety 04/24/2013 Family History Medical History Relation Name Comments Hypertension Father Sudden Maternal Grandmother Laurie's thyroiditis Mother Relation Name Status Comments Father Alive Maternal Grandmother Mother Alive Social History Tobacco Use Types Packs/Day Years Used Date Smoking Tobacco: Never Smokeless Tobacco: Never Alcohol Use Standard Drinks/Week Comments Not Currently 0 (1 standard drink = 0.6 oz pur e alcohol) AUDIT-C Answer Date Recorded Frequency of Alcohol Consumption Monthly or less 06/01/2019 Average Number of Drinks Not on file Frequency of Binge Drinking Not on file 05/21 Sex and Gender Information Value Date Recorded Sex Assigned at Not on file Gender Identity Not on file Sexual Orientation Not on file Last Filed Vital Signs Vital Sign Reading Time Taken Comments Blood Pressure 113/67 12/10/2020 4:07 PM EDT Pulse 82 12/10/2020 4:07 PM EDT Temperature - - Respiratory Rate - - Oxygen Saturation - - Inhaled Oxygen Concentration - - Weight 105 kg (232 lb) 12/10/2020 4:02 PM EDT Height 175.3 cm (5' 9 ) 09/28/2019 4:01 PM EST Body Mass Index 34.26 09/28/2019 4:01 PM EST Plan of Treatment Health Maintenance Due Date Last Done Comments Hepatitis C Virus Screening 1996 HIV Screening 2009 DTaP/Tdap/Td Vaccines (1 - Tdap) 2015 Hepatitis B Vaccines (1 of 3 - 19+ 3-dose series) 2015 Pap Smear (Ages 21-65) 10/02/2023 10/02/2020 Influenza Vaccine 04/20/2024 06/20/2018, 06/20/2017 COVID-19 Vaccine (3 - 2023-2 5 season) 2024 09/27/2020, 09/05/2020 HPV Vaccines Aged Out No longer eligi ble based on patient's age to complete this topic Pneumococcal Vaccine: Pediatric (0-5 Years) and At-Risk Patients (6 to 49 Years) Aged Out No longer eligible b ased on patient's age to complete this topic Procedures Procedure Name Priority Date/Time Associated Diagnosis Comments THINPREP PAP TEST (MANAGER OF INTERNAL) WITH HPV REFLEX, GC/CT Routine 10/02/2020 11:55 AM EST from Last 3 Months or Most Recently Relevant to Health Maintenance Results * (ABNORMAL) ThinPrep Pap Test (Servomechanism Assembler) with HPV Reflex, GC/CT (10/02/2020 11:55 AM EST) Report Report(A) [employer] [facility] Comment: Final Gynecological Cytology Report ThinPrep Pap Test with HPV Reflex, GC/Chlamydia SPECIMEN ADEQUACY: SATISFACTORY FOR EVALUATION; ENDOCERVICAL/TRANSFORMATION ZONE COMPONENT PRESENT. INTERPRETATION: ATYPICAL SQUAMOUS CELLS OF UNDETERMINED SIGNIFICANCE. Electronically Signed: ??Pavithra Mcclure ??CT (ASCP) Electronically Signed: ??Norma Hahn MD CLINICAL INFORMATION: LMP: NG Clinical History: ??RTN Specimen Source: ??Cervix, Endocervix CPT Codes: 47049, 73604 ICD Codes: Z01.419 Other 10/02/2020 11:5 5 AM EST 10/03/2020 2:39 AM EST Lidya Powers MD PATHOLOGY/CYTOLOGY [facility]ABLES [facility] [address], [place] from Last 3 Months or Most Recently Relevant to Health Maintenance Care Teams Protective Signal Repairer Relationship Specialty Start Date End Date Angie Chapman MD PCP - General Internal Medicine 11/21/18
--- OUTSIDE RECORDS SUMMARY | 2024-11-02 13:53 | XMS_ITS | Encounter Summary ---
Author Organization [facility] [employer] [facility] Address [address] [place] [phone] Care Team Providers Care Plant Maintenance Technician Name Role Phone Angie Chapman MD Primary Care Provider + Encounter Details Date Type Department Care Team (Late st Contact Info) Description 05/31/2019 Abstract [facility] [address] [facility] [address] [facility] [place] [address] Eladia Erazo MD [address] [facility] [place] [phone] Social History Tobacco Use Types Packs/Day Years Used Date Smoking Tobacco: Never Smokeless Tobacco: Never Comments Unknown Sex and Gender Information Value Date Recorded Sex Assigned at Not on file Legal Sex Female 11:58 AM EDT Gender Identity Not on file Sexual Orientation Not on file documented as of this encounter Plan of Treatment Not on file documented as of this encounter Visit Diagnoses Not on filedocumented in this encounter Care Teams Plant Maintenance Technician Relationship Specialty Start Date End Date Angie Chapman MD [address] [place] [phone] PCP - General Internal Medicine 02/18/18 documented as of this encounter
--- OUTSIDE RECORDS SUMMARY | 2024-11-02 13:53 | XMS_ITS | Data Portability ---
Author Organization [place] - [facility], [facility] Address [address] [facility] [place] [address] Assessment No assessment recorded. Plan of Treatment Reminders Order Date Submit Date Provider Last Modified By Organization Details Last Modified Time Details Appointments None recorded. Lab test, urine 2020 021 [email or web address] In-Office Order, Internal Use Only DO Not Attach Compendium DO Not Attach Compendium, Do Not Delete/merge, [id number] 1 09:34:46 surgical pathology study 2020 021 [facility], [address] [place] [address], [id number] 15:57:14 surgical pathology study [address] [facility], [address] [place] [address], [id number] 1 13:08:26 pap, LB + HPV [address] [facility], [address] [place] [address], [facility] 1 09:28:30 bacterial vaginosis + vaginitis panel, vaginal 2020 021 [facility], [address] [place] [address], [facility] 1 15:03:36 urinalysis , dipstick 2020 021 cgrogean In-Office Order, Internal Use Only DO Not Attach Compendium DO Not Attach Compendium, Do Not Delete/merge, [id number] 1 10:11:07 hsv (1+2) igg Ab, serum 2020 021 [facility], [address] [place] [address], [id number] 1 10:44:05 hsv (1+2) igm, serum 2020 021 [facility], [address] [place] [address], [id number] 1 09:28:30 virus, culture, unspecifie d specimen 2020 021 [facility], [address] [place] [address], [id number] 1 15:02:10 pap, LB + HPV 2019 020 [facility], [address] [place] [address], [id number] 0 12:25:57 urinalysis , dipstick 2019 020 cgrogean In-Office Order, Internal Use Only DO Not Attach Compendium DO Not Attach Compendium, Do Not Delete/merge, [id number] 0 14:13:09 bacterial vaginosis + vaginitis panel, vaginal 2017 018 [facility], [address] [place] [address], [id number] 8 14:44:13 urinalysis , dipstick 2017 018 cgrogean In-Office Order, Internal Use Only DO Not Attach Compendium DO Not Attach Compendium, Do Not Delete/merge, [id number] 8 09:53:00 pap, IG + reflex HPV 2017 018 [facility], [address] [place] [address], [id number] 8 13:34:12 HIV 1+2 AB + HIV 1 p24 Ag, qualitativ e immunoassa y, serum 2017 018 [facility], [address] [place] [address], [id number] 8 12:04:12 Referral None recorded. Procedures None recorded. Surgeries None recorded. Imaging None recorded. Medication Orders Lo Loestrin Fe 1 mg-10 mcg (24)/10 mcg (2) tablet 2020 021 [facility], [address] [place], [address], 1 10:11:11 Valtrex 1 gram tablet 2020 021 [id number], [address] [place] [address], [address], 1 10:12:01 Lo Loestrin Fe 1 mg-10 mcg (24)/10 mcg (2) tablet 2019 020 [facility]FACE [facility], [address] [place], [address], 0 14:13:22 Lo Loestrin Fe 1 mg-10 mcg (24)/10 mcg (2) tablet 2017 018 [facility]FACE [id number], [address] [place], [address], 8 09:53:42 Diflucan 150 mg tablet 2017 018 fandino [id number], [address] [place], [address], 0 13:49:50 Patient TargetsNo targets recorded. Patient Instructions Encounter Date Encounter Id Patient Instructions Last Modified By Organization Details Last Modified Time 08/17/2018 [id number] Patient presents for a well woman exam. Her history is unremarkable and her exam is normal. She is less than 26 years old so she has received GC/Chl screening and Pap smear screening as per guidelines of every two years for cytology review with reflex HPV testing if the results are ASCUS. She has been counseled regarding control and safe sex as well as monthly self-breast exams. 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 [email or web address] Not available 08/17/2018 09:30:36 09/27/2019 [id number] cgrogean Not available 09/27 14:13:39 10/02/2020 [id number] cgrogean Not available 10/02/2020 09:53:10 12/04/2020 [id number] abnormal Pap test: care instructions cgrogean Not available 12/04/2020 11:41:40 abnormal Pap test: care instructions cgrogean Not available 12/04/2020 11:41:40 colposcopy: before your procedure cgrogean Not available 12/04/2020 11:41:40 Reason for Referral None Reported. Results Created Date Observation Date Name Description Value Unit Range Abnormal Flag Note LastModifiedBy Organization Detail LastModifiedTime 08/17/20 18 08/18/2018 HIV 1+2 AB + HIV 1 p24 Ag, quali tativ e immun oassa y, serum HIV 1/2 Ag/Ab cmia Nonrea ctive nonrea ctive Resul ts show no evide nce of infec tion by HIV 1/2. If clini mónica indic ated, repea t CMIA or test by nucle ic acid ampli ficat ion. Not Available [facility] [address] [place], [address] 08/18/2018 12:04:12 08/17/20 18 08/18/2018 bacte rial vagin osis + vagin itis panel , vagin al trichomonas vaginalis DNA Negati ve negati ve Not Available [facility] [address] [place], [address] 08/18/2018 14:44:12 08/17/20 18 08/18/2018 bacte rial vagin osis + vagin itis panel , vagin al gardnerella vaginalis DNA Negati ve negati ve Not Available [facility] [address] [place], [address] 08/18/2018 14:44:12 08/17/20 18 08/18/2018 bacte rial vagin osis + vagin itis panel , vagin al sonido species DNA Negati ve negati ve Not Available [facility] [address] [place], [address] 08/18/2018 14:44:12 08/17/20 18 08/19/2018 pap, IG + refle x HPV report GYNEC OLOGI CAROLINE CYTOL OGY SHAKILA T A. THINP REP PAP TEST WITH HPV REFLE X: SPECI MEN ADEQU ACY: SATIS FACTO RY FOR EVALU ATION ; ENDOC ERVIC AL/TR ANSFO RMATI ON ZONE COMPO NENT PRESE NT. INTER PRETA TION: NEGAT KAREN FOR INTRA EPITH ELIAL LESIO N OR MALIG DONNIE . Elect elkin allalbin Maddie d Out By: NATALIE MELENDEZED, CT( CP) CLINI CAROLINE INFOR MATIO N: LMP: NI Z01.4 19 Biops y Date: NI Numbe r of vials /slid es submi tted: 1 Speci men sourc e: CERVI X Abnor mal Pap Date: NI Autom ated presc reeni ng of all liqui d based speci mens is perfo rmed by the ThinP rep Imagi ng Syste m, unles s other ingram state d. The Pap test is a scree tawanda test with an inher ent false negat karen rate. Testi ng perfo rmed at [facility] , [address] [place] [address] CLIA [id number] [id number]. Not Available [facility] [address] [place], [place], [facility] 08/19/2018 13:34:12 08/17/20 18 08/17/2018 urina lysis , dipst ick Leukocytes Negati ve Not Available In-Office Order Internal Use Only DO Not Attach Compendium DO Not Attach Compendium, Do Not Delete/merge, [id number] 08/17/2018 09:36:30 08/17/20 18 08/17/2018 urina lysis , dipst ick Nitrite negati ve Not Available In-Office Order Internal Use Only DO Not Attach Compendium DO Not Attach Compendium, Do Not Delete/merge, [id number] 08/17/2018 09:36:30 08/17/20 18 08/17/2018 urina lysis , dipst ick Urobilinogen Normal : 0.2 mg/dl Not Available In-Office Order Internal Use Only DO Not Attach Compendium DO Not Attach Compendium, Do Not Delete/merge, [id number] 08/17/2018 09:36:30 08/17/20 18 08/17/2018 urina lysis , dipst ick Protein Negati ve Not Available In-Office Order Internal Use Only DO Not Attach Compendium DO Not Attach Compendium, Do Not Delete/merge, [id number] 08/17/2018 09:36:30 08/17/20 18 08/17/2018 urina lysis , dipst ick pH 6.0 Not Available In-Office Order Internal Use Only DO Not Attach Compendium DO Not Attach Compendium, Do Not Delete/merge, [id number] 08/17/2018 09:36:30 08/17/20 18 08/17/2018 urina lysis , dipst ick Blood Negati ve Not Available In-Office Order Internal Use Only DO Not Attach Compendium DO Not Attach Compendium, Do Not Delete/merge, [id number] 08/17/2018 09:36:30 08/17/20 18 08/17/2018 urina lysis , dipst ick Specific [place] 1.030 Not Available In-Off ice Order Internal Use Only DO Not Attach Compendium DO Not Attach Compendium, Do Not Delete/merge, [id number] 08/17/2018 09:36:30 08/17/20 18 08/17/2018 urina lysis , dipst ick Ketone Negati ve Not Available In-Office Order Internal Use Only DO Not Attach Compendium DO Not Attach Compendium, Do Not Delete/merge, [id number] 08/17/2018 09:36:30 08/17/20 18 08/17/2018 urina lysis , dipst ick Bilirubin Negati ve Not Available In-Office Order Internal Use Only DO Not Attach Compendium DO Not Attach Compendium, Do Not Delete/merge, 08/17/2018 09:36:30 08/17/20 18 08/17/2018 urina lysis , dipst ick Glucose Negati ve Not Available In-Office Order Internal Use Only DO Not Attach Compendium DO Not Attach Compendium, Do Not Delete/merge, [id number] 08/17/2018 09:36:30 09/27/19 20 09/27/2019 urina lysis , dipst ick Leukocytes Negati ve Not Available In-Office Order Internal Use Only DO Not Attach Compendium DO Not Attach Compendium, Do Not Delete/merge, 09/21/2019 13:38:33 09/27/1909/27/2019 urina lysis , dipst ick Nitrite negati ve Not Available In-Office Order Internal Use Only DO Not Attach Compendium DO Not Attach Compendium, Do Not Delete/merge, 09/21/2019 13:38:33 09/27/1909/27/2019 urina lysis , dipst ick Urobilinogen Normal : 0.2 mg/dl Not Available In-Office Order Internal Use Only DO Not Attach Compendium DO Not Attach Compendium, Do Not Delete/merge, 09/21/2019 13:38:33 09/27/1909/27/2019 urina lysis , dipst ick Protein Trace Not Available In-Office Order Internal Use Only DO Not Attach Compendium DO Not Attach Compendium, Do Not Delete/merge, 09/21/2019 13:38:33 09/27/1909/27/2019 urina lysis , dipst ick pH 6.0 Not Available In-Office Order Internal Use Only DO Not Attach Compendium DO Not Attach Compendium, Do Not Delete/merge, 09/21/2019 13:38:33 09/27/1909/27/2019 urina lysis , dipst ick Blood Negati ve Not Available In-Office Order Internal Use Only DO Not Attach Compendium DO Not Attach Compendium, Do Not Delete/merge, 09/21/2019 13:38:33 09/27/1909/27/2019 urina lysis , dipst ick Specific [place] 1.020 Not Available In-Off ice Order Internal Use Only DO Not Attach Compendium DO Not Attach Compendium, Do Not Delete/merge, 09/21/2019 13:38:33 09/27/1909/27/2019 urina lysis , dipst ick Ketone Small: 15 Not Available In-Office Order Internal Use Only DO Not Attach Compendium DO Not Attach Compendium, Do Not Delete/merge, 09/21/2019 13:38:33 09/27/19 20 09/27/2019 urina lysis , dipst ick Bilirubin Negati ve Not Available In-Office Order Internal Use Only DO Not Attach Compendium DO Not Attach Compendium, Do Not Delete/merge, [id number] 09/21/2019 13:38:33 09/27/19 20 09/27/2019 urina lysis , dipst ick Glucose Negati ve Not Available In-Office Order Internal Use Only DO Not Attach Compendium DO Not Attach Compendium, Do Not Delete/merge, [id number] 09/21/2019 13:38:33 09/27/19 20 09/27/2019 urina lysis , dipst ick Appearance Clear Not Available In-Offi ce Order Internal Use Only DO Not Attach Compendium DO Not Attach Compendium, Do Not Delete/merge, 09/21/2019 13:38:33 09/27/19 20 09/27/2019 urina lysis , dipst ick Color Dark Yellow Not Available In-Office Order Internal Use Only DO Not Attach Compendium DO Not Attach Compendium, Do Not Delete/merge, 09/21/2019 13:38:33 09/28/1910/04/2019 pap, LB + CT/NG + refle x HPV mRNA E6/E7 clinical information: None given normal Not Available [facility] [address], [address], 10/04/2019 12:25:57 09/28/19 20 10/04/2019 pap, LB + CT/NG + refle x HPV mRNA E6/E7 LMP: NONE GIVEN normal Not Available [facility] [place] [facility] [address], [address], 10/04/2019 12:25:57 09/28/19 20 10/04/2019 pap, LB + CT/NG + refle x HPV mRNA E6/E7 prev. Pap: NONE GIVEN normal Not Available [facility] [address], [address], 10/04/2019 12:25:57 09/28/19 20 10/04/2019 pap, LB + CT/NG + refle x HPV mRNA E6/E7 prev. BX: NONE GIVEN normal Not Available [facility] [place] [facility] [address] [place], [address], 10/04/2019 12:25:57 09/28/19 20 10/04/2019 pap, LB + CT/NG + refle x HPV mRNA E6/E7 source: Cervix normal Not Available [facility] [place] [facility] [address] [place], [place], [address], 10/04/2019 12:25:57 09/28/19 20 10/04/2019 pap, LB + CT/NG + refle x HPV mRNA E6/E7 statement of adequacy: normal Satis facto ry for evalu ation . Endoc ervic al/tr ansfo rmati on zone compo nent prese nt. Not Available [facility] [place] [facility] [address] [place], [place], [address], 10/04/2019 12:25:57 09/28/19 20 10/04/2019 pap, LB + CT/NG + refle x HPV mRNA E6/E7 interpretati on/result: normal Negat karen for intra epith elial lesio n or malcharo donnie . Not Available [facility] [place] [facility] [address] [place], [place], [address], 10/04/2019 12:25:57 09/28/19 20 10/04/2019 pap, LB + CT/NG + refle x HPV mRNA E6/E7 comment: normal This Pap test has been evalu ated with compu ter colt cuca techn ology . Not Available [facility] [address] [place], [place], [address], 10/04/2019 12:25:57 09/28/19 20 10/04/2019 pap, LB + CT/NG + refle x HPV mRNA E6/E7 cytotechnolo gist: normal JH, CT( CP) CT scree tawanda locat ion: [facility] [address] [facility] [address], [place] [address] Not Available [facility] [place] [facility] [address] [place], [place], [address], 10/04/2019 12:25:57 09/28/19 20 10/04/2019 pap, LB + CT/NG + refle x HPV mRNA E6/E7 comment EXPLA NATOR Y NOTE: The Pap is a scree tawanda test for cervi caroline cance r. It is not a diagn ostic test and is subje ct to false negat karen and false posit karen resul ts. It is most relia ble when a satis facto ry sampl e, regul ben obtai lisa, is submi tted with relev ant clini caroline findi ngs and histo ry, and when the Pap resul t is evalu ated along with histo nu and curre nt clini caroline infor matio n. Not Available [facility] [place] [facility] [address], [place], [address], 10/04/2019 12:25:57 09/28/19 20 10/04/2019 pap, LB + CT/NG + refle x HPV mRNA E6/E7 chlamydia trachomatis RNA, tma, urogenital NOT DETECT ED not detect ed normal Not Available [facility] [place] [facility] [address], [place], [address], 10/04/2019 12:25:57 09/28/19 20 10/04/2019 pap, LB + CT/NG + refle x HPV mRNA E6/E7 neisseria gonorrhoeae RNA, tma, urogenital NOT DETECT ED not detect ed normal Not Available [facility] [place] [facility] [address], [place], [address], 10/04/2019 12:25:57 09/28/19 20 10/04/2019 pap, LB + CT/NG + refle x HPV mRNA E6/E7 comment This test was perfo rmed using the APTIM A COMBO 2 Assay ([employer] . The teressa tical perfo rmanc e garrett cteri stics of this assay , when used to test SureP ath speci mens have been deter mined by [facility] forbes. Not Available [facility] [place] [facility] [address], [place], [address], 10/04/2019 12:25:57 10/02/19 21 10/02/2020 hsv (1+2) igg Ab, serum hsv-1 antibody IgG <0.2 ai <0.9 Negat karen. No HSV-1 IgG antib odies detec cuca. Patie nt is presu med not to have had a previ ous HSV-1 infec tion. Not Available [facility] [address] [place] [address], [facility] 10/03/2020 10:44:05 10/02/19 21 10/02/2020 hsv (1+2) igg Ab, serum hsv-2 antibody IgG <0.2 ai <0.9 Negat karen. No HSV-2 IgG antib odies detec cuca. Patie nt is presu med not to have had a previ ous HSV-2 infec tion. Not Available [facility] [address] [place] [address], [address] 10/03/2020 10:44:05 10/02/19 21 10/02/2020 bacte rial vagin osis + vagin itis panel , vagin al gardnerella Negati ve negati ve Not Available [facility] [address] [place], [address] 10/03/2020 15:03:36 10/02/19 21 10/02/2020 bacte rial vagin osis + vagin itis panel , vagin al trichomonas Negati ve negati ve Not Available [facility] [address] [place], [address] 10/03/2020 15:03:36 10/02/19 21 10/02/2020 bacte rial vagin osis + vagin itis panel , vagin al sonido Negati ve negati ve Not Available [facility] [address] [place], [address] 10/03/2020 15:03:36 10/02/19 21 10/05/2020 herpe s simpl ex, cultu re, unspe cifie d speci men herpes simplex virus culture w/rfl to typing HERPE S SIMPL EX VIRUS CULTU RE W/RFL TO TYPIN G Micro Numbe r: [id number] Test Statu s: Final Speci men Sourc e: VAGIN A Speci men Quali ty: Adequ ate HSV Cultu re: Not [place] cuca Not Available [facility] [place] [facility] [address], [place], [address], 10/05/2020 15:02:10 10/02/19 21 10/02/2020 chlam ydia sp DNA, unspe cifie d speci men chlamydia trachomatis RNA, tma Negati ve negati ve Not Available [facility] [address] [place], [address] 10/09/2020 12:19:04 10/02/19 21 10/02/2020 NG DNA, PCR, unspe cifie d speci men neisseria gonorrhoeae RNA, tma Negati ve negati ve Not Available [facility] [address] [place], [address] 10/09/2020 12:19:05 10/02/19 21 10/02/2020 pap, LB + HPV report Report abnormal Final Gynec ologi caroline Cytol ogy Repor t ----- ----- ----- ----- ----- ----- ----- ----- ----- ----- ----- ----- ThinP rep Pap Test with HPV Refle x, GC/Ch lamyd ia SPECI MEN ADEQU ACY: SATIS FACTO RY FOR EVALU ATION ; ENDOC ERVIC AL/TR ANSFO RMATI ON ZONE COMPO NENT PRESE NT. INTER PRETA TION: ATYPI CAROLINE SQUAM OUS CELLS OF UNDET ERMIN ED SAKINA MEZA. Elect elkin camarena Maddie d: Linh Razo CT (ASCP ) Elect elkin Perkins d: Ricardo Townsend MD ----- ----- ----- ----- ----- ----- ----- ----- ----- ----- ----- ----- CLINI CAROLINE INFOR MATIO N: LMP: NG Clini caroline Histo ry: RTN Speci men Sourc e: Cervi x, Endoc ervix CPT Codes : 85932 , 16398 ICD Codes : Z01.4 19 Not Available [facility] [address] [place], [address] 10/09/2020 12:19:33 10/02/19 21 10/02/2020 HPV DNA, high- risk HPV MRNA E6/E7 Positi ve negati ve abnormal APTIM A HPV assay detec ts 14 high risk HPV types (HPV 16,18 ,31,3 3,35, 39,45 ,51,5 2,56, 58,59 ,66,6 8). The assay is FDA appro zach for testi ng ThinP rep liqui d Pap vials but not FDA appro zach for detec ting HPV in SureP ath liqui d Pap speci mens. In-ho use valid ation has shown the assay can detec t all HPV types from this [facility] e Not Available [facility] [address] [place], [address] 10/09/2020 12:19:53 10/02/19 21 10/09/2020 hsv (1+2) igm Ab, quant , serum , refle x titer hsv 1 IgM screen Negati ve negati ve Not Available [facility] [address], [place], [address], 10/09/2020 13:31:30 10/02/19 21 10/09/2020 hsv (1+2) igm Ab, quant , serum , refle x titer hsv 2 IgM screen Negati ve negati ve The IFA proce dure for measu ring IgM antib odies to HSV 1 and HSV 2 detec ts both type- commo n and type- speci fic HSV antib odies . Thus, IgM react ivity to both HSV 1 and HSV 2 may repre sent cross react karen HSV antib odies rathe r than expos ure to both HSV 1 and HSV 2. This test was devel lyle and its teressa tical perfo rmanc e garrett cteri stics have been deter mined by [facility], [place]. It has not been clear ed or appro zach by the FDA. This assay has been valid ated pursu ant to the CLIA regul ation s and is used for clini caroline purpo ses. Not Available [facility] [place] [facility] [address] [place] [address], [place], [address], 10/09/2020 13:31:30 10/02/19 21 10/02/2020 urina lysis , dipst ick Leukocytes Negati ve Not Available In-Office Order Internal Use Only DO Not Attach Compendium DO Not Attach Compendium, Do Not Delete/merge, 10/02/2020 09:46:54 10/02/19 21 10/02/2020 urina lysis , dipst ick Nitrite negati ve Not Available In-Office Order Internal Use Only DO Not Attach Compendium DO Not Attach Compendium, Do Not Delete/merge, 10/02/2020 09:46:54 10/02/19 21 10/02/2020 urina lysis , dipst ick Urobilinogen Normal : 0.2 mg/dl Not Available In-Office Order Internal Use Only DO Not Attach Compendium DO Not Attach Compendium, Do Not Delete/merge, 10/02/2020 09:46:54 10/02/19 21 10/02/2020 urina lysis , dipst ick Protein Trace Not Available In-Office Order Internal Use Only DO Not Attach Compendium DO Not Attach Compendium, Do Not Delete/merge, 10/02/2020 09:46:54 10/02/19 21 10/02/2020 urina lysis , dipst ick pH 6.0 Not Available In-Office Order Internal Use Only DO Not Attach Compendium DO Not Attach Compendium, Do Not Delete/merge, 10/02/2020 09:46:54 10/02/19 21 10/02/2020 urina lysis , dipst ick Blood Negati ve Not Available In-Office Order Internal Use Only DO Not Attach Compendium DO Not Attach Compendium, Do Not Delete/merge, 10/02/2020 09:46:54 10/02/19 21 10/02/2020 urina lysis , dipst ick Specific [place] 1.010 Not Available In-Off ice Order Internal Use Only DO Not Attach Compendium DO Not Attach Compendium, Do Not Delete/merge, 10/02/2020 09:46:54 10/02/19 21 10/02/2020 urina lysis , dipst ick Ketone Negati ve Not Available In-Office Order Internal Use Only DO Not Attach Compendium DO Not Attach Compendium, Do Not Delete/merge, 10/02/2020 09:46:54 10/02/19 21 10/02/2020 urina lysis , dipst ick Bilirubin Negati ve Not Available In-Office Order Internal Use Only DO Not Attach Compendium DO Not Attach Compendium, Do Not Delete/merge, 10/02/2020 09:46:54 10/02/19 21 10/02/2020 urina lysis , dipst ick Glucose Negati ve Not Available In-Office Order Internal Use Only DO Not Attach Compendium DO Not Attach Compendium, Do Not Delete/merge, 10/02/2020 09:46:54 10/02/1910/02/2020 urina lysis , dipst ick Appearance Clear Not Available In-Offi ce Order Internal Use Only DO Not Attach Compendium DO Not Attach Compendium, Do Not Delete/merge, 10/02/2020 09:46:54 10/02/19 21 10/02/2020 urina lysis , dipst ick Color Yellow Not Available In-Office Order Internal Use Only DO Not Attach Compendium DO Not Attach Compendium, Do Not Delete/merge, 10/02/2020 09:46:54 11/19/1911/18/2020 surgi caroline patho logy study report REPORT Final Patho logy Repor t ----- ----- ----- ----- ----- ----- ----- ----- ----- ----- ----- ----- FINAL DIAGN OSIS: #1- UTERI NE CERVI X, BIOPS Y: - TRANS FORMA TION ZONE TISSU E WITH CHRON IC ACTIV E ENDOC ERVIC ITIS AND REACT KAREN EPITH ELIAL HERNANDEZ ES, NEGAT KAREN FOR DYSPL PRESTON. #2- ENDOC ERVIC AL CURET TINGS : - BENIG N ENDOC ERVIC AL GLAND ULAR AND SQUAM OUS EPITH ELIUM , NEGAT KAREN FOR DYSPL PRESTON. - SEE STEPHANIE NT. Comme nt: Note is made of the detec tion of high risk HPV DNA which warra nts yoana nued clini caroline follo w up ([id number] [id number] from ). Braulio Perkins d: Rea Bejarano MD ----- ----- ----- ----- ----- ----- ----- ----- ----- ----- ----- ----- Clini caroline Diagn osis and Histo ry: Atypi caroline squam ous cells of undet ermin ed signi fican ce on cervi caroline pap smear COLPO SCOPY ; COLPO SCOPY Gross Descr iptio n: #1- Conta iner label ed with the patie nt's name BURTON LEW noted CX . Speci men is recei zach in forma federico and consi sts of 2 piece s of soft garcia tissu e fragm ents measu ring 0.3 x 0.2 x 0.05 cm and 0.5 x 0.3 x 0.2 cm which are submi tted in toto in 1 casse tte(s ) label ed 1A. #2- Conta iner label ed with the patie nt's name BURTON LEW noted ECC. Speci men is recei zach in forma federico w/cyt o brush and consi sts of irreg ular tissu e fragm ents admix ed with mucus and blood measu ring a scant amoun t which are filte red and submi tted in toto in 1 casse tte(s ) label ed 2A. The speci men may not survi ve proce ssing . CPT Codes : #1- 00738 #2- 84947 ICD Codes : #1- R87.6 10 #2- R87.6 10 Not Available [facility] [address] [place], [address] 11/19/2020 15:57:14 11/19/19 21 11/18/2020 pregn bonita test, urine Result negati ve Not Available In-Office Order Internal Use Only DO Not Attach Compendium DO Not Attach Compendium, Do Not Delete/merge, [id number] 11/18/2020 09:03:16 Result Notes None recorded. 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 Procedures Surgical History Date Name Laterality Status Provider Name and Address Organization Details Recorded Time 11/19/19 21 Colposcopy Procedure Note completed Lidya Grogean, MD [address] [facility], 3rd Floor, [place], [address], [place] [facility] 11/18/2020 09:34:32 11/19/19 21 Colposcopy completed Jenni Mesa MA [facility] 10/22/2020 11:42:47 10/02/19 21 Date of Last Pap Smear completed Jenni Mesa MA [facility] 10/22/2020 11:42:13 08/09/20 17 [id number] completed Lidya Powers MD [address] [facility], [address] [place] [address], [place], [address], [place] [facility] 08/09/2017 09:05:45 Colonoscopy completed Jenni Mesa MA [facility] 09/27/2019 13:54:10 Tonsillectomy completed Lilajass Escobar [facility] 08/09/2017 08:39:02 Imaging Results None recorded. Procedure Notes None recorded. Medical Equipment None Reported. Allergies Allergen ID Allergen Name Allergen Category Reaction Reaction Severity Criticality Documentation Date Start Date Code Code System Note Provider Name and Address Organization Details Recorded Time [id number] sumatript an medicatio n Not available Not available Not available 08/03/2017 04773 RxNorm Lila Escobar null, [facility] 7 16:40:01 Medications Name Sig Start Date Stop Date Status Note LastModified by Organization Details LastModified Time fluoxetine 40 mg capsule 08/09 completed Not Available Not Available Not Available cyclobenzap rine 10 mg tablet TAKE 1 TABLET BY MOUTH AT BEDTIME NEEDED 10/02 completed Not Available Not Available Not Available amoxicillin 500 mg capsule TAKE 1 CAPSULE BY MOUTH THREE TIMES A DAY 11/18 completed Not Available Not Available Not Available azithromyci n 250 mg tablet 08/17 completed Not Available Not Available Not Available ibuprofen 800 mg tablet TAKE 1 TABLET BY MOUTH EVERY 6 TO 8 HOURS NEEDED 10/02 completed Not Available Not Available Not Available acetazolami de ER 500 mg capsule,ext ended release 09/27 completed Not Available Not Available Not Available acetazolami de 125 mg tablet 09/27 completed Not Available Not Available Not Available benzonatate 200 mg capsule 08/09 completed Not Available Not Available Not Available valacyclovi r 1 gram tablet Take 1 tablet every 12 hours by oral route for 10 days. active Not Available Not Available No t Available Diflucan 150 mg tablet Take 1 tablet by oral route for 1 day. 09/27 completed Not Available Not Available Not Available diphenoxyla te-atropine 2.5 mg-0.025 mg tablet TAKE 1 TABLET BY MOUTH 2 (TWO) TIMES DAILY NEEDED FOR DIARRHEA FOR UP TO 10 DAYS. 10/02 completed Not Available Not Available Not Available penicillin V potassium 500 mg tablet 08/09 completed Not Available Not Available Not Available lidocaine HCl 2 % mucosal jelly APPLY TO AFFECTED AREA EVERY DAY NEEDED 10/02 completed Not Available Not Available Not Available oxycodone-a cetaminophe n 5 mg-325 mg tablet 09/27 completed Not Available Not Available Not Available zolmitripta n 2.5 mg tablet 09/27 completed Not Available Not Available Not Available metoclopram lincoln 5 mg tablet 09/27 completed Not Available Not Available Not Available meclizine 25 mg tablet 08/09 completed Not Available Not Available Not Available hydrocodone 7.5 mg-acetamin ophen 325 mg tablet TAKE 1 TABLET BY MOUTH THREE TIMES A DAY NEEDED FOR PAIN 10/02 completed Not Available Not Available Not Available pantoprazol e 40 mg tablet,lucas yed release TAKE 1 TABLET BY MOUTH TWO TIMES A DAY active Not Available Not Available No t Available propranolol ER 80 mg capsule,24 hr,extended release TAKE 1 CAPSULE BY MOUTH EVERY DAY active Not Available Not Available No t Available Advair Diskus 250 mcg-50 mcg/dose powder for inhalation 08/09 completed Not Available Not Available Not Available norethindro ne acetate 1 mg-ethinyl estradiol 20 mcg tablet TAKE 1 TABLET BY MOUTH EVERY DAY CONTINUOS LY active Not Available Not Available No t Available gabapentin 100 mg capsule TAKE 2 CAPSULES BY MOUTH THREE TIMES A DAY active Not Available Not Available No t Available ergocalcife rol (vitamin D2) 1,250 mcg (50,000 unit) capsule TAKE 1 CAPSULE BY MOUTH ONE TIME PER WEEK 11/18 completed Not Available Not Available Not Available propranolol ER 120 mg capsule,24 hr,extended release active Not Available Not Available Not Available budesonide DR - ER 3 mg capsule,del ayed,extend ed release TAKE 3 CAPSULES BY MOUTH EVERY MORNING active Not Available Not Available No t Available labetalol 100 mg tablet 09/27 completed Not Available Not Available Not Available propranolol 20 mg tablet 09/27 completed Not Available Not Available Not Available fluoxetine 20 mg capsule 08/09 completed Not Available Not Available Not Available fluticasone propionate 50 mcg/actuati on nasal spray,suspe nsion 08/17 completed Not Available Not Available Not Available sertraline 50 mg tablet TAKE 1 TABLET BY MOUTH EVERY DAY 11/18 completed Not Available Not Available Not Available naproxen 500 mg tablet TAKE 1 TABLET BY MOUTH EVERY 12 HOURS WITH FOOD 11/18 completed Not Available Not Available Not Available amoxicillin 875 mg-potassiu m clavulanate 125 mg tablet TAKE 1 TABLET BY MOUTH EVERY 12 HOURS FOR 10 DAYS active Not Available Not Available No t Available amoxicillin 500 mg-potassiu m clavulanate 125 mg tablet 08/09 completed Not Available Not Available Not Available buspirone 15 mg tablet 08/09 completed Not Available Not Available Not Available escitalopra m 10 mg tablet TAKE 1 TABLET BY MOUTH EVERY DAY active Not Available Not Available No t Available cyclobenzap rine 5 mg tablet 09/27 completed Not Available Not Available Not Available 10/09 (28) 1 mg-20 mcg (21)/75 mg (7) tablet TAKE 1 TABLET BY MOUTH EVERY DAY OM[facility]ING [place]ACE[place] 2020 active Not Available Not Available Not Avai lable colestipol 5 gram oral granules TAKE 5 GRAMS BY MOUTH 2 (TWO) TIMES DAILY. 10/02 completed Not Available Not Available Not Available chlorhexidi ne gluconate 0.12 % mouthwash RINSE 15 ML S TWICE DAILY AFTER BREAKFAST /BEFORE BEDTIME FOLLOWING BRUSHING AND FLOSSING 10/02 completed Not Available Not Available Not Available ProAir HFA 90 mcg/actuati on aerosol inhaler 09/27 completed Not Available Not Available Not Available GaviLyte-G 236 gram-22.74 gram-6.74 gram-5.86 gram oral solution 09/27 completed Not Available Not Available Not Available Dexilant 60 mg capsule, delayed release TAKE 1 CAPSULE BY MOUTH EVERY DAY 10/02 completed Not Available Not Available Not Available Lo Loestrin Fe 1 mg-10 mcg (24)/10 mcg (2) tablet TAKE 1 TABLET BY MOUTH EVERY DAY active Not Available Not Available No t Available budesonide DR-ER 9 mg tablet,lucas yed and extended release Take 1 tablet every day by oral route. 10/02 completed Not Available Not Available Not Available Flucelvax Quad 9115-9643 (PF) 60 mcg (15 mcg x 4)/0.5 mL IM syringe 08/09 completed Not Available Not Available Not Available Emgality Pen 120 mg/mL subcutaneou s pen injector INJECT THE CONTENTS OF 1 PEN SUBCUTANE OUSLY EVERY 28 DAYS active Not Available Not Available No t Available Vitals Date Recorded Body weight Systolic blood pressure Diastolic blood pressure Provider Name and Address Organization Details Last Updated DateTime 08/17/2018 42348.03 g 120 mm[Hg] 76 mm[Hg] Jenni Mesa MA [facility] 08/17/2018 09:33:25 Date Recorded Body height Body mass index (BMI) Body weight Systolic blood pressure Diastolic blood pressure Provider Name and Address Organization Details Last Updated DateTime 09/27/2019 175.26 cm 31 kg/m2 25760.4 g 118 mm[Hg] 70 mm[Hg] Jenni Mesa MA [facility] 0 13:55:14 Date Recorded Body weight Body mass index (BMI) Body height Body temperature Systolic blood pressure Diastolic blood pressure Provider Name and Address Organization Details Last Updated DateTime 1 575355. 84 g 34.1 kg/m2 175.26 cm 97.1 [degF] 112 mm[Hg] 74 mm[Hg] Jenni Mesa MA [facility] 1 09:46:05 Date Recorded Body height Body temperature Body mass index (BMI) Body weight Systolic blood pressure Diastolic blood pressure Provider Name and Address Organization Details Last Updated DateTime 1 175.26 cm 97.3 [degF] 34.6 kg/m2 609279. 61 g 118 mm[Hg] 78 mm[Hg] Jenni Mesa MA [facility] 1 09:01:56 Date Recorded Body height Body temperature Body mass index (BMI) Body weight Systolic blood pressure Diastolic blood pressure Provider Name and Address Organization Details Last Updated DateTime 1 175.26 cm 97.1 [degF] 34.6 kg/m2 103322. 61 g 112 mm[Hg] 78 mm[Hg] Jenni Mesa MA [facility] 1 09:06:57 Social History Question Answer Notes LastModified by Organizat ion Details LastModified Time Tobacco Smoking Status Never Smoker Lila arias, [facility] 08/03/2017 16:40:10 Is Blood Transfusion Acceptable In An Emergency? Yes Information not available 08/09/2017 Does Your Partner Physically Hurt You Or Threaten To Hurt You? No Information not available 08/09/2017 Has Your Partner Forced You To Have Sex Or Perform Sex Acts When You Did Not Want To? No Information not available 08/09/2017 Does Your Partner Insult, Scream At Or Talk Down To You? No Information not available 08/09/2017 Does Your Partner Control You Or Any Part Of Your Life? No Information not available 08/09/2017 Are You Afraid Of Your Partner? No Information not available 08/09/2017 Do You Feel Safe At Home? Yes Information not available 08/09/2017 What Was The Date Of Your Most Recent Tobacco Screening? 08/17/2018 Information not available 04/12/2019 Sex: Unknown Functional Status None recorded. Mental Status None recorded. Family History Relationship Description Onset Age of this Age Resolved Age Notes LastModified by Organization Details LastModified Time Father No current problems or disability [email or web address] Not available 08/09 08:56:23 Mother No current problems or disability [email or web address] Not available 08/09 08:56:23 Notes:fhx no breast cancer Medical History Condition Response Other N *No Diseases or Conditions N Blood clots N Breast Cancer N Benign breast disease N Colon cancer N Lung Disease N Depression N Defects or Inherited Disease N Anesthesia Complications N BrCa gene tested? N Headaches/Migraines Y Have you ever been on isolation N Anxiety Disorder Y Arthritis N HSV N Infertility N Abnormal pap N Interstitial Cystitis N Acid Reflux (GERD) Y Cancer N Stroke N Endometriosis N Fibromyalgia N Spina Bifida N HIV N Heart Problems Y Sexual Dysfunction N Autoimmune disorder N Kidney or Bladder Problems N Thyroid Problems N GI Problems Y Eating Disorder N Anemia N Multiple Sclerosis N Psychiatric Illness N Ovarian Cancer N Diabetes N Blood Transfusions N Bladder disease N History of MRSA N Abnormal Uterine Bleeding N Hyperlipidemia N BrCa positive N Diverticulitis N Abuse/Domestic Violence N Asthma N Hepatitis N Hypertension N Osteoporosis N Thrombophilias N Gynecological History Statement/Question Response Colposcopy 11/18/2020 Abnormal Pap Y Date of Last Pap Smear 10/02/2020 Current Control Method Oral Contra ceptives Date of LMP Last HPV Result Positive Obstetrics History GPAL:G 0 P 0 0 0 0 Type Value Full Term 0 Living 0 Total 0 Past Encounters Encounter ID Performer Location Encounter Start Date Encounter Closed Date Diagnosis/Indication Diagnosis SNOMED-CT Code Diagnosis ICD10 Code Diagnosis Note [id number] Lidya Powers MD [address] [place] [address] 08/09/2017 08:20:43 08/09/2017 09:16:13 Gynecologic examination 70456625 Z01.112 [id number] Lidya Powers MD [facility] [place] [address] 08/17/2018 09:26:15 08/17/2018 10:52:33 Gynecologic examination 08097585 Z01.419 declines gc/chl testing but desires hiv test Venereal d isease screening 074624442 Z11.3 [id number] Lidya Powers MD [facility] [place] [address] 09/27/2019 13:46:10 09/27/2019 14:15:35 Gynecologic examination 37856729 Z01.419 very happy w lo lo and wants to continue [id number] Lidya Powers MD [facility] [place] [address] 10/02/2020 09:38:46 10/02/2020 10:10:49 Gynecologic examination 40491160 Z01.419 Ulceration of vulva 6864 0004 N76.6 [id number] Lidya Powers MD [facility] [place] [address] 11/18/2020 08:52:42 11/18/2020 10:29:16 HPV - Human papillomavirus test positive 313793402 R87.810 Atypical s quamous cells of undetermined significance on cervical Papanicolaou smear 899558971 R87.610 colpo satisfacto ry impression metaplasia , YOVANNY 1 f/u 1wk to discd final path report [id number] Lidya Powers MD [facility] [place] [address] 12/04/2020 09:04:10 12/04/2020 09:35:03 Abnormal cervical Papanicolaou smear 393083223 R87.619 Abnormal c ervical Papanicolaou smear with human papillomavirus deoxyribonucleic acid detected 466663934 R87.619 Atypical s quamous cells of undetermined significance on cervical Papanicolaou smear 804692851 R87.610 colpo satisfacto ry impression metaplasia , YOVANNY [address] benign revd results in detail recommend pap 1y answered multiple questions about Gardasil and HPV she has gotten all Gardasil injections face to face time 15 min w greater than 50% spent in counseling Health Concerns Section Related Observation LastModified by Organization Detai ls LastModified Time None Recorded Concern Status LastModified by Organization Details LastModified Time None Recorded Advance Directives Directive None Recorded Payers Encounter Date Sequence Insurance Name Policy Number Policy Forbes Covered Member ID Forbes Member ID Guarantor Name 08/17/2018 1 [place] [id number] Burton Velasquez [id number] Burton Velasquez 09/27/2019 1 [place] [id number] Burton Velasquez [id number] Burton Velasquez 11/18/2020 1 [place] [id number] Burton Velasquez [id number] Burton Velasquez 12/04/2020 1 [place] [facility] [id number] Burton Velasquez [id number] Burton Velasquez Notes Date Note Type Note Provider Name and Address Organization Details Recorded Time 08/17/2018 text/html [facility] Annual GYNReported bypatient.Menstrua l cycle:Amenorrhea Urinary symptoms:No hematuria; No incontinence Vulva:No genital lesion Vagina:Normal vaginal discharge Breast:No breast pain; No breast lump; No nipple discharge Sexual activity:No sexual complaints; No pain during intercourse; Normal libido Menopausal symptoms:No menopausal symptoms; Normal vaginal lubrication Psychological symptoms:No depression; No anxiety; No PMDD Lidya Powers MD [address] [place] [address] 08/17/2018 09:54:19 09/27/2019 text/html [facility] Annual GYNReported bypatient.Menstrua l cycle:Amenorrhea Urinary symptoms:No hematuria; No incontinence Vulva:No genital lesion Vagina:Normal vaginal discharge Breast:No breast pain; No breast lump; No nipple discharge Sexual activity:No sexual complaints; No pain during intercourse; Normal libido Menopausal symptoms:No menopausal symptoms; Normal vaginal lubrication Psychological symptoms:No depression; No anxiety; No PMDD Lidya Powers MD [address] [place] [address] 09/27/2019 14:14:10 10/02/2020 text/html [facility] Annual GYNReported bypatient.Menstrua l cycle:Amenorrhea Urinary symptoms:No hematuria; No incontinence Vulva:No genital lesion Vagina:Normal vaginal discharge Breast:No breast pain; No breast lump; No nipple discharge Sexual activity:No sexual complaints; No pain during intercourse; Normal libido Menopausal symptoms:No menopausal symptoms; Normal vaginal lubrication Psychological symptoms:No depression; No anxiety; No PMDD Lidya Powers MD [address] [place] [address] 10/02/2020 10:12:55 OBGyn Episode No OBEpisode recorded.
--- OUTSIDE RECORDS SUMMARY | 2024-11-02 13:53 | XMS_ITS | Encounter Summary ---
Author Organization [facility] [employer] [facility] Address [address] [place] [phone] Care Team Providers Care [employer] Advisor Name Role Phone Angie Chapman MD Primary Care Provider + Encounter Details Date Type Department Care Team (Late st Contact Info) Description 12/26/2020 Scanned Document [facility] [address] [facility] [address] [facility] [address] [place] [address] Beqiri, Qendresa, PLUMBING INSTALLER [address] [place] [address] Social History Tobacco Use Types Packs/Day Years [...] Procedure Name Priority Date/Time Associated Diagnosis Comments BREATH HYDROGEN TEST Routine 12/26/2020 documented in this encounter Results * Breath hydrogen test (12/26/2020) us Qendresa Beqiri PLUMBING INSTALLER GI PROCEDURE ORDERABLES Fin al Result documented in this encounter Visit Diagnoses Not on filedocumented in this encounter Additional Health Concerns Assessment Noted Time PHQ-9 Depression Total Score: 0 06/26/20 20 11:46 AM EDT documented as of this encounter Care Teams [employer] Advisor Relationship Specialty [place] [address] [place] [phone] PCP - General Internal Medicine 02/18/18 documented as of this encounter
--- OUTSIDE RECORDS SUMMARY | 2024-11-02 13:53 | XMS_ITS | Continuity of Care Document ---
Author Organization [facility] Address [address] [phone] Phone Care Team Providers Care Dining Chair Seat Cushion Trimmer Name Role Phone Cindy Orozco MD Unavailable [...] Encounter [facility], [address] [place] [address], [id number], tel: [phone] [facility] No Information 1 Pam White. [address] [place] [address], [facility], . tel: [phone] Referring Provider: Jr Trena Barrios, [facility] Division Of Neurology [address] [place] [address], [facility]. tel:[phone] [facility], [address] [place] [address], [id number], tel:[phone] [facility] [place] Benign intracranial hypertensionPerio dic headache syndromes in chld/adlt, not intractableTonic pupil, bilateralHypermet ropia, left eyePseudopapilled rahul of optic disc, bilateral Sep- 0 Rudich Cindy. [address] [place] [address], [facility], [place]. tel: [phone] Referring Provider: Jr Trena Barrios, [facility] Division Of Neurology [address] [place] [address], [facility]. tel:[phone] Exam Level IV [facility], [address] [place] [address], [id number], tel:[phone] [facility] [place] Benign intracranial hypertensionPerio dic headache syndromes in chld/adlt, not intractableDrusen of optic disc, left eyePseudopapilled rahul of optic disc, bilateralEhlers-D anlos syndrome, unspecifiedAnisoc oria Fe 0 Rudich Cindy. [address] [place] [address], [address], [place]. tel: [phone] Consulting Provider: Chava Ryan, [address] [place], [address]. tel: [phone] lting Provider: Thierno Jones, [address] [facility] [address], [place], [address]. tel: [phone] lting Provider: Dalton Conte, [address] [facility] [place] [facility] [address], [place], [address]. tel: [phone] ring Provider: Jr Trena Barrios, [facility] Division Of Neurology [address] [place] [address], [address]. tel: [phone] Exam Level IV [facility], [address] [facility] [address], [place], [id number], [place] tel: [phone] [facility] [place] Benign intracranial hypertensionUnspe cified papilledemaPeriod ic headache syndromes in chld/adlt, not intractableDrusen of optic disc, left eyePseudopapilled rahul of optic disc, bilateralEhlers-D anlos syndrome, unspecified 201 9 Pam White. [address] [facility], [address], [place], [address], [place]. tel: [phone] Consulting Provider: Chava Ryan, [address] [place], [address]. tel: [phone] lting Provider: Thierno Jones, [address] [facility] [place] [facility] [address], [place], [address]. tel: [phone] lting Provider: Dalton Conte, [address] [facility] [place] [facility] [address], [place], [address]. tel: [phone] ring Provider: Jr Trena Barrios, [facility] Division Of Neurology [address] [place] [address], [address]. tel: [phone] Exam Level V [facility], [address] [facility] [address], [id number], [place] tel: [phone] [facility] [place] Benign intracranial hypertensionUnspe cified papilledemaPeriod ic headache syndromes in chld/adlt, not intractableDrusen of optic disc, left eye 9 Pam White. [address] [place] [address], [address], [address], [place]. tel: [phone] Referring Provider: Jr Trena Barrios, [facility] Division Of Neurology [address] [place] [address], [address]. [phone] Consult Level 5 [facility], [address] [place], [place] [address], [id number], [place] tel:[phone] [facility] [place] Benign intracranial hypertensionPerio dic headache syndromes in chld/adlt, not intractableUnspec ified papilledema 9 Pam White. [address] [facility], [address], [address], [place]. tel: [phone] Family History Family Member Type Diagnosis Age At Onset Father Problem (finding) Hasimoto's disease Mother Problem (finding) Family history of Hasim bennie's disease Father Problem (finding) Cristal Parkinson White Payers Payer name Insurance type Covered green party ID Authoriza tion(s) BS National Plan BL [id number] Social History Type Description Quantity Date Captured [...]
--- OUTSIDE RECORDS SUMMARY | 2024-11-02 13:53 | XMS_ITS | Encounter Summary ---
Author Organization [facility] Address [address] [place] [address] Care Team Providers Care Assembly Adjuster Name Role Phone Angie Chapman MD Primary Care Provider [phone] Reason for Visit * Reason Comments Medication Refill Encounter Details Date Type Department Care Team (Late st Contact Info) Description 10/06/2021 Refill [facility] [place] [facility] [address] [facility] [address] [place] [phone] Zoila Suárez, FABRICATION MACHINE OPERATOR [address] [place] [address] Medication Refill Social History Tobacco Use Types [...] tachycardia documented in this encounter Care Teams Assembly Adjuster Relationship Specialty Start Date End Date Angie Chapman MD PCP - General Internal Medicine 11/21/18 documented as of this encounter
--- OUTSIDE RECORDS SUMMARY | 2024-11-02 13:53 | XMS_ITS | Encounter Summary ---
Author Organization [facility] Address [address] [place] [address] Care Team Providers Care Shirt Presser Name Role Phone Angie Chapman MD Primary Care Provider [phone] Encounter Details Date Type Department Care Team (Late st Contact Info) Description 02/26/2021 Scanned Document [address] [place] [phone] Cardiology, Scan Social History Tobacco Use Types Packs/Day [...] on filedocumented in this encounter Care Teams Shirt Presser Relationship Specialty Start Date End Date Angie Chapman MD PCP - General Internal Medicine 11/21/18 documented as of this encounter
--- OUTSIDE RECORDS SUMMARY | 2024-11-02 13:53 | XMS_ITS | Encounter Summary ---
Author Organization [facility] [employer] [facility] and [facility] Address [address] [place] [phone] Care Team Providers Care Switch Inspector Name Role Phone Angie Chapman MD Primary Care Provider + Reason for Visit * Reason Comments Medication Refill Encounter Details Date Type Department Care Team (Late st Contact Info) Description 2021 Refill [facility] [address] [place] [address] [address] [place] [address] Isabel Marks APRN [address] [place] [phone] Medication Refill Social History Tobacco Use Types [...] documented as of this encounter Care Teams Switch Inspector Relationship Specialty Start Date End Date Angie Chapman MD [address] [phone] PCP - General Internal Medicine 02/18/18 documented as of this encounter
[2024-11-02 13:54] VITALS: BP 136/77; PULSE 90; O2SAT 97; BMI 34.1
--- OUTSIDE RECORDS SUMMARY | 2024-11-02 13:54 | XMS_ITS | Encounter Summary ---
Author Organization [facility] [employer] and [facility] Address [address] [place] [phone] Care Team Providers Care Molasses Coloring Operator Name Role Phone Angie Chapman MD Primary Care Provider + Encounter Details Date Type Department Care Team (Late st Contact Info) Description 07/06/2019 Documentation [facility] at [address] [facility] [address] [facility] [place] [address] Chava Ryan MD [address] [facility] [place] [phone] Social History Tobacco Use Types Packs/Day Years Used Date Smoking Tobacco: Never Smokeless Tobacco: Never Comments No Sex and Gender Information Value Date Recorded Sex Assigned at Not on file Legal Sex Female 11:58 AM EDT Gender Identity Not on file Sexual Orientation Not on file documented as of this encounter Plan of Treatment Not on file documented as of this encounter Visit Diagnoses Not on filedocumented in this encounter Care Teams Molasses Coloring Operator Relationship Specialty Start Date End Date Angie Chapman MD [address] [place] [phone] PCP - General Internal Medicine 02/18/18 documented as of this encounter
--- OUTSIDE RECORDS SUMMARY | 2024-11-02 13:54 | XMS_ITS | Encounter Summary ---
Author Organization [facility] Address [address] [place] [address] Care Team Providers Care Process Steward Name Role Phone Angie Chapman MD Primary Care Provider [phone] Encounter Details Date Type Department Care Team (Late st Contact Info) Description 02/09/2019 Scanned Document [address] [phone] Cardiology, Scan Social History Tobacco Use Types Packs/Day Years Used Date Smoking Tobacco: Never Alcohol Use Standard Drinks/Week Comments Not Currently 0 (1 standard drink = 0.6 oz pur e alcohol) Sex and Gender Information Value Date Recorded Sex Assigned at Not on file Gender Identity Not on file Sexual Orientation Not on file documented as of this encounter Plan of Treatment Not on file documented as of this encounter Visit Diagnoses Not on filedocumented in this encounter Care Teams Process Steward Relationship Specialty Start Date End Date Angie Chapman MD PCP - General Internal Medicine 11/21/18 documented as of this encounter
--- OUTSIDE RECORDS SUMMARY | 2024-11-02 13:54 | XMS_ITS | Patient Health Record ---
Author Organization [facility] Address [address] [facility] [address] [place] [address] Support Name Relationship Address Phone Mandi Velasquez Guarantor Unknown [phone] Allergies Allergen (clinical drug ingredient) Drug/Non Drug Allergy documented on EMR Reaction Allergy Type Onset Date Status banana allergenic extract banana (uncoded) Unknown Allergy Active naproxen / sumatriptan Treximet Unknown Drug Allergy Inactive sumatriptan Sumatriptan Unknown Drug Allergy [place] ctive Reason For Referral No Information Medications Medication SIG (Take, Route, Frequency, Duration) Notes [...] 1 tablet Orally Once a day Not-Taking Plan Of Treatment Pending Test Test Name Order Date Removal of nail matrix 04/30/2021 Removal of nail matrix 06/17/2021 Removal of nail matrix 01/28/2023 Insurance Providers Payer Name Payer Address Payer Phone Subscriber Number Group Number Insured Name Patient Relationship to Insured Coverage Start Date Coverage End Date [facility] [address] [place] [address], [place] [phone] [id number] Mandi Velasquez Self - patient is the insured Medical (General) History Medical History History ICD Code Acne ADHD, [...] + COVID 08/2022 COVID vaccinated X 4 ([email or web address]) Surgical History Surgery Date(Month/Year) tonsillectomy jaw surgery 12/2022
--- OUTSIDE RECORDS SUMMARY | 2024-11-02 13:54 | XMS_ITS | Encounter Summary ---
Author Organization [facility] [employer] [facility] [facility] and [facility] Address [address] [place] [phone] Care Team Providers Care Electrician Constructor Supervisor Name Role Phone Angie Chapman MD Primary Care Provider + Encounter Details Date Type Department Care Team (Late st Contact Info) Description 08/23/2019 Abstract [facility] [address] [address] External, Provider Social History Tobacco Use Types Packs/Day Years Used Date Smoking Tobacco: Never Smokeless Tobacco: Never Alcohol Use Standard Drinks/Week Comments Never 0 (1 standard drink = 0.6 oz pur e alcohol) AUDIT-C Answer Date Recorded Frequency of Alcohol Consumption Never 08/10/2019 Average Number of Drinks Not on file 019 Frequency of Binge Drinking Not on file 07/22 Comments No Sex and Gender Information Value Date Recorded Sex Assigned at Not on file Legal Sex Female 11:58 AM EDT Gender Identity Not on file Sexual Orientation Not on file documented as of this encounter Plan of Treatment Not on file documented as of this encounter Visit Diagnoses Not on filedocumented in this encounter Care Teams Electrician Constructor Supervisor Relationship Specialty Start Date End Date Angie Chapman MD [address] [phone] PCP - General Internal Medicine 02/18/18 documented as of this encounter
--- OUTSIDE RECORDS SUMMARY | 2024-11-02 13:54 | XMS_ITS | Encounter Summary ---
Author Organization [facility] [employer] [facility] and [facility] Address [address] [place] [phone] Care Team Providers Care Emerging Technologies Director Name Role Phone Angie Chapman MD Primary Care Provider + Encounter Details Date Type Department Care Team (Late st Contact Info) Description 11/13/2019 Scanned Document [facility] at [address] [facility] [address] [facility] [place], [place] [phone] Chava Ryan MD [address] [facility] [place] [phone] Social History Tobacco Use Types Packs/Day Years [...] on filedocumented in this encounter Care Teams Emerging Technologies Director Relationship Specialty Start Date End Date Angie Chapman MD [address] [place] [phone] PCP - General Internal Medicine 02/18/18 documented as of this encounter
--- OUTSIDE RECORDS SUMMARY | 2024-11-02 13:54 | XMS_ITS | Encounter Summary ---
Author Organization [facility] Address [address] [place] [address] Care Team Providers Care Blending Coordinator Name Role Phone Angie Chapman MD Primary Care Provider [phone] Encounter Details Date Type Department Care Team (Late st Contact Info) Description 04/13/2019 Scanned Document [address] [phone] Cardiology, Scan Social History Tobacco [...] on filedocumented in this encounter Care Teams Blending Coordinator Relationship Specialty Start Date End Date Angie Chapman MD PCP - General Internal Medicine 11/21/18 documented as of this encounter
--- OUTSIDE RECORDS SUMMARY | 2024-11-02 13:54 | XMS_ITS | Data Portability ---
Author Organization [place] - [facility] - OP Address [address] [place] [address] Care Team Providers Care Slice Cutting Machine Operator Helper Name Role Phone TAWANA CARRERA Primary Care Provider TAWANA CARRERA Referring Provider Assessment Encounter Date Assessment Date Assessment LastModified by Organization Details LastModified Time 02/09/2018 02/09/2018 1. POTS 2. Palpitations She has significant symptoms. At rest her heart rate was 70, with standing her heart rate immediately abdoulaye to 118 bpm. She felt palpitations. Her symptoms may be consistent with POTS. I will obtain an echocardiogram. I will refer to electrophysiology for tilt table testing. We discussed conservative therapies including increasing salt and fluid intake as well as compression stockings. We discussed potential medical therapy including propranolol. However I would like results of the tilt table testing before we initiate medical therapy. She will see me back after the echo and EP and tilt table testing. ajohnghar Not available 02/10/2018 09:29:47 02/10/2018 02/10/2018 In summary, the patient is a 22-year-old woman with recurrent dizziness and palpitations. She does carry the diagnosis of POTS, though it is not clear to me that this is truly the case. She also has brief palpitations, which do not seem to be related to her dizziness. I did have a long discussion with the patient, regarding her dizziness, the possible causes and the available treatment options. We will move quickly, as she would like to start work in the near future [email or web address] Not available 02/10/2018 12:16:02 03/16/2018 03/16/2018 1. Palpitations 2. Possible POTS vs vasovagal she did not have tachycardia on the tilt table. Her symptoms seem to be slightly improved. She continues with a high salt diet. I started Paxil 10 mg once daily. We reviewed the common side effects and issues to watch out for including mood disturbance, suicidal ideation. We counseled her on starting an exercise regimen, predominantly recumbent bike or rowing machine so that she does not have significant postural symptoms. I'll see her back in 3 months. [facility] 03/16/2018 13:50:11 06/07/2018 06/07/2018 1. Palpitations 2. Possible POTS vs vasovagal she's doing well. She still has orthostatic symptoms. She seems to be improving on the sertraline as well as the exercise regimen. We will continue 25 mg. I refilled the prescription. I told her to wait a few more weeks, she still has severe symptoms, we can increase the sertraline to 50 mg. I'll see her back in [facility] 06/07/2018 11:55:05 12/06/2018 12/06/2018 1. Palpitations 2. Possible POTS vs vasovagal 3. GERD her symptoms seem to be slightly more pronounced given the fact that she is working and standing for long periods of time. I recommended that she use compression stockings. We can increase the sertraline 50 mg once daily to see if this helps with her symptoms. I encouraged her to increase her fluid intake. We did briefly discuss sertraline and . I'll see her back in 6 months [facility] available 12/06/2018 09:21:56 Plan of Treatment Reminders Order Date Submit Date Provider Last Modified By Organization Details Last Modified Time Details Appointments None recorded. Lab None recorded. Referral clinical cardiac electrophy siologist referral - EP referral for tilt table testing for POTS syndrome 2017 018 [email or web address] Not available 8 12:09:07 Procedures tilt table study (PROC) - [facility] dr. john within 2 weeks 2017 018 [email or web address] Not available 8 09:36:18 Surgeries None recorded. Imaging electrocar diogram 2017 018 [email or web address] In-Office Order, Internal Use Only DO Not Attach Compendium DO Not Attach Compendium, Do Not Delete/merge, [id number] 8 12:18:07 US, echocardio gram, transthora cic, complete, w/ color flow - within 2 weeks 2017 018 AKIRA Not available 8 19:15:12 Medication Orders sertraline 50 mg tablet 2018 019 INTERFACE [facility], [address] [place], [address], 9 09:22:27 sertraline 50 mg tablet 2017 018 INTERFACE [facility], [address] [place], [address], 8 11:49:53 Paxil 10 mg tablet 2017 018 [email or web address] [facility], [address] [place], [address], 8 16:15:38 Patient TargetsNo targets recorded. Patient Instructions Encounter Date Encounter Id Patient Instructions Last Modified By Organization Details Last Modified Time 02/09/2018 [id number] palpitations: care instructions ajohnghar Not available 02/10/2018 09:30:00 03/16/2018 [id number] palpitations: care instructions ajohnghar Not available 03/16/2018 13:32:18 06/07/2018 [id number] palpitations: care instructions ajohnghar Not available 06/07/2018 11:49:51 12/06/2018 [id number] palpitations: care instructions ajohnghar Not available 12/06/2018 09:22:26 Reason for Referral Clinical Cardiac Electrophys iologist Referral for Postural orthostatic tachycardia syndrome EP referral for tilt table testing for POTS syndrome Referring Physician: Demian Miller, Cardiovascular Disease, Encounter Date: 02/09/2018 Results Created Date Observation Date Name Description Value Unit Range Abnormal Flag Note LastModifiedBy Organization Detail LastModifiedTime 01/25/20 18 01/14/2018 elect karissa smith am No observ ation record ed. chay Not Available 2017 13:49:33 01/25/20 18 08/09/2017 XR, chest , 2 view No observ ation record ed. [email or web address] Not Available 2017 13:50:03 02/12/20 18 02/10/2018 elect karissa smith am No observ ation record ed. [email or web address] In-Office Order Internal Use Only DO Not Attach Compendium DO Not Attach Compendium, Do Not Delete/merge, [id number] 03/16/2018 13:22:15 02/26/20 18 02/25/2018 US, echoc ardio gram, trans thora cic, compl ete, w/ color flow No observ ation record ed. [facility] [address], [address], 03/16/2018 13:22:14 03/09/20 18 02/21/2018 tilt table study (PROC ) No observ ation record ed. ajohnghar Not Available 2017 13:22:14 Result Notes None recorded. Procedures Surgical History None recorded. Imaging Results Imaging Date Name Status LastModified by Organization Details LastModified Time 01/14/2018 electrocardiogram completed Informa tion not available 01/28/2018 13:49:33 08/09/2017 XR, chest, 2 view completed Informa tion not available 01/28/2018 13:50:03 02/10/2018 electrocardiogram [facility] In-Offi ce Order Internal Use Only DO Not Attach Compendium DO Not Attach Compendium, Do Not Delete/merge, [id number] 03/16/2018 13:22:15 02/25/2018 US, echocardiogram, transthoracic, complete, w/ color flow completed [facility] [address] [place], [address], 03/16/2018 13:22:14 02/21/2018 tilt table study (PROC) completed [facility] Information not available 03/16/2018 13:22:14 Procedure Notes None recorded. Medical Equipment None Reported. Allergies Allergen ID Allergen Name Allergen Category Reaction Reaction Severity Criticality Documentation Date Start Date Code Code System Note Provider Name and Address Organization Details Recorded Time 14964 banana extract food,medi cation Not available Not available Not available 02/09/2018 32802 9 RxNorm Suela Cepa null, [place] [facility] 8 14:09:12 78807 sumatript an medicatio n Not available Not available Not available 02/09/2018 33610 RxNorm Suela Cepa null, [place] [facility] 8 14:09:50 27198 sumatript an medicatio n Not available Not available Not available 02/09/2018 76824 RxNorm Suela Cepa null, [place] [facility] 8 14:10:01 Medications Name Sig Start Date Stop Date Status Note LastModified by Organization Details LastModified Time Zofran 4 mg tablet as needed active Not Available Not Available No t Available pantopraz ole 40 mg tablet,de layed release Take 2 tablets every day by oral route. active Not Available Not Available No t Available Paxil 10 mg tablet Take 1 tablet every day by oral route. 04/18 completed patient never took Not Available Not Available Not Available sertralin e 50 mg tablet see note pharmacy active Not Available Not Available No t Available Lo Loestrin Fe as directed active Not Available Not Available No t Available Vitals Date Recorded Body height Body mass index (BMI) Body weight Heart rate Systolic blood pressure Diastolic blood pressure Provider Name and Address Organization Details Last Updated DateTime 9 175.26 cm 30.6 kg/m2 05084.6 2 g 90 /min 124 mm[Hg] 76 mm[Hg] [place]ie [place] [facility] 9 09:07:18 Date Recorded Body weight Body mass index (BMI) Body height Heart rate Systolic blood pressure Diastolic blood pressure Systolic blood pressure Diastolic blood pressure Provider Name and Address Organization Details Last Updated DateTime 8 93952.3 6 g 31.7 kg/m2 175.26 cm 100 /min 119 mm[Hg] 76 mm[Hg] 119 mm[Hg] 83 mm[Hg] Suela Cepa [place] [facility] 8 14:13:53 Date Recorded Body height Body mass index (BMI) Body weight Heart rate Systolic blood pressure Diastolic blood pressure Provider Name and Address Organization Details Last Updated DateTime 8 175.26 cm 31.3 kg/m2 88854.5 8 g 100 /min 126 mm[Hg] 72 mm[Hg] Ellie Fitch [place] [facility] 8 11:20:31 Date Recorded Body height Body mass index (BMI) Body weight Heart rate Systolic blood pressure Diastolic blood pressure Provider Name and Address Organization Details Last Updated DateTime 8 175.26 cm 31.2 kg/m2 18295.9 9 g 88 /min 129 mm[Hg] 82 mm[Hg] Mary Tobias [place] [facility] 8 13:06:04 Date Recorded Body height Body mass index (BMI) Body weight Heart rate Systolic blood pressure Diastolic blood pressure Provider Name and Address Organization Details Last Updated DateTime 8 175.26 cm 30.9 kg/m2 72757.8 1 g 98 /min 110 mm[Hg] 80 mm[Hg] Meg Tony [place] [facility] 8 11:41:27 Social History Question Answer Notes LastModified by Organizat ion Details LastModified Time Tobacco Smoking Status Never Smoker [place]anna [place]rias, [place] [facility] 02/09/2018 14:09:03 What Was The Date Of Your Most Recent Tobacco Screening? 12/06/2018 Information n ot available 04/13/2019 Sex: Unknown Functional Status None recorded. Mental Status None recorded. Family History Nothing Reported. Medical History No medical history recorded. Gynecological HistoryNo gynecological history recorded. Obstetrics History GPAL:G 0 P 0 0 0 0 Immunizations Vaccine Type Date Status Note Provider Nam e and Address Organization Details Recorded Time influenza, unspecified formulation 06/20/2017 completed [place]anna arias, [place] [facility] 02/09/2018 14:08:55 influenza, unspecified formulation 06/20/2018 completed Ellie Fitch null, [place] [facility] 12/06/2018 09:05:47 Past Encounters Encounter ID Performer Location Encounter Start Date Encounter Closed Date Diagnosis/Indication Diagnosis SNOMED-CT Code Diagnosis ICD10 Code Diagnosis Note [id number] Demian Miller MD [facility] [id number] 02/09/2018 13:57:12 02/09/2018 15:11:52 Postural orthostatic tachycardia syndrome 074281440 I95.1 Palpitations 14967659 R0 0.2 [id number] Joshua John MD [facility] [place] [facility] [id number] 02/10/2018 11:00:40 02/10/2018 12:01:51 Postural orthostatic tachycardia syndrome 360505552 I95.1 Not well controlled . She is due to undergo an echo to ensure that she does not have any structural heart disease. I will schedule her for a tilt test. If necessary, I would likely favor medical therapy with paxil, especially in view of her underlying anxiety. We did discuss this briefly. Informed consent obtained Intermitte nt palpitations 089336057 R00.2 Not well controlled . Given the fact that they are shortlived , will monitor for now [id number] Demian Miller MD [facility] [place] [facility] [id number] 03/16/2018 12:50:16 03/16/2018 13:33:46 Postural orthostatic tachycardia syndrome 724103029 I95.1 Palpitations 86562108 R0 0.2 [id number] Demian Miller MD [facility] [place] [id number] 06/07/2018 11:30:27 06/07/2018 11:52:57 Postural orthostatic tachycardia syndrome 984362158 I95.1 Palpitations 51020558 R0 0.2 [id number] Demian Miller MD [facility] [place] [id number] 2 12/06/2018 08:57:47 12/06/2018 09:21:11 Postural orthostatic tachycardia syndrome 758781394 I95.1 Palpitations 71833984 R0 0.2 Gastroesop hageal reflux disease without esophagitis 313330866 K21.9 Health Concerns Section Related Observation LastModified by Organization Detai ls LastModified Time None Recorded Concern Status LastModified by Organization Details LastModified Time None Recorded Advance Directives Directive None Recorded Payers Encounter Date Sequence Insurance Name Policy Number Policy Forbes Covered Member ID Forbes Member ID Guarantor Name 02/09/2018 1 [place] [id number] Randal Josephpherd [id number] Mandi Velasquez 02/10/2018 1 [place] [id number] Randal Velasquez [id number] Mandi Velasquez 03/16/2018 1 [place] [id number] Randal Velasquez [id number] Mandi Velasquez 06/07/2018 1 [place] [id number] Randal Velasquez [id number] Mandi Velasquez 12/06/2018 1 [place] [id number] Randal Velasquez [id number] Mandi Velasquez Notes Date Note Type Note Provider Name and Address Organization Details Recorded Time 02/09/2018 text/html 22-year-old adalberto le here for evaluation of POTS. She states that at the age of 17 she was having symptoms of palpitations shortness of breath and lethargy and was seen by a physician then. He diagnosed her with pots syndrome but based on her symptoms. She did not receive any medical therapy at this time. She was just recommended to increase her salt and fluid intake. She notes that her symptoms are fairly well controlled. When she was in high school and college she was diagnosed with anxiety and panic disorder. She was started on Prozac and BuSpar for her anxiety. She states that she did fairly well and tolerated her symptoms which were minimal for a number of years. They only became bothersome with prolonged standing. However over the last 1-2 years she had been taken off the Prozac and the BuSpar as her social stressors have reduced. Her anxiety is better controlled, and she has no significant panic disorder. She notes that over the past year she has had significant symptoms. She notes that at rest while seated she feels okay. As soon as she stands up she feels her heart racing. She becomes lightheaded and dizzy. She is unable to engage in any strenuous physical exertion due to the symptoms. Sometimes she feels presyncopal, but denies any deyvi syncope. She has difficulty working due to her symptoms. She has gained weight due to sedentary lifestyle. She will take her heart rate at rest is generally in the 60s-70s, and with standing they can be up to 130 bpm. I reviewed her ECG tracing from 01/14/2018: Sinus, and early anterior R wave transition, otherwise normal I reviewed her PCP office records. Past medical history: 1. Anxiety Social history: never smoker No alcohol Family history: No family history of premature CAD or SCD Demian Miller MD [address] [place], [address], [place] [facility] 02/10/2018 09:30:04 02/10/2018 text/html I was asked by Qing Miller to evaluate and assist in the management of this 22-year-old woman with POTS. The patient was a good historian. She reports a lifelong history of positional dizziness. She has never lost consciousness but has come close on many occassions. She was diagnosed with POTS by a psychiatrist but did not undergo any formal evaluation. She was treateed with Prozac and Buspar for anxiety/depression and this greatly improved her symptoms. However, these medications were recently stopped and her symptoms have returned. She is becoming dizzy virtually every time she stands. This is followed by extreme fatigue. Her symptoms are improved when she rests. 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 She does have palpitations as well, but these episodes do not coincide with her dizziness. These episodes last for no more than a few seconds. There is no associated neck pounding. She does have a family history of WPW. She is active and has no exertional chest pain or pressure. She has no PND, leg swelling, orthopnea or MALAVE. There is no history of rheumatic fever. Joshua John MD [address] [place], [address], [place] [facility] 02/10/2018 12:22:50 03/16/2018 text/html 22-year-old fema le here for follow-up of possible POTS vs vasovagal, palpitations. she underwent a tilt table and saw Dr. Joshua John. The tilt table was normal. Dr. Marcos thought potentially she could have some vasovagal syndrome. He thought about starting Paxil. She had to cancel her appointment with him due to scheduling issues. She notes that she feels okay. She still continues to have palpitations and lightheadedness and dizziness. She also has extreme fatigue. She denies any syncope. I reviewed the echo from 02/2018: Normal biventricular size and function, no significant valve disease ECG tracing from 01/14/2018: Sinus, and early anterior R wave transition, otherwise normal Past medical history: 1. Anxiety 2. POTS versus vasovagal Social history: never smoker No alcohol Family history: No family history of premature CAD or SCD Demian Miller MD [address] [place] [address], [phone], [place] [facility] 03/16/2018 13:50:20 06/07/2018 text/html 23-year-old fema le here for follow-up of possible POTS vs vasovagal, palpitations. we started her on 25 mg of sertraline due to backorder Paxil. She is now participating in a recumbent exercise regimen that she found from [facility]. She's doing well. Her symptoms seem to be slightly better. She still continues to have palpitations, and dizziness. She has not had syncope. The other day she climbing up 6 flights of stairs and afterwards felt wiped out, with headache for the next 3 days. She continues with a high salt diet. she is now working for [employer]. The tilt table 02/2018 was normal. echo from 02/2018: Normal biventricular size and function, no significant valve disease ECG tracing from 01/14/2018: Sinus, and early anterior R wave transition, otherwise normal I reviewed and updated the pertinent past medical, social, family history Past medical history: 1. Anxiety 2. POTS versus vasovagal Social history: never smoker No alcohol Family history: No family history of premature CAD or SCD Demian Miller MD [address] [place], [address], [place] [facility] 06/07/2018 11:55:14 12/06/2018 text/html 23-year-old fema le here for follow-up of possible POTS vs vasovagal, palpitations. last month she had a severe episode of palpitations and dizziness. She had been struggling with GERD and reflux type symptoms. She had had poor by mouth intake. She was evaluated at the [facility] emergency room. She was given IV fluids with improvement in her symptoms. She was resumed on her current medications. She continues to have significant reflux. This impacts the amount of fluid she is able to take in. She denies any syncope. She does occasionally feel dizzy with palpitations, especially if she stands for a period of time. she is considering surgery for her GERD. She is now working for [facility]. The tilt table 02/2018 was normal. echo from 02/2018: Normal biventricular size and function, no significant valve disease ECG tracing from 01/14/2018: Sinus, and early anterior R wave transition, otherwise normal I reviewed and updated the pertinent past medical, social, family history Past medical history: 1. Anxiety 2. POTS versus vasovagal 3. GERD Social history: never smoker No alcohol Family history: No family history of premature CAD or SCD Demian Miller MD [address] [place] [address], [phone], [place] [facility] 12/06/2018 09:22:28 OBGyn Episode No OBEpisode recorded.
--- OUTSIDE RECORDS SUMMARY | 2024-11-02 13:54 | XMS_ITS | Encounter Summary ---
Author Organization [facility] Address [address] [place] [phone] Care Team Providers Care Zinc Miner Name Role Phone Angie Chapman MD Primary Care Provider + Encounter Details Date Type Department Care Team (Late st Contact Info) Description 06/01/2019 Scanned Document [facility] at [address] [address] Chava Ryan MD [address] [place] [phone] Social History Tobacco Use Types Packs/Day Years [...] on filedocumented in this encounter Care Teams Zinc Miner Relationship Specialty Start Date End Date Angie Chapman MD [address] [place] [phone] PCP - General Internal Medicine 02/18/18 documented as of this encounter
--- OUTSIDE RECORDS SUMMARY | 2024-11-02 13:54 | XMS_ITS | Encounter Summary ---
Author Organization [facility] Address [address] [place] [phone] Care Team Providers Care Tax Adjuster Name Role Phone Angie Chapman MD Primary Care Provider + Encounter Details Date Type Department Care Team (Late st Contact Info) Description 07/26/2019 Scanned Document [facility] [address] [facility] [place] [facility] [address] [facility] [place] [address] Chava Ryan MD [address] [facility] [place] [phone] Social History Tobacco Use Types Packs/Day Years [...] on filedocumented in this encounter Care Teams Tax Adjuster Relationship Specialty Start Date End Date Angie Chapman MD [address] [place] [phone] PCP - General Internal Medicine 02/18/18 documented as of this encounter
--- OUTSIDE RECORDS SUMMARY | 2024-11-02 13:54 | XMS_ITS | Encounter Summary ---
Author Organization [facility] and [facility] Address [address] [place] [phone] Care Team Providers Care Reel Stripper Name Role Phone Angie Chapman MD Primary Care Provider + Encounter Details Date Type Department Care Team (Late st Contact Info) Description 10/31/2019 Scanned Document [facility] [address] [facility] [address] [facility] [place], [place] [phone] Chava Ryan MD [address] [facility] [address] Social History Tobacco Use Types [...] on filedocumented in this encounter Care Teams Reel Stripper Relationship Specialty Start Date End Date Angie Chapman MD [address] [place] [phone] PCP - General Internal Medicine 02/18/18 documented as of this encounter
--- OUTSIDE RECORDS SUMMARY | 2024-11-02 13:54 | XMS_ITS | Encounter Summary ---
Author Organization [facility] Address [address] [place] [address] Care Team Providers Care Online Journalist Name Role Phone Angie Chapman MD Primary Care Provider [phone] Reason for Visit * Reason Comments Medication Refill Propranolol Encounter Details Date Type Department Care Team (Late st Contact Info) Description 03/04/[address] [facility] [place] - [address] [phone] Maxwell Cruz MD [address] [place] [phone] Medication Refill (Propranolol) Social History Tobacco Use Types Packs/Day Years [...] tachycardia documented in this encounter Care Teams Online Journalist Relationship Specialty Start Date End Date Angie Chapman MD PCP - General Internal Medicine 11/21/18 documented as of this encounter
== END 2024-11-02 14:50 | disposition home or self-care (01) ==
PROVIDERS: PCP Internal Medicine; Visit Provider Anesthesiology
DX: M50.30 Other cervical disc degeneration, unspecified cervical region (principal); G89.4 Chronic pain syndrome; M54.81 Occipital neuralgia; M47.812 Spondylosis without myelopathy or radiculopathy, cervical region
CPT/HCPCS: 99213

== ENCOUNTER → 2024-11-02 13:50 | Outpatient (BNVA) | payer OTHER, SELFPAY | PROVIDERS: PCP Internal Medicine; Visit Provider Anesthesiology ==

== ENCOUNTER 2024-12-07 11:33 | Outpatient (AMB) | payer OTHER, SELFPAY ==
--- NOTE | 2024-12-07 11:40 | MHC.OFFVIS ---
Vital Signs 12/07/24 11:44 Height 5 ft 9 in Weight 230 lb BMI 34.0 BP 118/83 Blood Pressure Location Lt brachial Position Sitting Pulse 88 Pulse Source Pulse Oximeter Pulse Oximetry (%) 98 Oxygen Delivery Method Room Air Intake Visit Reasons: FU/needs clearance to be back to work Intake Note: Pain today 2/10 Home Health Physical Therapist Required: No Accompanied by: Mother Allergies No Known Allergies Allergy (Verified 12/07/24 11:45) HPI Comments Details: Mandi is back in my office after implantation of PNS curonix in bilateral C3 cervical positioned. She reports very good stimulation she reports very low level of pain today. She requested me to sign permission to return to work for her today. 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 Therefore I believe her job activities will not interfere with position of the stimulator leads. She was scheduled for EGD at [facility] however I recommended her to postpone EGD because at this time extreme flexion and extension of the head is not recommended for the patient. She can not do it in the beginning of January. 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 She is also suffering from chronic pain syndrome. She had very good results of the sprint PNS, she felt 90% pain improvement while on stimulation. However when she terminated the stimulation the pain relief lasted only for 6-7 weeks. She reports today that her pain average 6/10 with exacerbations to 8/10 at the current moment while resting in the waiting room her pain was 4/10. She came here in the office to discuss treatment of the curonix PNS at the C4 positioned bilateral. She went through psychological evaluation and she was approved for the procedure from psychological standpoint. Risks and benefits of the procedure were explained to the patient. The trial as well as implantation were carefully explained to the patient. Risks were mentioned as the bleeding, infection, peripheral nerve damage, spinal cord damage and headache. Into the patient and all the risks are very minimal but they can not be 100% excluded. Benefits will be the pain relief. The education continued today to explain the patient mobility limitations and activities of daily living limitations postoperatively including no neck flexing bending sharp turning sideways no heavy lifting more than 5 lb by both hands. The education also involved discussion about her job and her ability to reach the job side. We agreed that I will give her for the trial. Couple of days off of work excuse note. The patient expressed understanding. The patient asked multiple appropriate questions. All the questions were answered to her satisfaction. Postoperative pain control after the implantation of the permanent device provided the trial will go well was also explained to the patient. Prior: chronic widespread neck pain as well as pain in the back of the head as well as pain in bilateral shoulders pain in bilateral side chest and pain in bilateral upper arms. History of Meenakshi-Danlos syndrome. MRI as below demonstrates severe spondylosis, some disc herniation but without central canal compression or spinal nerve root compressions. Patient denies radiculopathic pain. The patient pain is mostly axial and mostly secondary to hyper mobile joints of the cervical spine. She reports intractable cervicalgia pain 8/10, pain is being aggravated by working, prolonged sitting of the computer, her pain is mostly radiating to the occipital area and prevents her from performing activities of daily living, engaging in social interactions. Her past medical history significant for headaches dizziness and fainting fatigues anxiety disorder heart palpitations and digestive problems. Her past surgical history significant for tonsillectomy and bilateral jaw arthroscopy. She denies smoking cigarettes, drinking alcohol also denied she drinks 1-2 caffeinated beverages a week she denies recreational drugs [facility] Medical History POTS (postural orthostatic tachycardia syndrome) Meenakshi-Danlos syndrome Occipital neuralgia Intractable back pain GERD (gastroesophageal reflux disease) Cervical disc disease Surgical History History of mandibular surgery Hx of tonsillectomy Social History Patient Tobacco Use Status: Never used Tobacco Review of Systems Const All systems reviewed & are unremarkable except as noted in HPI and below Physical Exam Vital Signs: Last Vital Signs Pulse 88 12/07/24 11:44 BP 118/83 12/07/24 11:44 Pulse Ox 98 12/07/24 11:44 Oxygen Delivery Method Room Air 12/07/24 11:44 BMI result Body Mass Index 34.0 Neck Other: Wounds on posterior neck inspected, they healed well, no pathological discharge, minimal redness of the scars, no swelling. Assessment & Plan Assessment & Plan (1) Degeneration, intervertebral disc, cervical: Code(s): M50.30 - Other cervical disc degeneration, unspecified cervical region Category: Medical (2) Chronic pain syndrome: Code(s): G89.4 - Chronic pain syndrome Category: Medical (3) Occipital neuralgia: Code(s): M54.81 - Occipital neuralgia Category: Medical (4) Spondylosis of cervical spine at multiple levels without myelopathy: Code(s): M47.812 - Spondylosis without myelopathy or radiculopathy, cervical region Category: Medical Plan Initial good results of sprint PNS however the pain relief lasted only few weeks after the removal of the wires. Curonix PNS was was performed C3 bilateral. Patient is doing very well. She reports minimal pain she reports stimulation in the projection of bilateral occipital pain. The wounds completely healed there is no signs of inflammation or infection. Next appointment is as needed. Return to work note was issued to the patient. EGD recommended to postpone until beginning of January. 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
[2024-12-07 11:44] VITALS: BP 118/83; PULSE 88; O2SAT 98; BMI 34.0
== END 2024-12-07 11:51 | disposition home or self-care (01) ==
LOC: HO.PMC 11:33
PROVIDERS: PCP Internal Medicine; Visit Provider Anesthesiology
DX: M50.30 Other cervical disc degeneration, unspecified cervical region (principal); G89.4 Chronic pain syndrome; M54.81 Occipital neuralgia; M47.812 Spondylosis without myelopathy or radiculopathy, cervical region
CPT/HCPCS: 99213

== ENCOUNTER → 2024-12-07 11:33 | Outpatient (BNVA) | payer OTHER, SELFPAY | PROVIDERS: PCP Internal Medicine; Visit Provider Anesthesiology ==